=== PATIENT | female | born 1945 | race Caucasian/White ===

== ENCOUNTER 2022-08-22 10:20 | Outpatient (REF) | payer MEDICARE, SELFPAY ==
[2022-08-22 11:23] LABS: MANUAL DIFF FLAG NO
[2022-08-22 11:36] LABS: Basophils Absolute Auto 0.1 X10*3/uL (0.0-0.2); Basophils Percent Auto 1.1 % (0-2); Eosinophils Absolute Auto 0.1 X10*3/uL (0.0-0.4); Eosinophils Percent Auto 1.5 % (0-4); Hematocrit 34.7 % (37.0-47.0); Hemoglobin 10.6 g/dl (12.0-16.0); Imm Gran Abs Auto 0.02 X10*3/uL (0.00-0.03); Imm Gran Pct Auto 0.3 % (0.0-0.4); Lymphocytes Percent Auto 14.9 % (20-40); Mean Corpuscular HGB Conc 30.5 g/dl (31.0-35.0); Mean Corpuscular Hemoglobin 24.9 pg (27.0-33.0); Mean Corpuscular Volume 81.5 fL (80.0-98.0); Mean Platelet Volume 11.7 fL (9.4-12.3); Monocytes Absolute Auto 0.5 X10*3/uL (0.1-1.2); Neutrophils Absolute Auto 4.8 x10*3/uL (2.0-8.3); Neutrophils Percent Auto 74.2 % (45-73); Platelet Count 230 X10*3/uL (160-400); Red Blood Count 4.26 X10*6/uL (4.20-5.50); Red Cell Distribution Width 16.7 % (11.0-16.0); White Blood Count 6.5 X10*3/uL (4.8-10.8)
[2022-08-22 12:25] LABS: Alanine Aminotransferase 16 U/L (0-31); Albumin Level 3.8 g/dL (3.5-5.0); Alkaline Phosphatase 90 U/L (39-117); Anion Gap 12 (12-20); Aspartate Amino Transferase 18 U/L (5-31); Bilirubin Total 0.9 mg/dL (0.0-1.0); Blood Urea Nitrogen 24 mg/dL (9-16); Calcium 9.5 mg/dL (8.4-10.2); Carbon Dioxide 27 mmol/L (22-29); Chloride 107 mmol/L (96-108); Cholesterol 188 mg/dL; Estimated Glomerular Filt Rate 50; Glucose Fasting 110 mg/dL (60-99); HDL Cholesterol 58 mg/dL; LDL Cholesterol Calculated 116 mg/dl; Potassium 4.1 mmol/L (3.3-5.1); Sodium 142 mmol/L (135-145); Total Protein 6.4 g/dL (6.5-8.0); Triglycerides 71 mg/dL
[2022-08-22 12:42] LABS: TSH reflex Free T4 1.82 uIU/mL (0.32-4.0)
[2022-08-22 13:56] LABS: Appearance Urine Cloudy; Color Urine Yellow; Glucose Urine UA Negative (Negative); Leukocyte Esterase Urine Negative (Negative); Nitrite Urine Negative (Negative); PH 5.5 (5.0-9.0); Urine Blood Negative (Negative); Urine Ketones Negative (Negative); Urine Protein Negative (Neg-Trace)
== END 2022-08-22 10:21 | disposition home or self-care (01) ==
LOC: HO.HMGCLDS 10:20
PROVIDERS: PCP Nurse Practitioner Family; Visit Provider Nurse Practitioner Family
DX: I10 Essential (primary) hypertension (principal); M85.80 Other specified disorders of bone density and structure, unspecified site
CPT/HCPCS: 36415; 80053; 80061; 81003; 82306; 84443; 85025

== ENCOUNTER 2022-09-22 12:25 | Emergency (ER) | payer MEDICARE, SELFPAY ==
--- NOTE | ~2022-09-22 | XR_ITS ---
EXAMINATION: XR KNEE, LEFT CLINICAL INFORMATION: Injury, pain. COMPARISON: None available. TECHNIQUE: Two views of the left knee. FINDINGS: Status post total knee arthroplasty. Usual position and alignment of the arthroplasty components. No acute fracture is identified. No dislocation. Small chronic appearing calcification superior to the patella bilaterally. There is anterior soft tissue swelling overlying the patellar tendon. There is anterior soft tissue swelling otherwise more proximally as well. Small joint fluid. XR/XR knee LT 2V IMPRESSION: No radiographic evidence of acute fracture or dislocation. Anterior soft tissue swelling overlying the patellar tendon. This of uncertain etiology. Underlying tendon tear cannot be excluded by x-ray. Clinically correlate.
--- NOTE | ~2022-09-22 | CT_ITS ---
EXAMINATION: CT HEAD WITHOUT CONTRAST CLINICAL INFORMATION: Head injury COMPARISON: None available. TECHNIQUE: Contiguous axial imaging was performed from the skull base to vertex without intravenous administration of contrast. This CT examination was performed using dose optimization techniques as appropriate, variously including the following: *Automated exposure control *Adjustment of mA and/or kV according to patient size (this includes techniques or standardized protocols for targeted exams where dose is matched to indication/reason for exam; i.e. extremities or head) *Use of iterative reconstruction technique DLP: 669.3 mGy-cm FINDINGS: There is soft tissue scalp swelling in the right paramedial frontal and just above the orbits. No evidence for acute hemorrhage. The cisterns are unremarkable. Atrophy is noted. 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 There are hypodense changes of periventricular white matter likely related to chronic small vessel ischemic disease. A left frontal paramedian extra-axial mass is observed, partially calcific at 1.8 cm. This is suggestive of a meningioma and MRI would be recommended. The mastoids are well aerated. Skull base unremarkable. No calvarial disruption. CT/CT head/brain wo IV con IMPRESSION: No evidence for acute hemorrhage. Scalp swelling just above the right orbit. Atrophy with change of chronic small vessel ischemic disease. 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 Findings suggestive of a 1.8 cm meningioma in left frontal paramedian location. MRI recommended.
--- NOTE | ~2022-09-22 | CT_ITS ---
EXAMINATION: CT CERVICAL SPINE WITHOUT CONTRAST CLINICAL INFORMATION: Pain, injury after falling COMPARISON: None available. TECHNIQUE: Axial sections performed and bone and soft tissue windows without IV contrast enhancement. Sagittal and coronal reconstructions performed. This CT examination was performed using dose optimization techniques as appropriate, variously including the following: *Automated exposure control *Adjustment of mA and/or kV according to patient size (this includes techniques or standardized protocols for targeted exams where dose is matched to indication/reason for exam; i.e. extremities or head) *Use of iterative reconstruction technique DLP: 619.7 mGy-cm FINDINGS: The odontoid and the condyles are unremarkable. C1 and C2 arches are intact. The pedicles and laminar structures appear to be intact. No spinous process disruption. There is multilevel facet arthrosis. Spondylosis and degenerative disc space narrowing observed, most pronounced C5-C7 and also at the upper thoracic level. Facet and uncinate hypertrophy are seen at multiple levels with variable foraminal encroachments. Slight anterolisthesis noted C4-C5. Epiglottis and vocal cords are unremarkable. CT/CT cervical spine wo IV con IMPRESSION: 1. No evidence for bony fracture. 2. Multilevel degenerative changes.
--- NOTE | 2022-09-22 12:26 | ED.GENADULT ---
HPI - General Adult General Chief complaint: Fall Stated complaint: FALL W/L KNEE LAC PER EMS Time Seen by Provider: 09/22/22 12:25 Source: patient, family (patient's and daughter) and EMS Mode of arrival: EMS Limitations: no limitations History of Present Illness HPI narrative: Patient is a 77 year old assigned female at with a history of asthma, HTN, and bilateral knee replacements presenting to the emergency department today with left knee pain and forehead pain after a fall. Patient states that she was walking in a restaurant when she caught a table and fell, hitting her forehead and her left knee. Patient denies any loss of consciousness from the incident. Patient denies any anti-coagulation use. Patient denies any dizziness, lightheadedness, abdominal pain, nausea, vomiting, fever, chills, blurry vision, double vision, loss of vision, chest pain, difficulty breathing, shortness of breath, back pain, night sweats, pain with urination, increased urinary frequency, increased urinary urgency, blood in her urine or stool, syncope or a near syncopal episode, bowel incontinence, bladder incontinence, bowel retention, bladder retention, or any other complaints at this time. Onset (ago): minute(s) Location: face, left and lower extremity Radiation: non-radiation Pain Consistency: constant Relieving factors: none Exacerbating factors: none Associated symptoms: denies other symptoms Treatments prior to arrival: none Related Data Home Medications Medication Instructions Recorded Confirmed clotrimazole-betamethasone 1 1 appl topical BID 08/20/22 09/17/22 %-0.05 % lotion fexofenadine 180 mg tablet 180 mg PO DAILY 08/20/22 09/17/22 (Lea Allergy) Previous Rx's Medication Instructions Recorded albuterol sulfate 90 mcg/actuation 2 puff inhalation Q6H PRN 08/20/22 aerosol inhaler bronchospasm #8.5 grams fluticasone 250 mcg-salmeterol 50 1 ea inhalation BID #60 ea 08/20/22 mcg/dose blistr powdr for inhalation (Wixela Inhub) lisinopril 2.5 mg tablet 2.5 mg PO DAILY 30 days #30 tabs 08/20/22 albuterol sulfate 2.5 mg/3 mL 2.5 mg (3 mL) inhalation Q6H #75 mL 09/17/22 (0.083 %) solution for nebulization hydrocortisone 2.5 % topical 1 appl topical BID #20 grams 09/17/22 ointment prednisone 20 mg tablet 60 mg PO DAILY 3 days #9 tabs 09/19/22 amoxicillin 875 mg-potassium 1 tab PO BID 14 days #28 tabs 09/22/22 clavulanate 125 mg tablet Allergies Allergy/AdvReac Type Severity Reaction Status Date / Time No Known Allergies Allergy Verified 09/17/22 15:12 Review of Systems Constitutional: Constitutional: Reports no additional constitutional complaints, Denies chills, Denies fever(s) and Denies night sweats Eyes: Eyes: Reports no additional eye complaints, Denies blurry vision, Denies change in vision, Denies diplopia, Denies eye discharge, Denies loss of vision and Denies eye pain ENT: Denies dizziness Comments: forehead laceration Cardiovascular: Cardiovascular: Reports no additional cardiovascular complaints, Denies chest pain, Denies lightheadedness, Denies Loss of Consciousness and Denies dyspnea Respiratory: Respiratory: Reports no additional respiratory complaints and Denies dyspnea Gastrointestinal: Gastrointestinal: Reports no additional gastrointestinal complaints, Denies abdominal pain, Denies melena, Denies hematochezia, Denies change in bowel habits and Denies change in stool character Genitourinary: Genitourinary: Denies hematuria, Denies urinary frequency, Denies dysuria, Denies urinary incontinence, Denies urinary hesitancy and Denies urinary urgency Musculoskeletal: Musculoskeletal: Reports no additional musculoskeletal complaints, Denies numbness and Denies tingling Comments: left knee laceration / pain Neurologic: Denies dizziness, Denies loss of vision, Denies numbness and Denies tingling Psychiatric: Psychiatric: Reports no additional psychiatric complaints Endocrine: Endocrine: Reports no additional endocrine complaints Hematologic/Lymphatic: Hematologic/Lymphatic: Reports no additional hematologic/lymphatic complaints Allergic/Immunologic: Allergic/Immunologic: Reports no additional allergic/immunologic complaints PMFSH Past Medical History Attestation statement: The following information was validated with the patient. Source: old records reviewed and nursing notes reviewed Medical History Anemia Anxiety Asthma Basal cell carcinoma DVT (deep venous thrombosis) HTN (hypertension) Idiopathic peripheral neuropathy Osteoarthritis Osteopenia Osteoporosis Surgical History Knee joint replacement status Social History Social History Housing: Apartment Patient Tobacco Use Status: Never used Tobacco e-Cigarette/Vaping Use: Never Used Second Hand Smoke Exposure: No Current occupational status: retired Cognitive needs: No Hearing needs: No Vision needs: No Physical Exam ED Vital Signs: Vital Signs - 24 hr 09/22/22 12:57 Temperature 98.7 F Pulse Rate 78 Respiratory Rate 20 Blood Pressure 154/72 H Pulse Oximetry 97 Oxygen Delivery Method Room Air BMI result Body Mass Index 41.2 Const General: cooperative, no acute distress, alert and awake Nutritional Appearance: well nourished Orientation/consciousness: patient oriented x3 Limitations: no limitations [facility] Head images: 1. 3cm laceration to the forehead, no active bleeding Ears: hearing grossly normal bilaterally and external ears normal General nose exam: Normal external nose present, no nasal discharge noted and no epistaxis Face and sinus: Yes normal facial exam, No abrasion and No laceration Mouth: Normal oral and palatal mucosa present, no drooling and no muffled voice Eyes General: appearance normal, both eyes and all related structures Periorbital: periorbital findings normal Eyelids: Yes eyelids normal Conjunctivae: conjunctivae normal Pupils: Equal, round and reactive pupils present EOM: EOMs intact bilaterally Neck Neck: Yes normal visual inspection, Yes full ROM and Yes no lymphadenopathy Chest Chest palpation & inspection: normal inspection of the chest Resp Effort & Inspection: normal respiratory effort and able to speak in complete sentences GI Inspection: Yes normal to inspection Neuro General: patient oriented x3 and moves all extremities Cranial nerves: Yes Equal, round and reactive pupils present Cognition (Neuro): normal cognition Motor exam (neuro): 5/5 motor strength present throughout Sensory Exam: Normal double simultaneous stimulation for sensation Coordination: [id number] test normal Extrem Other: General: Yes full ROM, Yes capillary refill normal and Yes normal gait Psych Appearance: grossly normal Mental Status: mental status grossly normal Affect: normal affect Attitude: cooperative Thought process: Normal thought process present Thought content: Normal thought content present Insight: Good insight present (Psych) Medications Administered Discontinued Medications Generic Name Dose Route Start Last Admin Trade Name Freq PRN Reason Stop Dose Admin Diphtheria/Tetanus/Acell Pertussis 0.5 ml 09/22/22 12:56 09/22/22 14:32 Diphth,Pertus(Acell),Tet Adult 0.5 Ml Syringe IM 09/22/22 12:57 0.5 ml .ONCE ONE Administration Piperacillin Sod/Tazobactam 50 mls @ 100 mls/hr 09/22/22 13:39 09/22/22 14:08 Sod 3.375 gm/ Sodium Chloride IV 09/22/22 14:08 Infused ONCE ONE Infusion Lidocaine HCl 20 ml 09/22/22 13:21 09/22/22 14:32 Lidocaine Hcl 1 % Mpf 5 Ml Vial SUBCUT 09/22/22 13:22 20 ml ONCE ONE Administration Procedures Procedure Narrative Procedure Narrative: Laceration Laceration 1: Side (If applicable): left Size (cm): 13 Description: linear Local Anesthetic: lidocaine 1% Amount of anesthesia used (mL): 20 Pre-repair: wound explored, irrigated extensively, deep structures intact and extensive debridement Skin layer closed with: nylon Size (cm): 4-0 Number of sutures: 19 Technique: simple, interrupted Laceration 2: Site: face Size (cm): 5 Description: linear Depth: simple, single layer Local Anesthetic: lidocaine 1% Amount of anesthesia used (mL): 10 Pre-repair: wound explored, irrigated extensively and deep structures intact Skin layer closed with: other (prolene) Size (cm): 6-0 Number of sutures: 9 Technique: simple, interrupted Medical Decision Making Medical Decision Making MDM Narrative: Patient is a 77 year old assigned female at with a history of asthma, HTN, and bilateral knee pain presenting to the emergency department today with a forhead and left knee laceration after a fall. Patient's physical exam was as noted in the physical exam portion of this chart. Patient's blood work was unremarkable. Patient's left knee x-ray showed no acute process. Patient's c-spine CT showed no acute process. Patient's head CT showed an incidental meningioma but was otherwise unremarkable. I consulted with the orthopedic team who came and examined the left knee injury. They recommended the hematoma be expressed from the wound, excessively washed out, and brought back together with sutures, given PO antibiotics, and f/u in their office outpatient. I repaired the patient's forehead and left knee laceration, without incident, per procedure notes. Please see procedure narrative for results of the left knee repair. Patient's left knee wound was wrapped with non-adherent dressings and an magda wrap with mild compression to keep from a hematoma reforming. Patient was given a dose of IV zosyn while in the department. I explained my physical exam findings as well as all test results to the patient, the patient's , and the patient's daughter. I answered all questions asked by the patient, the patient's , and the patient's daughter. Patient was able to ambulate while in the department without incident. I stressed the importance of the patient taking her medication as prescribed. I stressed the importance of the patient following up with her primary care provider and an orthopedic provider. I stressed the importance of the patient returning to the emergency department immediately if her symptoms were to worsen or if she were to develop any dizziness, shortness of breath, difficulty breathing, chest pain, blurry vision, loss of vision, nausea, vomiting, abdominal pain, fever, chills, back pain, or any other complaints. Patient, the patient's daughter, and the patient's verbalized agreement and understanding with this treatment plan and discharge. Differential Diagnosis Differential Diagnoses: The differential diagnosis associated with the presentation includes Knee injury Knee laceration Head injury Face laceration Fall Meningioma Admission/Observation Consideration of admission/observation: Escalation of care including admission/observation considered Patient would have been admitted to the hospital had her work up had any findings where hospital admission was appropriate and her clinical presentation warranted hospital admission. Consult Healthcare Provider Management of the patient was discussed with: Fleet Service Clerk (spoke with orthopedics as noted in the MDM portion of this chart.) Lab Data [facility] Lab Attestation statement: I reviewed the patient's lab results. My interpretation of these studies and their corresponding values is that they are grossly normal including the patient's hemoglobin of 9.2 as the patient is chronically anemic. 09/22/22 12:54 09/22/22 12:54 Labs: Lab Results 09/22/22 09/22/22 09/22/22 Range/Units 12:54 12:54 12:54 WBC 4.4 L (4.8-10.8) X10*3/uL RBC 3.65 L (4.20-5.50) X10*6/uL Hgb 9.2 L (12.0-16.0) g/dl Hct 29.5 L (37.0-47.0) % MCV 80.8 (80.0-98.0) fL MCH 25.2 L (27.0-33.0) pg MCHC 31.2 (31.0-35.0) g/dl RDW 16.9 H (11.0-16.0) % Plt Count 217 (160-400) X10*3/uL MPV 10.8 (9.4-12.3) fL Immature Gran % (Auto) 0.2 (0.0-0.4) % Neut % (Auto) 86.9 H (45-73) % Lymph % (Auto) 10.6 L (20-40) % [place] % (Auto) 1.8 L (2-11) % Eos % (Auto) 0.0 (0-4) % Baso % (Auto) 0.5 (0-2) % Lymph # (Auto) 0.5 L (1.2-4.9) X10*3/uL [place] # (Auto) 0.1 (0.1-1.2) X10*3/uL Eos # (Auto) 0.0 (0.0-0.4) X10*3/uL Baso # (Auto) 0.0 (0.0-0.2) X10*3/uL Abs Immat Gran (auto) 0.01 (0.00-0.03) X10*3/uL Absolute Neuts (auto) 3.8 (2.0-8.3) x10*3/uL Absolute Nucleated RBC 0.000 (0.0-0.012) X10*3/uL Nucleated RBC % (auto) 0.0 (0.0-0.2) /100WBC PT 10.9 (10.0-13.1) SEC INR 1.0 (0.9-1.1) APTT 20.4 L (26.0-36.4) SEC Sodium 140 (135-145) mmol/L Potassium 4.4 (3.3-5.1) mmol/L Chloride 111 H (96-108) mmol/L Carbon Dioxide 23 (22-29) mmol/L Anion Gap 10 L (12-20) BUN 31 H (9-16) mg/dL Creatinine 1.07 (0.5-1.4) mg/dL Estim Creat Clear Calc TNP Estimated GFR 50 Random Glucose 179 H (60-115) mg/dL Calcium 9.3 (8.4-10.2) mg/dL Total Bilirubin 0.6 (0.0-1.0) mg/dL AST 17 (5-31) U/L ALT 16 (0-31) U/L Alkaline Phosphatase 62 (39-117) U/L Total Protein 5.5 L (6.5-8.0) g/dL Albumin 3.3 L (3.5-5.0) g/dL Blood Type Antibody Screen 09/22/22 Range/Units 12:54 WBC (4.8-10.8) X10*3/uL RBC (4.20-5.50) X10*6/uL Hgb (12.0-16.0) g/dl Hct (37.0-47.0) % MCV (80.0-98.0) fL MCH (27.0-33.0) pg MCHC (31.0-35.0) g/dl RDW (11.0-16.0) % Plt Count (160-400) X10*3/uL MPV (9.4-12.3) fL Immature Gran % (Auto) (0.0-0.4) % Neut % (Auto) (45-73) % Lymph % (Auto) (20-40) % [place] % (Auto) (2-11) % Eos % (Auto) (0-4) % Baso % (Auto) (0-2) % Lymph # (Auto) (1.2-4.9) X10*3/uL [place] # (Auto) (0.1-1.2) X10*3/uL Eos # (Auto) (0.0-0.4) X10*3/uL Baso # (Auto) (0.0-0.2) X10*3/uL Abs Immat Gran (auto) (0.00-0.03) X10*3/uL Absolute Neuts (auto) (2.0-8.3) x10*3/uL Absolute Nucleated RBC (0.0-0.012) X10*3/uL Nucleated RBC % (auto) (0.0-0.2) /100WBC PT (10.0-13.1) SEC INR (0.9-1.1) APTT (26.0-36.4) SEC Sodium (135-145) mmol/L Potassium (3.3-5.1) mmol/L Chloride (96-108) mmol/L Carbon Dioxide (22-29) mmol/L Anion Gap (12-20) BUN (9-16) mg/dL Creatinine (0.5-1.4) mg/dL Estim Creat Clear Calc Estimated GFR Random Glucose (60-115) mg/dL Calcium (8.4-10.2) mg/dL Total Bilirubin (0.0-1.0) mg/dL AST (5-31) U/L ALT (0-31) U/L Alkaline Phosphatase (39-117) U/L Total Protein (6.5-8.0) g/dL Albumin (3.5-5.0) g/dL Blood Type A Positive Antibody Screen NEGATIVE Independent Interpretation I performed an independent interpretation of an: Plain X-Ray and CT Scan Interpretation: My interpretation is in agreement with the radiologist's impression of these imaging studies. EXAMINATION: CT HEAD WITHOUT CONTRAST CLINICAL INFORMATION: Head injury? COMPARISON: None available. TECHNIQUE: Contiguous axial imaging was performed from the skull base to vertex without intravenous administration of contrast. This CT examination was performed using dose optimization techniques as appropriate, variously including the following: *Automated exposure control *Adjustment of mA and/or kV according to patient size (this includes techniques or standardized protocols for targeted exams where dose is matched to indication/reason for exam; i.e. extremities or head) *Use of iterative reconstruction technique DLP: 669.3 mGy-cm FINDINGS: There is soft tissue scalp swelling in the right paramedial frontal and just above the orbits. No evidence for acute hemorrhage. The cisterns are unremarkable. Atrophy is noted. 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 There are hypodense changes of periventricular white matter likely related to chronic small vessel ischemic disease. A left frontal paramedian extra-axial mass is observed, partially calcific at 1.8 cm. This is suggestive of a meningioma and MRI would be recommended. The mastoids are well aerated. Skull base unremarkable. No calvarial disruption. ? CT/CT head/brain wo IV con IMPRESSION: No evidence for acute hemorrhage. Scalp swelling just above the right orbit. ? Atrophy with change of chronic small vessel ischemic disease. ? 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 ? Findings suggestive of a 1.8 cm meningioma in left frontal paramedian location. MRI recommended. Dictated By: Laurent Taylor Signed By: Electronically signed by Laurent Taylor 09/22/22 1456 EXAMINATION: CT CERVICAL SPINE WITHOUT CONTRAST CLINICAL INFORMATION: Pain, injury after falling? COMPARISON: None available. TECHNIQUE: Axial sections performed and bone and soft tissue windows without IV contrast enhancement. Sagittal and coronal reconstructions performed.? This CT examination was performed using dose optimization techniques as appropriate, variously including the following: *Automated exposure control *Adjustment of mA and/or kV according to patient size (this includes techniques or standardized protocols for targeted exams where dose is matched to indication/reason for exam; i.e. extremities or head) *Use of iterative reconstruction technique DLP: 619.7 mGy-cm FINDINGS: The odontoid and the condyles are unremarkable. C1 and C2 arches are intact. The pedicles and laminar structures appear to be intact. No spinous process disruption. There is multilevel facet arthrosis. Spondylosis and degenerative disc space narrowing observed, most pronounced C5-C7 and also at the upper thoracic level. Facet and uncinate hypertrophy are seen at multiple levels with variable foraminal encroachments. Slight anterolisthesis noted C4-C5. Epiglottis and vocal cords are unremarkable. CT/CT cervical spine wo IV con IMPRESSION: 1.? No evidence for bony fracture. 2.? Multilevel degenerative changes. Dictated By: Laurent Taylor Signed By: Electronically signed by Laurent?Brandon 09/22/22 1503 EXAMINATION: XR KNEE, LEFT CLINICAL INFORMATION: Injury, pain. COMPARISON: None available.? TECHNIQUE: Two views of the left knee. FINDINGS: Status post total knee arthroplasty. Usual position and alignment of the arthroplasty components. No acute fracture is identified. No dislocation. Small chronic appearing calcification superior to the patella bilaterally. There is anterior soft tissue swelling overlying the patellar tendon. There is anterior soft tissue swelling otherwise more proximally as well. Small joint fluid. XR/XR knee LT 2V IMPRESSION: No radiographic evidence of acute fracture or dislocation. Anterior soft tissue swelling overlying the patellar tendon. This of uncertain etiology. Underlying tendon tear cannot be excluded by x-ray. Clinically correlate. Dictated By: Steven Richardson MD Signed By: Electronically signed by Steven Richardson MD 09/22/22 6486 Radiology Impression Discussion of test interpretation with radiology: I have reviewed the radiologist's reading. Independent Historian Clinical information obtained from an independent historian. History obtained from or confirmed by: Spouse (patient's provided additional history and confirmed the history provided by the patient.), EMS (EMS provided additional history and confirmed the history provided by the patient.) and Other (patient's daughter provided additional history and confirmed the history provided by the patient.) Chronic Conditions Patient?s care impacted by: Hypertension and Other (asthma, anemia) Critical Care Time Critical Care Time Critical Care Time: Yes Total Critical Care Time: 90 Attestation: I spent 90 minutes of Critical Care Time with this patient. This does not include time spent on separately reported billable procedures. Discharge Plan Discharge Clinical Impression: Fall, Knee laceration, Laceration of forehead, Meningioma Patient Disposition: Home, Self-Care Instructions: Care For Your Stitches (DC), Laceration (DC), Fall Prevention for Older Adults (ED), Meningioma (ED) Additional Instructions: Follow up with your primary care provider, an orthopedic provider, and have your primary care provider refer you to a neurosurgeon to discuss the incidental finding of a meningioma. Perform daily wound checks and dressing changes. Do NOT soak the affected area. Discuss with the orthopedic provider about removing the sutures of the knee. Have your forehead sutures removed in 7-10 days. Take your antibiotics as prescribed. Return to the emergency department immediately if your symptoms worsen or if you develop any dizziness, shortness of breath, difficulty breathing, chest pain, blurry vision, loss of vision, nausea, vomiting, abdominal pain, fever, chills, back pain, or any other complaints. Prescriptions: New amoxicillin-pot clavulanate 875-125 mg tablet 1 tab PO BID 14 Days Qty: 28 0RF No Action prednisone 20 mg tablet 60 mg PO DAILY 3 Days Qty: 9 0RF fexofenadine [Lea Allergy] 180 mg tablet 180 mg PO DAILY clotrimazole-betamethasone 1-0.05 % lotion 1 appl topical BID lisinopril 2.5 mg tablet 2.5 mg PO DAILY 30 Days Qty: 30 2RF fluticasone propion-salmeterol [Wixela Inhub] 250-50 mcg/dose blister with device 1 ea inhalation BID Qty: 60 2RF albuterol sulfate 90 mcg/actuation HFA aerosol inhaler 2 puff inhalation Q6H PRN (Reason: bronchospasm) Qty: 8.5 2RF albuterol sulfate 2.5 mg /3 mL (0.083 %) solution for nebulization 2.5 mg inhalation Q6H Qty: 75 0RF hydrocortisone 2.5 % ointment 1 appl topical BID Qty: 20 0RF Referrals: [facility] [place] [facility] Surgeons [Provider Group] (Call to establish and follow up with an orthopedic provider. ) Juanito Riley, [employer] [Primary Care Provider] - Interventions: ED Discharge Assessment Last Done: 09/22/22 16:35 Discharge Date/Time: 09/22/22 16:42 Print Language: Mauritian
[2022-09-22 12:57] VITALS: BP 154/72; PULSE 78; RESP 20; TEMP 37.1; O2SAT 97; BMI 41.2
[2022-09-22 12:58] LABS: MANUAL DIFF FLAG NO
[2022-09-22 13:01] LABS: Basophils Percent Auto 0.5 % (0-2); Hematocrit 29.5 % (37.0-47.0); Hemoglobin 9.2 g/dl (12.0-16.0); Imm Gran Abs Auto 0.01 X10*3/uL (0.00-0.03); Imm Gran Pct Auto 0.2 % (0.0-0.4); Lymphocytes Absolute Auto 0.5 X10*3/uL (1.2-4.9); Lymphocytes Percent Auto 10.6 % (20-40); Mean Corpuscular HGB Conc 31.2 g/dl (31.0-35.0); Mean Corpuscular Hemoglobin 25.2 pg (27.0-33.0); Mean Corpuscular Volume 80.8 fL (80.0-98.0); Mean Platelet Volume 10.8 fL (9.4-12.3); Monocytes Absolute Auto 0.1 X10*3/uL (0.1-1.2); Monocytes Percent Auto 1.8 % (2-11); Neutrophils Absolute Auto 3.8 x10*3/uL (2.0-8.3); Neutrophils Percent Auto 86.9 % (45-73); Platelet Count 217 X10*3/uL (160-400); Red Blood Count 3.65 X10*6/uL (4.20-5.50); Red Cell Distribution Width 16.9 % (11.0-16.0); White Blood Count 4.4 X10*3/uL (4.8-10.8)
[2022-09-22 13:18] LABS: Alanine Aminotransferase 16 U/L (0-31); Albumin Level 3.3 g/dL (3.5-5.0); Alkaline Phosphatase 62 U/L (39-117); Anion Gap 10 (12-20); Aspartate Amino Transferase 17 U/L (5-31); Bilirubin Total 0.6 mg/dL (0.0-1.0); Blood Urea Nitrogen 31 mg/dL (9-16); Calcium 9.3 mg/dL (8.4-10.2); Carbon Dioxide 23 mmol/L (22-29); Chloride 111 mmol/L (96-108); Estimated Glomerular Filt Rate 50; Glucose Random 179 mg/dL (60-115); Potassium 4.4 mmol/L (3.3-5.1); Sodium 140 mmol/L (135-145); Total Protein 5.5 g/dL (6.5-8.0)
[2022-09-22 13:19] LABS: Prothrombin Time 10.9 SEC (10.0-13.1)
[2022-09-22 13:22] VITALS: BP 176/74; PULSE 140; O2SAT 100
--- NOTE | 2022-09-22 13:22 | PC.NURSE ---
pt seen by MD Arriola at bedside, this nurse observed MD Arriola express several sizeable blood clots from laceration site, this nurse placed 20G IV in right AC- labs obtained, -pending results- pt in CT at this time
[2022-09-22 13:24] LABS: Partial Thromboplastin Time 20.4 SEC (26.0-36.4)
[2022-09-22] MEDS: Piperacillin Sodium/Tazobactam 3.375 GM in 0.9 % Sodium Chloride 50 ML IV (13:49)
--- NOTE | 2022-09-22 14:08 | PC.NURSE ---
pt left leg wrapped with xtra large ADB pad folled by fluff, followed by magda wrap for pressure to control bleeding. pt assisted with bedpan, pt bed linens changed. pt completed 3.375mg iv zosyn- pending imaging results- call within reach.
[2022-09-22] MEDS: Lidocaine HCl 1 % MPF 5 ML VIAL 20 ML SUBCUT (14:32)
[2022-09-22] MEDS: Diphth,Pertus(ACell),Tet Adult 0.5 ML SYRINGE IM (14:32)
== END 2022-09-22 16:42 | disposition home or self-care (01) ==
PROVIDERS: Physician Assistant Medical; Emergency Provider Emergency Medicine; PCP Nurse Practitioner Family
DX: S81.012A Laceration without foreign body, left knee, initial encounter (principal); S01.81XA Laceration without foreign body of other part of head, initial encounter; W22.03XA Walked into furniture, initial encounter; D32.9 Benign neoplasm of meninges, unspecified; I10 Essential (primary) hypertension; M25.562 Pain in left knee; D64.9 Anemia, unspecified; M81.0 Age-related osteoporosis without current pathological fracture; Z86.718 Personal history of other venous thrombosis and embolism; Y93.89 Activity, other specified; Y92.511 Restaurant or cafe as the place of occurrence of the external cause; Y99.9 Unspecified external cause status; Z79.899 Other long term (current) drug therapy
CPT/HCPCS: 12005; 12014; 36415; 70450; 72125; 73560; 80053; 85025; 85610; 85730; 86850; 86900; 86901; 90471; 90715; 96365; 99283; 99284; J2543

== ENCOUNTER 2022-09-22 17:56 | Emergency (ER) | payer MEDICARE, SELFPAY ==
--- NOTE | 2022-09-22 | ECG_ITS ---
Test Reason : dizziness Blood Pressure : / mmHG Vent. Rate : 077 BPM Atrial Rate : 077 BPM P-R Int : 174 ms QRS Dur : 066 ms QT Int : 394 ms P-R-T Axes : 044 010 043 degrees QTc Int : 445 ms Normal sinus rhythm Possible Left atrial enlargement Cannot rule out Anterior infarct , age undetermined Abnormal ECG No previous ECGs available Referred By: Dmitry Braga Electronically Signed By:Iggy High
[2022-09-22 18:04] VITALS: BP 110/68; PULSE 78; O2SAT 98
[2022-09-22 18:11] VITALS: BP 132/58; PULSE 77; RESP 18; TEMP 37.1; O2SAT 96; BMI 43.2
--- NOTE | 2022-09-22 18:46 | ED.GENADULT ---
HPI - General Adult General Chief complaint: Dizziness Stated complaint: Fall Time Seen by Provider: 09/22/22 18:08 Source: patient Mode of arrival: ambulatory Limitations: no limitations History of Present Illness HPI narrative: 77-year-old female presents after an accidental fall. Patient was here earlier today after falling at a restaurant. She did hit her head. She suffered a laceration to her forehead. Imaging study was negative for acute intracranial bleeding. Laceration was repaired. Additionally, patient suffered a large laceration to the left knee. That was repaired using sutures. Unfortunately, when patient went home, she felt generally weak, collapsed and landed onto her left knee. She did follow slightly backwards and with low mechanism of injury, did hit her head. She never lost consciousness. She denies headache or neck pain. She was placed in a cervical collar upon arrival. She denies any radiculopathy. Her pain is certainly well controlled at this point. She reports having not eaten all day long and having lost a lot of blood. Patient does have a history of anemia. She is not on any blood thinning medications. She denies any palpitations, shortness breath, lightheadedness. Related Data Home Medications Medication Instructions Recorded Confirmed clotrimazole-betamethasone 1 1 appl topical BID 08/20/22 09/17/22 %-0.05 % lotion fexofenadine 180 mg tablet 180 mg PO DAILY 08/20/22 09/17/22 (Lea Allergy) Previous Rx's Medication Instructions Recorded albuterol sulfate 90 mcg/actuation 2 puff inhalation Q6H PRN 08/20/22 aerosol inhaler bronchospasm #8.5 grams fluticasone 250 mcg-salmeterol 50 1 ea inhalation BID #60 ea 08/20/22 mcg/dose blistr powdr for inhalation (Wixela Inhub) lisinopril 2.5 mg tablet 2.5 mg PO DAILY 30 days #30 tabs 08/20/22 albuterol sulfate 2.5 mg/3 mL 2.5 mg (3 mL) inhalation Q6H #75 mL 09/17/22 (0.083 %) solution for nebulization hydrocortisone 2.5 % topical 1 appl topical BID #20 grams 09/17/22 ointment prednisone 20 mg tablet 60 mg PO DAILY 3 days #9 tabs 09/19/22 amoxicillin 875 mg-potassium 1 tab PO BID 14 days #28 tabs 09/22/22 clavulanate 125 mg tablet Allergies Allergy/AdvReac Type Severity Reaction Status Date / Time No Known Allergies Allergy Verified 09/17/22 15:12 Review of Systems Review of Systems: CONSTITUTIONAL: Denies weight loss, fever and chills. HEENT: Denies changes in vision and hearing. RESPIRATORY: Denies SOB and cough. CV: Denies palpitations no CP. GI: Denies abdominal pain, nausea, vomiting and diarrhea. : Denies dysuria and urinary frequency. MSK: Denies myalgia and joint pain. SKIN: Denies rash and pruritus. NEUROLOGICAL: Denies headache and syncope. PSYCHIATRIC: Denies recent changes in mood. Denies anxiety and depression. All other ROS are negative unless in HPI PMFSH Past Medical History Medical History Anemia Anxiety Asthma Basal cell carcinoma DVT (deep venous thrombosis) HTN (hypertension) Idiopathic peripheral neuropathy Osteoarthritis Osteopenia Osteoporosis Surgical History Knee joint replacement status Social History Social History Housing: Apartment Patient Tobacco Use Status: Never used Tobacco Smoked in Last 30 Days: No e-Cigarette/Vaping Use: Never Used Second Hand Smoke Exposure: No Use of substances other than those prescribed or required for medical reasons: No Advance Directives: No Advance Directives Information Provided: No Current occupational status: retired Cognitive needs: No Hearing needs: No Vision needs: No Physical Exam ED Vital Signs: Vital Signs - 24 hr 09/22/22 18:11 09/22/22 19:07 09/22/22 19:51 Temperature 98.8 F 97.8 F Pulse Rate 77 57 63 Respiratory Rate 18 20 16 Blood Pressure 132/58 L 112/52 L 120/98 H Pulse Oximetry 96 96 97 Oxygen Delivery Method Room Air Room Air Room Air BMI result Body Mass Index 43.2 Course Course Course Narrative: 77-year-old female presents for the 2nd time less than 24 hours after an accidental fall and generalized weakness. My examination revealed a slightly day he has left wound on the knee. There is no indication to repair it at this time. Will place Steri-Strips across the wound in order to provide for increased stability. This is the day he since is quite superficial and I do not believe would benefit from additional suturing patient did report hitting her head, I doubt intracranial bleeding given the nature and low mechanism of the injury. Will observe while in the emergency department and image if need be. Finally, patient reports generalized weakness. I will ambulate the patient. Will feed the patient. We will assess whether Reevaluation(s) Reevaluation #1: Patient's laboratory analysis came back. She does have a slight drop in her hemoglobin. She can be discharged however. I recommended repeat blood testing by the end of the week and at the latest early next week. Patient is able to ambulate with a walker. However, she does have some gait instability and she felt twice a day. I believe transport via ambulance is the most appropriate mechanism to provide for safety. Family agrees with this. Time: 20:50 Medications Administered Discontinued Medications Generic Name Dose Route Start Last Admin Trade Name Freq PRN Reason Stop Dose Admin Acetaminophen 975 mg 09/22/22 18:44 09/22/22 19:29 Acetaminophen 325 Mg Tablet PO 09/22/22 18:45 975 mg ONCE ONE Administration Medical Decision Making Medical Decision Making MDM Narrative: 77-year-old female with history of anemia, hypertension, meningioma which was newly diagnosed presents after an accidental fall. At she was here earlier today, had a CT scan of the head showing no intracranial bleeding. She had imaging studies finding additional no injuries. She a large wound to the left knee which was repaired has slight dehiscence after the fall which she fell onto her left knee. She did report mild head injury prior to arrival. There is no loss of consciousness. There was no prodrome. She reports just generalized weakness. At this point, the differential diagnosis includes defer deconditioning, anemia, accidental fall, near syncope, cardiac dysrhythmia will get an EKG to evaluate for cardiac dysrhythmia. There is no indication for emergent imaging of the head at this time based on the mechanism injury and lack of symptoms. She is not on any blood thinning medications eat either. Will check a CBC to see if there is any progressive anemia that could be contributing to her symptoms specially since she reports a significant amount of blood loss. Additionally, we will rotate the patient to make sure she has gait stability. She may need to ambulate with a walker. She is agreeable to this. Differential Diagnosis Differential Diagnoses: The differential diagnosis associated with the presentation includes (See above) Admission/Observation Consideration of admission/observation: Escalation of care including admission/observation considered (If patient has too much difficulty ambulating and has significant gait instability, would consider hospitalization.) Lab Data MDM Lab Attestation statement: I reviewed the patient's lab results. 09/22/22 19:49 Labs: Lab Results 09/22/22 Range/Units 19:49 WBC 9.0 (4.8-10.8) X10*3/uL RBC 3.48 L (4.20-5.50) X10*6/uL Hgb 8.8 L (12.0-16.0) g/dl Hct 28.3 L (37.0-47.0) % MCV 81.3 (80.0-98.0) fL MCH 25.3 L (27.0-33.0) pg MCHC 31.1 (31.0-35.0) g/dl RDW 17.1 H (11.0-16.0) % Plt Count 240 (160-400) X10*3/uL MPV 10.9 (9.4-12.3) fL Immature Gran % (Auto) 0.6 H (0.0-0.4) % Neut % (Auto) 80.6 H (45-73) % Lymph % (Auto) 11.2 L (20-40) % [place] % (Auto) 7.4 (2-11) % Eos % (Auto) 0.0 (0-4) % Baso % (Auto) 0.2 (0-2) % Lymph # (Auto) 1.0 L (1.2-4.9) X10*3/uL [place] # (Auto) 0.7 (0.1-1.2) X10*3/uL Eos # (Auto) 0.0 (0.0-0.4) X10*3/uL Baso # (Auto) 0.0 (0.0-0.2) X10*3/uL Abs Immat Gran (auto) 0.05 H (0.00-0.03) X10*3/uL Absolute Neuts (auto) 7.3 (2.0-8.3) x10*3/uL Absolute Nucleated RBC 0.000 (0.0-0.012) X10*3/uL Nucleated RBC % (auto) 0.0 (0.0-0.2) /100WBC Independent Interpretation I performed an independent interpretation of an: EKG (Normal sinus rhythm heart rate 77, no acute ST elevations depressions, normal intervals) Radiology Impression Discussion of test interpretation with radiology: I have reviewed the radiologist's reading. Radiologist Impression: CT/CT head/brain wo IV con IMPRESSION: No evidence for acute hemorrhage. Scalp swelling just above the right orbit. ? Atrophy with change of chronic small vessel ischemic disease. ? 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 ? Findings suggestive of a 1.8 cm meningioma in left frontal paramedian location. MRI recommended. Dictated By: Laurent Taylor Signed By: <Electronically signed by Laurent? Brandon in OV> 09/22/22 1456 Prescription Management I considered prescription management with: Pain Medication Chronic Conditions Patient?s care impacted by: Other (Anemia) Discharge Plan Discharge Clinical Impression: Accidental fall, Dehiscence of wound, Anemia, Falls frequently, Unstable gait Patient Disposition: Home, Self-Care Instructions: Laceration (ED), Fall Prevention (ED), Steristrips (ED) Additional Instructions: Your hemoglobin level dropped slightly from your earlier 1 today. It does not warrant hospitalization at this point but I do recommend rechecking by the end of the week and at the latest early next week. Please speak with her primary care provider regarding an outpatient blood count test. Prescriptions: No Action prednisone 20 mg tablet 60 mg PO DAILY 3 Days Qty: 9 0RF amoxicillin-pot clavulanate 875-125 mg tablet 1 tab PO BID 14 Days Qty: 28 0RF fexofenadine [Lea Allergy] 180 mg tablet 180 mg PO DAILY clotrimazole-betamethasone 1-0.05 % lotion 1 appl topical BID lisinopril 2.5 mg tablet 2.5 mg PO DAILY 30 Days Qty: 30 2RF fluticasone propion-salmeterol [Wixela Inhub] 250-50 mcg/dose blister with device 1 ea inhalation BID Qty: 60 2RF albuterol sulfate 90 mcg/actuation HFA aerosol inhaler 2 puff inhalation Q6H PRN (Reason: bronchospasm) Qty: 8.5 2RF albuterol sulfate 2.5 mg /3 mL (0.083 %) solution for nebulization 2.5 mg inhalation Q6H Qty: 75 0RF hydrocortisone 2.5 % ointment 1 appl topical BID Qty: 20 0RF Referrals: Juanito Riley, DIRECTOR OF HEMOPHILIA-BC [Primary Care Provider] - 2 days
--- NOTE | 2022-09-22 19:00 | PC.NURSE ---
pt ambulated to the bathroom with a walker pt ambulated really well, but the left leg lac started to bleed on the way to the bathroom pt sat on the bathroom voided then noticed the blood and panic, reported to feel dizzy/hot and not feeling well from the sight of the blood, pt have a small bowel movement at this time. pt was assisted on the stretcher and aware
[2022-09-22 19:07] VITALS: BP 112/52; PULSE 57; RESP 20; O2SAT 96
[2022-09-22] MEDS: Acetaminophen 325 MG TABLET 975 MG PO (19:29)
[2022-09-22 19:51] VITALS: BP 120/98; PULSE 63; RESP 16; TEMP 36.6; O2SAT 97
--- NOTE | 2022-09-22 19:52 | MHC.EDTECH ---
THIS PCT ASSUMED CARE OF PT AT 1900 ,VITALS SIGN TAKEN ,REPEATED CBC DRAWN AND SENT TO LAB ,PT HAD A TURKEY SANDWICH AND SOME WATER FOR SNACK .
[2022-09-22 19:53] LABS: MANUAL DIFF FLAG NO
[2022-09-22 20:04] LABS: Basophils Percent Auto 0.2 % (0-2); Hematocrit 28.3 % (37.0-47.0); Hemoglobin 8.8 g/dl (12.0-16.0); Imm Gran Abs Auto 0.05 X10*3/uL (0.00-0.03); Imm Gran Pct Auto 0.6 % (0.0-0.4); Lymphocytes Percent Auto 11.2 % (20-40); Mean Corpuscular HGB Conc 31.1 g/dl (31.0-35.0); Mean Corpuscular Hemoglobin 25.3 pg (27.0-33.0); Mean Corpuscular Volume 81.3 fL (80.0-98.0); Mean Platelet Volume 10.9 fL (9.4-12.3); Monocytes Absolute Auto 0.7 X10*3/uL (0.1-1.2); Monocytes Percent Auto 7.4 % (2-11); Neutrophils Absolute Auto 7.3 x10*3/uL (2.0-8.3); Neutrophils Percent Auto 80.6 % (45-73); Platelet Count 240 X10*3/uL (160-400); Red Blood Count 3.48 X10*6/uL (4.20-5.50); Red Cell Distribution Width 17.1 % (11.0-16.0)
== END 2022-09-22 21:33 | disposition home or self-care (01) ==
PROVIDERS: Emergency Provider Emergency Medicine; PCP Nurse Practitioner Family
DX: T81.33XA Disruption of traumatic injury wound repair, initial encounter (principal); D64.9 Anemia, unspecified; R29.6 Repeated falls; R26.81 Unsteadiness on feet; I10 Essential (primary) hypertension; D32.9 Benign neoplasm of meninges, unspecified; Z86.718 Personal history of other venous thrombosis and embolism
CPT/HCPCS: 36415; 85025; 93005; 99283; 99284; 99285

== ENCOUNTER → 2022-10-02 10:25 | Outpatient (BNVA) | payer MEDICARE, SELFPAY | PROVIDERS: PCP Nurse Practitioner Family; Visit Provider Orthopaedic Surgery | DX: S81.012A Laceration without foreign body, left knee, initial encounter (principal); Z48.02 Encounter for removal of sutures; S01.81XD Laceration without foreign body of other part of head, subsequent encounter | CPT/HCPCS: 99202 ==

== ENCOUNTER 2022-10-06 14:15 | Outpatient (AMB) | payer MEDICARE, SELFPAY ==
[2022-10-06 14:18] VITALS: BMI 43.1
--- NOTE | 2022-10-06 14:18 | MHC.OFFVIS ---
Intake Vital Signs 10/06/22 14:18 Height 5 ft 1 in Weight 228 lb BMI 43.1 Intake Visit Reasons: OV - LT Knee laceration, DOI 09/22/22 Intake Note: Padma is a 77 year old female who presents today for a evaluation for her left knee laceration, DOI 09/22/22. Patient reports when she was at a restaurant she fell hitting her left knee and her head. Pain is on the lateral aspect of the knee and notices a lot of swelling. Allergies No Known Allergies Allergy (Verified 10/06/22 14:22) HPI OV - LT Knee laceration, DOI 09/22/22 HPI Details 77-year-old female who presents in the office today for a follow up on her left knee laceration, which occurred on 09/22/2022 status post a fall. She was seen in the ED where sutures to her left knee and forehead were applied. She reported a second fall that occurred the same day after she returned home from the ED at this time steri-stripes were applied. The patient reports pain on the lateral aspect of the left knee with a lot of edema. [facility] Medical History Anemia Anxiety Asthma Basal cell carcinoma DVT (deep venous thrombosis) HTN (hypertension) Idiopathic peripheral neuropathy Osteoarthritis Osteopenia Osteoporosis Surgical History Knee joint replacement status Social History Housing: Apartment Patient Tobacco Use Status: Never used Tobacco e-Cigarette/Vaping Use: Never Used Second Hand Smoke Exposure: No Current occupational status: retired Cognitive needs: No Hearing needs: No Vision needs: No Review of Systems Const All systems reviewed & are unremarkable except as noted in HPI and below Physical Exam Vital Signs: BMI result Body Mass Index 43.1 Const General: cooperative and no acute distress Orientation/consciousness: patient oriented x3 Resp Effort & Inspection: normal respiratory effort and able to speak in complete sentences Cardio Rate: regular rate Peripheral pulses: Peripheral pulses 2+ throughout GI Palpation (GI): Soft to palpation Skin Lesions: no lesions Rashes: no rashes Neuro General: patient oriented x3 Extrem Other: Left knee: laceration site is clean, dry, and intact. Remaining sutures are intact. Able to flex and extend. No signs of infection. NVI. Psych Mental Status: mental status grossly normal Assessment & Plan Assessment & Plan (1) Laceration of left knee: Code(s): S81.012A - Laceration without foreign body, left knee, initial encounter (2) Laceration of forehead: Code(s): S01.81XA - Laceration without foreign body of other part of head, initial encounter Plan Ms. Durant is a 77-year-old female who presents in the office today for a follow up on her left knee laceration, which occurred on 09/22/2022 status post a fall. She was seen in the ED where sutures to her left knee and forehead were applied. She reported a second fall that occurred the same day after she returned home from the ED at this time steri-stripes were applied. The patient reports pain on the lateral aspect of the left knee with a lot of edema. We removed the reminder of the sutures and steri-stripes were applied. Proximal laceration site has an area of skin tear, it was dressed with xeroform and non-stick dressing. Paperwork was signed for a temporary handicap parking pass. Follow up will be in 1 week for a wound check, or sooner if needed. Patient Instructions: Scribed for Rachel Hunt PA-C by Lianna Puri medical records auditor, on 10/06/2022 at 2:17 pm, EST. Your attestation Coding Level of Care Code Est Pt Level 3 (72927) Diagnoses Laceration of left knee S81.012A Laceration of forehead S01.81XA
== END 2022-10-06 15:09 | disposition home or self-care (01) ==
PROVIDERS: PCP Nurse Practitioner Family; Visit Provider Physician Assistant
DX: S81.012D Laceration without foreign body, left knee, subsequent encounter (principal); S01.81XD Laceration without foreign body of other part of head, subsequent encounter; Z48.02 Encounter for removal of sutures
CPT/HCPCS: 15853; 99213

== ENCOUNTER → 2022-10-06 14:15 | Outpatient (BNVA) | payer MEDICARE, SELFPAY | PROVIDERS: PCP Nurse Practitioner Family; Visit Provider Physician Assistant | DX: S81.012D Laceration without foreign body, left knee, subsequent encounter (principal); S01.81XD Laceration without foreign body of other part of head, subsequent encounter | CPT/HCPCS: 99212 ==

== ENCOUNTER 2022-10-13 11:37 | Outpatient (AMB) | payer MEDICARE, SELFPAY ==
--- NOTE | 2022-10-13 12:20 | A.OFFVIS_ITS ---
Intake Intake Visit Reasons: OV- LT Knee laceration, DOI 09/22/22 Wound check Intake Note: Padma is a 77 year old female who presnets today as a new patient for a wound check of the left knee. On 09/22/22 she fell and sustained a laceration to the left knee. She presents today for a wound check. Patient is taking abx but reports that is has given her yeast infection and would like medication for this, i did advise her that she may have to contact her pcp for this. Allergies No Known Allergies Allergy (Verified 10/06/22 14:22) HPI OV- LT Knee laceration, DOI 09/22/22 Wound check HPI Details 77-year-old female who presents in the office today for a wound check and a follow up on her left knee laceration, which occurred on 09/22/2022 status post a fall. The patient confirms taking her antibiotics as prescribed. However, she does state they have given her a yeast infection and would like to have this treated. [facility] Medical History Anemia Anxiety Asthma Basal cell carcinoma DVT (deep venous thrombosis) HTN (hypertension) Idiopathic peripheral neuropathy Osteoarthritis Osteopenia Osteoporosis Surgical History Knee joint replacement status Social History Housing: Apartment Patient Tobacco Use Status: Never used Tobacco e-Cigarette/Vaping Use: Never Used Second Hand Smoke Exposure: No Current occupational status: retired Cognitive needs: No Hearing needs: No Vision needs: No Review of Systems Const All systems reviewed & are unremarkable except as noted in HPI and below Physical Exam Const General: cooperative and no acute distress Orientation/consciousness: patient oriented x3 Resp Effort & Inspection: normal respiratory effort and able to speak in complete sentences Cardio Peripheral pulses: Peripheral pulses 2+ throughout Neuro Other: Left knee: Laceration is healing well. There are no open areas. She does have some granulation tissue along the inferior aspect of the laceration. I slightly debrided with the curette until the tissue was bleeding. She has full ROM wit hout pain. Calf supple, nontender. NVI. General: patient oriented x3 Extrem Other: Left knee: Laceration is healing well. There are no open areas. She does have some granulation tissue along the inferior aspect of the laceration. I slightly debrided with the curette until the tissue was bleeding. She has full ROM without pain. Calf supple, nontender. NVI. Psych Mental Status: mental status grossly normal Assessment & Plan Assessment & Plan (1) Laceration of left knee: Code(s): S81.012A - Laceration without foreign body, left knee, initial encounter (2) Laceration of forehead: Code(s): S01.81XA - Laceration without foreign body of other part of head, initial encounter Plan I did show her and her family how to perform wet to dry dressing to most inferior aspect of the laceration. This is a very superficial area and I would like her to do this for twice a day for a couple of days. I would like her to return on Thursday before the weekend for another wound check, sooner if needed. I did send her a new prescription of Bactrim to the pharmacy and she should be taking this until her laceration is fully healed since she had bilateral knee replacement. Medications: New sulfamethoxazole-trimethoprim 800-160 mg (Bactrim DS) 1 tab PO BID 10 days 20 tabs 0RF suture abscess Patient Instructions: Scribed for Rachel Hunt PA-C by Lianna Puri hospital medical assistant, on 10/13/2022 at 11:54 am, EST. Scribed for Aram Robles PA-C, by Cheko Vaguhn hospital medical assistant, on 10/13/2022 at 12:30 PM EST. I, Aram Robles PA-C, have personally reviewed and agree with the information entered by the scribe. Coding Level of Care Code Est Pt Level 3 (29855) Diagnoses Laceration of left knee S81.012A Laceration of forehead S01.81XA
== END 2022-10-13 12:52 | disposition home or self-care (01) ==
PROVIDERS: PCP Nurse Practitioner Family; Visit Provider Physician Assistant
DX: S81.012A Laceration without foreign body, left knee, initial encounter (principal); S01.81XA Laceration without foreign body of other part of head, initial encounter
CPT/HCPCS: 99213

== ENCOUNTER → 2022-10-13 11:37 | Outpatient (BNVA) | payer MEDICARE, SELFPAY | PROVIDERS: PCP Nurse Practitioner Family; Visit Provider Physician Assistant | DX: S81.012A Laceration without foreign body, left knee, initial encounter (principal); S01.81XA Laceration without foreign body of other part of head, initial encounter | CPT/HCPCS: 99212 ==

== ENCOUNTER 2022-10-13 13:17 | Outpatient (REF) | payer MEDICARE, SELFPAY ==
[2022-10-13 16:29] LABS: Hemoglobin 7.8 g/dl (12.0-16.0); Imm Gran Abs Auto 0.02 X10*3/uL (0.00-0.03); Mean Corpuscular Hemoglobin 23.7 pg (27.0-33.0); Red Blood Count 3.29 X10*6/uL (4.20-5.50); SCAN SMEAR FLAG 1
[2022-10-13 16:31] LABS: Basophils Percent Auto 0.7 % (0-2); Eosinophils Absolute Auto 0.2 X10*3/uL (0.0-0.4); Eosinophils Percent Auto 3.5 % (0-4); Hematocrit 26.7 % (37.0-47.0); Imm Gran Pct Auto 0.4 % (0.0-0.4); Immature Retic Fraction 18.2 % (3.0-15.9); Lymphocytes Percent Auto 18.1 % (20-40); MANUAL DIFF FLAG SCAN; Mean Corpuscular HGB Conc 29.2 g/dl (31.0-35.0); Mean Corpuscular Volume 81.2 fL (80.0-98.0); Mean Platelet Volume 10.8 fL (9.4-12.3); Monocytes Absolute Auto 0.6 X10*3/uL (0.1-1.2); Monocytes Percent Auto 10.9 % (2-11); Neutrophils Absolute Auto 3.8 x10*3/uL (2.0-8.3); Neutrophils Percent Auto 66.4 % (45-73); Platelet Count 293 X10*3/uL (160-400); Red Cell Distribution Width 16.7 % (11.0-16.0); Retic HGB Equivalent 22.6 pg (30.0-35.0); Reticulocyte Percent 2.6 % (0.5-1.8); Reticulocytes Absolute 0.087 X10*6/uL (0.026-0.095); White Blood Count 5.7 X10*3/uL (4.8-10.8)
[2022-10-13 16:43] LABS: Iron 29 mcg/dL (30-160); Percent Iron Saturation 8 % (15-50); Total Iron Binding Capacity 375 mcg/dL (228-428); Unsaturated Iron Binding 346 ug/dL
[2022-10-13 16:57] LABS: Ferritin 51 ng/mL (10-250)
[2022-10-13 17:15] LABS: Folate 13.2 ng/mL (> or = 4.0); Vitamin B12 594 pg/mL (200-900)
[2022-10-13 17:39] LABS: SLIDE REVIEW VERIFIED
[2022-10-14 07:47] LABS: FIT1 NEGATIVE (NEGATIVE)
[2022-10-14 07:48] LABS: FIT Int Ctl YES; FIT2 NEGATIVE (NEGATIVE)
[2022-10-15 13:33] LABS: Hematocrit 25.4 % (35.0-45.0); MCV 79.4 fL (80.0-100.0); RDW 15.4 % (11.0-15.0)
== END 2022-10-13 13:18 | disposition home or self-care (01) ==
LOC: HO.HMGCLDS 13:17
PROVIDERS: PCP Nurse Practitioner Family; Visit Provider Nurse Practitioner Family
DX: S81.012A Laceration without foreign body, left knee, initial encounter (principal); S01.81XA Laceration without foreign body of other part of head, initial encounter; D64.9 Anemia, unspecified
CPT/HCPCS: 36415; 82274; 82607; 82728; 82746; 83020; 83540; 85014; 85018; 85025; 85041; 85045

== ENCOUNTER 2022-10-14 14:29 | Emergency (ER) | payer MEDICARE, SELFPAY ==
--- NOTE | ~2022-10-14 | US_ITS ---
EXAMINATION: US VENOUS ULTRASOUND WITH DOPPLER LOWER EXTREMITY, LEFT CLINICAL INFORMATION: Edema. COMPARISON: None available. TECHNIQUE: Ultrasound of the deep veins is performed from the hip to the calf with compression sonography and color and pulse Doppler assessment. Spectral analysis with color-flow imaging is performed. FINDINGS: The visualized left common femoral vein, superficial femoral vein, profunda femoral vein, popliteal vein, and the trifurcation region shows no evidence of deep venous thrombosis. The visualized segments of the posterior tibialis veins are patent. The peroneal veins were not visualized. There is no significant popliteal fossa cyst. If the patient's symptoms persist, followup ultrasound in 5 days 7 days might be of value to exclude proximal propagation from a non-visualized calf vein. US/US venous duplex LE IMPRESSION: No DVT demonstrated in the left lower extremity with the caveat of nonvisualization of the peroneal veins.
--- NOTE | 2022-10-14 14:31 | ED_ITS ---
HPI - General Adult General Chief complaint: Recheck/Abnormal Lab/Rx Stated complaint: blood work rechecked Time Seen by Provider: 10/14/22 18:50 Source: patient and family Mode of arrival: ambulatory History of Present Illness HPI narrative: This is a 77-year-old female arrives at the request of her primary care provider based on lab work that demonstrated persistent microcytic anemia but he was on aware of patient's fall on 09/22 with significant bleeding at that time. Patient denies any headache, dizziness, shortness of breath, palpitations. She denies any bleeding from the rectum. Related Data Home Medications Medication Instructions Recorded Confirmed clotrimazole-betamethasone 1 1 appl topical BID 08/20/22 09/17/22 %-0.05 % lotion fexofenadine 180 mg tablet 180 mg PO DAILY 08/20/22 09/17/22 (Lea Allergy) Previous Rx's Medication Instructions Recorded albuterol sulfate 90 mcg/actuation 2 puff inhalation Q6H PRN 08/20/22 aerosol inhaler bronchospasm #8.5 grams fluticasone 250 mcg-salmeterol 50 1 ea inhalation BID #60 ea 08/20/22 mcg/dose blistr powdr for inhalation (Wixela Inhub) lisinopril 2.5 mg tablet 2.5 mg PO DAILY 30 days #30 tabs 08/20/22 albuterol sulfate 2.5 mg/3 mL 2.5 mg (3 mL) inhalation Q6H #75 mL 09/17/22 (0.083 %) solution for nebulization hydrocortisone 2.5 % topical 1 appl topical BID #20 grams 09/17/22 ointment amoxicillin 875 mg-potassium 1 tab PO BID 14 days #28 tabs 09/22/22 clavulanate 125 mg tablet sulfamethoxazole 800 1 tab PO BID suture abscess 10 10/13/22 mg-trimethoprim 160 mg tablet days #20 tabs (Bactrim DS) Allergies Allergy/AdvReac Type Severity Reaction Status Date / Time No Known Allergies Allergy Verified 10/06/22 14:22 Review of Systems 2 Review of Systems: Pertinent positives and negatives as stated in HPI [facility] Past Medical History Source: nursing notes reviewed Medical History Anemia Anxiety Asthma Basal cell carcinoma DVT (deep venous thrombosis) HTN (hypertension) Idiopathic peripheral neuropathy Osteoarthritis Osteopenia Osteoporosis Surgical History Knee joint replacement status Social History Social History Housing: Apartment Alcohol intake: never Patient Tobacco Use Status: Never used Tobacco Smoked in Last 30 Days: No e-Cigarette/Vaping Use: Never Used Second Hand Smoke Exposure: No Use of substances other than those prescribed or required for medical reasons: No Advance Directives: No Advance Directives Information Provided: No Current occupational status: retired Cognitive needs: No Hearing needs: No Vision needs: No Physical Exam ED Vital Signs: Vital Signs - 24 hr 10/14/22 14:32 10/14/22 20:16 10/14/22 21:58 Temperature 98 F 99.2 F Pulse Rate 100 142 H 91 Respiratory Rate 16 20 22 H Blood Pressure 149/96 H 155/80 H 163/79 H Pulse Oximetry 97 100 Oxygen Delivery Method Room Air Room Air BMI result Body Mass Index 37.9 VITAL SIGNS: Reviewed. GENERAL: Well developed, well nourished, in no acute distress. HEAD: Normocephalic/atraumatic, well-healed laceration to forehead from 09/22 EYES: PERRLA, EOMI EARS: Ext canals without abnormality NOSE: Nares patent bilateral OROPHARYNX: no oral lesions noted, posterior pharynx clear NECK: Supple, no adenopathy LUNGS: Normal breath sounds. No adventitious sounds or accessory muscle use. CARDIOVASCULAR: Regular rate and rhythm without noted murmurs ABDOMEN: Soft, non-tender, non-distended with bowel sounds. MUSCULOSKELETAL: No tenderness, deformities, or effusions noted on gross ins pection. EXTREMITIES: No cyanosis, clubbing or edema. SKIN: Inspection of the skin reveals no rashes NEUROLOGIC: Alert and oriented x 4. Strength and sensation to light touch were grossly intact x 4. Course Course Course Narrative: This is a rapid medical exam. Deferred additional HPI, ROS, PE to primary providder. 77yo female with with history of asthma, htn here with complaints of abnormal labs. Had hgb drawn outpatient and it was 7.8. Has been downtrending from july. Patient denies AC therapy or ASA use. She has no complaints, no reports of bleeding. Did have fall in august with significant knee laceration requiring repair. Patient feels it is healing well-visualized in triage. Will repeat labs, order occult stool. VSS Medical Decision Making Medical Decision Making [facility] Narrative: 77-year-old female who is here in the emergency room at the request of her primary care provider. Have reviewed all of the laboratory workup that the primary care provider performed which demonstrates an approximate 1 g drop in her hemoglobin from her prior visit on 09/22 but this is not entirely on for seen as the 8.8 was likely an acute time capture patient is otherwise asymptomatic, she is not tachycardic nor is she tachypneic nor is she hypotensive. Patient reports that she is feeling well and denies any rectal bleeding. Platelet counts are stable, chemistry indices are grossly within normal limits without evidence to suggest electrolyte derangements or ELIO, I did review iron studies which is consistent with iron deficiency anemia and is likely a factor in her persistent anemia. I also reviewed the stool studies that were performed on 10/13 which are negative for presence of blood. I discussed extensively at the bedside with the patient and her daughter that given the fact the patient does not have a history of CAD that I feel given the fact that she is asymptomatic that a conservative approach can be pursued with a referral to Hematology and Oncology for possible iron infusion in in the meantime initiating oral iron supplementation. Both the patient and the daughter are in agreement and patient is otherwise discharged home in stable condition. 2018: Patient was going to be discharged when she was found to be tachycardic to over 140, will proceed with EKG and at this time I think that patient would benefit from receiving 1 unit of blood and will order type and screen/1 unit RBC and re-evaluate afterwards. 2200: Venous duplex negative for DVT, patient to receive 1 unit RBCs and will repeat H/H after completion of the transfusion. Prior to administration patient will receive 40 mg of Lasix as patient is at risk of fluid overload. Signed out to Dr Mariee Admission/Observation Consideration of admission/observation: Escalation of care including admission/observation considered If DVT was identified patient would of been admitted. Lab Data [facility] Lab Attestation statement: I reviewed the patient's lab results. Please see the discussion above 10/14/22 15:49 10/14/22 15:49 Labs: Lab Results 10/14/22 10/14/22 10/14/22 Range/Units 15:49 15:49 15:49 WBC 4.9 (4.8-10.8) X10*3/uL RBC 3.13 L (4.20-5.50) X10*6/uL Hgb 7.6 L (12.0-16.0) g/dl Hct 25.6 L (37.0-47.0) % MCV 81.8 (80.0-98.0) fL MCH 24.3 L (27.0-33.0) pg MCHC 29.7 L (31.0-35.0) g/dl RDW 16.9 H (11.0-16.0) % Plt Count 297 (160-400) X10*3/uL MPV 10.3 (9.4-12.3) fL Immature Gran % (Auto) 0.2 (0.0-0.4) % Neut % (Auto) 77.0 H (45-73) % Lymph % (Auto) 9.5 L (20-40) % [place] % (Auto) 9.5 (2-11) % Eos % (Auto) 3.0 (0-4) % Baso % (Auto) 0.8 (0-2) % Lymph # (Auto) 0.5 L (1.2-4.9) X10*3/uL [place] # (Auto) 0.5 (0.1-1.2) X10*3/uL Eos # (Auto) 0.2 (0.0-0.4) X10*3/uL Baso # (Auto) 0.0 (0.0-0.2) X10*3/uL Abs Immat Gran (auto) 0.01 (0.00-0.03) X10*3/uL Absolute Neuts (auto) 3.8 (2.0-8.3) x10*3/uL Absolute Nucleated RBC 0.000 (0.0-0.012) X10*3/uL Nucleated RBC % (auto) 0.0 (0.0-0.2) /100WBC PT 12.3 (10.0-13.1) SEC INR 1.1 (0.9-1.1) Sodium 141 (135-145) mmol/L Potassium 4.3 (3.3-5.1) mmol/L Chloride 109 H (96-108) mmol/L Carbon Dioxide 23 (22-29) mmol/L Anion Gap 13 (12-20) BUN 23 H (9-16) mg/dL Creatinine 1.31 (0.5-1.4) mg/dL Estim Creat Clear Calc 37.7 Estimated GFR 39 Random Glucose 94 (60-115) mg/dL Calcium 9.3 (8.4-10.2) mg/dL Total Bilirubin 0.5 (0.0-1.0) mg/dL Direct Bilirubin 0.2 (0.0-0.5) mg/dL AST 16 (5-31) U/L ALT 11 (0-31) U/L Alkaline Phosphatase 75 (39-117) U/L Total Protein 6.3 L (6.5-8.0) g/dL Albumin 3.6 (3.5-5.0) g/dL Blood Type Antibody Screen Crossmatch 10/14/22 Range/Units 20:35 WBC (4.8-10.8) X10*3/uL RBC (4.20-5.50) X10*6/uL Hgb (12.0-16.0) g/dl Hct (37.0-47.0) % MCV (80.0-98.0) fL MCH (27.0-33.0) pg MCHC (31.0-35.0) g/dl RDW (11.0-16.0) % Plt Count (160-400) X10*3/uL MPV (9.4-12.3) fL Immature Gran % (Auto) (0.0-0.4) % Neut % (Auto) (45-73) % Lymph % (Auto) (20-40) % [place] % (Auto) (2-11) % Eos % (Auto) (0-4) % Baso % (Auto) (0-2) % Lymph # (Auto) (1.2-4.9) X10*3/uL [place] # (Auto) (0.1-1.2) X10*3/uL Eos # (Auto) (0.0-0.4) X10*3/uL Baso # (Auto) (0.0-0.2) X10*3/uL Abs Immat Gran (auto) (0.00-0.03) X10*3/uL Absolute Neuts (auto) (2.0-8.3) x10*3/uL Absolute Nucleated RBC (0.0-0.012) X10*3/uL Nucleated RBC % (auto) (0.0-0.2) /100WBC PT (10.0-13.1) SEC INR (0.9-1.1) Sodium (135-145) mmol/L Potassium (3.3-5.1) mmol/L Chloride (96-108) mmol/L Carbon Dioxide (22-29) mmol/L Anion Gap (12-20) BUN (9-16) mg/dL Creatinine (0.5-1.4) mg/dL Estim Creat Clear Calc Estimated GFR Random Glucose (60-115) mg/dL Calcium (8.4-10.2) mg/dL Total Bilirubin (0.0-1.0) mg/dL Direct Bilirubin (0.0-0.5) mg/dL AST (5-31) U/L ALT (0-31) U/L Alkaline Phosphatase (39-117) U/L Total Protein (6.5-8.0) g/dL Albumin (3.5-5.0) g/dL Blood Type A Positive Antibody Screen NEGATIVE Crossmatch See Detail Independent Interpretation I performed an independent interpretation of an: EKG Interpretation: Sinus tachycardia, HR-140, no STEMI, TN/QRS/QTC is within normal limits. Critical Care Time Critical Care Time Critical Care Time: Yes Total Critical Care Time: 30 Attestation: I personally attest to this time spent taking care of the patient. Discharge Plan Discharge Clinical Impression: Iron deficiency anemia Patient Disposition: Home, Self-Care Instructions: Iron Rich Diet (ED), Iron Deficiency Anemia (ED) Additional Instructions: 1. Resume all home medications as prescribed. 2. Please follow-up with the referral to Hematology, it is located low in you should call the office. 3. Also recommend follow-up with your primary care provider. Do not hesitate to return to the emergency room for any worsening of symptoms. Prescriptions: No Action amoxicillin-pot clavulanate 875-125 mg tablet 1 tab PO BID 14 Days Qty: 28 0RF fexofenadine [Lea Allergy] 180 mg tablet 180 mg PO DAILY clotrimazole-betamethasone 1-0.05 % lotion 1 appl topical BID lisinopril 2.5 mg tablet 2.5 mg PO DAILY 30 Days Qty: 30 2RF fluticasone propion-salmeterol [Wixela Inhub] 250-50 mcg/dose blister with device 1 ea inhalation BID Qty: 60 2RF albuterol sulfate 90 mcg/actuation HFA aerosol inhaler 2 puff inhalation Q6H PRN (Reason: bronchospasm) Qty: 8.5 2RF albuterol sulfate 2.5 mg /3 mL (0.083 %) solution for nebulization 2.5 mg inhalation Q6H Qty: 75 0RF hydrocortisone 2.5 % ointment 1 appl topical BID Qty: 20 0RF sulfamethoxazole-trimethoprim [Bactrim DS] 800-160 mg tablet 1 tab PO BID 10 Days Qty: 20 0RF Referrals: Saundra East MD [Physician] - (Pt would benefit from iron infusion) Juanito Riley, [facility]ER-BC [Primary Care Provider] -
[2022-10-14 14:32] VITALS: BP 149/96; PULSE 100; RESP 16; TEMP 36.6; O2SAT 97; BMI 37.9
[2022-10-14 15:55] LABS: MANUAL DIFF FLAG NO
[2022-10-14 15:57] LABS: Basophils Percent Auto 0.8 % (0-2); Eosinophils Absolute Auto 0.2 X10*3/uL (0.0-0.4); Hematocrit 25.6 % (37.0-47.0); Hemoglobin 7.6 g/dl (12.0-16.0); Imm Gran Abs Auto 0.01 X10*3/uL (0.00-0.03); Imm Gran Pct Auto 0.2 % (0.0-0.4); Lymphocytes Absolute Auto 0.5 X10*3/uL (1.2-4.9); Lymphocytes Percent Auto 9.5 % (20-40); Mean Corpuscular HGB Conc 29.7 g/dl (31.0-35.0); Mean Corpuscular Hemoglobin 24.3 pg (27.0-33.0); Mean Corpuscular Volume 81.8 fL (80.0-98.0); Mean Platelet Volume 10.3 fL (9.4-12.3); Monocytes Absolute Auto 0.5 X10*3/uL (0.1-1.2); Monocytes Percent Auto 9.5 % (2-11); Neutrophils Absolute Auto 3.8 x10*3/uL (2.0-8.3); Platelet Count 297 X10*3/uL (160-400); Red Blood Count 3.13 X10*6/uL (4.20-5.50); Red Cell Distribution Width 16.9 % (11.0-16.0); White Blood Count 4.9 X10*3/uL (4.8-10.8)
[2022-10-14 16:05] LABS: INTERNATIONAL NORM RATIO 1.1 (0.9-1.1); Prothrombin Time 12.3 SEC (10.0-13.1)
[2022-10-14 16:18] LABS: Alanine Aminotransferase 11 U/L (0-31); Albumin Level 3.6 g/dL (3.5-5.0); Alkaline Phosphatase 75 U/L (39-117); Anion Gap 13 (12-20); Aspartate Amino Transferase 16 U/L (5-31); Bilirubin Direct 0.2 mg/dL (0.0-0.5); Bilirubin Total 0.5 mg/dL (0.0-1.0); Blood Urea Nitrogen 23 mg/dL (9-16); Calcium 9.3 mg/dL (8.4-10.2); Carbon Dioxide 23 mmol/L (22-29); Chloride 109 mmol/L (96-108); Creatinine Clr Calc Pharmacy 37.7; Estimated Glomerular Filt Rate 39; Glucose Random 94 mg/dL (60-115); Potassium 4.3 mmol/L (3.3-5.1); Sodium 141 mmol/L (135-145); Total Protein 6.3 g/dL (6.5-8.0)
[2022-10-14 20:16] VITALS: BP 155/80; PULSE 142; RESP 20; O2SAT 100
--- NOTE | 2022-10-14 20:16 | PC.NURSE ---
Assumed caer of pt. On initial exam, pt asymptomatic, despite abnormal labs,m plan to DC patient. However ,on planned discharge, pt HR in 140-150. MD aware, plan for EKG, type and screen and administration of 1 unit RBC.
--- NOTE | 2022-10-14 20:18 | ECG_ITS ---
Test Reason : TACHYCARDIA Blood Pressure : / mmHG Vent. Rate : 140 BPM Atrial Rate : 140 BPM P-R Int : 132 ms QRS Dur : 068 ms QT Int : 288 ms P-R-T Axes : -25 003 040 degrees QTc Int : 439 ms Sinus tachycardia Minimal voltage criteria for LVH, may be normal variant ( R in aVL ) Anterolateral infarct (cited on or before 22-SEP-2022) Abnormal ECG When compared with ECG of 22-SEP-2022 18:13, Vent. rate has increased BY 63 BPM Referred By: Maria Teresa Monte Electronically Signed By:Iggy High
[2022-10-14 21:58] VITALS: BP 163/79; PULSE 91; RESP 22; TEMP 37.3
--- NOTE | 2022-10-14 22:02 | PC.NURSE ---
for initial start of RBC, there was confusio elisabet to method of adnministration given TACO risk and start of administration by IV pump. per Blood Ban farrah Young Sup, no IV to be used at this time, RBC started < 30 min after receipt, per blood Bank and ok to administer.
--- NOTE | 2022-10-14 22:13 | PC.NURSE ---
RBC started with no complications.
[2022-10-14 22:14] VITALS: PULSE 90
--- NOTE | 2022-10-14 22:14 | PC.NURSE ---
pt HR normalized prior to RBC administration, provider made aware.
[2022-10-14 22:17] VITALS: BP 169/92; PULSE 98; RESP 2; TEMP 37.2
[2022-10-15 00:17] VITALS: BP 149/126; PULSE 98; RESP 27; TEMP 36.7; O2SAT 99
[2022-10-15 00:39] VITALS: BP 151/75; PULSE 91; RESP 18; TEMP 37.3
[2022-10-15] MEDS: Furosemide 40 MG/4 ML VIAL IVPUSH (00:45)
[2022-10-15 00:55] VITALS: BP 151/75; PULSE 91; RESP 18; TEMP 37.3
[2022-10-15 01:25] LABS: Hematocrit 30.6 % (37.0-47.0); Hemoglobin 9.2 g/dl (12.0-16.0)
[2022-10-15 03:19] VITALS: BP 141/82; PULSE 89; RESP 16; TEMP 36.6; O2SAT 96
== END 2022-10-15 03:55 | disposition home or self-care (01) ==
PROVIDERS: Nurse Practitioner Family; Student in an Organized Health Care Education/Training Program; Emergency Provider Emergency Medicine; PCP Nurse Practitioner Family
DX: D50.9 Iron deficiency anemia, unspecified (principal); R60.0 Localized edema; R79.89 Other specified abnormal findings of blood chemistry; R00.0 Tachycardia, unspecified; Z79.899 Other long term (current) drug therapy
CPT/HCPCS: 36415; 36430; 80048; 80076; 85014; 85018; 85025; 85610; 86850; 86900; 86901; 86923; 93005; 93971; 96374; 99285; J1940; P9016

== ENCOUNTER → 2022-10-14 20:18 | Outpatient (BNV) | payer MEDICARE, SELFPAY | PROVIDERS: Emergency Provider Emergency Medicine; PCP Nurse Practitioner Family; Visit Provider Internal Medicine Cardiovascular Disease | DX: R00.0 Tachycardia, unspecified (principal); R94.31 Abnormal electrocardiogram [ECG] [EKG] | CPT/HCPCS: 93010 ==

== ENCOUNTER → 2022-10-17 12:42 | Outpatient (BNVA) | payer MEDICARE, SELFPAY | PROVIDERS: PCP Nurse Practitioner Family; Visit Provider Physician Assistant ==

== ENCOUNTER 2022-10-20 13:40 | Outpatient (AMB) | payer MEDICARE, SELFPAY ==
--- NOTE | 2022-10-20 13:52 | MHC.OFFVIS ---
Intake Intake Visit Reasons: OV-LT Knee laceration, DOI 09/22/22 Intake Note: Padma is a 77 year old female who presents today with her and daughter for a wound check of the left knee from DOI 09/22/22.?Patient reports she is doing well, she has no concerns today. Allergies No Known Allergies Allergy (Verified 10/20/22 13:56) HPI OV-LT Knee laceration, DOI 09/22/22 HPI Details 77-year-old female who returns to the office today with her and daughter for a follow-up wound check of left knee laceration, 09/22/22. She states she is doing well overall and has no concerns today. [facility] Medical History Anemia Anxiety Asthma Basal cell carcinoma DVT (deep venous thrombosis) HTN (hypertension) Idiopathic peripheral neuropathy Osteoarthritis Osteopenia Osteoporosis Surgical History Knee joint replacement status Social History Housing: Apartment Alcohol intake: never Patient Tobacco Use Status: Never used Tobacco e-Cigarette/Vaping Use: Never Used Second Hand Smoke Exposure: No Current occupational status: retired Cognitive needs: No Hearing needs: No Vision needs: No Review of Systems Const All systems reviewed & are unremarkable except as noted in HPI and below Physical Exam Const General: cooperative and no acute distress Orientation/consciousness: patient oriented x3 Resp Effort & Inspection: normal respiratory effort and able to speak in complete sentences Cardio Peripheral pulses: Peripheral pulses 2+ throughout Neuro General: patient oriented x3 Extrem Other: Left knee: Laceration is healing well. There are no open areas. NO drainage She has full ROM without pain. Calf supple, nontender. NVI. Psych Mental Status: mental status grossly normal Assessment & Plan Assessment & Plan (1) Laceration of left knee: Code(s): S81.012A - Laceration without foreign body, left knee, initial encounter (2) Laceration of forehead: Code(s): S01.81XA - Laceration without foreign body of other part of head, initial encounter Plan I placed a band aid over the abrasion and applied an magda wrap just to prevent rubbing of the skin. I would like to see her back in 1 week for a wound check, sooner if needed. Patient Instructions: Scribed for Aram Robles PA-C, by [facility] Vaughn medical center manager, on 10/20/2022 at 2:15 PM SALAZAR. Travon, Aram Robles PA-C, have personally reviewed and agree with the information entered by the scribe. Coding Level of Care Code Est Pt Level 3 (50901) Diagnoses Laceration of left knee S81.012A Laceration of forehead S01.81XA
== END 2022-10-20 14:17 | disposition home or self-care (01) ==
PROVIDERS: PCP Nurse Practitioner Family; Visit Provider Physician Assistant
DX: S81.012A Laceration without foreign body, left knee, initial encounter (principal); S01.81XA Laceration without foreign body of other part of head, initial encounter
CPT/HCPCS: 99213

== ENCOUNTER → 2022-10-20 13:40 | Outpatient (BNVA) | payer MEDICARE, SELFPAY | PROVIDERS: PCP Nurse Practitioner Family; Visit Provider Physician Assistant | DX: S81.012D Laceration without foreign body, left knee, subsequent encounter (principal) | CPT/HCPCS: 99212 ==

== ENCOUNTER 2022-10-27 13:42 | Outpatient (AMB) | payer MEDICARE, SELFPAY ==
[2022-10-27 13:54] VITALS: BP 156/98; PULSE 129; O2SAT 100; BMI 42.6
--- NOTE | 2022-10-27 13:54 | MHC.PC.OV ---
Vital Signs 10/27/22 13:54 Height 5 ft Weight 218 lb 4 oz BMI 42.6 BP 156/98 H Blood Pressure Location Lt brachial Position Sitting Pulse 129 H Pulse Source Pulse Oximeter Pulse Oximetry (%) 100 Oxygen Delivery Method Room Air Intake Visit Reasons: Repeat ER visits Allergies No Known Allergies Allergy (Verified 10/27/22 17:40) Medication List - Last Reconciled 10/27/22 by BRENNA BarkleyP- albuterol sulfate 90 mcg/actuation 2 puffs inhalation Q6H PRN albuterol sulfate 2.5 mg (3 mL) inhalation Q6H ferrous sulfate (Feosol) 325 mg PO DAILY fexofenadine (Lea Allergy) 180 mg PO DAILY fluticasone propion-salmeterol 250-50 mcg/dose (Wixela Inhub) 1 ea inhalation BID hydrocortisone 2.5% 1 appl topical BID lisinopril 2.5 mg PO DAILY Tobacco use date assessed: 10/27/22 Fall risk assessment: 2 + Falls in past year Last assessed Fall Risk: 10/27/22 Dental Screening Dental Screen Date: 10/27/22 HPI Repeat ER visits HPI Details Pt was seen in the ER on 10/14 after labs showed persistent microcytic anemia with a drop in hemoglobin. Platelet count was stable, chemistry WNL. Iron studies showed iron deficiency anemia. Previous stool studies were negative. She was given 1 unit of RBCs with improvement in H&H. Pt was referred to hematology. Prior to d/c pt became tachycardic in the 140s. EKG showed sinus tach with a HR of 140, otherwise negative. She was given 40mg lasix. Venous duplex was negative for DVT. Pt had a previous fall on 09/22. 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 MRI recommended. Will order MRI. Will also repeat iron studies. Denies fever, chills, dizziness, and blood in stool. HTN: White Coat Syndrome, BPs from home 129/77, 129/78, 130/83, 129/79 PFSH Medical History Anemia Anxiety Asthma Basal cell carcinoma DVT (deep venous thrombosis) HTN (hypertension) Idiopathic peripheral neuropathy Osteoarthritis Osteopenia Osteoporosis Surgical History Knee joint replacement status Social History Housing: Apartment Alcohol intake: never Patient Tobacco Use Status: Never used Tobacco e-Cigarette/Vaping Use: Never Used Second Hand Smoke Exposure: No Current occupational status: retired Cognitive needs: No Hearing needs: No Vision needs: No Questionnaire Thrive Questionnaire Date Thrive assessed: 08/20/22 ALEISHA-7 AMB Questionnaire ALEISHA-7 Date ALEISHA - 7 assessed: 08/20/22 Source: Developed by Drs. Kannan Welsh, Akiko Sanchez, Sukumar Son and colleagues, with an educational mignon from [employer]. Review of Systems Const Reports as per HPI Physical exam (Primary Care) Vital Signs: Last Vital Signs Pulse 129 H 10/27/22 13:54 BP 156/98 H 10/27/22 13:54 Pulse Ox 100 10/27/22 13:54 Oxygen Delivery Method Room Air 10/27/22 13:54 BMI result Body Mass Index 42.6 Tobacco/Smoking Status: Tobacco use Status Tobacco use date assessed 10/27/22 10/27/22 14:03 Patient Tobacco Use Status Never used Tobacco 10/27/22 14:03 e-Cigarette/Vaping Use Never Used 10/27/22 14:03 Thrive Assessment: Date of Thrive Assessment Date Thrive assessed 08/20/22 10/27/22 14:03 Const General: cooperative Nutritional Appearance: obese morbidly obese Orientation/consciousness: patient oriented x3 Cardio Rate: tachycardic Rhythm: regular rhythm Heart sounds: S1 normal heart sound present and S2 normal heart sound present Skin Other: left knee with scabbed lesion, no signs of infection, forehead with healed laceration Neuro General: patient oriented x3 Psych Appearance: grossly normal Mental Status: mental status grossly normal Speech and movement: Normal speech and movement present Affect: normal affect Attitude: cooperative Thought process: Normal thought process present Thought content: Normal thought content present Insight: Good insight present (Psych) Judgement: Good judgement present (Psych) Assessment and Plan Assessment & Plan (1) Iron deficiency anemia: Code(s): D50.9 - Iron deficiency anemia, unspecified Plan: Labs ordered (2) Atypical meningioma of brain: Code(s): D42.0 - Neoplasm of uncertain behavior of cerebral meninges Plan: MRI ordered (3) HTN (hypertension): Code(s): I10 - Essential (primary) hypertension (4) 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 Scribed for POWER Rosenthal-HARMONY by Janet Gavin coroner/medical examiner, on 10/27/2022 at 14:20 EST. Orders: Orders Comprehensive Met. Panel Today D50.9 - Iron deficiency anemia, unspecified Ferritin Today D50.9 - Iron deficiency anemia, unspecified IRON PROFILE Today D50.9 - Iron deficiency anemia, unspecified Complete Blood Count Auto Diff Today D50.9 - Iron deficiency anemia, unspecified MR head/brain w con Today D42.0 - Neoplasm of uncertain behavior of cerebral meninges Medications: Refilled fluticasone propion-salmeterol 250-50 mcg/dose (Wixela Inhub) 1 ea inhalation BID 60 ea 2RF Coding Level of Care Code Est Pt Level 3 (65255) Diagnoses Iron deficiency anemia D50.9 Atypical meningioma of brain D42.0 HTN (hypertension) I10 White coat syndrome with diagnosis of hypertension I10
== END 2022-10-27 14:54 | disposition home or self-care (01) ==
PROVIDERS: PCP Nurse Practitioner Family; Visit Provider Nurse Practitioner Family
DX: D50.9 Iron deficiency anemia, unspecified (principal); D42.0 Neoplasm of uncertain behavior of cerebral meninges; I10 Essential (primary) hypertension
CPT/HCPCS: 99213

== ENCOUNTER → 2022-10-30 10:32 | Outpatient (BNV) | payer MEDICARE, SELFPAY | PROVIDERS: PCP Nurse Practitioner Family; Visit Provider Internal Medicine Medical Oncology | DX: D64.9 Anemia, unspecified (principal) | CPT/HCPCS: 99204; 99212; 99213 ==

== ENCOUNTER 2022-11-19 12:10 | Outpatient (AMB) | payer MEDICARE, SELFPAY ==
--- NOTE | 2022-11-19 12:31 | MHC.OFFWIV ---
Intake Vital Signs 11/19/22 12:32 Height 5 ft Weight 220 lb 8 oz BMI 43.1 BP 142/90 H Blood Pressure Location Rt brachial Position Sitting Pulse 150 H Pulse Source Pulse Oximeter Temp 97.3 F Temp Source Temporal Artery Scan Pulse Oximetry (%) 98 Oxygen Delivery Method Room Air Intake Visit Reasons: EP ?Asthma Intake Note: Pt is here c/o asthma flare ups. Pt states she has both inhalers and asthma machine at home but they are not helping her. Pt heart rate currently at 150 bpm. Patient Tobacco Use Status: Never used Tobacco Allergies No Known Allergies Allergy (Verified 11/19/22 12:51) Medication List - Last Reconciled 11/19/22 by Adria Venegas MD albuterol sulfate 2.5 mg (3 mL) inhalation Q6H albuterol sulfate 90 mcg/actuation 2 puffs inhalation Q6H PRN ferrous sulfate (Feosol) 325 mg PO DAILY fexofenadine (Lea Allergy) 180 mg PO DAILY fluticasone propion-salmeterol 250-50 mcg/dose (Wixela Inhub) 1 ea inhalation BID hydrocortisone 2.5% 1 appl topical BID lisinopril 2.5 mg PO DAILY Do you need a note to return to daycare/school/sports/work: No HPI EP ?Asthma HPI Details Patient presents for a sick visit. Reporting symptoms of sinus congestion, sore throat and difficulty swallowing. Low-grade fever. No family member is sick. No recent travel. Patient reports symptoms of malaise and fatigue. [facility] Medical History Anemia Anxiety Asthma Basal cell carcinoma DVT (deep venous thrombosis) HTN (hypertension) Idiopathic peripheral neuropathy Osteoarthritis Osteopenia Osteoporosis Surgical History (Reviewed 10/27/22 @ 17:42 by Juanito Riley [facility] Knee joint replacement status Social History (Updated 10/30/22 @ 10:40 by Andreina Seth) Housing: Apartment Alcohol intake: never Patient Tobacco Use Status: Never used Tobacco e-Cigarette/Vaping Use: Never Used Second Hand Smoke Exposure: No service: No Current occupational status: retired Cognitive needs: No Hearing needs: No Vision needs: No Physical Exam Vital Signs: Last Vital Signs Temp 97.3 F 11/19/22 12:32 Pulse 150 H 11/19/22 12:32 BP 142/90 H 11/19/22 12:32 Pulse Ox 98 11/19/22 12:32 Oxygen Delivery Method Room Air 11/19/22 12:32 BMI result Body Mass Index 43.1 Const General: cooperative and healthy appearing Nutritional Appearance: well nourished Orientation/consciousness: patient oriented x3 Limitations: no limitations HEENT Head: Yes normal to inspection Eyes General: appearance normal, both eyes and all related structures Neck Neck: Yes normal visual inspection Chest Chest palpation & inspection: normal palpation of entire chest wall Resp Effort & Inspection: normal respiratory effort Neuro General: patient oriented x3 Assessment & Plan Assessment & Plan (1) Upper respiratory tract infection: Code(s): J06.9 - Acute upper respiratory infection, unspecified Plan: Antibiotics ordered. Increase fluid intake. Tylenol for aches and pains. If symptoms worsen, follow-up here for a recheck. Coding Level of Care Code Est Pt Level 3 (47001) Diagnoses Upper respiratory tract infection J06.9
[2022-11-19 12:32] VITALS: BP 142/90; PULSE 150; TEMP 36.3; O2SAT 98; BMI 43.1
== END 2022-11-19 13:13 | disposition home or self-care (01) ==
LOC: HO.HMGWI 12:10
PROVIDERS: PCP Nurse Practitioner Family
DX: J06.9 Acute upper respiratory infection, unspecified (principal)
CPT/HCPCS: 99213

== ENCOUNTER 2022-11-26 08:58 | Inpatient (IN) | payer MEDICARE, SELFPAY ==
[2022-11-26] VITALS (12 sets, daily range): BP systolic 139–191; BP diastolic 76–109; PULSE 81–156; RESP 18–21; TEMP 36–36.9; O2SAT 94–100; BMI 43.9; BMI 42.2; BMI 42.8
--- NOTE | ~2022-11-26 | US_ITS ---
EXAMINATION: US VENOUS ULTRASOUND WITH DOPPLER LOWER EXTREMITY, LEFT CLINICAL INFORMATION: Left lower extremity swelling COMPARISON: 10/14/2022 TECHNIQUE: Ultrasound of the deep veins is performed from the hip to the calf with compression sonography and color and pulse Doppler assessment. Spectral analysis with color-flow imaging is performed. FINDINGS: There is normal venous compression and respiratory variation and augmented flow. The visualized common femoral vein, superficial femoral vein, profunda femoral vein, popliteal vein, and the trifurcation region shows no evidence of deep venous thrombosis. The peroneal vein is not visualized. There is no significant popliteal fossa cyst. US/US venous duplex LE LT IMPRESSION: No DVT demonstrated in the left lower extremity. Peroneal vein not visualized.
--- NOTE | ~2022-11-26 | CT_ITS ---
EXAMINATION: CT ANGIOGRAM OF THE CHEST WITH AND WITHOUT CONTRAST (CT PULMONARY ANGIOGRAM FOR PE) CLINICAL INFORMATION: Reason for Exam d dimer 780, SOB COMPARISON: None available. TECHNIQUE: Prior to contrast administration, noncontrast localization images were obtained. Subsequently, multidetector volumetric imaging was performed from the thoracic inlet to below the diaphragms following the administration of 65 mL Omnipaque 350 intravenous contrast. No contrast reaction reported Sagittal, coronal, and MIP oblique sagittal reformatted images were obtained on the CT workstation, uploaded to PACS, and reviewed. This CT examination was performed using dose optimization techniques as appropriate, variously including the following: *Automated exposure control *Adjustment of mA and/or kV according to patient size (this includes techniques or standardized protocols for targeted exams where dose is matched to indication/reason for exam; i.e. extremities or head) *Use of iterative reconstruction technique Total exam dose-length product 373 mGy-cm FINDINGS: QUALITY OF STUDY/CONTRAST BOLUS: Satisfactory. PULMONARY ARTERIES: Filling defect within right lower lobe pulmonary artery consistent with thrombus. This may be causing occlusion 2 segments There is no evidence of bowing of the septum. There is no reflux of contrast into the liver. The thoracic inlet is felt to be within normal limits. The axillary regions are unremarkable. Partially visualized upper abdominal structures show gallstones in the gallbladder. Centrally mild coronary calcifications. There is no bulky central adenopathy. Imaging the lung connors. Right lung; Trace right-sided effusion. No significant infiltrate. Left lung; Trace left-sided effusion versus pleural reaction. No significant infiltrate or effusion. Review of the bone windows does not demonstrate evidence for a bony lesion. Degenerative changes are noted. CT/CT angio chest PE protocol IMPRESSION: This exam is abnormal. Positive for PE the right lower lobe described. Other findings are as described above. Mild Pericardial thickening versus effusion may be present here VTE: positive This critical result was discussed with Dr. Villafuerte at 2:30 PM on 11/26/2022 and it was ascertained that the content and urgency of the report was understood at the time of direct communication.
--- NOTE | ~2022-11-26 | XR_ITS ---
EXAMINATION: XR CHEST CLINICAL INFORMATION: Shortness of breath. COMPARISON: None available. TECHNIQUE: Frontal view of the chest was obtained. FINDINGS: Increased pulmonary vascular markings are seen. There is mild blunting of the left costophrenic angle. The heart is mildly enlarged. The mediastinal structures are unremarkable. XR/XR chest 1V IMPRESSION: Mild CHF and small left pleural effusion.
--- NOTE | 2022-11-26 09:30 | ED.SOB ---
HPI - SOB/Dyspnea General Chief Complaint: Upper Respiratory Symptoms Stated Complaint: Difficulty Breathing Time Seen by Provider: 11/26/22 09:13 Source: patient Mode of arrival: ambulatory Limitations: no limitations History of Present Illness HPI Narrative: 69-year-old female with past medical history significant for hypertension, asthma, osteopenia, anemia , PE (20 years ago) presenting to the ED today with a complaint of shortness of breath x1 week. She states that she was seen at urgent care last week , diagnosed with URI, prescribed a Z-Krystian without relief of symptoms. Has tried albuterol and nebulizer at home with minimal relief. She reports chronic lower extremity swelling, no pain or redness. Ambulating independently. Denies fever, chills, chest pain, ENGLISH, cough, lower extremity pain. Reports distance history of DVT >20 yrs ago in [place] following surgery, not currently on anticoagulation. no recent travel or surgeries. Related Data Home Medications Medication Instructions Recorded Confirmed fexofenadine 180 mg tablet 180 mg PO DAILY 08/20/22 10/30/22 (Lea Allergy) ferrous sulfate 325 mg (65 mg 325 mg PO DAILY 10/27/22 10/30/22 iron) tablet (Feosol) Previous Rx's Medication Instructions Recorded hydrocortisone 2.5 % topical 1 appl topical BID #20 grams 09/17/22 ointment lisinopril 2.5 mg tablet 2.5 mg PO DAILY #90 tabs 10/15/22 albuterol sulfate 2.5 mg/3 mL 2.5 mg (3 mL) inhalation Q6H #75 mL 10/16/22 (0.083 %) solution for nebulization fluticasone 250 mcg-salmeterol 50 1 ea inhalation BID #60 ea 10/27/22 mcg/dose blistr powdr for inhalation (Wixela Inhub) albuterol sulfate 90 mcg/actuation 2 puff inhalation Q6H PRN 10/30/22 aerosol inhaler bronchospasm #8.5 grams azithromycin 250 mg tablet See Rx Instructions PO .COMPLEX #6 11/19/22 tabs prednisone 10 mg tablet 10 mg PO DAILY #28 tabs 11/19/22 Allergies Allergy/AdvReac Type Severity Reaction Status Date / Time No Known Allergies Allergy Verified 11/26/22 09:00 Review of Systems Review of Systems: Constitutional : No Weight loss, No Fever, No Chills, No Fatigue, No Malaise ENT/Mouth : No sore throat, No Rhinorrhea Eyes: No Eye Pain, No Swelling, No Redness Cardiovascular : No Chest Pain, + SOB, No Dyspnea on Exertion, No Orthopnea, + Edema, No Palpitations Respiratory : No Cough, No Sputum, No Wheezing Gastrointestinal : No Nausea, No Vomiting, No Diarrhea, No Constipation, No abdominal Pain, No Hematochezia, No Melena Genitourinary : No Dysuria, No Urinary Frequency, No Hematuria, Musculoskeletal : No joint pain, No Myalgias, No Joint Swelling Skin : No Skin Lesions, No rash Neuro : No Weakness, No Numbness, No Dizziness, No Headache All other systems reviewed and are negative Yes all other systems are reviewed and are negative [facility] Past Medical History Attestation statement: The following information was validated with the patient. Source: old records reviewed and nursing notes reviewed Medical History Anemia Anxiety Asthma Basal cell carcinoma DVT (deep venous thrombosis) HTN (hypertension) Idiopathic peripheral neuropathy Osteoarthritis Osteopenia Osteoporosis Surgical History Knee joint replacement status Social History Social History Housing: Apartment Alcohol intake: never Patient Tobacco Use Status: Never used Tobacco e-Cigarette/Vaping Use: Never Used Second Hand Smoke Exposure: No Advance Directives: No Advance Directives Information Provided: Yes service: No Current occupational status: retired Cognitive needs: No Hearing needs: No Vision needs: No Physical Exam Vital Signs: Vital Signs: Last Vital Signs Temp 97.9 F 11/26/22 14:35 Pulse 86 11/26/22 14:35 Resp 20 11/26/22 14:35 BP 159/80 H 11/26/22 14:35 Pulse Ox 95 11/26/22 14:35 O2 Del Method Room Air 11/26/22 14:35 BMI result Body Mass Index 43.9 Appearance: Alert.? Oriented X3.? No acute distress.? Head: Normocephalic, atraumatic, no step-offs or deformities Eyes: Pupils equal, round and reactive to light.? ENT: Pharynx normal.? Neck: Normal inspection.? Neck supple.? No JVD. CVS: Normal heart rate and rhythm.? Pulses normal.? Respiratory: No respiratory distress. Crackles to bilateral lung bases. Abdomen: Soft and nontender.? Skin: Skin warm and dry.? Normal skin color.? Normal skin turgor.? Extremities: No lower extremity edema.? No calf ttp. 5/5 strength to bilateral upper and lower extremities. Negative Homans sign bilaterally. +2 pitting edema extending from knee to foot on bilateral lower extremities, L>R. DP and PT pulses intact bilaterally. Back: No midline tenderness, no C-spine tenderness, full range of motion Neuro: Oriented X 3.? No motor deficit.? No sensory deficit. CN 2-12 intact Course Reevaluation(s) Reevaluation #1: Patient initially with a heart rate of 88 bpm > no concern for PE at that time. Patient now tachycardic to 100 bpm > D-dimer ordered Chest x-ray showing mild CHF and small left pleural effusion. Time: 10:05 Reevaluation #2: D-dimer of 780 > CTA ordered. Venous duplex of left lower extremity pending. CBC without leukocytosis. BNP 739. Troponin pending. > 40 Lasix IV ordered. Chemistry without any acute electrolyte abnormalities requiring intervention. UA without infection. Time: 10:51 Reevaluation #3: Troponin 26.8. repeat in 2 hours. Time: 11:45 Additional Reevaluation(s): US venous duplex LE LT IMPRESSION: No DVT demonstrated in the left lower extremity. Peroneal vein not visualized. 1337 Repeat troponin of 25.8 > unlikely ACS 1446 CTA showing a positive PE in right lower lobe, I did discuss these findings with patient, will start her on heparin standard dose for PE, patient's heart rates have been fluctuating while in the department anywhere between 94-160, worse with movement. No contraindications to blood thinners at this time. No history of hypocoagulable disorders, recent trauma, bleeding at this time. Plan is for hospital admission Medications Administered Discontinued Medications Generic Name Dose Route Start Last Admin Trade Name Freq PRN Reason Stop Dose Admin Albuterol Sulfate 5 mg 11/26/22 09:43 11/26/22 10:02 Albuterol Sulfate 2.5 Mg/0.5 Ml Vial.Neb INHALE 11/26/22 09:44 5 mg ONCE ONE Administration Furosemide 40 mg 11/26/22 10:58 11/26/22 11:58 Furosemide 40 Mg/4 Ml Vial IVPUSH 11/26/22 10:59 40 mg ONCE ONE Administration Protocol Iohexol 100 ml 11/26/22 12:54 11/26/22 12:54 Iohexol 350 Mg/Ml 100 Ml Infus..Btl IV 11/26/22 12:55 65 ml ONCE ONE Administration Medical Decision Making Medical Decision Making [facility] Narrative: 0949 77-year-old female presenting with shortness of breath x 1 week Physical exam unremarkable. Crackles to bilateral lung bases. 2+ pitting edema from knee to ankle on bilateral lower extremities, L>R. Concern for congestive heart failure, pneumonia, PE/DVT, asthma exacerbation, pleural effusion. Lower concern for ACS, arrhythmia, trauma/injury, compartment syndrome, arterial occlusion, threat to limb. Plan- labs, imaging,ekg Differential Diagnosis Differential Diagnoses: The differential diagnosis associated with the presentation includes Concern for congestive heart failure, pneumonia, PE/DVT, asthma exacerbation, pleural effusion. Lower concern for ACS, arrhythmia, trauma/injury, compartment syndrome, arterial occlusion, threat to limb. Admission/Observation Consideration of admission/observation: Escalation of care including admission/observation considered Lab Data [facility] Lab Attestation statement: I reviewed the patient's lab results. See course. 11/26/22 10:23 11/26/22 10:23 Labs: Lab Results 11/26/22 11/26/22 11/26/22 Range/Units 10:23 10:23 10:23 WBC 8.7 (4.8-10.8) X10*3/uL RBC 4.61 (4.20-5.50) X10*6/uL Hgb 12.6 D (12.0-16.0) g/dl Hct 39.6 (37.0-47.0) % MCV 85.9 (80.0-98.0) fL MCH 27.3 (27.0-33.0) pg MCHC 31.8 (31.0-35.0) g/dl RDW 21.1 H (11.0-16.0) % Plt Count 208 (160-400) X10*3/uL MPV 10.7 (9.4-12.3) fL Immature Gran % (Auto) 0.5 H (0.0-0.4) % Neut % (Auto) 86.9 H (45-73) % Lymph % (Auto) 9.7 L (20-40) % Harlan % (Auto) 2.5 (2-11) % Eos % (Auto) 0.1 (0-4) % Baso % (Auto) 0.3 (0-2) % Lymph # (Auto) 0.9 L (1.2-4.9) X10*3/uL Harlan # (Auto) 0.2 (0.1-1.2) X10*3/uL Eos # (Auto) 0.0 (0.0-0.4) X10*3/uL Baso # (Auto) 0.0 (0.0-0.2) X10*3/uL Abs Immat Gran (auto) 0.04 H (0.00-0.03) X10*3/uL Absolute Neuts (auto) 7.6 (2.0-8.3) x10*3/uL Absolute Nucleated RBC 0.000 (0.0-0.012) X10*3/uL Nucleated RBC % (auto) 0.0 (0.0-0.2) /100WBC D-Dimer High Sensitivty NG/ML Sodium 139 (135-145) mmol/L Potassium 4.2 (3.3-5.1) mmol/L Chloride 104 (96-108) mmol/L Carbon Dioxide 26 (22-29) mmol/L Anion Gap 13 (12-20) BUN 23 H (9-16) mg/dL Creatinine 1.15 (0.5-1.4) mg/dL Estim Creat Clear Calc 43.3 Estimated GFR 46 Random Glucose 160 H (60-115) mg/dL Calcium 9.3 (8.4-10.2) mg/dL Magnesium 2.3 (1.6-2.6) mg/dL Total Bilirubin 0.8 (0.0-1.0) mg/dL AST 31 (5-31) U/L ALT 65 H (0-31) U/L Alkaline Phosphatase 71 (39-117) U/L Troponin I High Sens 26.8 H (<3.5-17.0) ng/L B-Natriuretic Peptide (<100) pg/mL Total Protein 6.4 L (6.5-8.0) g/dL Albumin 3.7 (3.5-5.0) g/dL Urine Color Urine Appearance Urine pH (5.0-9.0) Ur Specific [place] (1.005-1.025) Urine Protein (Neg-Trace) mg/dL Urine Glucose (UA) (Negative) mg/dL Urine Ketones (Negative) mg/dL Urine Blood (Negative) Urine Nitrite (Negative) Ur Leukocyte Esterase (Negative) 11/26/22 11/26/22 11/26/22 Range/Units 10:23 10:23 10:37 WBC (4.8-10.8) X10*3/uL RBC (4.20-5.50) X10*6/uL Hgb (12.0-16.0) g/dl Hct (37.0-47.0) % MCV (80.0-98.0) fL MCH (27.0-33.0) pg MCHC (31.0-35.0) g/dl RDW (11.0-16.0) % Plt Count (160-400) X10*3/uL MPV (9.4-12.3) fL Immature Gran % (Auto) (0.0-0.4) % Neut % (Auto) (45-73) % Lymph % (Auto) (20-40) % Harlan % (Auto) (2-11) % Eos % (Auto) (0-4) % Baso % (Auto) (0-2) % Lymph # (Auto) (1.2-4.9) X10*3/uL Harlan # (Auto) (0.1-1.2) X10*3/uL Eos # (Auto) (0.0-0.4) X10*3/uL Baso # (Auto) (0.0-0.2) X10*3/uL Abs Immat Gran (auto) (0.00-0.03) X10*3/uL Absolute Neuts (auto) (2.0-8.3) x10*3/uL Absolute Nucleated RBC (0.0-0.012) X10*3/uL Nucleated RBC % (auto) (0.0-0.2) /100WBC D-Dimer High Sensitivty 780 NG/ML Sodium (135-145) mmol/L Potassium (3.3-5.1) mmol/L Chloride (96-108) mmol/L Carbon Dioxide (22-29) mmol/L Anion Gap (12-20) BUN (9-16) mg/dL Creatinine (0.5-1.4) mg/dL Estim Creat Clear Calc Estimated GFR Random Glucose (60-115) mg/dL Calcium (8.4-10.2) mg/dL Magnesium (1.6-2.6) mg/dL Total Bilirubin (0.0-1.0) mg/dL AST (5-31) U/L ALT (0-31) U/L Alkaline Phosphatase (39-117) U/L Troponin I High Sens (<3.5-17.0) ng/L B-Natriuretic Peptide 739 H (<100) pg/mL Total Protein (6.5-8.0) g/dL Albumin (3.5-5.0) g/dL Urine Color Yellow Urine Appearance Clear Urine pH 6.0 (5.0-9.0) Ur Specific [place] 1.010 (1.005-1.025) Urine Protein Negative (Neg-Trace) mg/dL Urine Glucose (UA) Negative (Negative) mg/dL Urine Ketones Negative (Negative) mg/dL Urine Blood Negative (Negative) Urine Nitrite Negative (Negative) Ur Leukocyte Esterase Negative (Negative) 11/26/22 Range/Units 13:04 WBC (4.8-10.8) X10*3/uL RBC (4.20-5.50) X10*6/uL Hgb (12.0-16.0) g/dl Hct (37.0-47.0) % MCV (80.0-98.0) fL MCH (27.0-33.0) pg MCHC (31.0-35.0) g/dl RDW (11.0-16.0) % Plt Count (160-400) X10*3/uL MPV (9.4-12.3) fL Immature Gran % (Auto) (0.0-0.4) % Neut % (Auto) (45-73) % Lymph % (Auto) (20-40) % Harlan % (Auto) (2-11) % Eos % (Auto) (0-4) % Baso % (Auto) (0-2) % Lymph # (Auto) (1.2-4.9) X10*3/uL Harlan # (Auto) (0.1-1.2) X10*3/uL Eos # (Auto) (0.0-0.4) X10*3/uL Baso # (Auto) (0.0-0.2) X10*3/uL Abs Immat Gran (auto) (0.00-0.03) X10*3/uL Absolute Neuts (auto) (2.0-8.3) x10*3/uL Absolute Nucleated RBC (0.0-0.012) X10*3/uL Nucleated RBC % (auto) (0.0-0.2) /100WBC D-Dimer High Sensitivty NG/ML Sodium (135-145) mmol/L Potassium (3.3-5.1) mmol/L Chloride (96-108) mmol/L Carbon Dioxide (22-29) mmol/L Anion Gap (12-20) BUN (9-16) mg/dL Creatinine (0.5-1.4) mg/dL Estim Creat Clear Calc Estimated GFR Random Glucose (60-115) mg/dL Calcium (8.4-10.2) mg/dL Magnesium (1.6-2.6) mg/dL Total Bilirubin (0.0-1.0) mg/dL AST (5-31) U/L ALT (0-31) U/L Alkaline Phosphatase (39-117) U/L Troponin I High Sens 25.8 H (<3.5-17.0) ng/L B-Natriuretic Peptide (<100) pg/mL Total Protein (6.5-8.0) g/dL Albumin (3.5-5.0) g/dL Urine Color Urine Appearance Urine pH (5.0-9.0) Ur Specific [place] (1.005-1.025) Urine Protein (Neg-Trace) mg/dL Urine Glucose (UA) (Negative) mg/dL Urine Ketones (Negative) mg/dL Urine Blood (Negative) Urine Nitrite (Negative) Ur Leukocyte Esterase (Negative) Independent Interpretation I performed an independent interpretation of an: EKG ( EKG with normal sinus rhythm at a rate of 91 BPM, QT of 364, MN 86, no ischemic changes), Plain X-Ray, Ultrasound and CT Scan (RLL PE ) Interpretation: CXR with small left pleural effusion Venous doppler of LLE without obvious clot. Radiology Impression Discussion of test interpretation with radiology: I have reviewed the radiologist's reading. Radiologist Impression: XR chest 1V IMPRESSION: Mild CHF and small left pleural effusion. US venous duplex LE LT IMPRESSION: No DVT demonstrated in the left lower extremity. Peroneal vein not visualized. CT angio chest PE protocol IMPRESSION: This exam is abnormal. Positive for PE the right lower lobe described. ? Other findings are as described above. ? Mild Pericardial thickening versus effusion may be present here ? VTE: positive ? This critical result was discussed with Dr. Villafuerte at 2:30 PM on 11/26/2022 and it was ascertained that the content and urgency of the report was understood at the time of direct communication. Independent Historian Clinical information obtained from an independent historian. History obtained from or confirmed by: Other (Daughter) External Record Review External record reviewed: Inpatient record Chronic Conditions Patient?s care impacted by: Hypertension and Other (VTE) Core Measures AMI core measures followed: Yes Measure exclusions: not indicated Critical Care Time Critical Care Time Critical Care Time: Yes Total Critical Care Time: 45 Attestation: Will rule out traumatic injuries of head, neck. Unlikely traumatic injuries of chest, abdomen or pelvis. Will rule out electrolyte abnormalities, UTI, dysrhythmia. Discharge Plan Discharge Clinical Impression: Acute pulmonary embolism, Tachycardia, Pleural effusion, CHF (congestive heart failure) Patient Disposition: Admitted As Inpatient Prescriptions: No Action lisinopril 2.5 mg tablet 2.5 mg PO DAILY Qty: 90 1RF albuterol sulfate 2.5 mg /3 mL (0.083 %) solution for nebulization 2.5 mg inhalation Q6H Qty: 75 0RF albuterol sulfate 90 mcg/actuation HFA aerosol inhaler 2 puff inhalation Q6H PRN (Reason: bronchospasm) Qty: 8.5 2RF fexofenadine [Lea Allergy] 180 mg tablet 180 mg PO DAILY hydrocortisone 2.5 % ointment 1 appl topical BID Qty: 20 0RF ferrous sulfate [Feosol] 325 mg (65 mg iron) tablet 325 mg PO DAILY fluticasone propion-salmeterol [Wixela Inhub] 250-50 mcg/dose blister with device 1 ea inhalation BID Qty: 60 2RF prednisone 10 mg tablet 10 mg PO DAILY Qty: 28 0RF Rx Instructions: 6 pills by mouth day 1, 6 pills by mouth day 2, 5 pills by mouth day 3, 4 pills by mouth day 4, 3 pills by mouth day 5, 2 pills by mouth day 6, 1 pill by mouth day 7 and 1 pill by mouth day 8. azithromycin 250 mg tablet See Rx Instructions PO .COMPLEX Qty: 6 0RF Rx Instructions: take 500 mg today (day 1), then 250 mg for 4 days (days 2-5) PO
--- NOTE | 2022-11-26 09:34 | ECG_ITS ---
Test Reason : SOB Blood Pressure : / mmHG Vent. Rate : 091 BPM Atrial Rate : 091 BPM P-R Int : 156 ms QRS Dur : 072 ms QT Int : 364 ms P-R-T Axes : 037 015 054 degrees QTc Int : 447 ms Sinus rhythm with Premature supraventricular complexes Possible Left atrial enlargement Borderline ECG When compared with ECG of 14-OCT-2022 20:19, Premature supraventricular complexes are now Present Vent. rate has decreased BY 49 BPM Referred By: Sebastian Deshpande Electronically Signed By:JENNIFER RAMAN
[2022-11-26] MEDS: Albuterol Sulfate 2.5 MG/0.5 ML VIAL.NEB 5 MG INHALE (10:02)
[2022-11-26 10:29] LABS: MANUAL DIFF FLAG NO
[2022-11-26 10:31] LABS: Basophils Percent Auto 0.3 % (0-2); Eosinophils Percent Auto 0.1 % (0-4); Hematocrit 39.6 % (37.0-47.0); Hemoglobin 12.6 g/dl (12.0-16.0); Imm Gran Abs Auto 0.04 X10*3/uL (0.00-0.03); Imm Gran Pct Auto 0.5 % (0.0-0.4); Lymphocytes Absolute Auto 0.9 X10*3/uL (1.2-4.9); Lymphocytes Percent Auto 9.7 % (20-40); Mean Corpuscular HGB Conc 31.8 g/dl (31.0-35.0); Mean Corpuscular Hemoglobin 27.3 pg (27.0-33.0); Mean Corpuscular Volume 85.9 fL (80.0-98.0); Mean Platelet Volume 10.7 fL (9.4-12.3); Monocytes Absolute Auto 0.2 X10*3/uL (0.1-1.2); Monocytes Percent Auto 2.5 % (2-11); Neutrophils Absolute Auto 7.6 x10*3/uL (2.0-8.3); Neutrophils Percent Auto 86.9 % (45-73); Platelet Count 208 X10*3/uL (160-400); Red Blood Count 4.61 X10*6/uL (4.20-5.50); Red Cell Distribution Width 21.1 % (11.0-16.0); White Blood Count 8.7 X10*3/uL (4.8-10.8)
[2022-11-26 10:39] LABS: D Dimer High Sensitivity 780 NG/ML
[2022-11-26 10:44] LABS: Appearance Urine Clear; Color Urine Yellow; Glucose Urine UA Negative (Negative); Leukocyte Esterase Urine Negative (Negative); Nitrite Urine Negative (Negative); Urine Blood Negative (Negative); Urine Ketones Negative (Negative); Urine Protein Negative (Neg-Trace)
[2022-11-26 10:45] LABS: Alanine Aminotransferase 65 U/L (0-31); Albumin Level 3.7 g/dL (3.5-5.0); Alkaline Phosphatase 71 U/L (39-117); Anion Gap 13 (12-20); Aspartate Amino Transferase 31 U/L (5-31); Bilirubin Total 0.8 mg/dL (0.0-1.0); Blood Urea Nitrogen 23 mg/dL (9-16); Calcium 9.3 mg/dL (8.4-10.2); Carbon Dioxide 26 mmol/L (22-29); Chloride 104 mmol/L (96-108); Creatinine Clr Calc Pharmacy 43.3; Estimated Glomerular Filt Rate 46; Glucose Random 160 mg/dL (60-115); Magnesium 2.3 mg/dL (1.6-2.6); Potassium 4.2 mmol/L (3.3-5.1); Sodium 139 mmol/L (135-145); Total Protein 6.4 g/dL (6.5-8.0)
[2022-11-26 10:51] LABS: B Type Natriuretic Peptide 739 pg/mL (<100)
[2022-11-26 10:52] LABS: Troponin-I High Sensitivity 26.8 ng/L (<3.5-17.0)
--- NOTE | 2022-11-26 11:24 | ECG_ITS ---
Test Reason : Elevated BP Blood Pressure : / mmHG Vent. Rate : 156 BPM Atrial Rate : 156 BPM P-R Int : 126 ms QRS Dur : 070 ms QT Int : 244 ms P-R-T Axes : 000 010 067 degrees QTc Int : 393 ms Sinus tachycardia Otherwise normal ECG When compared with ECG of 26-NOV-2022 09:55, Premature supraventricular complexes are no longer Present Vent. rate has increased BY 65 BPM Referred By: Sebastian Deshpande Electronically Signed By:JENNIFER RAMAN
[2022-11-26] MEDS: Furosemide 40 MG/4 ML VIAL IVPUSH (11:58)
--- NOTE | 2022-11-26 12:10 | PC.NURSE ---
rn attempting to place iv for CT as need 20g and have 22g.
--- NOTE | 2022-11-26 12:12 | PC.NURSE ---
delfino doran notified pt hr 150-160s. pt no other sx other than baseline SOB since arrival. no cp. resting in bed. family at bedside/pt state has had similar episodes in past w/similar sx
--- NOTE | 2022-11-26 12:25 | PC.NURSE ---
pt to ct scan then xray.
[2022-11-26] MEDS: iohexoL 350 MG/ML 100 ML INFUS..BTL IV (12:54)
--- NOTE | 2022-11-26 12:57 | PC.NURSE ---
Addendum entered by Abril Munoz 11/26/22 12:57: prior note was from 12:20 and entered at 12:57. Original Note: rn unable to get 20g iv. another rn kory placed 20g. pt ready for ct- provider and ct notified,.
--- NOTE | 2022-11-26 12:58 | PC.NURSE ---
pt back from radiology- tech drawing troponin at this time
[2022-11-26 13:33] LABS: Troponin-I High Sensitivity 25.8 ng/L (<3.5-17.0)
--- NOTE | 2022-11-26 15:19 | PHA.MEDREC ---
Pharmacy Consult ? Medication Reconciliation Pharmacy has completed the medication reconciliation. Patient and family confirmed medications. Reports she has 3 tablet of prednisone left. Anna Foster, FamD
[2022-11-26 15:21] LABS: Hematocrit 41.7 % (37.0-47.0); Hemoglobin 13.1 g/dl (12.0-16.0); Mean Corpuscular HGB Conc 31.4 g/dl (31.0-35.0); Mean Corpuscular Hemoglobin 26.8 pg (27.0-33.0); Mean Corpuscular Volume 85.5 fL (80.0-98.0); Mean Platelet Volume 10.1 fL (9.4-12.3); Platelet Count 238 X10*3/uL (160-400); Red Blood Count 4.88 X10*6/uL (4.20-5.50); Red Cell Distribution Width 21.2 % (11.0-16.0); White Blood Count 7.5 X10*3/uL (4.8-10.8)
--- NOTE | 2022-11-26 15:25 | P.HPHOSP_ITS ---
History of Present Illness Date of Service: 11/26/22 Attending physician on admission: Gary Hernandez Chief Complaint: valle, chest pressure 77-year-old female with history of hypertension, moderate persistent asthma, osteopenia, iron deficiency anemia, recently diagnosed atypical meningioma, history of provoked left lower extremity DVT 20 years ago following knee replacement surgery presented to the ED earlier this morning for evaluation of dyspnea on exertion and mild chest pressure. She reports she has been experiencing shortness of breath for over 1 week and thought this was related to her asthma. She was getting limited relief from her albuterol inhalers who presented to an urgent care and was prescribed Z-Krystian and prednisone taper which she has completed with minimal relief. She denies any fevers, chills, sore throat, abdominal pain, nausea, vomiting, diarrhea, orthopnea, PND, shortness of breath at rest, lightheadedness, palpitations. In the ED, patient has been intermittently tachycardic with heart rate 86-156, mild tachypnea to 21, and hypertensive to 159/80 on admission. There is no hypoxia and she is afebrile. There is no leukocytosis. Renal function baseline , electrolyte levels normal. Initial troponin 26.8, repeat 25.8. BNP 739. D- dimer 780. Venous duplex negative for any DVT. However CTA chest was ordered and was positive for segmental PE in the right lower lobe with mild pericardial thickening versus effusion of the left lung and trace right-sided effusion. She has no known history of CHF. No known history of malignancy. Denies any extensive travel recently. No family history of blood clots. Patient is morbidly obese with BMI greater than 42 and lives a relatively sedentary lifestyle. In the ED, given albuterol updraft, 40 mg IV furosemide, and initiated on heparin per protocol. Review of Systems Review of Systems: General: No fevers, malaise, unintentional weight loss HEENT: No blurred vision, diplopia. No sore throat, nasal congestion, rhinorrhea, sinus pain, ear pain Cardiovascular: +chest pressure. No palpitations, or leg edema Respiratory: +valle. No shortness of breath at rest, orthopnea, PND, wheezing, cough GI: No abdominal pain, nausea, vomiting, diarrhea, constipation, melena, hematochezia : No dysuria, hematuria, increased urinary frequency, decreased urinary output MSK: No myalgia, back pain Neuro: No headaches, weakness, paresthesias Skin: No rashes or lesions [facility] Medical History (Updated 11/27/22 @ 08:57 by Saundra East MD) Anemia Anxiety Asthma Atypical meningioma of brain Basal cell carcinoma DVT (deep venous thrombosis) HTN (hypertension) Idiopathic peripheral neuropathy Osteoarthritis Osteopenia Osteoporosis Surgical History Knee joint replacement status Social History Household Members: Spouse Housing: Apartment Alcohol intake: never Patient Tobacco Use Status: Never used Tobacco e-Cigarette/Vaping Use: Never Used Second Hand Smoke Exposure: No Use of substances other than those prescribed or required for medical reasons: No Currently Displaying Signs/Symptoms of Drug Intoxication Withdrawal: No Have you been hit, kicked, punched, or otherwise hurt by someone within the past year? If so, by whom?: No Do you feel safe in your current relationship?: Yes Is there a partner from a previous relationship who is making you feel unsafe now?: No Are you made to feel afraid or neglected: No Muslim Healthcare Practices: [employer] Advance Directives: No Advance Directives Information Provided: Yes Do you have thoughts of harming others: None Do you have a plan to hurt others: No Plan Recently lost weight without trying: No How much weight loss: Not applicable Eating poorly because of decreased appetite: No Nutrition screen score: 0 Nutrition Risks: No Nutritional Risk Patient : No : No Poor oral hygiene: No service: No Current occupational status: retired Cognitive needs: No Hearing needs: No Vision needs: No Meds Allergies Allergy/AdvReac Type Severity Reaction Status Date / Time No Known Allergies Allergy Verified 11/26/22 09:00 Active Medications: Current Medications Acetaminophen (Acetaminophen 325 Mg Tablet) 650 mg PO Q6H PRN PRN Reason: Pain, Mild (Pain Scale 1-3) Docusate Sodium (Docusate Sodium 100 Mg Capsule) 100 mg PO DAILY PRN PRN Reason: Constipation Heparin Sodium (Porcine) (Heparin Sodium,Porcine 5,000 Unit/Ml Vial) 3,900 unit 40 unit/kg (3900 unit) IVPUSH PROTOCOL BOLUS PRN; Protocol PRN Reason: 40 unit/kg - Heparin Protocol Heparin Sodium (Porcine) (Heparin Sodium,Porcine 5,000 Unit/Ml Vial) 7,800 unit 80 unit/kg (7800 unit) IVPUSH PROTOCOL BOLUS PRN; Protocol PRN Reason: 80 unit/kg - Heparin Protocol Heparin Sodium/Sodium Chloride (Heparin Sodium,Porcine/1/2ns) 25,000 unit in 250 mls @ 0 mls/hr IVCONT .Q0M SAYRA; Protocol Ondansetron HCl (Ondansetron Hcl 4 Mg/2 Ml Vial) 4 mg IVPUSH Q8H PRN PRN Reason: Nausea and Vomiting Sodium Chloride (0.9 % Sodium Chloride Flush 3 Ml Syringe) 3 ml IVFLUSH QSHIFT COUNT INCLUDES THE [facility] Home Medications Medication Instructions Recorded Confirmed Last Taken Type ferrous sulfate 325 mg (65 mg 325 mg PO DAILY 10/27/22 11/26/22 Unknown History iron) tablet (Feosol) albuterol sulfate 2.5 mg/3 mL 2.5 mg inhalation Q6H PRN 11/26/22 11/26/22 Unknown History (0.083 %) solution for nebulization Shortness Of Breath prednisone 10 mg tablet See Taper PO DAILY 11/26/22 11/26/22 Unknown History Physical Exam Vital Signs and Narrative: Vital Signs: Last Vital Signs Temp 97.9 F 11/26/22 14:35 Pulse 86 11/26/22 14:35 Resp 20 11/26/22 14:35 BP 159/80 H 11/26/22 14:35 Pulse Ox 95 11/26/22 14:35 O2 Del Method Room Air 11/26/22 14:35 BMI result Body Mass Index 42.2 Constitutional - Awake and Alert, No apparent distress Eyes - PERRLA, EOMI Cardiovascular - S1S2, RRR, No edema Respiratory - Normal lung expansion, Normal respiratory effort, No respiratory distress, CTA bilaterally, no orthopnea Gastrointestinal - NT / ND; +BS; No rebound or guarding Extremities - no calf tenderness bilaterally, no swelling Skin - Warm/Dry Neurological - Alert & oriented x3 Psychological - Appropriate affect Results Labs 11/26/22 15:14 11/26/22 10:23 Labs: Laboratory Results - last 24 hr 11/26/22 11/26/22 11/26/22 10:23 10:23 10:23 MCV 85.9 MCH 27.3 MCHC 31.8 RDW 21.1 H Plt Count 208 MPV 10.7 Immature Gran % (Auto) 0.5 H Neut % (Auto) 86.9 H Lymph % (Auto) 9.7 L Ransom % (Auto) 2.5 Eos % (Auto) 0.1 Baso % (Auto) 0.3 Lymph # (Auto) 0.9 L Ransom # (Auto) 0.2 Eos # (Auto) 0.0 Baso # (Auto) 0.0 Abs Immat Gran (auto) 0.04 H Absolute Neuts (auto) 7.6 Absolute Nucleated RBC 0.000 Nucleated RBC % (auto) 0.0 D-Dimer High Sensitivty Anion Gap 13 Estim Creat Clear Calc 43.3 Estimated GFR 46 Random Glucose 160 H Calcium 9.3 Magnesium 2.3 Total Bilirubin 0.8 AST 31 ALT 65 H Alkaline Phosphatase 71 B-Natriuretic Peptide 739 H Total Protein 6.4 L Albumin 3.7 Urine Color Urine Appearance Urine pH Ur Specific Hazen Urine Protein Urine Glucose (UA) Urine Ketones Urine Blood Urine Nitrite Ur Leukocyte Esterase 11/26/22 11/26/22 11/26/22 10:23 10:37 15:14 MCV 85.5 MCH 26.8 L MCHC 31.4 RDW 21.2 H Plt Count 238 MPV 10.1 Immature Gran % (Auto) Neut % (Auto) Lymph % (Auto) Ransom % (Auto) Eos % (Auto) Baso % (Auto) Lymph # (Auto) Ransom # (Auto) Eos # (Auto) Baso # (Auto) Abs Immat Gran (auto) Absolute Neuts (auto) Absolute Nucleated RBC 0.000 Nucleated RBC % (auto) 0.0 D-Dimer High Sensitivty 780 Anion Gap Estim Creat Clear Calc Estimated GFR Random Glucose Calcium Magnesium Total Bilirubin AST ALT Alkaline Phosphatase B-Natriuretic Peptide Total Protein Albumin Urine Color Yellow Urine Appearance Clear Urine pH 6.0 Ur Specific Hazen 1.010 Urine Protein Negative Urine Glucose (UA) Negative Urine Ketones Negative Urine Blood Negative Urine Nitrite Negative Ur Leukocyte Esterase Negative Imaging Radiologist's Impressions: Impressions Chest X-Ray 11/26/22 09:45 IMPRESSION: Mild CHF and small left pleural effusion. Venous Duplex 11/26/22 11:03 IMPRESSION: No DVT demonstrated in the left lower extremity. Peroneal vein not visualized. Chest CTA 11/26/22 13:00 IMPRESSION: This exam is abnormal. Positive for PE the right lower lobe described. Other findings are as described above. Mild Pericardial thickening versus effusion may be present here VTE: positive This critical result was discussed with Dr. Villafuerte at 2:30 PM on 11/26/2022 and it was ascertained that the content and urgency of the report was understood at the time of direct communication. Assessment and Plan (1) Acute pulmonary embolism: Status: Acute (2) Elevated brain natriuretic peptide (BNP) level: Status: Acute (3) Elevated troponin: Status: Acute Plan 77-year-old female with history of hypertension, moderate persistent asthma, osteopenia, iron deficiency anemia, recently diagnosed atypical meningioma, history of provoked left lower extremity DVT 20 years ago following knee replacement surgery admitted for RLL segmental pulmonary embolism and suspicion for congestive heart failure. #Acute RLL segmental PE -D-dimer 780. Chest CTA showed right lower lobe segmental pulmonary embolism. No right heart strain -hemodynamically stable, heart rate varying 86-150, no hypoxia -IV heparin per protocol initiated by ED -hematology consult -monitor on telemetry -follow CBC, coags # elevated BNP -BNP 739. Chest CTA also shows possible trace pleural effusions. There is no orthopnea, edema, or PND the patient does experience dyspnea on exertion -BMP possibly elevated due to pulmonary embolism -given 40 mg IV Lasix in the ED. Hold on further IV diuresis -check echocardiogram # elevated troponins -initial trope 26.8, repeat 25.8. EKG shows sinus tachycardia, rate 156, no ST/T-wave abnormalities. -likely demand secondary to PE -echo ordered as above # hypertension -continue lisinopril # chronic iron deficiency anemia -continue ferrous sulfate -H/H normal # moderate persistent asthma -no acute exacerbation -continue maintenance inhalers, albuterol p.r.n. # meningioma -most likely benign in etiology. Follow-up outpatient with PCP for MRI for further characterization DVT prophylaxis-on heparin per protocol Full code Patient requires inpatient stay at least 2 midnights for management of acute segmental PE on IV heparin per protocol as well as possible new onset CHF requiring additional workup and close monitoring Time Spent With Patient Time: Total time managing care of this patient today ____ minutes. Quality Stroke Does the patient have a stroke diagnosis?: No VTE Prior VTE?: Yes VTE Risk Level:: Medical - moderate - high VTE Device Contraindication: Treatment Not Indicated VTE Drug Contraindication: N/A - Med Ordered
[2022-11-26 15:33] LABS: INTERNATIONAL NORM RATIO 0.9 (0.9-1.1); Prothrombin Time 11.4 SEC (11.1-13.3)
[2022-11-26 16:00] LABS: PTT Heparin Drip 23.1 SEC (53-77.9)
[2022-11-26] MEDS: Heparin Sodium,Porcine 5,000 UNIT/ML VIAL 7800 UNIT IVPUSH (16:24)
[2022-11-26] MEDS: Heparin Sodium,Porcine/1/2NS 25,000 UNIT/250 ML IV.SOLN 13.73 UNIT IVCONT (16:34)
--- NOTE | 2022-11-26 16:45 | PC.NURSE ---
calling transport for pt to go up - report finished [id number]
[2022-11-26] MEDS: 0.9 % Sodium Chloride Flush 3 ML SYRINGE IVFLUSH (17:26)
[2022-11-26 23:04] LABS: PTT Heparin Drip > 200.0 SEC (53-77.9)
[2022-11-27] VITALS (7 sets, daily range): BP systolic 137–144; BP diastolic 72–95; PULSE 77–150; RESP 18–20; TEMP 36.1–37; O2SAT 93–97
[2022-11-27 00:29] LABS: PTT Heparin Drip 101.4 SEC (53-77.9)
[2022-11-27] MEDS: Albuterol Sulfate (0.083%) 2.5 MG/3 ML VIAL.NEB INHALE (03:58)
--- NOTE | 2022-11-27 07:00 | CA_ITS ---
Transthoracic Echocardiogram Patient (Last, First, Middle): Padma Durant S Gender: Female Date of : 1945 Age: 77 Procedure Date: 11/27/2022 Procedure Type: Transthoracic Echocardiogram Location: [facility] [place] Height: 152.4 cm Weight: 98.88 kg BSA: 1.94 m2 Heart Rate: bpm BP: 143 / 72 mmHg Algorithm Design Engineer: SB Referring MD: [place] BRIZUELA Symptoms: ?CHF Study Quality: Adequate Conclusions: - Mildly increased left ventricular cavity size. There is mildly increased left ventricular wall thickness. The left ventricular systolic function is mildly decreased. The visually estimated ejection fraction is between 40-45%. - Normal right ventricular cavity size. There is normal right ventricular systolic function. - There is mild mitral valve regurgitation. - There is severe mitral annular calcification. - The patient developed a narrow complex tachycardia at the end of the study, likely SVT. Findings Left Ventricle Mildly increased left ventricular cavity size. There is mildly increased left ventricular wall thickness. The left ventricular systolic function is mildly decreased. The visually estimated ejection fraction is between 40 45%. There is mild global hypokinesis. Diastolic function is indeterminate on the basis of available data. Right Ventricle Normal right ventricular cavity size. There is normal right ventricular systolic function. Atria The left atrium is severely dilated. Aortic Valve There is a normal trileaflet aortic valve. There is no aortic valve stenosis. There is mild aortic valve regurgitation. Mitral Valve There is severe mitral annular calcification. There is mild mitral valve regurgitation. MG across mitral valve 9 mm Hg at HR 86 beats/min. Pulmonic Valve Normal pulmonic valve structure and function. There is no pulmonic valve regurgitation. Tricuspid Valve Normal tricuspid valve structure. The right ventricular systolic pressure is 39 mmHg. Normal right atrial pressure. Mild pulmonary hypertension is present. Great Vessels There is mild dilatation of the ascending aorta measuring 3.80 cm. The visualized portions of the pulmonary artery and branches are normal. Venous The inferior vena cava is normal in size and collapses greater than 50% with inspiration. Pericardium/Pleural There is a small pericardial effusion. There are no definitive echocardiographic findings of tamponade physiology. Prior Study Comparison No prior study available for comparison. Measurements 2D Linear Measurements RVIDd: 3.85 IVSd: 0.90 0.6-0.9/0.6-1.0 cm LVIDd: 5.16 3.9-5.3/4.2-5.9 cm LVIDs: 4.22 2.0-3.6 cm LVPWd: 1.30 0.7-1.1 cm LA Diam: 4.40 2.7-3.8/3.0-4.0 cm LVOT Diam: 2.10 3.0+(-)1.3 cm RA Area,d: 13.20 8.3-19.5 cm2 2D Volumes LV ESV: 133.00 19-49/22-58 ml 2D Systolic Function EF Teich: 37.00 >55% EF BiP: 40.00 >55% Mitral Valve MV VTI: 0.41 MV Pk Glenn: 1.94 MV Mn Glenn: 1.32 MV Pk Grad: 15.00 MV Mn Grad: 8.00 MV Pk E: 1.64 MV PK A: 1.52 MV Decel Time: 206.00 E/A: 1.10 E'Lateral: 4.57 E'Medial: 4.79 E/E' Med: 35.90 E/E' Lat: 34.20 PHT: 60.00 MVA PHT: 3.67 MVA Continuity: 2.22 Aortic Valve AoV Pk Glenn: 1.76 AoV Mn Glenn: 1.22 AoV VTI: 0.31 AoV Pk Grad: 12.00 Aov Mn Grad: 7.00 DREW Cont.VTI: 2.91 PHT: 314.00 AI Pk Glenn: 3.78 AI [place]: 353.00 LVOT LVOT Pk Glenn: 1.31 LVOT Mn Glenn: 0.93 LVOT VTI: 0.26 LVOT Pk Grad: 7.00 LVOT Mn Grad: 4.00 LVOT Diam: 2.10 Diastolic Function MV Pk E: 1.64 MV Pk A: 1.52 E/A: 1.10 E'Medial: 4.79 E/E' Med: 35.90 E' Laterial: 4.57 E/E' Lat: 34.20 Right Ventricle TAPSE (mm): 22.40 TVS' Glenn: 18.10 Tricuspid Valve TR Pk Glenn: 2.98 TR Pk Grad: 36.00 RA Press: 3.00 RVSP: 39.00 Great Vessels Aorta Sinus of Valsalva: 3.20 2.0-3.5 cm Ao Asc: 3.80 2.1-3.4 cm Pulmonary Valve PV Pk Glenn: 0.98 Peak PV Grad: 4.00 Updated in Other Vendor System with Status of Final Iggy High MD electronically signed on 11/27/2022 3:47:13 PM with status of Final
[2022-11-27] MEDS: Fluticasone/Vilanterol 100/25 BLST.W.DEV 1 PUFF INHALE (07:44)
[2022-11-27] MEDS: 0.9 % Sodium Chloride Flush 3 ML SYRINGE IVFLUSH ×3 (07:46→20:10)
[2022-11-27] MEDS: Ferrous Sulfate 324 MG TABLET.DR PO (07:46)
[2022-11-27] MEDS: lisinopriL 2.5 MG TABLET PO (07:47)
--- NOTE | 2022-11-27 08:15 | MHC.CM.PN ---
CM met with Patient at bedside and addressed IMM with her, providing Patient with the original and placing a copy on the chart. Patient lives in an apartment with her /HCP and she required no services nor DME [employer]. Home/self care is the goal and CM has initiated and will follow for dc planning. PCP is Dr. Juanito Riley.
[2022-11-27 08:52] LABS: MANUAL DIFF FLAG NO
--- NOTE | 2022-11-27 08:57 | PM.HEMONCCN ---
Subjective - Subjective Chief complaint: Shortness of breath Patient: new to practice Consult date: 11/27/22 Requesting Physician: Maine Avery NP Primary Care Provider: IDALMIS Levy HPI - Consult Narrative Reason for consult: Pulmonary embolism Narrative: Padma Durant is a 77 year old woman who is now admitted for pulmonary embolism. She presented with 1 week symptoms shortness of breath which she attributed to her asthma. She was seen in urgent care and started on Zithromax and prednisone which she completed with minimal relief. No history of fever, chills, nausea abdominal pain or chest pain. She has a history of left lower extremity DVT 20 years ago following right knee replacement surgery. She was on warfarin for 6 months at that time. Patient states that in August she had a bad fall, she presented to the emergency department in she received multiple stitches over her left knee as well as her forehead. She has not had any recent surgery. She is up-to-date with mammogram but has never had a colonoscopy. She denies any change in bowel habits. No loss of appetite or unexplained weight loss. Evaluation in the ED revealed elevated D-dimer. Lower extremity Doppler was negative for DVT but CT angiogram revealed segmental pulmonary embolism in the right lower lobe with mild pericardial thickening versus effusion of the left lung and trace right-sided effusion. She has been started on heparin, she is feeling better and wants to go home. There is no family history of thromboembolism and she is not a smoker. Review of Systems - Constitutional Reports as per HPI, Denies fatigue, Denies lack of energy, Denies malaise, Denies weakness, Denies weight loss - Cardiovascular Reports no additional cardiovascular complaints - Respiratory Reports no additional respiratory complaints [facility] Medical History: Medical History (Last Reviewed 11/26/22 @ 17:23 by Maile Cantu RN) Anemia Anxiety Asthma Atypical meningioma of brain Basal cell carcinoma DVT (deep venous thrombosis) HTN (hypertension) Idiopathic peripheral neuropathy Osteoarthritis Osteopenia Osteoporosis Surgical History: Surgical History (Last Reviewed 11/26/22 @ 17:23 by Maile Cantu RN) Knee joint replacement status Social History: Social History (Last Reviewed 11/26/22 @ 15:33 by GELACIO Schaeffer) Living Situation History: Household Members: Spouse Housing: Apartment Alcohol History Details: 1. How often do you have a drink containing alcohol?: a. Never AUDIT-C Alcohol total score: 0 Currently Displaying Signs/Symptoms of Alcohol Withdrawal: No Tobacco History: Patient Tobacco Use Status: Never used Tobacco e-Cigarette/Vaping Use: Never Used Second Hand Smoke Exposure: No Substance Use History: Use of substances other than those prescribed or required for medical reasons: No Currently Displaying Signs/Symptoms of Drug Intoxication Withdrawal: No Domestic Abuse History: Have you been hit, kicked, punched, or otherwise hurt by someone within the past year? If so, by whom?: No Do you feel safe in your current relationship?: Yes Is there a partner from a previous relationship who is making you feel unsafe now?: No Are you made to feel afraid or neglected: No Healthcare Practices: Episcopal Healthcare Practices: Jewish Advance Directives: Advance Directives: No Advance Directives Information Provided: Yes Homicidal Assessment: Do you have thoughts of harming others: None Do you have a plan to hurt others: No Plan Nutrition Assessment: Recently lost weight without trying: No How much weight loss: Not applicable Eating poorly because of decreased appetite: No Nutrition screen score: 0 Nutrition Risks: No Nutritional Risk Patient : No : No Poor oral hygiene: No Occupation Assessmet: service: No Current occupational status: retired Home Medications and Allergies Current Medications: Current Medications Acetaminophen (Acetaminophen 325 Mg Tablet) 650 mg PO Q6H PRN PRN Reason: Pain, Mild (Pain Scale 1-3) Albuterol Sulfate (Albuterol Sulfate (0.083%) 2.5 Mg/3 Ml Vial.Neb) 2.5 mg INHALE Q6H PRN PRN Reason: Shortness Of Breath Last Admin: 11/27/22 03:58 Dose: 2.5 mg Albuterol Sulfate (Albuterol Sulfate 90 Mcg 8 Gm Inhaler) 2 puff INHALE Q6H PRN PRN Reason: bronchospasm Docusate Sodium (Docusate Sodium 100 Mg Capsule) 100 mg PO DAILY PRN PRN Reason: Constipation Ferrous Sulfate (Ferrous Sulfate 324 Mg Tablet.Dr) 324 mg PO DAILY [facility] Last Admin: 11/27/22 07:46 Dose: 324 mg Fluticasone/Vilanterol (Fluticasone/Vilanterol 100/25 Blst.W.Dev) 1 puff INHALE RDAILY [facility] Last Admin: 11/27/22 07:44 Dose: 1 puff Heparin Sodium (Porcine) (Heparin Sodium,Porcine 5,000 Unit/Ml Vial) 3,900 unit 40 unit/kg (3900 unit) IVPUSH PROTOCOL BOLUS PRN; Protocol PRN Reason: 40 unit/kg - Heparin Protocol Heparin Sodium (Porcine) (Heparin Sodium,Porcine 5,000 Unit/Ml Vial) 7,800 unit 80 unit/kg (7800 unit) IVPUSH PROTOCOL BOLUS PRN; Protocol PRN Reason: 80 unit/kg - Heparin Protocol Heparin Sodium/Sodium Chloride (Heparin Sodium,Porcine/1/2ns) 25,000 unit in 250 mls @ 0 mls/hr IVCONT .Q0M SAYRA; Protocol Last Titration: 11/27/22 02:16 Dose: 10 units/kg/hr, 9.81 mls/hr Lisinopril (Lisinopril 2.5 Mg Tablet) 2.5 mg PO DAILY [facility]; Protocol Last Admin: 11/27/22 07:47 Dose: 2.5 mg Ondansetron HCl (Ondansetron Hcl 4 Mg/2 Ml Vial) 4 mg IVPUSH Q8H PRN PRN Reason: Nausea and Vomiting Sodium Chloride (0.9 % Sodium Chloride Flush 3 Ml Syringe) 3 ml IVFLUSH QSHIFT [facility] Last Admin: 11/27/22 07:46 Dose: 3 ml Home Medications Medication Instructions Recorded Confirmed Type ferrous sulfate 325 mg (65 mg 325 mg PO DAILY 10/27/22 11/26/22 History iron) tablet (Feosol) albuterol sulfate 2.5 mg/3 mL 2.5 mg inhalation Q6H PRN 11/26/22 11/26/22 History (0.083 %) solution for nebulization Shortness Of Breath prednisone 10 mg tablet See Taper PO DAILY 11/26/22 11/26/22 History Allergies Allergy/AdvReac Type Severity Reaction Status Date / Time No Known Allergies Allergy Verified 11/26/22 09:00 Physical Exam Vital signs: Vital Signs Temp 97.8 F 11/27/22 07:32 Pulse 82 11/27/22 07:48 Resp 18 11/27/22 07:48 BP 143/72 H 11/27/22 07:32 Pulse Ox 94 11/27/22 07:32 O2 Del Method Room Air 11/27/22 07:32 Intake & Output 11/26/22 11/27/22 11/27/22 18:59 06:59 18:59 Intake Total 931.305 / 931.305 Balance 931.305 / 931.305 Intake: Intake, Oral Amount 840 / 840 Intake, IV Amount 91.305 / 91.305 Heparin Sodium,Porcine/1/2NS 25 91.305 / 91.305 ,000 unit In 250 ml @ Per Protocol IVCONT .Q0M [facility] Rx#: [id number] Other: Meal Refused No NPO No Dinner % Eaten 100% Evening Snack % Eaten 100 Number of Unmeasured Voids 4 Urine Bathroom Last Bowel Movement 11/26/22 11/26/22 11/26/22 Weight 99.3 kg Weight in Grams 09650 Weight 99.3 kg - Constitutional Present: no acute distress, obese - Routine HEENT Exam Head: Present: normal inspection Eye: Present: EOMI - Routine Neck Exam Present: supple. Absent: lymphadenopathy, thyromegaly - Routine Respiratory Exam Present: CTAB. Absent: accessory muscle use - Routine Cardiovascular Exam Cardiovascular: Present: S1, S2 - Routine Abdominal Exam Present: soft - Routine Extremities Exam Present: pedal edema. Absent: calf tenderness - Routine Skin Exam Present: intact - Routine Neurological Exam Present: alert, oriented X3 Hem/Onc Consult Result - Labs CBC & Chem 7: 11/27/22 08:36 11/27/22 08:36 Labs: Short CBC 11/26/22 11/26/22 Range/Units 10:23 15:14 WBC 8.7 7.5 (4.8-10.8) X10*3/uL Hgb 12.6 D 13.1 (12.0-16.0) g/dl Hct 39.6 41.7 (37.0-47.0) % Plt Count 208 238 (160-400) X10*3/uL BMP 11/26/22 10:23 Sodium 139 Potassium 4.2 Chloride 104 Carbon Dioxide 26 BUN 23 H Creatinine 1.15 Calcium 9.3 Liver Function 11/26/22 Range/Units 10:23 Total Bilirubin 0.8 (0.0-1.0) mg/dL AST 31 (5-31) U/L ALT 65 H (0-31) U/L Alkaline Phosphatase 71 (39-117) U/L Albumin 3.7 (3.5-5.0) g/dL Urine 11/26/22 Range/Units 10:37 Urine Color Yellow Urine Appearance Clear Urine pH 6.0 (5.0-9.0) Ur Specific [place] 1.010 (1.005-1.025) Urine Protein Negative (Neg-Trace) mg/dL Urine Glucose (UA) Negative (Negative) mg/dL Assessment and Plan Patient Active problem list reviewed?: Yes (1) Acute pulmonary embolism Status: Acute Assessment and plan: 1. This is a 77-year-old woman with right segmental pulmonary embolism that appear to have happened after recent traumatic injury of left lower extremity after a fall in August 2022. In September she presented to ED with significant swelling of the left lower extremity, DVT was not demonstrated but peroneal veins could not be visualized. She is hemodynamically stable and her O2 sats are good on room air. She has responded well to IV heparin. She also has a remote history of left lower extremity DVT more than 20 years ago after knee surgery. She was on warfarin for 6 months at that time. No personal history of smoking and no family history of thromboembolism. She does not have any symptoms suggestive of underlying malignancy. She is up-to-date with mammography, she has had Cologuard test, she was encouraged to go for screening colonoscopy as well. There is no role of thrombophilia testing. I have recommended 3-6 months of anticoagulation with Eliquis. I thank you for this referral. - Time Spent With Patient Time Spent with Patient (in minutes): 20
[2022-11-27 08:59] LABS: Basophils Absolute Auto 0.1 X10*3/uL (0.0-0.2); Eosinophils Absolute Auto 0.1 X10*3/uL (0.0-0.4); Eosinophils Percent Auto 1.2 % (0-4); Hematocrit 39.4 % (37.0-47.0); Hemoglobin 12.3 g/dl (12.0-16.0); Imm Gran Abs Auto 0.02 X10*3/uL (0.00-0.03); Imm Gran Pct Auto 0.3 % (0.0-0.4); Lymphocytes Percent Auto 29.2 % (20-40); Mean Corpuscular HGB Conc 31.2 g/dl (31.0-35.0); Mean Corpuscular Hemoglobin 27.2 pg (27.0-33.0); Mean Platelet Volume 10.6 fL (9.4-12.3); Monocytes Absolute Auto 0.7 X10*3/uL (0.1-1.2); Neutrophils Absolute Auto 3.9 x10*3/uL (2.0-8.3); Neutrophils Percent Auto 57.3 % (45-73); Platelet Count 204 X10*3/uL (160-400); Red Blood Count 4.53 X10*6/uL (4.20-5.50); Red Cell Distribution Width 21.2 % (11.0-16.0); White Blood Count 6.8 X10*3/uL (4.8-10.8)
[2022-11-27 09:09] LABS: Anion Gap 12 (12-20); Blood Urea Nitrogen 24 mg/dL (9-16); Calcium 9.5 mg/dL (8.4-10.2); Carbon Dioxide 30 mmol/L (22-29); Chloride 101 mmol/L (96-108); Creatinine Clr Calc Pharmacy 41.6; Estimated Glomerular Filt Rate 44; Glucose Random 160 mg/dL (60-115); Potassium 3.4 mmol/L (3.3-5.1); Sodium 140 mmol/L (135-145)
[2022-11-27 09:18] LABS: B Type Natriuretic Peptide 600 pg/mL (<100)
[2022-11-27] MEDS: Heparin Sodium,Porcine 5,000 UNIT/ML VIAL 3900 UNIT IVPUSH (09:33)
--- NOTE | 2022-11-27 11:29 | MHC.CM.PN ---
Patient has been medically cleared for dc to home today, self care.
--- NOTE | 2022-11-27 12:47 | HO.PM.IMPN ---
Subjective Subjective Date of Service: 11/27/22 Interval History: offers no acute complaints denies chest pain, no shortness of breath, no palpitations, denies lightheadedness, no dizziness, has been ambulating with no difficulty, left lower extremity swelling and pain has been improving since a fall in August 2022. no fevers, no chills, no nausea no vomiting no abdominal pain tolerating diet no diarrhea. Review of Systems all other system reviewed and negative Physical Exam Vital Signs: Vital Signs: Last Vital Signs Temp 98.6 F 11/27/22 11:37 Pulse 144 H 11/27/22 11:37 Resp 20 11/27/22 11:37 BP 143/95 H 11/27/22 11:37 Pulse Ox 94 11/27/22 11:37 O2 Del Method Room Air 11/27/22 11:37 BMI result Body Mass Index 42.8 Const: Other: General Awake alert x3,resting comfortably in no acute distress. Neck supple no JVD. CVS regular rate rhythm, tachy Respiratory lungs clear to auscultation, no respiratory distress, no wheeze, no rhonchi. Gastrointestinal abdomen soft, nontender, bowel sounds audible, no guarding , no rigidity. Extremities left leg mildly swollen, no pitting edema, old knee scar healing well Neuro nonfocal , moving all 4 extremity speech clear. Skin no rash neuro nonfocal Objective Data Active Medications Acetaminophen (Acetaminophen 325 Mg Tablet) 650 mg PO Q6H PRN PRN Reason: Pain, Mild (Pain Scale 1-3) Albuterol Sulfate (Albuterol Sulfate (0.083%) 2.5 Mg/3 Ml Vial.Chan) 2.5 mg INHALE Q6H PRN PRN Reason: Shortness Of Breath Last Admin: 11/27/22 03:58 Dose: 2.5 mg Documented By: LELIA Albuterol Sulfate (Albuterol Sulfate 90 Mcg 8 Gm Inhaler) 2 puff INHALE Q6H PRN PRN Reason: bronchospasm Apixaban (Apixaban 5 Mg Tablet) 10 mg PO BID [facility] Stop: 12/04/22 09:01 Docusate Sodium (Docusate Sodium 100 Mg Capsule) 100 mg PO DAILY PRN PRN Reason: Constipation Ferrous Sulfate (Ferrous Sulfate 324 Mg Tablet.) 324 mg PO DAILY [facility] Last Admin: 11/27/22 07:46 Dose: 324 mg Documented By: MARIA Fluticasone/Vilanterol (Fluticasone/Vilanterol 100/25 Blst.W.Dev) 1 puff INHALE RDAILY [facility] Last Admin: 11/27/22 07:44 Dose: 1 puff Documented By: YUSUF Lisinopril (Lisinopril 2.5 Mg Tablet) 2.5 mg PO DAILY [facility]; Protocol Last Admin: 11/27/22 07:47 Dose: 2.5 mg Documented By: MARIA Ondansetron HCl (Ondansetron Hcl 4 Mg/2 Ml Vial) 4 mg IVPUSH Q8H PRN PRN Reason: Nausea and Vomiting Sodium Chloride (0.9 % Sodium Chloride Flush 3 Ml Syringe) 3 ml IVFLUSH QSHIFT [facility] Last Admin: 11/27/22 07:46 Dose: 3 ml Documented By: MARIA Labs 11/27/22 08:36 11/27/22 08:36 Labs: Laboratory Results - last 24 hr 11/26/22 11/26/22 11/26/22 15:14 15:14 22:28 MCV 85.5 MCH 26.8 L MCHC 31.4 RDW 21.2 H Plt Count 238 MPV 10.1 Immature Gran % (Auto) Neut % (Auto) Lymph % (Auto) Barton % (Auto) Eos % (Auto) Baso % (Auto) Lymph # (Auto) Barton # (Auto) Eos # (Auto) Baso # (Auto) Abs Immat Gran (auto) Absolute Neuts (auto) Absolute Nucleated RBC 0.000 Nucleated RBC % (auto) 0.0 PT 11.4 INR 0.9 aPTT Heparin Protocol 23.1 L > 200.0 H* D Anion Gap Estim Creat Clear Calc Estimated GFR Random Glucose Calcium B-Natriuretic Peptide 11/27/22 11/27/22 11/27/22 00:16 01:24 08:36 MCV 87.0 MCH 27.2 MCHC 31.2 RDW 21.2 H Plt Count 204 MPV 10.6 Immature Gran % (Auto) 0.3 Neut % (Auto) 57.3 Lymph % (Auto) 29.2 Barton % (Auto) 11.0 Eos % (Auto) 1.2 Baso % (Auto) 1.0 Lymph # (Auto) 2.0 Barton # (Auto) 0.7 Eos # (Auto) 0.1 Baso # (Auto) 0.1 Abs Immat Gran (auto) 0.02 Absolute Neuts (auto) 3.9 Absolute Nucleated RBC 0.000 Nucleated RBC % (auto) 0.0 PT INR aPTT Heparin Protocol 101.4 H D 62.0 D Anion Gap Estim Creat Clear Calc Estimated GFR Random Glucose Calcium B-Natriuretic Peptide 11/27/22 11/27/22 11/27/22 08:36 08:36 08:36 MCV MCH MCHC RDW Plt Count MPV Immature Gran % (Auto) Neut % (Auto) Lymph % (Auto) Barton % (Auto) Eos % (Auto) Baso % (Auto) Lymph # (Auto) Barton # (Auto) Eos # (Auto) Baso # (Auto) Abs Immat Gran (auto) Absolute Neuts (auto) Absolute Nucleated RBC Nucleated RBC % (auto) PT 12.0 INR 1.0 aPTT Heparin Protocol 47.0 L D Anion Gap 12 Estim Creat Clear Calc 41.6 Estimated GFR 44 Random Glucose 160 H Calcium 9.5 B-Natriuretic Peptide 600 H Assessment and Plan (1) Elevated troponin: Status: Acute (2) Acute pulmonary embolism: Status: Acute Plan 77-year-old female with history of hypertension, moderate persistent asthma, osteopenia, iron deficiency anemia, recently diagnosed atypical meningioma, history of provoked left lower extremity DVT 20 years ago following knee replacement surgery admitted for RLL segmental pulmonary embolism and suspicion for congestive heart failure. #Acute RLL segmental PE asymptomatic no chest pain, no palpitations -D-dimer 780. Chest CTA showed right lower lobe segmental pulmonary embolism.? No right heart strain - seen by Dr. East she felt acute PE related to recent fall with left lower extremity trauma in August 2022, left lower extremity duplex study showed no DVT no evidence of malignancy, up to date with mammogram recommend outpatient colonoscopy will DC IV heparin and placed on Eliquis for 3-6 months as per Hematology recommendation #-Sinus tachycardia intermittent sinus tachycardia heart rate up to 140s, patient remains asymptomatic, likely due to PE no evidence of dehydration, no anemia, will check TSH and echocardiogram # elevated BNP 739 receive 1 dose of IV Lasix in ED, BNP drop down to 600 -Chest CTA shows possible trace pleural effusions, no evidence of acute CHF appears euvolemic, no orthopnea,no edema, or PND does have dyspnea on exertion -elevated BNP likely due to pulmonary embolism, follow echocardiogram hold further diuretics # elevated troponins -initial trope 26.8, repeat 25.8.? EKG shows sinus tachycardia, rate 156, no ST/T-wave abnormalities. -likely demand secondary to PE - follow echo report # hypertension - is stable blood pressure,continue lisinopril # chronic iron deficiency anemia -continue ferrous sulfate, normal H&H # moderate persistent asthma -no acute exacerbation -continue maintenance inhalers, albuterol p.r.n. # meningioma -most likely benign in etiology.? Follow-up outpatient with PCP for MRI for further characterization DVT prophylaxis- on Eliquis Full code Patient requires continued inpatient stay for right lower lobe PE with intermittent sinus tachycardia waiting for complete workup including echocardiogram. Time Spent With Patient Time: Total time managing care of this patient today ____ minutes. Quality Stroke Does the patient have a stroke diagnosis?: No VTE Prior VTE?: Yes VTE Risk Level:: Medical - moderate - high VTE Device Contraindication: Treatment Not Indicated VTE Drug Contraindication: N/A - Med Ordered
[2022-11-27 13:20] LABS: Thyroid Stimulating Hormone 2.49 uIU/mL (0.32-4.0)
[2022-11-27 16:57] LABS: PTT Heparin Drip 23.1 SEC (53-77.9)
[2022-11-27] MEDS: Apixaban 5 MG TABLET 10 MG PO (20:08)
[2022-11-27] MEDS: Melatonin 3 MG TABLET 6 MG PO (23:56)
[2022-11-28] VITALS: BP 171/82; PULSE 87; RESP 20; TEMP 35.9; O2SAT 95
[2022-11-28 04:00] VITALS: BP 142/84; PULSE 92; RESP 20; TEMP 36.9; O2SAT 92
[2022-11-28 07:25] VITALS: BP 167/82; PULSE 132; RESP 20; TEMP 36.1; O2SAT 95
[2022-11-28] MEDS: Fluticasone/Vilanterol 100/25 BLST.W.DEV 1 PUFF INHALE (07:36)
[2022-11-28 07:37] VITALS: PULSE 102; RESP 18; O2SAT 95
[2022-11-28] MEDS: Ferrous Sulfate 324 MG TABLET.DR PO (08:10)
[2022-11-28] MEDS: Acetaminophen 325 MG TABLET 650 MG PO (08:10)
[2022-11-28] MEDS: lisinopriL 2.5 MG TABLET PO (08:10)
[2022-11-28] MEDS: Apixaban 5 MG TABLET 10 MG PO (08:10)
[2022-11-28] MEDS: 0.9 % Sodium Chloride Flush 3 ML SYRINGE IVFLUSH (08:11)
--- NOTE | 2022-11-28 10:56 | P.DS_ITS ---
DS: Providers Provider Date of Service: 11/28/22 Date of admission: 11/26/22 15:19 Date of discharge: 11/28/22 Primary care physician: IDALMIS Levy Consults: 11/26/22 15:18 Consult to Hematology / Oncology Routine Consulting Provider: Saundra East Reason for consultation: RLL PE 11/27/22 17:56 Consult to Cardiology Routine Consulting Provider: [facility] [facility] Reason for consultation: global hypokinesia Has provider been notified: No DS: Diagnosis Discharge Diagnosis (1) Elevated troponin: Status: Acute (2) Acute pulmonary embolism: Status: Acute DS: Summary Hospital Course Hospital Course: 77-year-old female with history of hypertension, moderate persistent asthma, osteopenia, iron deficiency anemia, recently diagnosed atypical meningioma, history of provoked left lower extremity DVT 20 years ago following knee replacement surgery presented to the ED earlier this morning for evaluation of dyspnea on exertion and mild chest pressure.? She reports she has been experiencing shortness of breath for over 1 week and thought this was related to her asthma.? She was getting limited relief from her albuterol inhalers who presented to an urgent care and was prescribed Z-Krystian and prednisone taper which she has completed with minimal relief.? She denies any fevers, chills, sore throat, abdominal pain, nausea, vomiting, diarrhea, orthopnea, PND, shortness of breath at rest, lightheadedness, palpitations. ER course In the ED, patient has been intermittently tachycardic with heart rate 86-156, mild tachypnea to 21, and hypertensive to 159/80 on admission.? There is no hypoxia and she is afebrile.? There is no leukocytosis.? Renal function baseline, electrolyte levels normal.? Initial troponin 26.8, repeat 25.8.? BNP 739.? D-dimer 780.? Venous duplex negative for any DVT.? However CTA chest was ordered and was positive for segmental PE in the right lower lobe with mild pericardial thickening versus effusion of the left lung and trace right-sided effusion.? Admit with [facility] drip [facility] Admitted to telemetry where her monitor failed to demonstrate any acute dysrhythmias. 2D echo done 11/27/2022 failed to demonstrate any right heart strain and normal LVEF of 40 45%. Given initial dose of Eliquis 10 mg in hospital. Seen in consultation by Hematology who felt no further hypercoagulability workup was indicated. She will complete a loading dose of Eliquis 10 mg b.i.d. for 2 weeks and then continue on Eliquis 5 mg b.i.d.. She can follow-up with PCP and Hematology as indicated. She has complete a 6 month course of Eliquis and at that time PCP can determine plans going forward Time Spent with Patient Time attestation: Total time managing care of this patient today ____ minutes. Discharge coordination time: Greater than 30 minutes Quality: Safe Use of Opioids Does Pt have an Active Cancer Diagnosis on the Problem List?: No Quality: Stroke Does the patient have a stroke diagnosis?: No Physical Exam Vital Signs: Vital Signs: Last Vital Signs Temp 96.9 F 11/28/22 07:25 Pulse 102 H 11/28/22 07:37 Resp 18 11/28/22 07:37 BP 167/82 H 11/28/22 07:25 Pulse Ox 95 11/28/22 07:25 O2 Del Method Room Air 11/28/22 07:25 BMI result Body Mass Index 42.8 Const: Other: Awake alert oriented x3 no acute distress Resp: Other: Clear to auscultation bilaterally no rales rhonchi or wheezes Cardio: Other: No S4; positive S1-S2; no S3 murmurs rubs or gallops GI: Other: Soft nontender nondistended normoactive bowel sounds Extrem: Other: No edema bilaterally DS: Data Data Completed and Pending Labs on day of discharge: Laboratory Results - last 24 hr 11/27/22 11/27/22 08:36 15:43 aPTT Heparin Protocol 23.1 L D TSH 2.49 Discharge Plan Discharge Anticipated Discharge Date/Time: 11/27/22 11:18 Patient Disposition: Home, Self-Care Discharge Diagnosis: acute right lower lobe segmental PE Referrals: Juanito Riley, [employer] [Primary Care Provider] - 1 Week Discharge Medications: New Eliquis 5 mg Tablet 10 mg PO BID Qty: 90 0RF Rx Instructions: take Eliquis 10mg (2x 5 mg tablets) twice daily for 7 days then take Eliquis 5 mg 1 tablet twice daily. Continued lisinopril 2.5 mg tablet 2.5 mg PO DAILY Qty: 90 1RF albuterol sulfate 90 mcg/actuation HFA aerosol inhaler 2 puff inhalation Q6H PRN (Reason: bronchospasm) Qty: 8.5 2RF albuterol sulfate 2.5 mg /3 mL (0.083 %) solution for nebulization 2.5 mg inhalation Q6H PRN (Reason: Shortness Of Breath) ferrous sulfate [Feosol] 325 mg (65 mg iron) tablet 325 mg PO DAILY fluticasone propion-salmeterol [Wixela Inhub] 250-50 mcg/dose blister with device 1 ea inhalation BID Qty: 60 2RF Discontinued prednisone 10 mg tablet See Taper PO DAILY Taper: Prednisone 20 mg daily for 1 Day and 0 Hour 10 mg daily for 1 Day and 0 Hour Discharge Orders: Discharge Order (Routine); Ordered 11/27/22 Ordered By: Gary Hernandez Diet: Advance to usual diet Activity on Discharge: As tolerated Stand Alone Forms: Patient Portal Discharge page Care Plan Goals: take Eliquis 10 mg (2x5mg) twice daily for 1 week followed by Eliquis 5 mg 1 tablet twice daily Health Concerns: take all home medication as before Plan of Treatment: outpatient follow-up with primary care physician call for appointment outpatient follow-up with business performance specialist Dr. East call for appointment Assessment: as above
--- NOTE | 2022-11-28 11:29 | MHC.CM.PN ---
Pt is medically cleared for D/C home self-care. [employer] coupon given to pt. Pts daughter to transport her home.
[2022-11-28 11:41] VITALS: BP 141/80; PULSE 128; RESP 20; TEMP 36.6; O2SAT 96
--- NOTE | 2022-11-28 20:55 | P.CONCA_ITS ---
History of Present Illness History of Present Illness Date of Service: 11/28/22 Requesting physician: Olman Shane Chief complaint: RLL PE, ?CHF Narrative: 77 female who presented with dyspnea and has been diagnosed with PE. Echo has shown severe MAC with mitral valve gradient, small pericardial effusion and mildly reduced LVEF. She has been noted to have runs of SVT. She is asymptomatic. She is saying she is feeling better. [facility] Past Medical History Medical History (Updated 11/28/22 @ 21:00 by Iggy High MD) Anemia Anxiety Asthma Atypical meningioma of brain Basal cell carcinoma DVT (deep venous thrombosis) HTN (hypertension) Idiopathic peripheral neuropathy Osteoarthritis Osteopenia Osteoporosis Surgical History Surgical History Knee joint replacement status Social History Social History Household Members: Spouse Housing: Apartment Alcohol intake: never Patient Tobacco Use Status: Never used Tobacco e-Cigarette/Vaping Use: Never Used Second Hand Smoke Exposure: No service: No Current occupational status: retired Cognitive needs: No Hearing needs: No Vision needs: No Meds Allergies Allergy/AdvReac Type Severity Reaction Status Date / Time No Known Allergies Allergy Verified 11/26/22 09:00 Home Medications Medication Instructions Recorded Confirmed Last Taken Type ferrous sulfate 325 mg (65 mg 325 mg PO DAILY 10/27/22 11/26/22 Unknown History iron) tablet (Feosol) albuterol sulfate 2.5 mg/3 mL 2.5 mg inhalation Q6H PRN 11/26/22 11/26/22 Unknown History (0.083 %) solution for nebulization Shortness Of Breath Physical Exam Vital Signs: Vital Signs: Last Vital Signs Temp 97.9 F 11/28/22 11:41 Pulse 128 H 11/28/22 11:41 Resp 20 11/28/22 11:41 BP 141/80 H 11/28/22 11:41 Pulse Ox 96 11/28/22 11:41 O2 Del Method Room Air 11/28/22 11:41 BMI result Body Mass Index 42.8 GENERAL APPEARANCE: in no acute distress, pleasant. NECK: no carotid bruit, no significantjugular venous distention. SKIN: no suspicious lesions, warm and dry. HEART: no murmurs, regular rate and rhythm. LUNGS: clear to auscultation bilaterally. ABDOMEN: soft, nontender. EXTREMITIES: no edema. PERIPHERAL PULSES: equal. NEUROLOGIC: No gross deficits, AAO X 3 Objective Labs and Meds 11/27/22 08:36 11/27/22 08:36 Assessment and Plan (1) Tachycardia: Status: Acute (2) Cardiomyopathy: Status: Acute Plan 77 year old female with dyspnea due to PE. She has been feeling better. Echo has shown mild LV dysfunction, small pericardial effusion and severe MAC and mitral valve gradient. She has been getting runs of SVT. Rec adding beta steven. Will need further w/u for the cardiomyopathy as outpatient. Time Spent With Patient Time: Total time managing care of this patient today ____ minutes. Procedures Date of Service Date of Service: 11/28/22
== END 2022-11-28 15:00 | disposition home or self-care (01) | DRG 176 ==
LOC: HO.ED 14:51 → HO.EDOVER 15:29 → HO.IMC 15:47
PROVIDERS: Hospitalist; Physician Assistant; Student in an Organized Health Care Education/Training Program; Admitting Provider Physician Assistant; Emergency Provider Student in an Organized Health Care Education/Training Program; PCP Nurse Practitioner Family; Visit Provider Hospitalist
DX: I26.99 Other pulmonary embolism without acute cor pulmonale (principal); I47.1 Supraventricular tachycardia; I42.9 Cardiomyopathy, unspecified; I34.81 Nonrheumatic mitral (valve) annulus calcification; J45.40 Moderate persistent asthma, uncomplicated; D32.9 Benign neoplasm of meninges, unspecified; D50.9 Iron deficiency anemia, unspecified; I10 Essential (primary) hypertension; Z86.718 Personal history of other venous thrombosis and embolism; Z79.51 Long term (current) use of inhaled steroids; Z79.899 Other long term (current) drug therapy
CPT/HCPCS: 36415; 71045; 71275; 80048; 80053; 81003; 83735; 83880; 84443; 84484; 85025; 85027; 85379; 85610; 85730; 93005; 93306; 93971; 94640; 99285; J1643; J1940; Q9957; Q9967

== ENCOUNTER 2022-11-26 15:19 | Outpatient (BNV) | payer MEDICARE, SELFPAY | END 2022-11-27 07:00 | PROVIDERS: Admitting Provider Physician Assistant; Emergency Provider Student in an Organized Health Care Education/Training Program; PCP Nurse Practitioner Family; Visit Provider Internal Medicine Cardiovascular Disease | DX: I34.0 Nonrheumatic mitral (valve) insufficiency (principal); I34.81 Nonrheumatic mitral (valve) annulus calcification | CPT/HCPCS: 93306 ==

== ENCOUNTER → 2022-11-26 15:19 | Outpatient (BNV) | payer MEDICARE, SELFPAY | PROVIDERS: Admitting Provider Physician Assistant; Emergency Provider Student in an Organized Health Care Education/Training Program; PCP Nurse Practitioner Family; Visit Provider Physician Assistant | DX: I26.99 Other pulmonary embolism without acute cor pulmonale (principal); R77.8 Other specified abnormalities of plasma proteins | CPT/HCPCS: 99223; 99233; 99239 ==

== ENCOUNTER → 2022-11-26 15:19 | Outpatient (BNV) | payer MEDICARE, SELFPAY | PROVIDERS: Admitting Provider Physician Assistant; Emergency Provider Student in an Organized Health Care Education/Training Program; PCP Nurse Practitioner Family; Visit Provider Internal Medicine Cardiovascular Disease | DX: R00.0 Tachycardia, unspecified (principal); I42.9 Cardiomyopathy, unspecified | CPT/HCPCS: 99222 ==

== ENCOUNTER → 2022-11-26 15:19 | Outpatient (BNV) | payer MEDICARE, SELFPAY | PROVIDERS: Admitting Provider Physician Assistant; Emergency Provider Student in an Organized Health Care Education/Training Program; PCP Nurse Practitioner Family; Visit Provider Internal Medicine | DX: I26.99 Other pulmonary embolism without acute cor pulmonale (principal) | CPT/HCPCS: 99222 ==

== ENCOUNTER 2022-12-08 07:52 | Outpatient (AMB) | payer MEDICARE, SELFPAY ==
--- NOTE | 2022-12-08 07:57 | MHC.PC.OV ---
Vital Signs 12/08/22 07:58 Height 5 ft Weight 215 lb 6 oz BMI 42.1 BP 160/92 H Blood Pressure Location Lt brachial Position Sitting Pulse 122 H Pulse Source Pulse Oximeter Pulse Oximetry (%) 99 Oxygen Delivery Method Room Air Intake Visit Reasons: HDF ~ Post hospital discharge FU Allergies No Known Allergies Allergy (Verified 12/08/22 08:00) Medication List - Last Reconciled 12/08/22 by Juanito Riley, [employer]- albuterol sulfate 2.5 mg inhalation Q6H PRN albuterol sulfate 90 mcg/actuation 2 puffs inhalation Q6H PRN apixaban (Eliquis) 10 mg (2 x 5 mg) PO BID ferrous sulfate (Feosol) 325 mg PO DAILY fluticasone propion-salmeterol 250-50 mcg/dose (Wixela Inhub) 1 ea inhalation BID lisinopril 2.5 mg PO DAILY metoprolol succinate ER 25 mg PO DAILY Tobacco use date assessed: 12/08/22 Fall risk assessment: 1 Fall in past year Last assessed Fall Risk: 12/08/22 Dental Screening Dental Screen Date: 12/08/22 Did you have a dental visit in the last 12 months?: Yes Did you have a dental problem in the last 6 months where you did not have access to dental care?: No Was dental information given to patient?: Patient has dentist HPI HDF ~ Post hospital discharge FU HPI Details Pt was seen in the ER on 11/26 c/o shortness of breath. She was previously seen in the walk-in for this and was given a z-adan for URI. Chest xr showed mild CHF and small left pleural effusion. D-dimer was 780, BNP was 739, troponin was 26.8. She was given IV lasix. US of the LLE was negative for DVT. Repeat troponin was 25.8. CTA showed segmental PE in the right lower lobe with mild pericardial thickening versus effusion of the left lung and trace right-sided effusion. Pt was started on heparin. She was admitted to telemtry, monitor did not show any acute dysrhythmias. 2D echo on 11/27 did not demonstrate any heart strain, LVEF of 40-45%. Pt was given an initial dose of eliquis. She was seen by hematology who felt no further hypercoagulability workup was indicated at that time. Pt was d/c on a 6-month course of eliquis. Pt reports edema to her LLE. Will start low lasix to help with edema, BP, ? CHF. Pt also has ongoing tachycardia. Will order holter, run of SVT noted on recent echo. She also has a ox of cardiomyopathy, will refer to cardiology. Pt's blood pressure is elevated today, will have her monitor BP at home ( it's always high in the office ). Denies chest pain, shortness of breath, headache, dizziness, and blurred vision. encouraged to continue to push fluids and repeat lab work next week [facility] Medical History Atypical meningioma of brain Osteoporosis Osteoarthritis Osteopenia Asthma DVT (deep venous thrombosis) HTN (hypertension) Idiopathic peripheral neuropathy Anxiety Anemia Basal cell carcinoma Surgical History Knee joint replacement status Social History Household Members: Spouse Housing: Apartment Alcohol intake: never Patient Tobacco Use Status: Never used Tobacco e-Cigarette/Vaping Use: Never Used Second Hand Smoke Exposure: No service: No Current occupational status: retired Cognitive needs: No Hearing needs: No Vision needs: No Questionnaire Thrive Questionnaire Date Thrive assessed: 11/27/22 Currently or been in a relationship where the following occur: no concerns reported AUDIT C Alcohol Use Questionnaire (AUDIT-C) 1. How often do you have a drink containing alcohol?: Never 2. How many drinks containing alcohol do you have on a typical day when you are drinking?: 1 or 2 3. How often do you have six or more drinks on one occasion?: Never Total Score: 0 Score Reviewed/Action Taken: Yes ALEISHA-7 AMB Questionnaire ALEISHA-7 Date ALEISHA - 7 assessed: 08/20/22 Feeling nervous, anxious, or on edge: 0 = Not at all Not being able to stop or control worryin = Not at all Worrying too much about different things: 0 = Not at all Trouble relaxin = Not at all Being so restless that it is hard to sit still: 0 = Not at all Becoming easily annoyed or irritable: 0 = Not at all Feeling afraid as if something awful might happen: 0 = Not at all Total ALEISHA-7 score (0-4 normal; 5-9 mild; 10-14 moderate; 15-21 severe): 0 Source: Developed by Drs. Kannan Welsh, Akiko Sanchez, Sukumar Son and colleagues, with an educational mignon from [employer]. ALEISHA-7 Assessment Billing ALEISHA-7 Assessment Tool: ALEISHA-7 Assessment [address]35 Physical exam (Primary Care) Vital Signs: Last Vital Signs Pulse 122 H 12/08/22 07:58 BP 160/92 H 12/08/22 07:58 Pulse Ox 99 12/08/22 07:58 Oxygen Delivery Method Room Air 12/08/22 07:58 BMI result Body Mass Index 42.1 Tobacco/Smoking Status: Tobacco use Status Tobacco use date assessed 12/08/22 12/08/22 08:04 Patient Tobacco Use Status Never used Tobacco 12/08/22 08:04 e-Cigarette/Vaping Use Never Used 12/08/22 08:04 Thrive Assessment: Date of Thrive Assessment Date Thrive assessed 11/27/22 12/08/22 08:04 Currently or been in a relationship where the following occur: no concerns reported Const General: cooperative Nutritional Appearance: obese morbidly obese Orientation/consciousness: patient oriented x3 Resp Effort & Inspection: normal respiratory effort Auscultation: clear to auscultation bilaterally Cardio Rate: tachycardic Rhythm: regular rhythm Heart sounds: S1 normal heart sound present and S2 normal heart sound present Neuro General: patient oriented x3 Extrem Left lower extremity: edema Details: pitting and 1+ Psych Appearance: grossly normal Mental Status: mental status grossly normal Speech and movement: Normal speech and movement present Affect: normal affect Attitude: cooperative Thought process: Normal thought process present Thought content: Normal thought content present Insight: Good insight present (Psych) Judgement: Good judgement present (Psych) Assessment and Plan Assessment & Plan (1) Tachycardia: Code(s): R00.0 - Tachycardia, unspecified Plan: Holter ordered (2) Cardiomyopathy: Code(s): I42.9 - Cardiomyopathy, unspecified Plan: Referred to cardiology (3) Pleural effusion: Code(s): J90 - Pleural effusion, not elsewhere classified (4) HTN (hypertension): Code(s): I10 - Essential (primary) hypertension (5) White coat syndrome with diagnosis of hypertension: Code(s): I10 - Essential (primary) hypertension (6) Acute pulmonary embolism: Code(s): I26.99 - Other pulmonary embolism without acute cor pulmonale Plan The patient agreed to the use of a director medical writing for this encounter. Scribed for IDALMIS Rosenthal by Janet Gavin director medical writing, on 12/08/2022 at 08:15 EST. Orders: Orders ECG 3 day holter monitor Today R00.0 - Tachycardia, unspecified Referrals Cardiology Referral I42.9 - Cardiomyopathy, unspecified Medications: New furosemide 10 mg (1/2 x 20 mg) PO DAILY 15 tabs 1RF 30 days lorazepam 1 tab 45 minutes before procedure please 1 mg PO DAILY PRN 1 tab 0RF anxiety 1 day Coding Level of Care Code Est Pt Level 3 (09119) Diagnoses Tachycardia R00.0 Cardiomyopathy I42.9 Pleural effusion J90 HTN (hypertension) I10 White coat syndrome with diagnosis of hypertension I10 Acute pulmonary embolism I26.99 Additional Codes ALEISHA-7 Assessment Billing - ALEISHA-7 Assessment Tool: ALEISHA-7 Assessment 53035 ([id number])
[2022-12-08 07:58] VITALS: BP 160/92; PULSE 122; O2SAT 99; BMI 42.1
== END 2022-12-08 09:28 | disposition home or self-care (01) ==
PROVIDERS: PCP Nurse Practitioner Family; Visit Provider Nurse Practitioner Family
DX: R00.0 Tachycardia, unspecified (principal); I42.9 Cardiomyopathy, unspecified; I10 Essential (primary) hypertension; I26.99 Other pulmonary embolism without acute cor pulmonale; J90 Pleural effusion, not elsewhere classified
CPT/HCPCS: 99213

== ENCOUNTER 2022-12-11 10:50 | Outpatient (REF) | payer MEDICARE, SELFPAY ==
--- NOTE | ~2022-12-11 | MR_ITS ---
EXAMINATION: MR BRAIN WITHOUT AND WITH CONTRAST CLINICAL INFORMATION: Meningioma COMPARISON: CT head without contrast 09/22/2022 TECHNIQUE: Multiplanar multisequence MR imaging of the brain was obtained without and following the administration of 10 mL Gadavist intravenous contrast. FINDINGS: There is a partially calcified meningioma abutting the falx cerebri along the paramedian left anterior frontal convexity measuring 1.9 x 1.8 x 1.5 cm. No significant mass effect on or signal abnormality of the adjacent brain parenchyma. There is no acute infarct on diffusion-weighted imaging. There is no intracranial hemorrhage on iron-sensitive imaging. No extra-axial collection or mass effect/herniation. Scattered periventricular and deep white matter T2 FLAIR hyperintensities consistent with mild underlying microangiopathy. Small chronic right frontal lobe infarct. Bilateral thalamic lacunar infarcts No hydrocephalus. The ventricles are normal in morphology and size. No abnormal parenchymal enhancement. The major flow voids at the skull base are preserved. The midline structures are normal. The cerebellar tonsils are normally positioned. The craniocervical junction is normal. Marrow signal is within normal limits. The visualized soft tissues are without significant abnormality. No signal abnormality within the paranasal sinuses or within the mastoid air cells. MR/MR head/brain wo/w con IMPRESSION: 1. Left anterior frontal convexity meningioma measuring up to 1.9 cm. 2. Small chronic right frontal lobe and bilateral thalamic lacunar infarcts.
[2022-12-11] MEDS: gadobutroL 10 ML VIAL IVPUSH (12:12)
== END 2022-12-11 10:51 | disposition home or self-care (01) ==
LOC: HO.MRI 10:50
PROVIDERS: PCP Nurse Practitioner Family; Visit Provider Nurse Practitioner Family
DX: D42.0 Neoplasm of uncertain behavior of cerebral meninges (principal)
CPT/HCPCS: 70553; A9585

== ENCOUNTER 2022-12-19 12:59 | Outpatient (REF) | payer MEDICARE, SELFPAY ==
[2022-12-19 15:59] LABS: MANUAL DIFF FLAG NO
[2022-12-19 16:05] LABS: Basophils Absolute Auto 0.1 X10*3/uL (0.0-0.2); Basophils Percent Auto 1.3 % (0-2); Eosinophils Absolute Auto 0.1 X10*3/uL (0.0-0.4); Eosinophils Percent Auto 2.8 % (0-4); Hematocrit 41.3 % (37.0-47.0); Hemoglobin 13.1 g/dl (12.0-16.0); Lymphocytes Absolute Auto 1.2 X10*3/uL (1.2-4.9); Lymphocytes Percent Auto 25.9 % (20-40); Mean Corpuscular HGB Conc 31.7 g/dl (31.0-35.0); Mean Corpuscular Hemoglobin 28.1 pg (27.0-33.0); Mean Corpuscular Volume 88.4 fL (80.0-98.0); Mean Platelet Volume 10.7 fL (9.4-12.3); Monocytes Absolute Auto 0.5 X10*3/uL (0.1-1.2); Monocytes Percent Auto 10.5 % (2-11); Neutrophils Absolute Auto 2.8 x10*3/uL (2.0-8.3); Neutrophils Percent Auto 59.5 % (45-73); Platelet Count 224 X10*3/uL (160-400); Red Blood Count 4.67 X10*6/uL (4.20-5.50); Red Cell Distribution Width 18.2 % (11.0-16.0); White Blood Count 4.7 X10*3/uL (4.8-10.8)
[2022-12-19 16:29] LABS: Alanine Aminotransferase 12 U/L (0-31); Albumin Level 3.6 g/dL (3.5-5.0); Alkaline Phosphatase 68 U/L (39-117); Anion Gap 14 (12-20); Aspartate Amino Transferase 18 U/L (5-31); Bilirubin Total 0.5 mg/dL (0.0-1.0); Blood Urea Nitrogen 25 mg/dL (9-16); Calcium 9.6 mg/dL (8.4-10.2); Carbon Dioxide 25 mmol/L (22-29); Chloride 108 mmol/L (96-108); Estimated Glomerular Filt Rate 42; Glucose Random 116 mg/dL (60-115); Iron 79 mcg/dL (30-160); Percent Iron Saturation 28 % (15-50); Potassium 3.9 mmol/L (3.3-5.1); Sodium 143 mmol/L (135-145); Total Iron Binding Capacity 286 mcg/dL (228-428); Total Protein 6.3 g/dL (6.5-8.0); Unsaturated Iron Binding 207 ug/dL
[2022-12-19 16:47] LABS: Ferritin 86 ng/mL (10-250)
== END 2022-12-19 13:00 | disposition home or self-care (01) ==
LOC: HO.HMGCLDS 12:59
PROVIDERS: PCP Nurse Practitioner Family; Visit Provider Nurse Practitioner Family
DX: D50.9 Iron deficiency anemia, unspecified (principal)
CPT/HCPCS: 36415; 80053; 82728; 83540; 85025

== ENCOUNTER → 2022-12-22 12:36 | Outpatient (REF) | payer MEDICARE, SELFPAY ==
--- NOTE | 2022-12-22 12:39 | HM_ITS ---
Conclusion: 1. Patient was monitored for total period of 3 days 2. Baseline was normal sinus rhythm with average heart of 100 beats per minute 3. Frequent sinus tachycardia noted with 59% of time heart rate greater than 100 beats per minute 4. Occasional PACs noted with total burden of 1% 5. No significant pauses noted 6. Patient reported 1 event as upper chest tightness correlating with isolated PACs MTDD
== END ==
LOC: HO.CARD 12:36
PROVIDERS: PCP Nurse Practitioner Family; Visit Provider Nurse Practitioner Family
DX: R00.0 Tachycardia, unspecified (principal); I49.1 Atrial premature depolarization
CPT/HCPCS: 93242

== ENCOUNTER → 2022-12-22 12:39 | Outpatient (BNV) | payer MEDICARE, SELFPAY | PROVIDERS: PCP Nurse Practitioner Family; Visit Provider Internal Medicine Cardiovascular Disease | DX: R00.0 Tachycardia, unspecified (principal) | CPT/HCPCS: 93244 ==

== ENCOUNTER 2023-01-22 11:48 | Outpatient (REF) | payer MEDICARE, SELFPAY ==
--- NOTE | ~2023-01-22 | MM_ITS ---
EXAMINATION: MM SCREENING DIGITAL BREAST TOMOSYNTHESIS, BILATERAL CLINICAL INFORMATION: Screening. Asymptomatic. COMPARISON: Mammography: This study is compared with the only prior exam from 2021. TECHNIQUE: Digital breast tomosynthesis is performed in both the craniocaudal and mediolateral oblique views along with computer-aided detection (CAD). Synthesized 2D images are generated from the tomosynthesis. FINDINGS: The breasts are almost entirely fatty (ACR BI-RADS breast composition Category a). There are no significant masses, abnormal calcifications, or other abnormalities. MM/MM tomosynthesis screening BI IMPRESSION: No mammographic evidence of malignancy. ASSESSMENT: BI-RADS BI-RADS 1 - Negative RECOMMENDATION: Routine annual mammography screening. 1 year F/U This examination should not preclude the clinical evaluation of a suspicious palpable abnormality. This patient's information was entered into a reminder system with a target due date for their next mammogram.
--- NOTE | ~2023-01-22 | MM_ITS ---
EXAMINATION: BONE DENSITOMETRY CLINICAL INDICATION: Other specified disorders of bone density and structure, unspecified site. COMPARISON: This is the patient's baseline examination. TECHNIQUE: Using a [employer] DXA System (software version: 13.1) manufactured by [employer], dual-energy x-ray absorptiometry was performed of the lumbar spine and left hip. The images are of good technical quality. Summary results are attached. FINDINGS: LEFT FEMUR, NECK: BMD 0.695 g/cm2, Z-score -1.0, T-score -2.5, osteoporosis. LEFT FEMUR, TOTAL: BMD 0.803 g/cm2, Z-score -0.4, T-score -1.6, osteopenia. AP SPINE L1-L4: BMD 1.293 g/cm2, Z-score 1.8, T-score 0.9, normal. IDENTIFIED RISK FACTORS: Menopause. HISTORY OF FRACTURE: None listed. MEDICATIONS: None listed. MM/XR DEXA axial skeleton IMPRESSION: 1. DIAGNOSIS: Osteoporosis based on the lowest T-score value of -2.5 in the femoral neck applying World Health Organization criteria. 2. 10-YEAR FRACTURE RISK PREDICTION, FRAX: According to the guidelines, FRAX calculation should only be performed on patients in the osteopenia bone density category. Therefore, FRAX was not performed on this patient. 3. Treatment Recommendations: NOF guidelines recommend consideration for treatment in postmenopausal women and men age 50 and older presenting with the following: -A hip or vertebral (clinical or morphometric) fracture. -T-score less than or equal to -2.5 at the femoral neck or spine after appropriate evaluation to exclude secondary causes. -Low bone mass at the hip or spine and a 10-year fracture probability by FRAX of greater than or equal to 3% for hip fracture or greater than or equal to 20% for major osteoporotic fracture based on the [place] adapted WHO algorithm. 4. Other Recommendations: All treatment decisions require clinical judgment and consideration of individual patient factors, including patient preferences, comorbidities, previous drug use, risk factors not captured in the FRAX model (e.g. frailty, falls, vitamin D deficiency, increased bone turnover, interval significant decline in bone density) and possible under or overestimation of fracture risk by FRAX. Additional medical evaluation for secondary cause of low bone mineral density may be appropriate. FUTURE SCAN RECOMMENDATION: People with diagnosed cases of osteoporosis or at high risk for fracture should have regular bone mineral density tests. For patients eligible for Medicare, routine testing is allowed once every 2 years. The testing frequency can be increased to one year for patients who have rapidly progressing disease, those who are receiving or discontinuing medical therapy to restore bone mass, or have additional risk factors.
== END 2023-01-22 11:49 | disposition home or self-care (01) ==
LOC: HO.MAMMO 11:48
PROVIDERS: PCP Nurse Practitioner Family; Visit Provider Nurse Practitioner Family
DX: Z12.31 Encounter for screening mammogram for malignant neoplasm of breast (principal); Z13.820 Encounter for screening for osteoporosis; Z78.0 Asymptomatic menopausal state; M85.80 Other specified disorders of bone density and structure, unspecified site
CPT/HCPCS: 77063; 77067; 77080

== ENCOUNTER → 2023-01-22 13:00 | Outpatient (BNV) | payer MEDICARE, SELFPAY | PROVIDERS: PCP Nurse Practitioner Family; Visit Provider Radiology Diagnostic Radiology | DX: Z12.31 Encounter for screening mammogram for malignant neoplasm of breast (principal) | CPT/HCPCS: 77063; 77067 ==

== ENCOUNTER 2023-02-23 12:46 | Outpatient (AMB) | payer MEDICARE, SELFPAY ==
--- NOTE | 2023-02-23 12:57 | MHC.PC.OV ---
Vital Signs 02/23/23 13:00 Height 5 ft Weight 220 lb BMI 43.0 BP 130/90 H Blood Pressure Location Lt brachial Position Sitting Pulse 78 Pulse Source Pulse Oximeter Pulse Oximetry (%) 98 Oxygen Delivery Method Room Air Intake Visit Reasons: 6m HTN follow up Allergies No Known Allergies Allergy (Verified 02/23/23 14:27) Medication List - Last Reconciled 02/23/23 by WILMAN Barkley albuterol sulfate 2.5 mg inhalation Q6H PRN albuterol sulfate 90 mcg/actuation 2 puffs inhalation Q6H PRN apixaban (Eliquis) 5 mg PO BID 90 days ferrous sulfate (Feosol) 325 mg PO DAILY fluticasone propion-salmeterol 250-50 mcg/dose (Wixela Inhub) 1 ea inhalation BID furosemide 10 mg (1/2 x 20 mg) PO DAILY 30 days lisinopril 2.5 mg PO DAILY lorazepam 1 mg PO DAILY PRN 1 day metoprolol succinate ER 50 mg PO DAILY 90 days Tobacco use date assessed: 12/08/22 HPI 6m HTN follow up HPI Details HTN: Blood pressure is managed with lisinopril 2.5mg and metoprolol 50mg. Pt reports that her blood pressure is stable at home, in the 120s/70s-80s. Denies chest pain, shortness of breath, headache, dizziness, and blurred vision. [facility] Medical History Atypical meningioma of brain Osteoporosis Osteoarthritis Osteopenia Asthma DVT (deep venous thrombosis) HTN (hypertension) Idiopathic peripheral neuropathy Anxiety Anemia Basal cell carcinoma Surgical History Knee joint replacement status Household Members: Spouse Housing: Apartment Alcohol intake: never Patient Tobacco Use Status: Never used Tobacco e-Cigarette/Vaping Use: Never Used Second Hand Smoke Exposure: No service: No Current occupational status: retired Cognitive needs: No Hearing needs: No Vision needs: No Questionnaire Thrive Questionnaire Date Thrive assessed: 11/27/22 AUDIT C Alcohol Use Questionnaire (AUDIT-C) 1. How often do you have a drink containing alcohol?: Never 3. How often do you have six or more drinks on one occasion?: Never Total Score: 0 ALEISHA-7 AMB Questionnaire ALEISHA-7 Date ALEISHA - 7 assessed: 08/20/22 Feeling nervous, anxious, or on edge: 0 = Not at all Not being able to stop or control worryin = Not at all Worrying too much about different things: 0 = Not at all Trouble relaxin = Not at all Being so restless that it is hard to sit still: 0 = Not at all Becoming easily annoyed or irritable: 0 = Not at all Feeling afraid as if something awful might happen: 0 = Not at all Total ALEISHA-7 score (0-4 normal; 5-9 mild; 10-14 moderate; 15-21 severe): 0 Source: Developed by Drs. Kannan Welsh, Akiko Sanchez, Sukumar Son and colleagues, with an educational mignon from [employer]. Review of Systems Const Reports as per HPI Physical exam (Primary Care) Vital Signs: Last Vital Signs Pulse 78 02/23/23 13:00 BP 130/90 H 02/23/23 13:00 Pulse Ox 98 02/23/23 13:00 Oxygen Delivery Method Room Air 02/23/23 13:00 BMI result Body Mass Index 43.0 Tobacco/Smoking Status: Tobacco use Status Tobacco use date assessed 12/08/22 02/23/23 13:00 Patient Tobacco Use Status Never used Tobacco 02/23/23 13:00 e-Cigarette/Vaping Use Never Used 02/23/23 13:00 Thrive Assessment: Date of Thrive Assessment Date Thrive assessed 11/27/22 02/23/23 13:00 Const General: cooperative Nutritional Appearance: obese morbidly obese Orientation/consciousness: patient oriented x3 Resp Effort & Inspection: normal respiratory effort Auscultation: clear to auscultation bilaterally and diminished lung sounds Cardio Rate: regular rate Rhythm: regular rhythm Heart sounds: S1 normal heart sound present, S2 normal heart sound present and Murmur heart sound present systolic Neuro General: patient oriented x3 Extrem Right lower extremity: edema Details: 1+ Left lower extremity: edema Details: 1+ Psych Appearance: grossly normal Mental Status: mental status grossly normal Speech and movement: Normal speech and movement present Affect: normal affect Attitude: cooperative Thought process: Normal thought process present Thought content: Normal thought content present Insight: Good insight present (Psych) Judgement: Good judgement present (Psych) Assessment and Plan Assessment & Plan (1) HTN (hypertension): Code(s): I10 - Essential (primary) hypertension Plan: Continue to monitor BP at home Plan The patient agreed to the use of a medical insurance coder for this encounter. Scribed for WILMAN Rosenthal by Janet Gavin medical insurance coder, on 02/23/2023 at 13:10 EST. Medications: Refilled apixaban (Eliquis) 5 mg PO BID 90 days 180 tabs 1RF Coding Level of Care Code Est Pt Level 3 (28164) Diagnoses HTN (hypertension) I10
[2023-02-23 13:00] VITALS: BP 130/90; PULSE 78; O2SAT 98; BMI 43.0
== END 2023-02-23 15:16 | disposition home or self-care (01) ==
PROVIDERS: Visit Provider Nurse Practitioner Family
DX: I10 Essential (primary) hypertension (principal)
CPT/HCPCS: 99213

== ENCOUNTER 2023-03-09 08:23 | Outpatient (AMB) | payer MEDICARE, SELFPAY ==
--- NOTE | 2023-03-09 08:29 | MHC.OFFVIS ---
Intake Vital Signs 03/09/23 08:30 Height 5 ft Weight 218 lb 11.177 oz BMI 42.7 BP 140/82 H Blood Pressure Location Lt brachial Position Sitting Pulse 75 Pulse Source Pulse Oximeter Intake Visit Reasons: hospital follow up /Cardiomyopathy/[facility] Required: No Swim Instructor: Swim Instructor Present Accompanied by: Daughter Allergies No Known Allergies Allergy (Verified 03/09/23 08:33) Medication List - Last Reconciled 03/09/23 by Jennifer Linares NP-C albuterol sulfate 2.5 mg inhalation Q6H PRN albuterol sulfate 90 mcg/actuation 2 puffs inhalation Q6H PRN apixaban (Eliquis) 5 mg PO BID 90 days ferrous sulfate (Feosol) 325 mg PO DAILY fluticasone propion-salmeterol 250-50 mcg/dose (Wixela Inhub) 1 ea inhalation BID furosemide 10 mg (1/2 x 20 mg) PO DAILY 30 days lisinopril 2.5 mg PO DAILY metoprolol succinate ER 50 mg PO DAILY 90 days HPI hospital follow up /Cardiomyopathy/[place] HPI Details Padma is a 78-year-old female past medical history hypertension, morbid obesity, [place] [facility] shortness of breath and finding of acute pulmonary embolism, cardiomyopathy, mild Congestive heart failure. She was started on appropriate med management including Eliquis and Lasix. She did have episodes of SVT noted and was put on metoprolol for heart rate control. An outpatient Holter monitor showed average heart rate 100 and metoprolol dose was increased to 50 mg daily. She now presents for follow-up. Today she reports she has been feeling well since her hospital discharge. Her shortness of breath has fully resolved. She denies PND, orthopnea. She does have some mild edema in her left lower leg which has been chronic. No chest discomfort at rest or with activity. No heart palpitations, presyncope, syncope, falls. She describes herself as being active. No bleeding issues reported with Eliquis use. and daughter are present. [facility] Medical History Atypical meningioma of brain Osteoporosis Osteoarthritis Osteopenia Asthma DVT (deep venous thrombosis) HTN (hypertension) Idiopathic peripheral neuropathy Anxiety Anemia Basal cell carcinoma Surgical History Knee joint replacement status Social History Household Members: Spouse Housing: Apartment Alcohol intake: never Patient Tobacco Use Status: Never used Tobacco e-Cigarette/Vaping Use: Never Used Second Hand Smoke Exposure: No service: No Current occupational status: retired Cognitive needs: No Hearing needs: No Vision needs: No Review of Systems Const All systems reviewed & are unremarkable except as noted in HPI and below ENT Denies dizziness Card Denies chest pain, Denies chest pain at rest, Denies chest pain with activity, Denies rapid heart rate, Denies pedal edema, Denies edema, Denies leg edema, Denies lightheadedness, Denies palpitations, Denies dyspnea, Denies dyspnea on exertion and Denies orthopnea Resp Denies cough, Denies dyspnea and Denies dyspnea on exertion GI Denies hematochezia and Denies change in stool character Musc Details: right lower leg mild swelling Denies abnormal gait, Denies limited range of motion, Denies muscle cramps, Denies muscle weakness, Denies numbness, Denies radiating pain into limb, Denies stiffness and Denies tingling Neuro Denies abnormal gait, Denies dizziness, Denies numbness and Denies tingling Endo Denies palpitations Physical Exam Vital Signs: Last Vital Signs Pulse 75 03/09/23 08:30 BP 140/82 H 03/09/23 08:30 BMI result Body Mass Index 42.7 Const General: cooperative, healthy appearing, comfortable and no acute distress Orientation/consciousness: patient oriented x3 Neck Neck: Yes normal visual inspection Resp Effort & Inspection: normal respiratory effort Auscultation: clear to auscultation bilaterally, no rales, no rhonchi and no wheezes Cardio Jugular venous distension: no JVD Rate: regular rate Rhythm: regular rhythm Heart sounds: S1 normal heart sound present, S2 normal heart sound present, no murmurs and no rubs Neuro General: patient oriented x3 Extrem General: Yes normal to inspection Psych Appearance: grossly normal Mental Status: mental status grossly normal Speech and movement: Normal speech and movement present Assessment & Plan Assessment & Plan (1) Tachycardia: Code(s): R00.0 - Tachycardia, unspecified Plan: Reported history of tachycardia, elevated heart rates. [place] [facility] she was noted to have episodes of SVT. She was started on metoprolol XL 25 mg daily. An echocardiogram showed EF 40-45%, normal RV, mild mitral regurgitation, severe mitral annular calcification. Outpatient Holter monitor done on 12/22/2022 for 3 days showed sinus rhythm with average heart rate 100, 59% of the time heart rate greater than 100, PACs 1%. At that time her metoprolol dose was increased to 50 mg daily. Today she denies any heart palpitations. She tells me even when her heart rate was more rapid she was not getting any palpitations. She denies chest discomfort or shortness of breath. Pulse is in normal range today. Her cardiomyopathy may be related to elevated heart rates. Will recheck a limited echo prior to her next visit. (2) Cardiomyopathy: Code(s): I42.9 - Cardiomyopathy, unspecified Plan: New finding of cardiomyopathy with EF 40-45% during last hospital admission. She did have evidence of mild heart failure at that time with BNP 600. She was treated with Lasix for diuresing and sent home with Lasix 10 mg daily. On exam today she has no clinical signs of heart failure. She has some mild swelling in her left lower extremities which she says is chronic from her prior DVT years ago. She is on low-dose lisinopril and metoprolol for neurohormonal modulation. Cardiomyopathy could be related to elevated heart rates as above however ischemia needs to be ruled out. Will check a pharmacological nuclear stress test. Will also be checking limited echo as above to re-evaluate EF. Cardiomyopathy findings reviewed with her, questions answered. (3) CHF (congestive heart failure): Code(s): I50.9 - Heart failure, unspecified Plan: As above (4) Acute pulmonary embolism: Code(s): I26.99 - Other pulmonary embolism without acute cor pulmonale Plan: Recent hospital admission with finding of right lower lobe PE. She was having symptoms of shortness of breath. Echo showed mildly reduced EF, normal RV. At this time she says her breathing has normalized. She will continue on Eliquis 5 mg b.i.d. for at least 6 months. At that time continuation will be determined by her PCP. (5) HTN (hypertension): Code(s): I10 - Essential (primary) hypertension Plan: Mild elevation in the office today. She tells me she has white coat syndrome. Continue metoprolol and lisinopril. If blood pressure remains elevated then lisinopril dose could be increased. (6) Hospital discharge follow-up: Code(s): Z09 - Encounter for follow-up examination after completed treatment for conditions other than malignant neoplasm Plan: As above Plan Time spent on chart review, documentation, interview, assessment Orders: Orders CA lexiscan stress w gertrudis Today I42.9 - Cardiomyopathy, unspecified NM cardiolite stress test Today I42.9 - Cardiomyopathy, unspecified CA echo limited Today I42.9 - Cardiomyopathy, unspecified Coding Level of Care Code Est Pt Level 4 (70645) Diagnoses Tachycardia R00.0 Cardiomyopathy I42.9 CHF (congestive heart failure) I50.9 Acute pulmonary embolism I26.99 HTN (hypertension) I10 Hospital discharge follow-up Z09 Time Spent (min) 28
[2023-03-09 08:30] VITALS: BP 140/82; PULSE 75; BMI 42.7
== END 2023-03-09 09:15 | disposition home or self-care (01) ==
PROVIDERS: PCP Nurse Practitioner Family; Visit Provider Nurse Practitioner Family
DX: R00.0 Tachycardia, unspecified (principal); I42.9 Cardiomyopathy, unspecified; I50.9 Heart failure, unspecified; I26.99 Other pulmonary embolism without acute cor pulmonale; I10 Essential (primary) hypertension; Z09 Encounter for follow-up examination after completed treatment for conditions other than malignant neoplasm
CPT/HCPCS: 99214

== ENCOUNTER → 2023-03-09 08:23 | Outpatient (BNVA) | payer MEDICARE, SELFPAY | PROVIDERS: PCP Nurse Practitioner Family; Visit Provider Internal Medicine | DX: Z09 Encounter for follow-up examination after completed treatment for conditions other than malignant neoplasm (principal); I11.0 Hypertensive heart disease with heart failure; I50.9 Heart failure, unspecified; R00.0 Tachycardia, unspecified; I42.9 Cardiomyopathy, unspecified; I26.99 Other pulmonary embolism without acute cor pulmonale | CPT/HCPCS: 99212 ==

== ENCOUNTER → 2023-04-23 07:35 | Outpatient (REF) | payer MEDICARE, SELFPAY ==
--- NOTE | ~2023-04-23 | NM_ITS ---
Lexiscan Myocardial perfusion study Indication: Shortness of breath, abnormal EKG, assess for ischemia Technique: The patient was brought in for a Lexiscan perfusion study on 04/23/2023 and was injected 0.4 mg of Lexiscan intravenously. Within a minute of this injection 30 mCi of sestamibi was given intravenously. Images were obtained using the SPECT gamma camera interlaced with the gating device. Images were obtained in supine position. Resting perfusion study was performed on 04/28/2023. Patient was administered 30 mCi of sestamibi intravenously at rest. Images were then obtained in supine position. Images were processed with the software and compared side to side in short axis, horizontal long axis and vertical long axis views. Total DLP 193mGy-cm. Findings: Raw acquisition reviewed. Arms by the patient's side. The stress perfusion study showed diminished tracer uptake in the distal part of inferolateral wall. There is some improvement with CT attenuation correction and hence could have components of diaphragmatic attenuation artifact. The gated study shows normal LV systolic function with calculated LVEF of 64%. LV cavity is normal in size. The gated study shows normal wall thickening and contraction of segments. Resting study shows no significant perfusion abnormality. Gating at rest reveals normal wall motion with ejection fraction at 64%. The findings are consistent with reversible distal inferolateral perfusion defect. NM/NM cardiolite stress test Impression: 1. Myocardial perfusion imaging study shows possible ischemia in the distal inferolateral wall. Could also be from diaphragmatic attenuation artifact. 2. Gated LVEF is 64% during stress and rest. 3. Transient ischemic dilatation not present. EKG component of the test reported separately.
--- NOTE | 2023-04-23 07:39 | CA_ITS ---
Acquisition Time: 2023-04-23 08:59:07 Total Exercise Time: 00:02:00 Test Indications: Dyspnea Medications: ALBUTEROL ELIQUIS IRON WIXELA INHALER FUROSEMIDE LISINOPRIL METOPROLOL Protocol: LEXISCAN Max HR: 108 BPM 76% of Pred: 141 BPM Max BP: 190/090 mmHG Max Work Load: 1.0 METS Pharmacological stress test with Lexiscan injection while sititng and kicking her legs, with mild SOB, no chest discomfort, with isolated PACs, with resting HTN, normotensive response, with nondiagnositic EKGs. Aminophylline 75mg IVP given to reverse Lexiscan due to feeling lightheaded. Nuclear images pending. Test reviewed with Dr. High. END rhythm sinus rhythm HR 89 bpm. BP 148/76 . Referred By: Jennifer Linares Overread By: Maria Del Carmen Bautista
--- NOTE | 2023-04-23 07:39 | CA_ITS ---
Transthoracic Echocardiogram Patient (Last, First, Middle): Padma Durant S Gender: Female Date of : 1945 Age: 78 Procedure Date: 04/23/2023 Procedure Type: Transthoracic Echocardiogram Location: OP Height: 152.4 cm Weight: 98.88 kg BSA: 1.94 m2 Heart Rate: bpm BP: 130 / 88 mmHg Transplant Rn: TO Referring MD: Jennifer Linares HIGH SCHOOL ASSISTANT PRINCIPALRahul Symptoms: I42.9 - Cardiomyopathy, unspecified Study Quality: Adequate with contrast Conclusions: - 1. Mildly reduced LV ejection fraction with at least moderate LVH with impaired relaxation filling pattern 2. Moderate pericardial effusion close to LV Findings Left Ventricle Normal left ventricular cavity size. There is moderately increased left ventricular wall thickness. The left ventricular systolic function is mildly decreased. The visually estimated ejection fraction is between 45-50%. Spectral Doppler is indicative of an impaired relaxation filling pattern. Pericardium/Pleural There is a moderate loculated pericardial effusion overlying the left ventricle. Prior Study Comparison Changes noted compared to prior study dated: 11/27/2022. LV systolic function is marginally improved. There is moderate pericardial effusion near the left ventricle. Measurements 2D Linear Measurements IVSd: 1.47 0.6-0.9/0.6-1.0 cm LVIDd: 4.09 3.9-5.3/4.2-5.9 cm LVIDd Index: 2.11 2.4-3.2/2.2-3.1 cm/m2 LVIDs: 2.91 2.0-3.6 cm LVPWd: 1.48 0.7-1.1 cm LV Mass: 291.72 67-162/88-224 g LV Mass Index: 150.37 43-95/49-115 g/m2 LVOT Diam: 2.00 3.0+(-)1.3 cm 2D Systolic Function EF 4C: 47.20 >55% EF 2C: 44.90 >55% EF BiP: 46.70 >55% Mitral Valve MV Pk E: 0.94 MV PK A: 1.60 MV Decel Time: 263.00 E/A: 0.60 E'Lateral: 5.11 E'Medial: 3.15 E/E' Med: 29.80 E/E' Lat: 18.40 PHT: 77.00 MVA PHT: 2.86 Decel Dubois: 3.58 LVOT LVOT Pk Glenn: 1.53 LVOT Mn Glenn: 1.04 LVOT VTI: 0.34 LVOT Pk Grad: 9.00 LVOT Mn Grad: 5.00 LVOT Diam: 2.00 LVOT Area: 3.14 Diastolic Function MV Pk E: 0.94 MV Pk A: 1.60 E/A: 0.60 E'Medial: 3.15 E/E' Med: 29.80 E' Laterial: 5.11 E/E' Lat: 18.40 Right Ventricle TAPSE (mm): 28.50 TVS' Glenn: 17.40 Tricuspid Valve RA Press: 3.00 Updated in Other Vendor System with Status of Final Joe Payan MD electronically signed on 04/24/2023 2:12:40 PM with status of Final
== END ==
LOC: HO.CARD 07:35
PROVIDERS: PCP Nurse Practitioner Family; Visit Provider Nurse Practitioner Family
DX: I42.9 Cardiomyopathy, unspecified (principal)
CPT/HCPCS: 78452; 93017; 93308; A9500; J0280; J2785; Q9957

== ENCOUNTER → 2023-04-23 07:39 | Outpatient (BNV) | payer MEDICARE, SELFPAY | PROVIDERS: PCP Nurse Practitioner Family; Visit Provider Nurse Practitioner | DX: I42.9 Cardiomyopathy, unspecified (principal); R06.02 Shortness of breath | CPT/HCPCS: 78452; 93016; 93018; 93308 ==

== ENCOUNTER 2023-04-27 14:02 | Outpatient (AMB) | payer MEDICARE, SELFPAY ==
[2023-04-27 14:31] VITALS: BP 160/80; PULSE 68; BMI 43.3
--- NOTE | 2023-04-27 14:31 | MHC.OFFVIS ---
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 Required: No Research Manufacturing Operator: Research Manufacturing Operator Present Allergies No Known Allergies Allergy (Verified 04/27/23 14:34) Medication List - Last Reconciled 04/27/23 by ELIZA Doyle albuterol sulfate 2.5 mg inhalation Q6H PRN albuterol sulfate 90 mcg/actuation 2 puffs inhalation Q6H PRN apixaban (Eliquis) 5 mg PO BID 90 days ferrous sulfate (Feosol) 325 mg PO DAILY fluticasone propion-salmeterol 250-50 mcg/dose (Wixela Inhub) 1 ea inhalation BID furosemide 10 mg (1/2 x 20 mg) PO DAILY 30 days lisinopril 2.5 mg PO DAILY metoprolol succinate ER 50 mg PO DAILY 90 days HPI 6 wk s/p ett/ echo HPI Details Padma is a 78-year-old female past medical hypertension, asthma who was recently admitted for shortness of breath and found to have pulmonary embolism. An echocardiogram showed severe MAC, with mitral valve gradient, small pericardial effusion, mildly reduced EF. She did have runs of SVT. She was seen by Dr. High for inpatient Cardiology consult. She now presents for hospital follow-up. Today she reports she has been feeling her since her hospital discharge. She denies having any shortness of breath at rest or with activity. No chest discomfort, palpitations, lightheadedness, presyncope, syncope, falls. No PND, orthopnea. She does get some mild edema in her left lower extremity which is not new. She has been taking her medications as directed. No bleeding issues noted with Eliquis. [facility] Medical History Atypical meningioma of brain Osteoporosis Osteoarthritis Osteopenia Asthma DVT (deep venous thrombosis) HTN (hypertension) Idiopathic peripheral neuropathy Anxiety Anemia Basal cell carcinoma Surgical History Knee joint replacement status Social History Household Members: Spouse Housing: Apartment Alcohol intake: never Patient Tobacco Use Status: Never used Tobacco e-Cigarette/Vaping Use: Never Used Second Hand Smoke Exposure: No service: No Current occupational status: retired Cognitive needs: No Hearing needs: No Vision needs: No Review of Systems Const All systems reviewed & are unremarkable except as noted in HPI and below ENT Reports dizziness Card Denies chest pain, Denies chest pain at rest, Denies chest pain with activity, Denies rapid heart rate, Denies pedal edema, Denies edema, Denies leg edema, Denies lightheadedness, Denies palpitations, Denies dyspnea, Denies dyspnea on exertion and Denies orthopnea Resp Denies cough, Denies dyspnea and Denies dyspnea on exertion GI Denies hematochezia and Denies change in stool character Musc Denies abnormal gait, Denies limited range of motion, Denies muscle cramps, Denies muscle weakness, Denies numbness, Denies radiating pain into limb, Denies stiffness and Denies tingling Neuro Denies abnormal gait, Reports dizziness, Denies numbness and Denies tingling Endo Denies palpitations Physical Exam Vital Signs: Last Vital Signs Pulse 68 04/27/23 14:31 BP 160/80 H 04/27/23 14:31 BMI result Body Mass Index 43.3 Const General: cooperative, healthy appearing, comfortable and no acute distress Orientation/consciousness: patient oriented x3 Neck Neck: Yes normal visual inspection and Yes no JVD Resp Effort & Inspection: normal respiratory effort Auscultation: clear to auscultation bilaterally, no crackles, no rales, no rhonchi and no wheezes Cardio Jugular venous distension: no JVD Rate: regular rate Rhythm: regular rhythm Heart sounds: S1 normal heart sound present, S2 normal heart sound present, no murmurs and no rubs Neuro General: patient oriented x3 Extrem General: Yes normal to inspection, No no pedal edema and No calf tenderness Psych Appearance: grossly normal Mental Status: mental status grossly normal Speech and movement: Normal speech and movement present Assessment & Plan Assessment & Plan (1) Cardiomyopathy: Code(s): I42.9 - Cardiomyopathy, unspecified Plan: Echocardiogram done while inpatient for pulmonary embolism. She was noted to have EF 40-45 %. New finding of cardiomyopathy. No clinical signs of heart failure at that time or on examination today. She was started on low-dose Lasix, lisinopril, metoprolol XL. She was put on Eliquis for anticoagulation for the pulmonary embolism. A repeat echocardiogram was done on 04/23/2023 showing EF 45-50%, moderate pericardial effusion, close to the LV. Today she reports feeling well and denies shortness of breath. Blood pressure is elevated today, recheck done by me 154/82. She is currently on low-dose lisinopril, will increase up to 10 mg daily. Repeat labs in 1 week. Continue current Lasix and metoprolol. Eliquis will be managed by her PCP. Will check with her primary crop consultant regarding further management of her pericardial effusion. Nuclear stress test is being done, results are not available as of yet. Plan to call her when results is available. Cardiology follow-up 3 months, sooner if needed (2) Acute pulmonary embolism: Code(s): I26.99 - Other pulmonary embolism without acute cor pulmonale Plan: As above. Continue Eliquis (3) HTN (hypertension): Code(s): I10 - Essential (primary) hypertension Plan: Elevated today. Increasing lisinopril from 2.5 mg daily up to 10 mg daily. Continue metoprolol XL at 50 mg daily. (4) Tachycardia: Code(s): R00.0 - Tachycardia, unspecified Plan: During [facility] admit notes indicate episodes of SVT. She was put on metoprolol. Since discharge she denies having heart palpitations. Pulse is regular on examination today with normal rate. Will continue on current dose of metoprolol. (5) Pericardial effusion: Code(s): I31.39 - Other pericardial effusion (noninflammatory) Plan: Current echo showing moderate pericardial effusion near the LV. EF 45-50% which is slight increase from last. No clinical signs indicating decompensation, tamponade. Plan Time spent on chart review, documentation, interview and assessment Medications: New lisinopril 10 mg PO DAILY 30 tabs 5RF Discontinued lisinopril Discontinued Reason: Doctor's Order 2.5 mg PO DAILY 90 tabs 1RF Coding Level of Care Code Est Pt Level 4 (93641) Diagnoses Cardiomyopathy I42.9 Acute pulmonary embolism I26.99 HTN (hypertension) I10 Tachycardia R00.0 Pericardial effusion I31.39 Time Spent (min) 28
== END 2023-04-27 15:17 | disposition home or self-care (01) ==
PROVIDERS: PCP Nurse Practitioner Family; Visit Provider Nurse Practitioner Family
DX: I42.9 Cardiomyopathy, unspecified (principal); I26.99 Other pulmonary embolism without acute cor pulmonale; I10 Essential (primary) hypertension; R00.0 Tachycardia, unspecified; I31.39 Other pericardial effusion (noninflammatory)
CPT/HCPCS: 99214

== ENCOUNTER → 2023-04-27 14:02 | Outpatient (BNVA) | payer MEDICARE, SELFPAY | PROVIDERS: PCP Nurse Practitioner Family; Visit Provider Nurse Practitioner Family | DX: I42.9 Cardiomyopathy, unspecified (principal); I26.99 Other pulmonary embolism without acute cor pulmonale; I31.39 Other pericardial effusion (noninflammatory); I10 Essential (primary) hypertension; R00.0 Tachycardia, unspecified | CPT/HCPCS: 99212 ==

== ENCOUNTER 2023-06-25 12:53 | Outpatient (AMB) | payer MEDICARE, SELFPAY ==
[2023-06-25 13:00] VITALS: BP 140/80; PULSE 76; O2SAT 96; BMI 44.3
--- NOTE | 2023-06-25 13:00 | MHC.PC.OV ---
Vital Signs 06/25/23 13:00 Height 5 ft Weight 227 lb BMI 44.3 BP 140/80 H Blood Pressure Location Lt brachial Position Sitting Pulse 76 Pulse Source Pulse Oximeter Pulse Oximetry (%) 96 Oxygen Delivery Method Room Air Intake Visit Reasons: 3 mon f/u (r/s 05/25/23) Intake Note: pt is here for 3 month follow up Cage Fighter Required: No Accompanied by: Self / Same As Patient Allergies No Known Allergies Allergy (Verified 06/25/23 13:00) Medication List - Last Reconciled 06/25/23 by WILMAN Barkley albuterol sulfate 2.5 mg inhalation Q6H PRN albuterol sulfate 90 mcg/actuation 2 puffs inhalation Q6H PRN apixaban (Eliquis) 5 mg PO BID 90 days ferrous sulfate (Feosol) 325 mg PO DAILY fluticasone propion-salmeterol 250-50 mcg/dose (Wixela Inhub) 1 ea inhalation BID furosemide 10 mg (1/2 x 20 mg) PO DAILY 90 days lisinopril 20 mg PO DAILY 90 days metoprolol succinate ER 50 mg PO DAILY 90 days Tobacco use date assessed: 06/25/23 Fall risk assessment: 1 Fall in past year Last assessed Fall Risk: 06/25/23 Dental Screening Dental Screen Date: 06/25/23 Did you have a dental visit in the last 12 months?: Yes Did you have a dental problem in the last 6 months where you did not have access to dental care?: No Was dental information given to patient?: Patient has dentist HPI 3 mon f/u (r/s 05/25/23) HPI Details HTN: Blood pressure is managed with furosemide 10mg, lisinopril 10mg and metoprolol 50mg. BP is elevated today. Will increase lisinopril from 10mg to 20mg. Denies chest pain, shortness of breath, headache, dizziness, and blurred vision. Pt reports right trigger thumb. Will refer to ortho. Pt reports urinary frequency, urgency, and incontinence. She has a hx of vaginal births. Will order UA and culture and refer to urology. ON LICENSE OF [facility] Medical History Atypical meningioma of brain Osteoporosis Osteoarthritis Osteopenia Asthma DVT (deep venous thrombosis) HTN (hypertension) Idiopathic peripheral neuropathy Anxiety Anemia Basal cell carcinoma Surgical History Knee joint replacement status Social History Household Members: Spouse Housing: Apartment Alcohol intake: never Patient Tobacco Use Status: Never used Tobacco e-Cigarette/Vaping Use: Never Used Second Hand Smoke Exposure: No service: No Current occupational status: retired Cognitive needs: No Hearing needs: No Vision needs: No Questionnaire Thrive Questionnaire Date Thrive assessed: 06/25/23 I am a: Patient What is your living situation today?: I have a steady place to live Within the past 12 months, did the food you bought not last and you didn't have the money to get more?: Never true Within the past 12 months, did you worry whether your food would run out before you got money to buy more?: Never true Do you have trouble paying for medicines?: No Do you have trouble getting transportation to medical appointments?: No Do you have trouble paying your heating and electricity bill?: No Do you have trouble taking care of your child, family member or friend?: No Do you have trouble with day-to-day activities such as bathing, preparing meals, shopping, managing finances, etc.?: No Are you currently unemployed and looking for a job?: No Are you interested in more education?: No Please select the resources that you would like help with: None Currently or been in a relationship where the following occur: no concerns reported THRIVE Score: 0 AUDIT C Alcohol Use Questionnaire (AUDIT-C) 1. How often do you have a drink containing alcohol?: Never 3. How often do you have six or more drinks on one occasion?: Never Total Score: 0 Score Reviewed/Action Taken: Yes ALEISHA-7 AMB Questionnaire ALEISHA-7 Date ALEISHA - 7 assessed: 06/25/23 Feeling nervous, anxious, or on edge: 0 = Not at all Not being able to stop or control worryin = Not at all Worrying too much about different things: 0 = Not at all Trouble relaxin = Not at all Being so restless that it is hard to sit still: 0 = Not at all Becoming easily annoyed or irritable: 0 = Not at all Feeling afraid as if something awful might happen: 0 = Not at all Total ALEISHA-7 score (0-4 normal; 5-9 mild; 10-14 moderate; 15-21 severe): 0 Source: Developed by Drs. Kannan Welsh, Akiko Sanchez, Sukumar Son and colleagues, with an educational mignon from [employer] ALEISHA-7 Assessment Billing ALEISHA-7 Assessment Tool: ALEISHA-7 Assessment 17184 Review of Systems Const Reports as per HPI Physical exam (Primary Care) Vital Signs: Last Vital Signs Pulse 76 06/25/23 13:00 BP 140/80 H 06/25/23 13:00 Pulse Ox 96 06/25/23 13:00 Oxygen Delivery Method Room Air 06/25/23 13:00 BMI result Body Mass Index 44.3 Tobacco/Smoking Status: Tobacco use Status Tobacco use date assessed 06/25/23 06/25/23 13:03 Patient Tobacco Use Status Never used Tobacco 06/25/23 13:03 e-Cigarette/Vaping Use Never Used 06/25/23 13:03 Thrive Assessment: Date of Thrive Assessment Date Thrive assessed 06/25/23 06/25/23 13:03 Currently or been in a relationship where the following occur: no concerns reported Const General: cooperative Nutritional Appearance: obese morbidly obese Orientation/consciousness: patient oriented x3 Resp Effort & Inspection: normal respiratory effort Auscultation: clear to auscultation bilaterally Cardio Other: very faint systolic murmur Rate: regular rate Rhythm: regular rhythm Heart sounds: S1 normal heart sound present and S2 normal heart sound present Neuro General: patient oriented x3 Extrem Other: trace edema to BLE, right trigger thumb (interphalangeal joint), snapping and discomfort noted with extension Psych Appearance: grossly normal Mental Status: mental status grossly normal Speech and movement: Normal speech and movement present Affect: normal affect Attitude: cooperative Thought process: Normal thought process present Thought content: Normal thought content present Insight: Good insight present (Psych) Judgement: Good judgement present (Psych) Assessment and Plan Assessment & Plan (1) HTN (hypertension): Code(s): I10 - Essential (primary) hypertension Plan: Increasing lisinopril from 10mg to 20mg (2) Trigger thumb: Code(s): M65.319 - Trigger thumb, unspecified thumb Plan: Referred to ortho (3) Skin lesions: Code(s): L98.9 - Disorder of the skin and subcutaneous tissue, unspecified Plan: Referred to derm (4) Urinary frequency: Code(s): R35.0 - Frequency of micturition Plan: UA and culture ordered, referred to urology (5) Urinary urgency: Code(s): R39.15 - Urgency of urination Plan: UA and culture ordered, referred to urology (6) Bladder incontinence: Code(s): R32 - Unspecified urinary incontinence Plan: UA and culture ordered, referred to urology Plan The patient agreed to the use of a medical physics researcher for this encounter. Scribed for POWER Rosenthal-HARMONY by neelima Henry scribe, on 06/25/2023 at 13:25 EST. Orders: Orders Comprehensive Met. Panel Today I10 - Essential (primary) hypertension UA CC w/rflx Micro + Cult Today R32 - Unspecified urinary incontinence, R35.0 - Frequency of micturition, R39.15 - Urgency of urination Urine Culture Today R32 - Unspecified urinary incontinence, R35.0 - Frequency of micturition, R39.15 - Urgency of urination Referrals Orthopedics Referral M65.319 - Trigger thumb, unspecified thumb Dermatology Referral L98.9 - Disorder of the skin and subcutaneous tissue, unspecified Urology Referral R32 - Unspecified urinary incontinence, R35.0 - Frequency of micturition, R39.15 - Urgency of urination Medications: New hydrocortisone 2.5% 1 appl topical BID PRN 30 grams 0RF skin irritation Changed From lisinopril 10 mg PO DAILY 30 tabs 5RF To lisinopril 20 mg PO DAILY 90 days 90 tabs 1RF Coding Level of Care Code Est Pt Level 3 (92738) Diagnoses HTN (hypertension) I10 Trigger thumb M65.319 Skin lesions L98.9 Urinary frequency R35.0 Urinary urgency R39.15 Bladder incontinence R32 Additional Codes ALEISHA-7 Assessment Billing - ALEISHA-7 Assessment Tool: ALEISHA-7 Assessment 43188 ([id number])
== END 2023-06-25 13:57 | disposition home or self-care (01) ==
PROVIDERS: PCP Nurse Practitioner Family; Visit Provider Nurse Practitioner Family
DX: I10 Essential (primary) hypertension (principal); M65.311 Trigger thumb, right thumb; L98.9 Disorder of the skin and subcutaneous tissue, unspecified; R35.0 Frequency of micturition; R39.15 Urgency of urination; R32 Unspecified urinary incontinence
CPT/HCPCS: 99213

== ENCOUNTER 2023-07-07 12:51 | Outpatient (AMB) | payer MEDICARE, SELFPAY ==
[2023-07-07 13:41] VITALS: BP 130/90; PULSE 87; TEMP 36.3; O2SAT 98; BMI 43.7
--- NOTE | 2023-07-07 13:41 | MHC.OFFWIV ---
Intake Vital Signs 07/07/23 13:41 Height 5 ft Weight 224 lb BMI 43.7 BP 130/90 H Blood Pressure Location Lt brachial Position Sitting Pulse 87 Pulse Source Pulse Oximeter Temp 97.4 F Temp Source Temporal Artery Scan Pulse Oximetry (%) 98 Oxygen Delivery Method Room Air Intake Visit Reasons: EP Asthma/Respiratory [phone] Intake Note: pt is here today for asthma and respiratory started 3 days ago Patient Tobacco Use Status: Never used Tobacco Allergies No Known Allergies Allergy (Verified 07/07/23 14:42) Medication List - Last Reconciled 07/07/23 by POWER Mercer albuterol sulfate 2.5 mg (3 mL) inhalation Q6H PRN albuterol sulfate 90 mcg/actuation 2 puffs inhalation Q6H PRN apixaban (Eliquis) 5 mg PO BID 90 days azithromycin For 250 mg dose pack: take 500 mg today (day 1), then 250 mg for 4 days (days 2-5) PO ferrous sulfate (Feosol) 325 mg PO DAILY fluticasone propion-salmeterol 250-50 mcg/dose (Wixela Inhub) 1 ea inhalation BID furosemide 10 mg (1/2 x 20 mg) PO DAILY 90 days hydrocortisone 2.5% 1 appl topical BID PRN lisinopril 20 mg PO DAILY 90 days metoprolol succinate ER 50 mg PO DAILY 90 days prednisone 20 mg PO BID Do you need a note to return to daycare/school/sports/work: No HPI HPI Comments History of Present Illness Details Patient is a 78-year-old female in today for a sick visit. She has a past medical history significant for asthma, pulmonary embolisms after mechanical fall, hypertension. Patient is currently on Eliquis, Advair Diskus, albuterol inhaler, furosemide, metoprolol, lisinopril, ferrous fumarate. Patient states that for the past 3 days she has developed symptoms of sore throat, cough, wheeze. Patient states that she did have a fever that broke 1 day prior. Patient's primary complaint today is cough that is exacerbating her wheeze. States that she is bringing up green mucus occasionally. Denies chest pain, shortness a breath, dizziness, numbness, nausea, vomiting, diarrhea. Patient had albuterol nebulizer treatment 1 hour prior to today's appointment [facility] Medical History Atypical meningioma of brain Osteoporosis Osteoarthritis Osteopenia Asthma DVT (deep venous thrombosis) HTN (hypertension) Idiopathic peripheral neuropathy Anxiety Anemia Basal cell carcinoma Surgical History Knee joint replacement status Social History Household Members: Spouse Housing: Apartment Alcohol intake: never Patient Tobacco Use Status: Never used Tobacco e-Cigarette/Vaping Use: Never Used Second Hand Smoke Exposure: No service: No Current occupational status: retired Cognitive needs: No Hearing needs: No Vision needs: No Review of Systems Const All systems reviewed & are unremarkable except as noted in HPI and below Denies chills, Denies fever(s) and Denies headache(s) Eyes Denies eye discharge ENT Denies dizziness, Denies headache(s), Denies sinus pain and Reports sore throat Card Denies chest pain and Denies dyspnea Resp Reports cough, Denies dyspnea and Reports wheezing Neuro Denies dizziness and Denies headache(s) Aller/Immun Reports wheezing Physical Exam Vital Signs: Last Vital Signs Temp 97.4 F 07/07/23 13:41 Pulse 87 07/07/23 13:41 BP 130/90 H 07/07/23 13:41 Pulse Ox 98 07/07/23 13:41 Oxygen Delivery Method Room Air 07/07/23 13:41 BMI result Body Mass Index 43.7 Const Other: Appearance: Alert.? Oriented X3.? No acute distress.? Head: Normocephalic, atraumatic. Eyes: Pupils equal, round and reactive to light.? ENT: Pharynx erythema. TM intact and pearly moran. ? Neck: Normal inspection.? Neck supple.?Full ROM CVS: Normal heart rate and rhythm.? Pulses normal.? Respiratory: No respiratory distress.? Bilateral wheeze upper lobes. Neuro: Oriented X 3.? No motor deficit.? No sensory deficit. CN 2-12 intact Assessment & Plan Assessment & Plan (1) Upper respiratory tract infection: Comment: Will give patient prednisone common azithromycin. Code(s): J06.9 - Acute upper respiratory infection, unspecified Qualifiers: URI type: unspecified URI Qualified Code(s): J06.9 - Acute upper respiratory infection, unspecified Plan: Take your medications as prescribed. If you were prescribed antibiotics today, it is important that you take your medication to their entirety, do not skip any doses, do not finish them early. Follow-up with your primary care provider this week. Return to the emergency department with new or worsening symptoms. Such as fevers, chills, chest pain, shortness of breath, nausea, vomiting, dizziness, headache, vision changes, lethargy In case of emergency call 911 Plan Follow-up with PCP Medications: New prednisone 20 mg PO BID 10 tabs 0RF azithromycin For 250 mg dose pack: take 500 mg today (day 1), then 250 mg for 4 days (days 2-5) PO 6 tabs 0RF Coding Level of Care Code Est Pt Level 3 (06472) Diagnoses Upper respiratory tract infection, unspecified type J06.9 URI type: unspecified URI Time Spent (min) 22
== END 2023-07-07 15:03 | disposition home or self-care (01) ==
PROVIDERS: PCP Nurse Practitioner Family; Visit Provider Nurse Practitioner Primary Care
DX: J06.9 Acute upper respiratory infection, unspecified (principal)
CPT/HCPCS: 99213

== ENCOUNTER 2023-07-15 14:07 | Outpatient (AMB) | payer MEDICARE, SELFPAY ==
[2023-07-15 14:47] VITALS: BMI 43.7
--- NOTE | 2023-07-15 14:47 | MHC.OFFVIS ---
Intake Vital Signs 07/15/23 14:47 Height 5 ft Weight 224 lb BMI 43.7 Intake Visit Reasons: new prob- Trigger thumb Intake Note: Padma 78 yr old right hand dominant female presents today for a new problem visit for her right thumb finger. States her thumb is locking for about 1 month now. States she has no pain at all just popping when bending. Denies numbness, tingling or injury to thumb. She wears a brace that helps with popping and locking. Allergies No Known Allergies Allergy (Verified 07/15/23 14:52) HPI new prob- Trigger thumb HPI Details Padma is a 78 year old right hand dominant woman who presents with complaints of locking & catching of her right thumb. She complains of her right thumb locking for ~1 month. She denies any pain and says this is not particularly bothersome. She says she has some deviation of her right small finger, but his happened some time ago. Neither she nor her know why and deny any injuries, and she says this does not cause her issues. FORMERLY [facility] Medical History Atypical meningioma of brain Osteoporosis Osteoarthritis Osteopenia Asthma DVT (deep venous thrombosis) HTN (hypertension) Idiopathic peripheral neuropathy Anxiety Anemia Basal cell carcinoma Surgical History Knee joint replacement status Social History (Updated 07/15/23 @ 14:53 by Nae Rico [facility]) Household Members: Spouse Housing: Apartment Alcohol intake: never Patient Tobacco Use Status: Never used Tobacco e-Cigarette/Vaping Use: Never Used Second Hand Smoke Exposure: No service: No Current occupational status: retired 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 Cognitive needs: No Hearing needs: No Vision needs: No Review of Systems Const All systems reviewed & are unremarkable except as noted in HPI and below Physical Exam Vital Signs: BMI result Body Mass Index 43.7 Const General: cooperative, healthy appearing and no acute distress Orientation/consciousness: patient oriented x3 HEENT Head: Yes normocephalic and Yes atraumatic Eyes EOM: EOMs intact bilaterally Resp Effort & Inspection: normal respiratory effort and able to speak in complete sentences Cardio Jugular venous distension: no JVD Skin General skin exam: turgor normal Rashes: no rashes Neuro General: patient oriented x3 Extrem Other: Evaluation of Right Upper Extremity: The patient is alert, oriented, and in no acute distress Neuro: Median, Ulnar, Radial nerves motor and sensory intact and sensation is normal to the tips of all digits Vascular: Cap refill brisk ROM: She can make a fist and extend all her digits Visible and palpable locking & catching of the thumb Tender over the a1 sue of the thumb Right small finger DIP joint ulnar deviation Skin: No lacerations or abrasions. General: No Ecchymosis. No Erythema or evidence of infection. Psych Appearance: grossly normal Affect: normal affect Attitude: cooperative Office Procedures Fracture Care Details: No fracture, injection Fracture Billing Code: Fracture Billing Code Assessment & Plan Assessment & Plan (1) Trigger thumb, right thumb: Code(s): M65.311 - Trigger thumb, right thumb Plan Assessment & Plan: 1. Right trigger thumb I educated her about this condition I discussed operative and non-operative treatment options The patient would like to proceed with an injection Injection #1: The risks and benefits of a steroid injection including but not limited to risk of damage to blood vessels, nerves, tendons, infection, skin bleaching, failure to improve symptoms, increased pain, and possible need for further injections or other intervention were discussed with the patient and the patient wishes to proceed with the steroid injection. Once consent was obtained, I sterilely prepped the area over the A1 sue of the flexor tendon sheath of the right thumb. I then injected the flexor tendon sheath with a combination of 1 mL of dexamethasone (4mg/ml), and 1% lidocaine. The patient tolerated the procedure well with no complications. If the patient continues to have locking and catching 4-6 weeks following this injection, they may call to schedule appointment to discuss alternative treatment options Follow-up prn 2. 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 No complaints Scribed for Emely Figueroa MD by Royer Grant medical physics researcher, on 07/15/23 at 3:05 PM, EST. Coding Level of Care Code New Pt Level 4 (23709) Diagnoses Trigger thumb, right thumb M65.311 CPT Codes Fracture Care - Fracture Billing Code: Fracture Billing Code ([id number])
== END 2023-07-15 15:32 | disposition home or self-care (01) ==
PROVIDERS: PCP Nurse Practitioner Family; Visit Provider Orthopaedic Surgery
DX: M65.311 Trigger thumb, right thumb (principal)
CPT/HCPCS: 20550; 99203

== ENCOUNTER → 2023-07-15 14:07 | Outpatient (BNVA) | payer MEDICARE, SELFPAY | PROVIDERS: PCP Nurse Practitioner Family; Visit Provider Orthopaedic Surgery | DX: M65.311 Trigger thumb, right thumb (principal) | CPT/HCPCS: 99202; J1100 ==

== ENCOUNTER → 2023-07-23 08:27 | Outpatient (REF) | payer MEDICARE, SELFPAY ==
--- NOTE | 2023-07-23 08:32 | CA_ITS ---
Transthoracic Echocardiogram Patient (Last, First, Middle): Padma Durant S Gender: Female Date of : 1945 Age: 78 Procedure Date: 07/23/2023 Procedure Type: Transthoracic Echocardiogram Location: OP Height: 157.48 cm Weight: 95.26 kg BSA: 1.95 m2 Heart Rate: 78 bpm BP: 152 / 80 mmHg Pharmaceutical Scientist: NAYA Ricks MD: Jennifer Linares WRAPPER OPERATOR-C Sensor Technician: Joe Payan MD Symptoms: I31.39 - Other pericardial effusion (noninflammatory) Study Quality: Fair ECG Rhythm: Arrhythmia Conclusions: - 1. Normal LV ejection fraction 55-60% with impaired relaxation filling pattern 2. Moderate left atrial enlargement 3. Severe mitral calcification with mild mitral regurgitation and mild aortic regurgitation 4. Mildly dilated ascending aorta at 3.8 cm 5. Upper limits of normal RV systolic pressure 6. Small to moderate pericardial effusion more prominent near the left ventricle Findings Left Ventricle Mildly increased left ventricular cavity size. There is normal left ventricular wall thickness. The left ventricular systolic function is normal. The visually estimated ejection fraction is between 50-55%. Spectral Doppler is indicative of an impaired relaxation filling pattern. E/E prime ratio is between 8 and 15 consistent with indeterminate filling pressures. Peak GLS is -15.9%, mildly reduced. Right Ventricle Normal right ventricular cavity size and systolic function. Atria The left atrium is moderately dilated. There is no evidence of interatrial shunt. The right atrium is mildly dilated. Aortic Valve There is mild calcification of the aortic valve. There is no aortic valve stenosis. There is mild aortic valve regurgitation. Mitral Valve There is mild anterior and severe posterior mitral leaflet thickening. There is severe mitral annular calcification. There is mild mitral valve regurgitation. There is no mitral valve stenosis. Pulmonic Valve The pulmonic valve was not well visualized. Tricuspid Valve Likely normal tricuspid valve structure and function. There is mild tricuspid valve regurgitation. Normal right atrial pressure. There is no evidence of pulmonary hypertension. Great Vessels The pulmonary artery was not well visualized. There is mild dilatation of the ascending aorta measuring 3.80 cm. Venous The inferior vena cava is normal in size and collapses greater than 50% with inspiration. Pericardium/Pleural There is a small circumferential pericardial effusion. more moderate near the left ventricle. Prior Study Comparison No significant change compared to prior study dated: 04/23/2023. Measurements 2D Linear Measurements IVSd: 0.68 0.6-0.9/0.6-1.0 cm LVIDd: 6.18 3.9-5.3/4.2-5.9 cm LVIDd Index: 3.17 2.4-3.2/2.2-3.1 cm/m2 LVIDs: 3.70 2.0-3.6 cm LVPWd: 1.03 0.7-1.1 cm LA Diam: 4.80 2.7-3.8/3.0-4.0 cm LAIDs Index: 2.46 1.5-2.3 cm/m2 LV Mass: 265.35 67-162/88-224 g LV Mass Index: 136.07 43-95/49-115 g/m2 LVOT Diam: 1.90 3.0+(-)1.3 cm 2D Systolic Function EF 4C: 60.30 >55% EF 2C: 56.30 >55% EF BiP: 57.80 >55% Mitral Valve MV VTI: 0.54 MV Pk Glenn: 2.14 MV Mn Glenn: 1.30 MV Pk Grad: 18.00 MV Mn Grad: 8.00 MV Pk E: 1.59 MV PK A: 1.91 MV Decel Time: 230.00 E/A: 0.80 E'Lateral: 3.84 E'Medial: 4.64 E/E' Med: 34.30 E/E' Lat: 41.40 PHT: 67.00 MVA PHT: 3.28 MVA Continuity: 1.69 Decel Char[place]: 6.90 Aortic Valve AoV Pk Glenn: 2.10 AoV Mn Glenn: 1.38 AoV VTI: 0.45 AoV Pk Grad: 18.00 Aov Mn Grad: 9.00 DREW Cont.VTI: 2.05 AI Pk Glenn: 4.50 AI Chariton: 4.07 LVOT LVOT Pk Glenn: 1.66 LVOT Mn Glenn: 1.01 LVOT VTI: 0.32 LVOT Pk Grad: 11.00 LVOT Mn Grad: 5.00 LVOT Diam: 1.90 LVOT Area: 2.84 Diastolic Function MV Pk E: 1.59 MV Pk A: 1.91 E/A: 0.80 E'Medial: 4.64 E/E' Med: 34.30 E' Laterial: 3.84 E/E' Lat: 41.40 Right Ventricle TAPSE (mm): 21.70 TVS' Glenn: 12.40 Tricuspid Valve TR Pk Glenn: 2.81 TR Pk Grad: 32.00 RA Press: 3.00 RVSP: 35.00 Great Vessels Aorta Sinus of Valsalva: 3.00 2.0-3.5 cm Ao Asc: 3.80 2.1-3.4 cm Ao Arch: 3.60 Pulmonary Valve PV Pk Glenn: 1.23 Peak PV Grad: 6.00 Updated in Other Vendor System with Status of Final Joe Payan MD electronically signed on 07/24/2023 12:49:35 PM with status of Final
== END ==
LOC: HO.CARD 08:27
PROVIDERS: PCP Nurse Practitioner Family; Visit Provider Nurse Practitioner Family
DX: I31.39 Other pericardial effusion (noninflammatory) (principal); I42.9 Cardiomyopathy, unspecified
CPT/HCPCS: 93306; 93356

== ENCOUNTER → 2023-07-23 08:32 | Outpatient (BNV) | payer MEDICARE, SELFPAY | PROVIDERS: PCP Nurse Practitioner Family; Visit Provider Internal Medicine Cardiovascular Disease | DX: I31.39 Other pericardial effusion (noninflammatory) (principal) | CPT/HCPCS: 93306; 93356 ==

== ENCOUNTER 2023-07-27 12:59 | Outpatient (AMB) | payer MEDICARE, SELFPAY ==
[2023-07-27 13:20] VITALS: BP 130/62; PULSE 75; BMI 44.0
--- NOTE | 2023-07-27 13:20 | MHC.OFFVIS ---
Vital Signs 07/27/23 13:20 Height 5 ft Weight 225 lb 4.999 oz BMI 44.0 BP 130/62 Blood Pressure Location Lt brachial Position Sitting Pulse 75 Pulse Source Pulse Oximeter Intake Visit Reasons: 3 mth f/up Intake Note: pt states that she is doing fine. Collections Representative Required: No Accompanied by: Daughter Allergies No Known Allergies Allergy (Verified 07/15/23 14:52) Medication List - Last Reconciled 07/27/23 by Iggy High MD albuterol sulfate 2.5 mg (3 mL) inhalation Q6H PRN albuterol sulfate 90 mcg/actuation 2 puffs inhalation Q6H PRN apixaban (Eliquis) 5 mg PO BID 90 days ferrous sulfate (Feosol) 325 mg PO DAILY fluticasone propion-salmeterol 250-50 mcg/dose (Wixela Inhub) 1 ea inhalation BID furosemide 10 mg (1/2 x 20 mg) PO DAILY 90 days hydrocortisone 2.5% 1 appl topical BID PRN lisinopril 20 mg PO DAILY 90 days metoprolol succinate ER 50 mg PO DAILY 90 days HPI Comments Details: [age] year female who is here for follow-up. She was seen in the hospital in November 2022 when she presented with acute pulmonary embolism. She was treated and discharged home. At the time she had echocardiography performed which showed [id number] pericardial effusion and mild LV dysfunction. She was started on guideline directed medical therapy. She was seen in the office by our nurse practitioners. She has done well since then. No chest pain or shortness of breath. She had repeat echocardiography performed few days ago which is showing normal LV function. She continues to have a [id number] pericardial effusion. His November 2022 she had a CTA of the chest to diagnosed pulmonary embolism which did not show any lung mass or concern for cancer. She also had a normal TSH level before that. Repeat ECHO is showing [id number] pericardial effusion. She otherwise is clinically quite stable. She is following with Hematology and will be getting off the anticoagulation but it appears she will have a repeat CTA done before that. 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 Cognitive needs: No Hearing needs: No Vision needs: No Review of Systems Const Denies chills, Denies fatigue, Denies fever(s), Denies frequent falls, Denies weakness, Denies weight gain and Denies weight loss ENT Denies dizziness Card Denies chest pain, Denies leg edema, Denies lightheadedness, Denies palpitations, Denies dyspnea and Denies dyspnea on exertion Resp Denies cough, Denies dyspnea and Denies dyspnea on exertion GI Denies hematochezia Musc Denies abnormal gait, Denies muscle weakness, Denies numbness, Denies radiating pain into limb and Denies tingling Neuro Denies abnormal gait, Denies dizziness, Denies frequent falls, Denies numbness, Denies tingling and Denies weakness Endo Denies fatigue and Denies palpitations Physical Exam Vital Signs: Last Vital Signs Pulse 75 07/27/23 13:20 BP 130/62 07/27/23 13:20 BMI result Body Mass Index 44.0 GENERAL APPEARANCE: in no acute distress, pleasant. NECK: no carotid bruit, no jugular venous distention. SKIN: no suspicious lesions, warm and dry. HEART: no murmurs, regular rate and rhythm. LUNGS: clear to auscultation bilaterally. ABDOMEN: soft, nontender. EXTREMITIES: no edema. PERIPHERAL PULSES: equal. NEUROLOGIC: No gross deficits, AAO X 3 Assessment & Plan Assessment & Plan (1) HTN (hypertension): Code(s): I10 - Essential (primary) hypertension Category: Medical (2) Pericardial effusion: Code(s): I31.39 - Other pericardial effusion (noninflammatory) Category: Medical (3) Cardiomyopathy: Code(s): I42.9 - Cardiomyopathy, unspecified Category: Medical Plan Very pleasant 78 year female who is here for follow-up. She had mild cardiomyopathy which has improved with medications. She had provoked PE after a fall and has been on anticoagulation and will be following closely with Hematology and as per the daughter will be taken off the anticoagulation after chest CTA is performed. I think CT will also help us understand if there is any lung nodule or any other concerns for lung cancer as a potential cause for pericardial effusion. The effusion has been stable and she has no symptoms from it. Etiology still unclear to me. She has not hypothyroid. No pulmonary hypertension has been noticed. It is also hard to know how long this effusion has been there because she came for pulmonary embolism which led to echocardiography showing this. Preceding that she did not have any viral illness 2. I have reassured the patient and the family that currently she is stable. We will do repeat echocardiography in 4 months to reassess the effusion. My hope is that it will be stable or regressing. I have also explained to the patient and family about symptoms/signs of pericardial tamponade in case the pericardial effusion worsens. I have explained to them that if she develops any unexplained fatigue, dizziness, shortness of breath low blood pressure or weakness then we should reach out to us. Thank you for allowing me to participate in the care of your patient. Please feel free to contact me if you have any questions. Orders: Orders CA echo transthoracic complete 4 Months I31.39 - Other pericardial effusion (noninflammatory) Coding Level of Care Code Est Pt Level 4 (91371) Diagnoses HTN (hypertension) I10 Pericardial effusion I31.39 Cardiomyopathy I42.9
== END 2023-07-27 14:07 | disposition home or self-care (01) ==
PROVIDERS: PCP Nurse Practitioner Family; Visit Provider Internal Medicine Cardiovascular Disease
DX: I10 Essential (primary) hypertension (principal); I31.39 Other pericardial effusion (noninflammatory); I42.9 Cardiomyopathy, unspecified
CPT/HCPCS: 99214

== ENCOUNTER → 2023-07-27 12:59 | Outpatient (BNVA) | payer MEDICARE, SELFPAY | PROVIDERS: PCP Nurse Practitioner Family; Visit Provider Internal Medicine Cardiovascular Disease | DX: I10 Essential (primary) hypertension (principal); I42.9 Cardiomyopathy, unspecified; I31.39 Other pericardial effusion (noninflammatory); Z86.711 Personal history of pulmonary embolism | CPT/HCPCS: 99212 ==

== ENCOUNTER 2023-08-10 15:04 | Outpatient (REF) | payer MEDICARE, SELFPAY ==
--- NOTE | ~2023-08-10 | CT_ITS ---
EXAMINATION: CT ANGIOGRAM OF THE CHEST WITH AND WITHOUT CONTRAST (CT PULMONARY ANGIOGRAM FOR PE) CLINICAL INFORMATION: Reason for Exam Follow-up on pulmonary embolism. COMPARISON: CTA chest 11/26/2022. TECHNIQUE: Prior to contrast administration, noncontrast localization images were obtained. Subsequently, multidetector volumetric imaging was performed from the thoracic inlet to below the diaphragms following the administration of 65 mL Omnipaque 350 intravenous contrast. No contrast reaction reported Sagittal, coronal, and MIP oblique sagittal reformatted images were obtained on the CT workstation, uploaded to PACS, and reviewed. This CT examination was performed using dose optimization techniques as appropriate, variously including the following: *Automated exposure control *Adjustment of mA and/or kV according to patient size (this includes techniques or standardized protocols for targeted exams where dose is matched to indication/reason for exam; i.e. extremities or head) *Use of iterative reconstruction technique Total exam dose-length product 185 mGy-cm FINDINGS: QUALITY OF STUDY/CONTRAST BOLUS: Satisfactory. PULMONARY ARTERIES: Negative for pulmonary embolism. Previously seen right lower lobe filling defect has resolved. No visible lab or chronic mural abnormality in this location. The main pulmonary artery is dilated measuring 3.9 cm as compared to adjacent aorta 3.8 cm. THORACIC AORTA: No aortic aneurysm. LUNG: No focal consolidation, nodules or masses. PLEURA: No pleural effusion or pneumothorax. MEDIASTINUM: The left ventricle and left atrium appear dilated. There is significant mitral annular calcification. CORONARY ARTERY CALCIFICATION: Mild. CHEST WALL/AXILLA: No axillary or internal mammary lymphadenopathy. OSSEOUS STRUCTURES: Degenerative changes in the spine. UPPER ABDOMEN: Unremarkable. No reflux of contrast into the hepatic veins to suggest elevated right heart pressures. CT/CT angio chest PE protocol IMPRESSION: Negative for pulmonary embolism. Previously seen right lower lobe pulmonary embolism has resolved. Dilated main pulmonary artery measuring 3.9 cm suggestive of pulmonary arterial hypertension. Dilated left atrium and left ventricle. Significant mitral annular calcification may relate to underlying mitral valve disease. Consider correlation with echocardiogram. VTE: negative
[2023-08-10] MEDS: iohexoL 350 MG/ML 100 ML INFUS..BTL 65 ML IV (16:04)
[2023-08-12 13:57] LABS: GFR POC > 60
== END 2023-08-10 15:05 | disposition home or self-care (01) ==
LOC: HO.CT 15:04
PROVIDERS: PCP Nurse Practitioner Family; Visit Provider Internal Medicine Medical Oncology
DX: I26.99 Other pulmonary embolism without acute cor pulmonale (principal); I05.9 Rheumatic mitral valve disease, unspecified
CPT/HCPCS: 71275; 82565; Q9967

== ENCOUNTER 2023-09-02 13:39 | Outpatient (AMB) | payer MEDICARE, SELFPAY ==
[2023-09-02 13:48] VITALS: BP 172/98; PULSE 73; O2SAT 97; BMI 44.2
--- NOTE | 2023-09-02 13:48 | MHC.PC.OV ---
Vital Signs 09/02/23 13:48 09/02/23 14:24 Height 5 ft Weight 226 lb 4 oz BMI 44.2 BP 172/98 H 140/82 H Blood Pressure Location Lt brachial Lt brachial Position Sitting Sitting Pulse 73 Pulse Source Pulse Oximeter Pulse Oximetry (%) 97 Oxygen Delivery Method Room Air Intake Visit Reasons: Annual PE Allergies No Known Allergies Allergy (Verified 09/02/23 13:51) Medication List - Last Reconciled 09/02/23 by WILMAN Barkley albuterol sulfate 2.5 mg (3 mL) inhalation Q6H PRN albuterol sulfate 90 mcg/actuation 2 puffs inhalation Q6H PRN apixaban (Eliquis) 5 mg PO BID 90 days ferrous sulfate (Feosol) 325 mg PO DAILY fluticasone propion-salmeterol 250-50 mcg/dose (Wixela Inhub) 1 ea inhalation BID furosemide 10 mg (1/2 x 20 mg) PO DAILY 90 days hydrocortisone 2.5% 1 appl topical BID PRN lisinopril 20 mg PO DAILY 90 days metoprolol succinate ER 50 mg PO DAILY 90 days Tobacco use date assessed: 09/02/23 Fall risk assessment: No Falls in past year Last assessed Fall Risk: 09/02/23 Dental Screening Dental Screen Date: 09/02/23 Did you have a dental visit in the last 12 months?: Yes Did you have a dental problem in the last 6 months where you did not have access to dental care?: No Was dental information given to patient?: Patient has dentist HPI Annual PE HPI Details Pt is here for a PE. Will order labs. Mammo is up to date. Bone density is up to date. Will track down last colon screen. Pt is following up with urology, cardiology, and hematology. Pt has increased swelling of her lower extremities. Will increase lasix from 10mg to 20mg. Pt is anxious today. Her blood pressure is elevated today. Will have pt monitor her BP at home and record readings. [facility] Medical History Atypical meningioma of brain Osteoporosis Osteoarthritis Osteopenia Asthma DVT (deep venous thrombosis) HTN (hypertension) Idiopathic peripheral neuropathy Anxiety Anemia Basal cell carcinoma Surgical History Knee joint replacement status Social History (Reviewed 09/02/23 @ 15:35 by Juanito Riley [facility] Household Members: Spouse Housing: Apartment Alcohol intake: never Patient Tobacco Use Status: Never used Tobacco e-Cigarette/Vaping Use: Never Used Second Hand Smoke Exposure: No service: No Current occupational status: retired 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 63601 - PHQ-9 Billing: Patient declined-do not bill Source: Developed by Drs. Kannan Welsh, Akiko Sanchez, Sukumar Son and colleagues, with an educational mignon from [employer]. Thrive Questionnaire Date Thrive assessed: 06/25/23 AUDIT C Alcohol Use Questionnaire (AUDIT-C) 1. How often do you have a drink containing alcohol?: Never 3. How often do you have six or more drinks on one occasion?: Never Total Score: 0 Score Reviewed/Action Taken: Yes ALEISHA-7 AMB Questionnaire ALEISHA-7 Date ALEISHA - 7 assessed: 06/25/23 Feeling nervous, anxious, or on edge: 0 = Not at all Not being able to stop or control worryin = Not at all Worrying too much about different things: 0 = Not at all Trouble relaxin = Not at all Being so restless that it is hard to sit still: 0 = Not at all Becoming easily annoyed or irritable: 0 = Not at all Feeling afraid as if something awful might happen: 0 = Not at all Total ALEISHA-7 score (0-4 normal; 5-9 mild; 10-14 moderate; 15-21 severe): 0 Source: Developed by Drs. Kannan Welsh, Akiko Sanchez, Sukumar Son and colleagues, with an educational mignon from [employer]. ALEISHA-7 Assessment Billing ALEISHA-7 Assessment Tool: pt declined-do not bill Review of Systems Const Denies chills and Denies fever(s) Eyes Denies blurry vision ENT Denies vertigo, Denies dizziness and Denies sore throat Card Denies chest pain at rest, Denies chest pain with activity, Denies diaphoresis, Denies dyspnea and Denies dyspnea on exertion Resp Denies cough, Denies dyspnea, Denies dyspnea on exertion and Denies wheezing GI Denies abdominal pain, Denies melena, Denies hematochezia, Denies constipation, Denies diarrhea and Denies loose stools Denies hematuria Musc Denies numbness and Denies tingling Skin/Breast Denies lesions Neuro Denies vertigo, Denies dizziness, Denies numbness and Denies tingling Psych Denies anxiety, Denies depression, Denies homicidal ideation, Denies suicidal ideation and Denies other (substance abuse) Aller/Immun Denies wheezing Physical exam (Primary Care) Vital Signs: Last Vital Signs Pulse 73 09/02/23 13:48 BP 140/82 H 09/02/23 14:24 Pulse Ox 97 09/02/23 13:48 Oxygen Delivery Method Room Air 09/02/23 13:48 BMI result Body Mass Index 44.2 Tobacco/Smoking Status: Tobacco use Status Tobacco use date assessed 09/02/23 09/02/23 13:54 Patient Tobacco Use Status Never used Tobacco 09/02/23 13:49 e-Cigarette/Vaping Use Never Used 09/02/23 13:49 Thrive Assessment: Date of Thrive Assessment Date Thrive assessed 06/25/23 09/02/23 13:49 Const General: cooperative Nutritional Appearance: obese morbidly obese Orientation/consciousness: patient oriented x3 HENMT Head: Yes normal to inspection, Yes normocephalic and Yes atraumatic Ears: TM's normal bilaterally Eyes General: appearance normal, both eyes and all related structures Alignment and Position: alignment normal and position normal Neck Neck: Yes normal visual inspection and Yes no lymphadenopathy Thyroid: Thyroid normal Resp Effort & Inspection: normal respiratory effort Auscultation: clear to auscultation bilaterally Cardio Rate: regular rate Rhythm: regular rhythm Heart sounds: S1 normal heart sound present, S2 normal heart sound present and Murmur heart sound present systolic (faint) GI Palpation (GI): Soft to palpation and nontender Auscultation: normal bowel sounds Skin Rashes: no rashes Neuro General: patient oriented x3, moves all extremities, no focal motor deficits and deep tendon reflexes 2+ bilaterally Romberg Test: Negative Extrem Right lower extremity: edema Details: pitting and 1+ Left lower extremity: edema Details: pitting and 1+ Psych Appearance: grossly normal Mental Status: mental status grossly normal Speech and movement: Normal speech and movement present Affect: Anxious affect present Attitude: cooperative Thought process: Normal thought process present Thought content: Normal thought content present Insight: Good insight present (Psych) Judgement: Good judgement present (Psych) Assessment and Plan Assessment & Plan (1) Physical exam: Code(s): Z00.00 - Encounter for general adult medical examination without abnormal findings Plan: Labs ordered (2) Vitamin D deficiency: Code(s): E55.9 - Vitamin D deficiency, unspecified Plan: Labs ordered Plan The patient agreed to the use of a anesthesiology medical doctor for this encounter. Scribed for WILMAN Rosenthal by Janet Gavin anesthesiology medical doctor, on 09/02/2023 at 14:05 EST. Orders: Orders Comprehensive [place]. Panel Fast Today Z00.00 - Encounter for general adult medical examination without abnormal findings UA CC w/rflx Micro + Cult Today Z00.00 - Encounter for general adult medical examination without abnormal findings Lipid Panel Today Z00.00 - Encounter for general adult medical examination without abnormal findings TSH reflex Free T4 Today Z00.00 - Encounter for general adult medical examination without abnormal findings Vitamin D 25-OH Total Today E55.9 - Vitamin D deficiency, unspecified, Z00.00 - Encounter for general adult medical examination without abnormal findings Magnesium Today Z00.00 - Encounter for general adult medical examination without abnormal findings Medications: Changed From furosemide 10 mg (1/2 x 20 mg) PO DAILY 90 days 45 tabs 1RF To furosemide 20 mg PO DAILY 90 tabs 1RF 90 days Coding Level of Care Code Est Pt Prev Care >65y(63556) Diagnoses Physical exam Z00. Vitamin D deficiency E55.9
[2023-09-02 14:24] VITALS: BP 140/82
== END 2023-09-02 15:19 | disposition home or self-care (01) ==
PROVIDERS: PCP Nurse Practitioner Family; Visit Provider Nurse Practitioner Family
DX: Z00.00 Encounter for general adult medical examination without abnormal findings (principal); E55.9 Vitamin D deficiency, unspecified
CPT/HCPCS: 99397

== ENCOUNTER 2023-09-07 09:44 | Outpatient (REF) | payer MEDICARE, SELFPAY ==
[2023-09-07 13:46] LABS: Appearance Urine Turbid; Color Urine Dark Yellow; Glucose Urine UA Negative (Negative); Leukocyte Esterase Urine Trace (Negative); Nitrite Urine Negative (Negative); PH 5.5 (5.0-9.0); Specific Gravity - Urine 1.025 (1.005-1.025); UMIC TRIGGER UACC YES; Urine Blood Negative (Negative); Urine Ketones Trace mg/dL (Negative); Urine Protein Trace mg/dL (Neg-Trace)
[2023-09-07 13:53] LABS: Bacteria Urine None Seen (None Seen); Hyaline Casts Urine 0-2 /LPF (0-2); RBC Urine 0-2 /HPF (0-2); WBC Urine 0-5 /HPF (0-5)
[2023-09-07 13:56] LABS: Alanine Aminotransferase 13 U/L (0-31); Albumin Level 3.8 g/dL (3.5-5.0); Alkaline Phosphatase 67 U/L (39-117); Anion Gap 16 (12-20); Aspartate Amino Transferase 18 U/L (5-31); Bilirubin Total 0.6 mg/dL (0.0-1.0); Blood Urea Nitrogen 23 mg/dL (9-16); Calcium 9.8 mg/dL (8.4-10.2); Carbon Dioxide 28 mmol/L (22-29); Chloride 104 mmol/L (96-108); Cholesterol 190 mg/dL (<200); Estimated Glomerular Filt Rate 47; Glucose Fasting 98 mg/dL (60-99); HDL Cholesterol 48 mg/dL (>40); LDL Cholesterol Calculated 123 mg/dL (<100); Magnesium 2.3 mg/dL (1.6-2.6); Sodium 144 mmol/L (135-145); Total Protein 6.5 g/dL (6.5-8.0); Triglycerides 98 mg/dL (<150)
[2023-09-07 13:57] LABS: TSH reflex Free T4 1.75 uIU/mL (0.32-4.0); Vitamin D 25-OH Total 48.8 ng/mL (>30)
== END 2023-09-07 09:45 | disposition home or self-care (01) ==
LOC: HO.HMGCLDS 09:44
PROVIDERS: PCP Nurse Practitioner Family; Visit Provider Nurse Practitioner Family
DX: Z00.00 Encounter for general adult medical examination without abnormal findings (principal); E55.9 Vitamin D deficiency, unspecified
CPT/HCPCS: 36415; 80053; 80061; 81001; 82306; 83735; 84443

== ENCOUNTER 2023-09-14 13:44 | Outpatient (AMB) | payer MEDICARE, SELFPAY ==
--- NOTE | 2023-09-14 13:45 | MHC.OFFVIS ---
Intake Visit Reasons: incontinence, urinary urgency, urinary frequency Intake Note: New Patient presents today for initial visit to establish treatment for : urinary incontinence, frequency, and urgency Urology Medications: none Allergies to Antibiotic: none Blood Thinner: apixaban PVR: 0ml's Hardware Supplies Sales Representative Required: No Accompanied by: daughter and spouse Allergies No Known Allergies Allergy (Verified 09/14/23 21:03) Medication List - Last Reconciled 09/14/23 by BRENNA OlmedoP- albuterol sulfate 2.5 mg (3 mL) inhalation Q6H PRN albuterol sulfate 90 mcg/actuation 2 puffs inhalation Q6H PRN apixaban (Eliquis) 5 mg PO BID 90 days ferrous sulfate (Feosol) 325 mg PO DAILY fluticasone propion-salmeterol 250-50 mcg/dose (Wixela Inhub) 1 ea inhalation BID furosemide 20 mg PO DAILY 90 days hydrocortisone 2.5% 1 appl topical BID PRN lisinopril 20 mg PO DAILY 90 days metoprolol succinate ER 50 mg PO DAILY 90 days mirabegron ER (Myrbetriq) 25 mg PO DAILY 30 days HPI Comments Details: Padma is a very pleasant 78-year-old female patient of Dr. Soriano who was accompanied by her and daughter at today's office visit. She has a past medical history of atypical meningioma of the brain, osteoporosis, osteoarthritis, osteopenia, asthma, DVT, hypertension, idiopathic peripheral neuropathy, anxiety, anemia, and basal cell carcinoma. She presents to the office today as a new patient for mixed urinary incontinence in urinary leakage. In discussion with the patient and family today it appears patient has a longstanding history of lower urinary tract symptoms. She reports having previously trialed Botox over 15 years ago in [place] and found this somewhat helpful for about 6 months however symptoms then returned. She reports feeling symptoms continue to worsen with time. She reports utilizing 4-6 adult pads per day. She otherwise denies hematuria, dysuria, foul smelling urine, changes to urinary stream, flank pain, fever, and or chills. Unable to obtain urine for urinalysis however PVR 0 mL. Discussed at length potential treatment options for lower urinary tract symptoms patient is experiencing. Discussed pelvic floor therapy. Discussed obtaining retroperitoneal ultrasound for further assessment evaluation. She otherwise offers no other issues or concerns at this time. [facility] Medical History Atypical meningioma of brain Osteoporosis Osteoarthritis Osteopenia Asthma DVT (deep venous thrombosis) HTN (hypertension) Idiopathic peripheral neuropathy Anxiety Anemia Basal cell carcinoma Surgical History Knee joint replacement status Social History Household Members: Spouse Housing: Apartment Alcohol intake: never Patient Tobacco Use Status: Never used Tobacco e-Cigarette/Vaping Use: Never Used Second Hand Smoke Exposure: No service: No Current occupational status: retired 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 Cognitive needs: No Hearing needs: No Vision needs: No Review of Systems Const Reports no additional complaints Eyes Reports no additional complaints ENT Reports no additional complaints Card Reports as per HPI Resp Reports as per HPI GI Reports no additional complaints Reports as per HPI Musc Reports as per HPI Neuro Reports as per HPI Psych Reports as per HPI Endo Reports no additional complaints Elieser/Lymph Reports as per HPI Aller/Immun Reports no additional complaints Physical Exam Const General: cooperative, healthy appearing, comfortable, no acute distress, well developed, alert and awake Orientation/consciousness: patient oriented x3 Limitations: no limitations HEENT Head: Yes normal to inspection, Yes normocephalic and Yes atraumatic Ears: hearing grossly normal bilaterally Eyes General: appearance normal, both eyes and all related structures Neck Neck: Yes normal visual inspection and Yes trachea midline Chest Chest palpation & inspection: normal inspection of the chest Resp Effort & Inspection: normal respiratory effort and able to speak in complete sentences Cardio Rate: regular rate GI Inspection: Yes normal to inspection General: Yes no CVA tenderness Back/Spine/Pelvis Back: no CVA tenderness Skin General skin exam: no rashes or lesions noted Neuro General: patient oriented x3 Extrem General: Yes normal to inspection Psych Appearance: grossly normal and well kempt Mental Status: mental status grossly normal Speech and movement: Normal speech and movement present and Clear speech present Affect: normal affect Attitude: cooperative Thought process: Normal thought process present Thought content: Normal thought content present Insight: Fair insight present (Psych) Judgement: Fair judgement present (Psych) Office Procedures Post Void Residual Post Residual Void Post Void Residual (PVR): 0 [id number] Void Residual by ultrasound Assessment & Plan Assessment & Plan (1) Urinary incontinence, mixed: Code(s): N39.46 - Mixed incontinence Category: Medical (2) Bladder incontinence: Code(s): R32 - Unspecified urinary incontinence Category: Medical Plan Unable to obtain urine for urinalysis however PVR 0 mL. Discussed at length potential causes for lower urinary tract symptoms patient is experiencing. Discussed obtaining retroperitoneal ultrasound for further assessment evaluation. Discussed further treatment options; this was discussed at length. Start Myrbetriq as discussed and prescribed. Discussed bladder triggers/irritants. Discussed timed voiding. Information provided regarding pelvic floor exercises Discussed possible near future in office urodynamics if symptoms persist and/or worsen. Follow-up in 1-3 months with imaging to be completed prior and PVR at next office visit; or sooner with any issues, concerns, and or questions. Orders: Orders AMB Urinalysis Automated Today Z13.9 - Encounter for screening, unspecified US retroperitoneal comp Today N39.46 - Mixed incontinence AMB Post Void Residual by ultrasound Today R35.0 - Frequency of micturition Medications: New mirabegron ER (Myrbetriq) 25 mg PO DAILY 30 tabs 3RF 30 days N30.10 - Interstitial cystitis (chronic) without hematuria, N32.81 - Overactive bladder, R35.1 - Nocturia, R39.15 - Urgency of urination Patient Instructions: The patient had an opportunity to ask questions regarding the treatment plan. All questions were answered. Physical exam, labs, and imaging were discussed and reviewed in detail. As well as risks, benefits, and discussion of treatment choices. No major barriers to understanding were identified. The patient expressed understanding and agreement with the above treatment plan. The patient was made aware they should contact our office by phone for worsening of their current condition, the appearance of new symptoms, or with any questions or concerns. Compliance is encouraged with any medications and follow up testing that is ordered. It is a privilege to be allowed the opportunity to participate in? your urological care.? Again, if you have any questions or concerns If you have any questions or concerns please do not hesitate to contact me. The office is [phone]. This note is constructed using voice recognition software. While every effort has been made to ensure accuracy electronic tester errors may have been included. Yours sincerely, WILMAN Olmedo Coding Level of Care Code New Pt Level 4 (00720) Diagnoses Urinary incontinence, mixed N39.46 Bladder incontinence R32 CPT Codes Post Residual Void - PVR CPT Code: 87765-Neqe Void Residual by ultrasound ([id number])
== END 2023-09-14 14:19 | disposition home or self-care (01) ==
PROVIDERS: PCP Nurse Practitioner Family; Visit Provider Nurse Practitioner Family
DX: N39.46 Mixed incontinence (principal)
CPT/HCPCS: 99204

== ENCOUNTER → 2023-09-14 13:44 | Outpatient (BNVA) | payer MEDICARE, SELFPAY | PROVIDERS: PCP Nurse Practitioner Family; Visit Provider Nurse Practitioner Family | DX: N39.46 Mixed incontinence (principal); R32 Unspecified urinary incontinence | CPT/HCPCS: 51798; 99202 ==

== ENCOUNTER 2023-10-06 12:16 | Outpatient (AMB) | payer MEDICARE, SELFPAY ==
--- NOTE | 2023-10-06 12:24 | MHC.OFFVIS ---
Vital Signs 10/06/23 12:26 Height 5 ft 6 in Weight 223 lb BMI 36.0 Intake Visit Reasons: OV- RT thumb trig, last inj 07/15/23 Intake Note: Padma is a 78 year old right hand dominant female who presents today with her daughter and for a follow up visit for her right thumb trigger s/p last injection 07/15/23. Patient reports that this injection was not helping and she would like to discuss alternative treatment options. Allergies No Known Allergies Allergy (Verified 10/06/23 12:29) HPI HPI OV- RT thumb trig, last inj 07/15/23: Details: Padma is a 78 year old right hand dominant woman who returns to discuss her right trigger thumb, S/P injection on 07/15/23. She is seen today with her & daughter. She says the injection was not particularly helpful and she continues to have locking & catching of her thumb. She would like to discuss alternative treatment options. [facility] Medical History Atypical meningioma of brain Osteoporosis Osteoarthritis Osteopenia Asthma DVT (deep venous thrombosis) HTN (hypertension) Idiopathic peripheral neuropathy Anxiety Anemia Basal cell carcinoma Surgical History Knee joint replacement status Social History Household Members: Spouse Housing: Apartment Alcohol intake: never Patient Tobacco Use Status: Never used Tobacco e-Cigarette/Vaping Use: Never Used Second Hand Smoke Exposure: No service: No Current occupational status: retired 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 Cognitive needs: No Hearing needs: No Vision needs: No Review of Systems Const All systems reviewed & are unremarkable except as noted in HPI and below Physical Exam Vital Signs: BMI result Body Mass Index 36.0 Const General: no acute distress and alert Orientation/consciousness: patient oriented x3 Neuro General: patient oriented x3 Extrem Other: Evaluation of Right Upper Extremity: The patient is alert, oriented, and in no acute distress Neuro: Median, Ulnar, Radial nerves motor and sensory intact and sensation is normal to the tips of all digits Vascular: Cap refill brisk ROM: She can make a fist and extend all her digits Visible and palpable locking & catching of the thumb Tender over the a1 sue of the thumb Right small finger DIP joint ulnar deviation Psych Appearance: grossly normal Affect: normal affect Attitude: cooperative Assessment & Plan Assessment & Plan (1) Trigger thumb, right thumb: Code(s): M65.311 - Trigger thumb, right thumb Category: Medical Plan Assessment & Plan: 1. Right trigger thumb, S/P injection Date of injection: 07/15/23 I educated her about this condition I discussed operative and non-operative treatment options The patient would like to proceed with surgery The risks and benefits of operative treatment were discussed with the patient and the patient wishes to proceed with surgery. These risks include, but are not limited to risk of damage to blood vessels, nerves, tendons, infection, recurrence, incomplete relief of preoperative symptoms, persistent pain, possible need for further surgery and the risks associated with regional blocks and anesthesia. The plan is to take the patient to the operating room sometime in the next few weeks for the following procedures: 1. Right trigger thumb release, under local All of the preoperative paperwork including the consent was reviewed today. All the patient's questions were answered. The patient understands that they will be contacted by our surgery nurse soon to schedule this procedure She denies Diabetes, asthma, lung, kidney issues She is on Eliquis with a Hx of Cardiomyopathy & a PE. 2. 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 No complaints Scribed for Emely Figueroa MD by Royer Grant, medical claims specialist, on 10/06/23 at 12:40 PM, EST. Coding Level of Care Code Est Pt Level 4 (45579) Diagnoses Trigger thumb, right thumb M65.311
[2023-10-06 12:26] VITALS: BMI 36.0
== END 2023-10-06 12:51 | disposition home or self-care (01) ==
PROVIDERS: PCP Nurse Practitioner Family; Visit Provider Orthopaedic Surgery
DX: M65.311 Trigger thumb, right thumb (principal)
CPT/HCPCS: 99214

== ENCOUNTER → 2023-10-06 12:16 | Outpatient (BNVA) | payer MEDICARE, SELFPAY | PROVIDERS: PCP Nurse Practitioner Family; Visit Provider Orthopaedic Surgery | DX: M65.311 Trigger thumb, right thumb (principal) | CPT/HCPCS: 99212 ==

== ENCOUNTER 2023-11-02 09:25 | Outpatient (REF) | payer MEDICARE, SELFPAY ==
--- NOTE | ~2023-11-02 | US_ITS ---
EXAMINATION: US RETROPERITONEAL COMPLETE (RENAL) CLINICAL INFORMATION: Mixed incontinence. COMPARISON: None available. TECHNIQUE: Real-time imaging of the kidneys and bladder. FINDINGS: RIGHT KIDNEY: 11.4 x 5.1 x 5.6 cm (SAG x AP x TRV). The kidney is normal in size, contour, and echogenicity. Renal cortical thickness is normal. There is mild fullness of the collecting system without overt hydronephrosis. No renal calculi. A few small simple appearing cysts are noted, the largest measuring 1.9 cm. LEFT KIDNEY: 11.0 x 4.5 x 5.7 cm (SAG x AP x TRV). The kidney is normal in size, contour, and echogenicity. Renal cortical thickness is normal. There is mild fullness of the collecting system without overt hydronephrosis. No renal calculi. BLADDER: Well distended and normal. Bilateral ureteral jets are demonstrated. Prevoid bladder volume is 190 mL. Postvoid bladder volume is 11.4 mL. INCIDENTAL FINDING: Uterine endometrium appears thickened measuring up to 1.2 cm. US/US retroperitoneal comp IMPRESSION: -Mild prominence of both collecting systems without hydronephrosis. -No renal calculi bilaterally. -Incidentally noted is endometrial thickening measuring up to 1.2 cm. Dedicated pelvic ultrasound recommended. Direct inspection/biopsy may be warranted. Electronically signed by: Jason Valle MD 11/28/2023 09:11 AM EDT
== END 2023-11-02 09:26 | disposition home or self-care (01) ==
LOC: HO.US 09:25
PROVIDERS: PCP Nurse Practitioner Family; Visit Provider Nurse Practitioner Family
DX: N39.46 Mixed incontinence (principal)
CPT/HCPCS: 76770

== ENCOUNTER 2023-12-01 11:43 | Outpatient (AMB) | payer MEDICARE, SELFPAY ==
--- NOTE | 2023-12-01 12:04 | A.OFFVIS_ITS ---
Intake Visit Reasons: 2m/US(set) Intake Note: Patient presents for follow up on: incontinence and ultrasound results Imaging Completed: 11/02/23 Urology Medications: none Allergies to Antibiotic: none Blood Thinner: apixaban PVR: 0ml's Supervisor Pleating Required: No Accompanied by: daughter and spouse Allergies No Known Allergies Allergy (Verified 12/01/23 13:53) Medication List - Last Reconciled 12/01/23 by BRENNA OlmedoP- albuterol sulfate 2.5 mg (3 mL) inhalation Q6H PRN albuterol sulfate 90 mcg/actuation 2 puffs inhalation Q6H PRN apixaban (Eliquis) 5 mg PO BID 90 days ferrous sulfate (Feosol) 325 mg PO DAILY fluticasone propion-salmeterol 250-50 mcg/dose (Wixela Inhub) 1 ea inhalation BID furosemide 20 mg PO DAILY 90 days hydrocortisone 2.5% 1 appl topical BID PRN lisinopril 20 mg PO DAILY 90 days metoprolol succinate ER 50 mg PO DAILY 90 days mirabegron ER (Myrbetriq) 25 mg PO DAILY 90 days HPI Comments Details: Padma is a very pleasant 78-year-old female patient of Dr. Soriano who was accompanied by her at today's office visit. She has a past medical history of atypical meningioma of the brain, osteoporosis, osteoarthritis, osteopenia, asthma, DVT, hypertension, idiopathic peripheral neuropathy, anxiety, anemia, and basal cell carcinoma. She presents to the office today for follow-up. Of note, patient was seen approximately 3 months ago as a new patient for mixed urinary incontinence in urinary leakage at which time a retroperitoneal ultrasound was ordered for further assessment evaluation in the patient was started on Myrbetriq 25 mg daily. In discussion with the patient today she reports significant improvement in mixed urinary incontinence with 25 mg of Myrbetriq daily. She discusses at length how helpful she feels this has been for her. Recent retroperitoneal ultrasound 11/20 results reviewed with the patient and her today. No hydronephrosis or renal calculi noted bilaterally. A few small right simple appearing cysts are noted the largest measuring 1.9 cm. The bladder is well distended and normal. Bilateral ureteral jets are demonstrated. Pre void bladder volume is approximately 200 mL. Postvoid bladder volume is approximately 10 mL. Incidental uterine endometrium appears thickened measuring up to 1.2 cm. Dictated pelvic ultrasound is recommended per radiology report. In office urinalysis results reviewed with the patient today. PVR 0 mL. She reports she had been utilizing 4-6 adult diapers per day and this has significantly decreased to a proximally 1 per day. She reports experiencing episodes of urinary urgency and frequency however rela lasha this to her furosemide. She denies hematuria, dysuria, foul smelling urine, changes to urinary stream, flank pain, fever, and or chills. She otherwise offers no other issues or concerns at this time. [facility] Medical History Atypical meningioma of brain Osteoporosis Osteoarthritis Osteopenia Asthma DVT (deep venous thrombosis) HTN (hypertension) Idiopathic peripheral neuropathy Anxiety Anemia Basal cell carcinoma Surgical History Knee joint replacement status Social History Household Members: Spouse Housing: Apartment Alcohol intake: never Patient Tobacco Use Status: Never used Tobacco e-Cigarette/Vaping Use: Never Used Second Hand Smoke Exposure: No service: No Current occupational status: retired 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 Cognitive needs: No Hearing needs: No Vision needs: No Review of Systems Const Reports no additional complaints Eyes Reports no additional complaints ENT Reports no additional complaints Card Reports as per HPI Resp Reports as per HPI GI Reports no additional complaints Reports as per HPI Musc Reports as per HPI Neuro Reports as per HPI Psych Reports as per HPI Endo Reports no additional complaints Elieser/Lymph Reports as per HPI Aller/Immun Reports no additional complaints Physical Exam Const General: cooperative, healthy appearing, comfortable, no acute distress, well developed, alert and awake Orientation/consciousness: patient oriented x3 Limitations: no limitations HEENT Head: Yes normal to inspection, Yes normocephalic and Yes atraumatic Ears: hearing grossly normal bilaterally Eyes General: appearance normal, both eyes and all related structures Neck Neck: Yes normal visual inspection and Yes trachea midline Chest Chest palpation & inspection: normal inspection of the chest Resp Effort & Inspection: normal respiratory effort and able to speak in complete sentences Cardio Rate: regular rate GI Inspection: Yes normal to inspection General: Yes no CVA tenderness Back/Spine/Pelvis Back: no CVA tenderness Skin General skin exam: no rashes or lesions noted Neuro General: patient oriented x3 Extrem General: Yes normal to inspection Psych Appearance: grossly normal and well kempt Mental Status: mental status grossly normal Speech and movement: Normal speech and movement present and Clear speech present Affect: normal affect Attitude: cooperative Thought process: Normal thought process present Thought content: Normal thought content present Insight: Fair insight present (Psych) Judgement: Fair judgement present (Psych) Office Procedures Post Void Residual Post Residual Void Post Void Residual (PVR): 0 [id number]-[id number] Void Residual by ultrasound Results AMB Urinalysis, Automated UA Leukoctes 0 Amparo/uL Last Edit by [employer] on 12/01/23 12:25 UA Nitrite Last Edit by [employer] on 12/01/23 12:25 UA Urobilinogen 0.2 mg/dL Last Edit by [employer] Amayacong on 12/01/23 12:25 UA Protein 15 mg/dL Last Edit by [employer] on 12/01/23 12:25 UA pH 6.0 Last Edit by Coreen Amayacong on 12/01/23 12:25 UA Blood 0 Ramon/uL Last Edit by [employer] on 12/01/23 12:25 UA Specific [place] 1.025 Last Edit by [employer] on 12/01/23 12:25 UA Ketone Last Edit by [employer] on 12/01/23 12:25 UA Bilirubin 0 mg/dL Last Edit by [employer] on 12/01/23 12:25 UA Glucose 0 mg/dL Last Edit by [employer] on 12/01/23 12:25 Results Reviewed Results Reviewed: Laboratory Last Values Urine pH (Auto) 6.0 12/01/23 12:24 Specific [place] (Auto) 1.025 12/01/23 12:24 Urine Protein (Auto) 15 mg/dL 12/01/23 12:24 Glucose (UA)(Auto) 0 mg/dL 12/01/23 12:24 Urine Blood (Auto) 0 Ramon/uL 12/01/23 12:24 Urine Bilirubin (Auto) 0 mg/dL 12/01/23 12:24 Urine Urobilinogen (Auto) 0.2 mg/dL 12/01/23 12:24 Leukocyte Esterase (Auto) 0 Amparo/uL 12/01/23 12:24 Date of Service: 11/02/23 EXAMINATION: US RETROPERITONEAL COMPLETE (RENAL) FINDINGS: RIGHT KIDNEY: 11.4 x 5.1 x 5.6 cm (SAG x AP x TRV). The kidney is normal in size, contour, and echogenicity. Renal cortical thickness is normal. There is mild fullness of the collecting system without overt hydronephrosis. No renal calculi. A few small simple appearing cysts are noted, the largest measuring 1.9 cm. LEFT KIDNEY: 11.0 x 4.5 x 5.7 cm (SAG x AP x TRV). The kidney is normal in size, contour, and echogenicity. Renal cortical thickness is normal. There is mild fullness of the collecting system without overt hydronephrosis. No renal calculi. BLADDER: Well distended and normal. Bilateral ureteral jets are demonstrated. Prevoid bladder volume is 190 mL. Postvoid bladder volume is 11.4 mL. INCIDENTAL FINDING: Uterine endometrium appears thickened measuring up to 1.2 cm. IMPRESSION: -Mild prominence of both collecting systems without hydronephrosis. -No renal calculi bilaterally. -Incidentally noted is endometrial thickening measuring up to 1.2 cm. Dedicated pelvic ultrasound recommended. Direct inspection/biopsy may be warranted. Assessment & Plan Assessment & Plan (1) Thickened endometrium: Code(s): R93.89 - Abnormal findings on diagnostic imaging of other specified body structures Category: Medical (2) Urinary incontinence, mixed: Code(s): N39.46 - Mixed incontinence Category: Medical (3) Renal cyst: Code(s): N28.1 - Cyst of kidney, acquired Category: Medical Plan In office urinalysis results reviewed with the patient today; as noted above. PVR 0 mL. Recent retroperitoneal ultrasound results reviewed with the patient and today; as noted above. Patient reports significant improvement in lower urinary tract symptoms on Myrbetriq 25 mg daily; will continue; refill provided. Discussed endometrial thickening noted on ultrasound will refer to gynecologist for further assessment evaluation per patient request. Discussed importance of pelvic floor exercises. Discussed importance of timed voiding. Follow-up in 6 months with PVR; or sooner with any issues, concerns, and or questions. Orders: Orders AMB Urinalysis Automated Today Z13.9 - Encounter for screening, unspecified AMB Post Void Residual by ultrasound Today N39.46 - Mixed incontinence Referrals REGISTERED SAFETY ENGINEER Referral R93.89 - Abnormal findings on diagnostic imaging of other specified body structures Medications: Changed From mirabegron ER (Myrbetriq) 25 mg PO DAILY 30 tabs 3RF 30 days N30.10 - Interstitial cystitis (chronic) without hematuria, N32.81 - Overactive bladder, R35.1 - Nocturia, R39.15 - Urgency of urination To mirabegron ER (Myrbetriq) 25 mg PO DAILY 90 tabs 3RF 90 days N30.10 - Interstitial cystitis (chronic) without hematuria, N32.81 - Overactive bladder, R35.1 - Nocturia, R39.15 - Urgency of urination Patient Instructions: The patient had an opportunity to ask questions regarding the treatment plan. All questions were answered. Physical exam, labs, and imaging were discussed and reviewed in detail. As well as risks, benefits, and discussion of treatment choices. No major barriers to understanding were identified. The patient expressed understanding and agreement with the above treatment plan. The patient was made aware they should contact our office by phone for worsening of their current condition, the appearance of new symptoms, or with any questions or concerns. Compliance is encouraged with any medications and follow up testing that is ordered. It is a privilege to be allowed the opportunity to participate in? your urological care.? Again, if you have any questions or concerns If you have any questions or concerns please do not hesitate to contact me. The office is [phone]. This note is constructed using voice recognition software. While every effort has been made to ensure accuracy quality lab assoc errors may have been included. Yours sincerely, WILMAN Olmedo Coding Level of Care Code Est Pt Level 3 (20616) Diagnoses Thickened endometrium R93.89 Urinary incontinence, mixed N39.46 Renal cyst N28.1 CPT Codes Post Residual Void - PVR CPT Code: 37801-Nopq Void Residual by ultrasound ([id number])
== END 2023-12-01 12:40 | disposition home or self-care (01) ==
PROVIDERS: PCP Nurse Practitioner Family; Visit Provider Nurse Practitioner Family
DX: R93.89 Abnormal findings on diagnostic imaging of other specified body structures (principal); N39.46 Mixed incontinence; N28.1 Cyst of kidney, acquired; Z13.9 Encounter for screening, unspecified
CPT/HCPCS: 99213

== ENCOUNTER → 2023-12-01 11:43 | Outpatient (BNVA) | payer MEDICARE, SELFPAY | PROVIDERS: PCP Nurse Practitioner Family; Visit Provider Nurse Practitioner Family | DX: R93.89 Abnormal findings on diagnostic imaging of other specified body structures (principal); N39.46 Mixed incontinence; N28.1 Cyst of kidney, acquired | CPT/HCPCS: 51798; 81003; 99212 ==

== ENCOUNTER → 2023-12-10 10:47 | Outpatient (REF) | payer MEDICARE, SELFPAY ==
--- NOTE | 2023-12-10 10:53 | CA_ITS ---
Transthoracic Echocardiogram Patient (Last, First, Middle): Padma Durant S Gender: Female Date of : 1945 Age: 78 Procedure Date: 12/10/2023 Procedure Type: Transthoracic Echocardiogram Location: OP Height: 157.48 cm Weight: 104.33 kg BSA: 2.03 m2 Heart Rate: bpm BP: 140 / 90 mmHg Apiculture Teacher: TO Referring MD: Iggy High MD Chemical Economist: Iggy High MD Symptoms: I31.39 - Other pericardial effusion (noninflammatory) Study Quality: Fair Conclusions: - Normal left ventricular size and systolic function. There is mildly increased left ventricular wall thickness. The visually estimated ejection fraction is between 55-60%. - Normal right ventricular cavity size and systolic function. - The left atrium is severely dilated. - There is severe mitral annular calcification. There is no mitral valve regurgitation. The mean mitral valve gradient is 5.00 mmHg. Calcific mitral stenosis is present. - There is a small pericardial effusion. There are no definitive echocardiographic findings of tamponade physiology. Findings Procedure Information The study quality is limited by patients body habitus. Left Ventricle Normal left ventricular size and systolic function. There is mildly increased left ventricular wall thickness. The visually estimated ejection fraction is between 55-60%. Diastolic function is indeterminate on the basis of available data. There is moderate septal asymmetric hypertrophy. Right Ventricle Normal right ventricular cavity size and systolic function. Atria The left atrium is severely dilated. Aortic Valve There is a normal trileaflet aortic valve. There is no aortic valve stenosis. There is mild aortic valve regurgitation. Mitral Valve There is severe mitral annular calcification. There is no mitral valve regurgitation. The mean mitral valve gradient is 5.00 mmHg. Calcific mitral stenosis is present. Pulmonic Valve The pulmonic valve is normal. There is trace pulmonic valve regurgitation. Tricuspid Valve Likely normal tricuspid valve structure and function. Normal right atrial pressure. There is no evidence of pulmonary hypertension. Great Vessels All visible segments of the aorta are normal in size. The visualized portions of the pulmonary artery and branches are normal. Venous The inferior vena cava is normal in size and collapses greater than 50% with inspiration. Pericardium/Pleural There is a small pericardial effusion. There are no definitive echocardiographic findings of tamponade physiology. Prior Study Comparison Changes noted compared to prior study dated: 07/23/2023. Severe LA enlargement. Calcific MS present. small pericardial effusion. Measurements 2D Linear Measurements IVSd: 1.34 0.6-0.9/0.6-1.0 cm LVIDd: 4.05 3.9-5.3/4.2-5.9 cm LVIDd Index: 2.00 2.4-3.2/2.2-3.1 cm/m2 LVIDs: 2.69 2.0-3.6 cm LVPWd: 0.93 0.7-1.1 cm LA Diam: 4.60 2.7-3.8/3.0-4.0 cm LAIDs Index: 2.27 1.5-2.3 cm/m2 LV Mass: 193.07 67-162/88-224 g LV Mass Index: 95.11 43-95/49-115 g/m2 LVOT Diam: 2.00 3.0+(-)1.3 cm 2D Systolic Function EF 4C: 51.70 >55% EF 2C: 55.90 >55% EF BiP: 53.30 >55% Mitral Valve MV VTI: 0.53 MV Pk Glenn: 1.96 MV Mn Glenn: 1.23 MV Pk Grad: 15.00 MV Mn Grad: 7.00 MV Pk E: 1.07 MV PK A: 1.57 MV Decel Time: 334.00 E/A: 0.70 E'Lateral: 3.15 E'Medial: 2.94 E/E' Med: 36.40 E/E' Lat: 34.00 PHT: 98.00 MVA Continuity: 1.50 Decel Troup: 3.21 Aortic Valve AoV Pk Glenn: 1.71 AoV Mn Glenn: 1.11 AoV VTI: 0.39 AoV Pk Grad: 12.00 Aov Mn Grad: 6.00 DREW Cont.VTI: 2.05 AI Pk Glenn: 4.43 AI Troup: 1.58 LVOT LVOT Pk Glenn: 0.93 LVOT Mn Glenn: 0.73 LVOT VTI: 0.25 LVOT Pk Grad: 3.00 LVOT Mn Grad: 2.00 LVOT Diam: 2.00 LVOT Area: 3.14 Diastolic Function MV Pk E: 1.07 MV Pk A: 1.57 E/A: 0.70 E'Medial: 2.94 E/E' Med: 36.40 E' Laterial: 3.15 E/E' Lat: 34.00 Right Ventricle TAPSE (mm): 23.50 TVS' Glenn: 13.70 Tricuspid Valve TR Pk Glenn: 2.68 TR Pk Grad: 29.00 RA Press: 3.00 RVSP: 32.00 Great Vessels Aorta Sinus of Valsalva: 3.05 2.0-3.5 cm Ao Asc: 3.60 2.1-3.4 cm Ao Arch: 3.70 Updated in Other Vendor System with Status of Final Iggy High MD electronically signed on 12/11/2023 3:14:07 PM with status of Final
== END ==
LOC: HO.CARD 10:47
PROVIDERS: PCP Nurse Practitioner Family; Visit Provider Internal Medicine Cardiovascular Disease
DX: I31.39 Other pericardial effusion (noninflammatory) (principal)
CPT/HCPCS: 93306

== ENCOUNTER → 2023-12-10 10:53 | Outpatient (BNV) | payer MEDICARE, SELFPAY | PROVIDERS: PCP Nurse Practitioner Family; Visit Provider Internal Medicine Cardiovascular Disease | DX: I35.1 Nonrheumatic aortic (valve) insufficiency (principal); I34.2 Nonrheumatic mitral (valve) stenosis; I34.81 Nonrheumatic mitral (valve) annulus calcification; I42.2 Other hypertrophic cardiomyopathy; I31.39 Other pericardial effusion (noninflammatory) | CPT/HCPCS: 93306 ==

== ENCOUNTER 2023-12-16 08:14 | Outpatient (REF) | payer MEDICARE, SELFPAY | END 2023-12-16 08:15 | disposition home or self-care (01) | LOC: HO.LNP 08:14 | PROVIDERS: PCP Nurse Practitioner Family; Visit Provider Obstetrics & Gynecology | DX: N84.1 Polyp of cervix uteri (principal); R93.89 Abnormal findings on diagnostic imaging of other specified body structures | CPT/HCPCS: 57500; 88305; 99202 ==

== ENCOUNTER 2023-12-16 08:14 | Outpatient (AMB) | payer MEDICARE, SELFPAY ==
[2023-12-16 08:28] VITALS: BP 158/70; BMI 44.3
--- NOTE | 2023-12-16 08:28 | MHC.OFFVIS ---
Vital Signs 12/16/23 08:28 Height 5 ft Weight 227 lb 1.218 oz BMI 44.3 BP 158/70 H Intake Visit Reasons: Abnormal U/S Internal Medicine Physician Required: No Information Interpreted: non-clinical & clinical Accompanied by: Spouse Allergies No Known Allergies Allergy (Verified 12/16/23 08:34) Post menopausal: Yes HPI Comments Details: Presenting referred from PCP regarding incidental finding of thickened endometrium on a retroperitoneal ultrasound done on 11/01. Report showed the following: IMPRESSION: -Mild prominence of both collecting systems without hydronephrosis. -No renal calculi bilaterally. -Incidentally noted is endometrial thickening measuring up to 1.2 cm. Dedicated pelvic ultrasound recommended. 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 Cognitive needs: No Hearing needs: No Vision needs: No Review of Systems Const All systems reviewed & are unremarkable except as noted in HPI and below Physical Exam Vital Signs: Last Vital Signs BP 158/70 H 12/16/23 08:28 BMI result Body Mass Index 44.3 General: Yes no CVA tenderness External Female Exam: normal external appearance and normal appearance of the urethra Speculum Exam - Vagina: normal appearance of the vagina, normal palpation, no lesions and no masses Speculum Exam - Cervix: normal appearance of the cervix, normal palpation, no lesions, no masses, nontender and Other cervical findings present (Small endocervical polyp) Bimanual exam- vagina & uterus: normal bimanual exam, normal palpation, uterine size normal, normal palpation, uterine shape normal, No Cervical tenderness present and non-tender Bimanual Exam- Adnexa, other: normal adnexae Back/Spine/Pelvis Back: no CVA tenderness Office Procedures MANAGER DRIVE Biopsy Before the procedure was started, discussed with the patient the procedure technique, alternatives & all the risks associated with the procedure including but not limited to: bleeding , infection, uterine perforation, injury to bladder, vessels, bowels, possible need for transfusion with all its risks, and others. All questions were answered, the patient verbalized understanding and signed the consent. Urine test done in the office was negative Using a long Kemi Clamp the endocervical polyp was grasped and twisted around till it came off, hemostasis was secured using pressure. The patient tolerated the procedure well. Instructions were given to the patient to call if bleeding, temp>100.4 occur. The patient verbalized understanding and agreed with the plan. This note was generated with a voice recognition program. Some errors may have been overlooked during the review of this note. Sometimes these errors may affect the content or meaning of a given sentence. 52101-Buzlnu of Cervix Procedure code (CPT) selection complete Assessment & Plan Assessment & Plan (1) Thickened endometrium: Code(s): R93.89 - Abnormal findings on diagnostic imaging of other specified body structures Category: Medical Plan: Discussed with the patient differential diagnosis of thickened endometrium in menopause including but not limited to endometrial polyp, hyperplasia or malignancy. Will order pelvic ultrasound to confirm the thickened endometrium, once confirmed proceed with endometrial sampling either with office endometrial biopsy or hysteroscopy D&C possible polypectomy/myomectomy. Instructions given the patient to schedule a pelvic ultrasound and a follow-up appointment. (2) Endocervical polyp: Code(s): N84.1 - Polyp of cervix uteri Category: Medical Plan: Discussed with the patient the finding on pelvic exam showing small endocervical polyp, polypectomy done, see procedure note Orders: Orders AMB MANAGER DRIVE Biopsy Today N84.1 - Polyp of cervix uteri US pelvic and transvaginal Today R93.89 - Abnormal findings on diagnostic imaging of other specified body structures Surgical Today N84.1 - Polyp of cervix uteri Coding Level of Care Code New Pt Level 3 (26950) Diagnoses Thickened endometrium R93.89 Endocervical polyp N84.[address] Biopsy - CPT: 12009-Cfzuvb of Cervix ([id number])
== END 2023-12-16 09:18 | disposition home or self-care (01) ==
PROVIDERS: PCP Nurse Practitioner Family; Visit Provider Obstetrics & Gynecology
DX: R93.89 Abnormal findings on diagnostic imaging of other specified body structures (principal); N84.1 Polyp of cervix uteri
CPT/HCPCS: 57500; 99203

== ENCOUNTER 2024-01-18 10:46 | Outpatient (REF) | payer MEDICARE, SELFPAY ==
--- NOTE | ~2024-01-18 | US_ITS ---
EXAMINATION: US PELVIS CLINICAL INFORMATION: Abnormal findings thickened endometrium, incidentally. COMPARISON: None available. TECHNIQUE: Ultrasound of the pelvis is performed using both transabdominal and transvaginal transducers along with Doppler. Transvaginal imaging is performed due to inadequate visualization transabdominally. FINDINGS: Submitted for interpretation on February 18, 2024. Uterus: The uterus is anteverted and measures 7 x 3 x 4 cm. Volume is 49 cc The double wall endometrial thickness is 16 mm. Questionable 5 mm anechoic structure in the anterior endometrial stripe region. The uterus is smooth in contour and has normal myometrial echogenicity. There is a 3 cm intramural none calcified soft tissue on the right side of the uterus Adnexa: The ovaries are not identified. US/US pelvic and transvaginal IMPRESSION: 16 mm thickened endometrial stripe. This is abnormal in a postmenopausal woman. Recommend direct inspection. Probable uterine fibroid. Electronically signed by: Kevin Chacon MD 02/18/2024 10:46 AM SALAZAR
== END 2024-01-18 10:47 | disposition home or self-care (01) ==
LOC: HO.US 10:46
PROVIDERS: PCP Nurse Practitioner Family; Visit Provider Obstetrics & Gynecology
DX: R93.89 Abnormal findings on diagnostic imaging of other specified body structures (principal)
CPT/HCPCS: 76830; 76856

== ENCOUNTER → 2024-01-18 10:48 | Outpatient (BNV) | payer MEDICARE, SELFPAY | PROVIDERS: PCP Nurse Practitioner Family; Visit Provider Radiology Diagnostic Radiology | DX: R93.89 Abnormal findings on diagnostic imaging of other specified body structures (principal) | CPT/HCPCS: 76856 ==

== ENCOUNTER 2024-01-25 13:59 | Outpatient (AMB) | payer MEDICARE, SELFPAY ==
[2024-01-25 14:28] VITALS: BP 130/74; PULSE 65; BMI 43.8
--- NOTE | 2024-01-25 14:28 | MHC.OFFVIS ---
Vital Signs 01/25/24 14:28 Height 5 ft Weight 224 lb 6.889 oz BMI 43.8 BP 130/74 Blood Pressure Location Lt brachial Position Sitting Pulse 65 Pulse Source Monitor Intake Visit Reasons: 6 mth s/p echo Intake Note: 6 mth f/up/echo General Maintenance Technician Required: No Accompanied by: Daughter Allergies No Known Allergies Allergy (Verified 12/16/23 08:34) Medication List - Last Reconciled 01/25/24 by Iggy High MD albuterol sulfate 2.5 mg (3 mL) inhalation Q6H PRN albuterol sulfate 90 mcg/actuation 2 puffs inhalation Q6H PRN ferrous sulfate (Feosol) 325 mg PO DAILY fluticasone propion-salmeterol 250-50 mcg/dose (Wixela Inhub) 1 ea inhalation BID furosemide 20 mg PO DAILY 90 days hydrocortisone 2.5% 1 appl topical BID PRN lisinopril 20 mg PO DAILY 90 days metoprolol succinate ER 50 mg PO DAILY 90 days mirabegron ER (Myrbetriq) 25 mg PO DAILY 90 days HPI Comments Details: [age] year female who is here for follow-up. She was seen in the hospital in November 2022 when she presented with acute pulmonary embolism. She was treated and discharged home. At the time she had echocardiography performed which showed [id number] pericardial effusion and mild LV dysfunction. She was started on guideline directed medical therapy. She was seen in the office by our nurse practitioners. She has done well since then. No chest pain or shortness of breath. She had repeat echocardiography performed few days ago which is showing normal LV function. She continues to have a [id number] pericardial effusion. His November 2022 she had a CTA of the chest to diagnosed pulmonary embolism which did not show any lung mass or concern for cancer. She also had a normal TSH level before that. Repeat ECHO is showing hbwgw-tr-[id number] pericardial effusion. She otherwise is clinically quite stable. She is following with Hematology and will be getting off the anticoagulation but it appears she will have a repeat CTA done before that. 01/25/2024: She is here for follow-up. She is off anticoagulation at this stage. No significant shortness of breath. No chest discomfort. No syncope slight dizziness at any stage. Echocardiography has shown small pericardial effusion. This was done in 12/18/2023. She had a CTA performed which did not show any lung nodules or concern for lung cancer. 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 Cognitive needs: No Hearing needs: No Vision needs: No Review of Systems Const Denies chills, Denies fatigue, Denies fever(s), Denies frequent falls, Denies weakness, Denies weight gain and Denies weight loss ENT Denies dizziness Card Denies chest pain, Denies leg edema, Denies lightheadedness, Denies palpitations, Denies dyspnea and Denies dyspnea on exertion Resp Denies cough, Denies dyspnea and Denies dyspnea on exertion GI Denies hematochezia Musc Denies abnormal gait, Denies muscle weakness, Denies numbness, Denies radiating pain into limb and Denies tingling Neuro Denies abnormal gait, Denies dizziness, Denies frequent falls, Denies numbness, Denies tingling and Denies weakness Endo Denies fatigue and Denies palpitations Physical Exam Vital Signs: Last Vital Signs Pulse 65 01/25/24 14:28 BP 130/74 01/25/24 14:28 BMI result Body Mass Index 43.8 GENERAL APPEARANCE: in no acute distress, pleasant. NECK: no carotid bruit, no jugular venous distention. SKIN: no suspicious lesions, warm and dry. HEART: no murmurs, regular rate and rhythm. LUNGS: clear to auscultation bilaterally. ABDOMEN: soft, nontender. EXTREMITIES: no edema. PERIPHERAL PULSES: equal. NEUROLOGIC: No gross deficits, AAO X 3 Office Procedures EKG Details: Sinus rhythm 65 beats per minute, normal axis, poor R-wave progression-can not rule out anterior infarct, left ventricular hypertrophy, QTC 428 milliseconds. 28294-Iwaklekhvbcmrxqwd, Complete Assessment & Plan Assessment & Plan (1) HTN (hypertension): Code(s): I10 - Essential (primary) hypertension Category: Medical (2) Pericardial effusion: Code(s): I31.39 - Other pericardial effusion (noninflammatory) Category: Medical Plan Pleasant 78-year-old female who is here for follow-up. She has known history of thromboembolism and was on anticoagulation which has been stopped by pulmonology at this stage. Her echocardiography showed small pericardial effusion which has not grown on serial echocardiography. I think she should have repeat ECHO in [address] scan of her chest which did not show any lung nodules or concern for cancer also. Overall she is clinically stable. Blood pressure is well controlled currently. Same medications for now. Follow-up with us in 1 year. Thank you for allowing me to participate in the care of your patient. Please feel free to contact me if you have any questions. Coding Level of Care Code Est Pt Level 4 (64078) Diagnoses HTN (hypertension) I10 Pericardial effusion I31.39 CPT Codes EKG - CPT: 04541-Fnfekjcxyecjyohna, Complete ([id number])
== END 2024-01-25 14:54 | disposition home or self-care (01) ==
PROVIDERS: PCP Nurse Practitioner Family; Visit Provider Internal Medicine Cardiovascular Disease
DX: I10 Essential (primary) hypertension (principal); I31.39 Other pericardial effusion (noninflammatory)
CPT/HCPCS: 93010; 99214

== ENCOUNTER → 2024-01-25 13:59 | Outpatient (BNVA) | payer MEDICARE, SELFPAY | PROVIDERS: PCP Nurse Practitioner Family; Visit Provider Internal Medicine Cardiovascular Disease | DX: I10 Essential (primary) hypertension (principal); I31.39 Other pericardial effusion (noninflammatory); Z86.711 Personal history of pulmonary embolism | CPT/HCPCS: 93005; 99212 ==

== ENCOUNTER 2024-02-08 12:11 | Outpatient (AMB) | payer MEDICARE, SELFPAY ==
[2024-02-08 12:27] VITALS: BP 126/80; PULSE 82; O2SAT 97; BMI 44.4
--- NOTE | 2024-02-08 12:27 | A.OFFPC_ITS ---
Vital Signs 02/08/24 12:27 Height 5 ft Weight 227 lb 4 oz BMI 44.4 BP 126/80 Blood Pressure Location Rt brachial Position Sitting Pulse 82 Pulse Source Pulse Oximeter Pulse Oximetry (%) 97 Intake Visit Reasons: 5 mon f/u Intake Note: pt is here for 5 month follow up Dentist Attendant Required: No Accompanied by: Self / Same As Patient Allergies No Known Allergies Allergy (Verified 02/08/24 17:13) Medication List - Last Reconciled 02/08/24 by WILMAN Barkley albuterol sulfate 2.5 mg (3 mL) inhalation Q6H PRN albuterol sulfate 90 mcg/actuation 2 puffs inhalation Q6H PRN ferrous sulfate (Feosol) 325 mg PO DAILY fluticasone propion-salmeterol 250-50 mcg/dose (Wixela Inhub) 1 ea inhalation BID furosemide 20 mg PO DAILY 90 days hydrocortisone 2.5% 1 appl topical BID PRN lisinopril 20 mg PO DAILY 90 days metoprolol succinate ER 50 mg PO DAILY 90 days mirabegron ER (Myrbetriq) 25 mg PO DAILY 90 days Tobacco use date assessed: 09/02/23 Fall risk assessment: No Falls in past year Last assessed Fall Risk: 02/08/24 Dental Screening Dental Screen Date: 09/02/23 HPI 5 thu f/u HPI Details HTN: Blood pressure is stable, managed with furosemide 20mg, lisinopril 20mg, and metoprolol 50mg. Denies chest pain, shortness of breath, headache, dizziness, and blurred vision. 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 1. Little interest or pleasure in doing things: not at all 2. Feeling down, depressed, or hopeless: not at all 3. Trouble falling or staying asleep, or sleeping too much: not at all 4. Feeling tired or having little energy: not at all 5. Poor appetite or overeating: not at all 6. Feeling bad about yourself - or that you are a failure or have let yourself or your family down: not at all 7. Trouble concentrating on things, such as reading the newspaper or watching television: not at all 8. Moving or speaking so slowly that other people could have noticed. Or the opposite - being so fidgety or restless that you have been moving around a lot more than usual: not at all 9. Thoughts that you would be better off or of hurting yourself in some way: not at all Total score: 0 Depression Screening Interpretation: Negative Depression Screening Done: Yes 27976 - PHQ-9 Billing: Yes Source: Developed by Drs. Kannan Welsh, Akiko Sanchez, Sukumar Son and colleagues, with an educational mignon from [employer]. Thrive Questionnaire Date Thrive assessed: 02/08/24 I am a: Patient What is your living situation today?: I have a steady place to live Within the past 12 months, did the food you bought not last and you didn't have the money to get more?: Never true Within the past 12 months, did you worry whether your food would run out before you got money to buy more?: Never true Do you have trouble paying for medicines?: No Do you have trouble getting transportation to medical appointments?: No Do you have trouble paying your heating and electricity bill?: No Do you have trouble taking care of your child, family member or friend?: No Do you have trouble with day-to-day activities such as bathing, preparing meals, shopping, managing finances, etc.?: No Are you currently unemployed and looking for a job?: No Are you interested in more education?: No Please select the resources that you would like help with: None Currently or been in a relationship where the following occur: No concerns reported THRIVE Score: 0 AUDIT C Alcohol Use Questionnaire (AUDIT-C) 1. How often do you have a drink containing alcohol?: Never 2. How many drinks containing alcohol do you have on a typical day when you are drinking?: 1 or 2 3. How often do you have six or more drinks on one occasion?: Never Total Score: 0 Score Reviewed/Action Taken: Yes ALEISHA-7 AMB Questionnaire ALEISHA-7 Date ALEISHA - 7 assessed: 02/08/24 Feeling nervous, anxious, or on edge: 0 = Not at all Not being able to stop or control worryin = Not at all Worrying too much about different things: 0 = Not at all Trouble relaxin = Not at all Being so restless that it is hard to sit still: 0 = Not at all Becoming easily annoyed or irritable: 0 = Not at all Feeling afraid as if something awful might happen: 0 = Not at all Total ALEISHA-7 score (0-4 normal; 5-9 mild; 10-14 moderate; 15-21 severe): 0 Source: Developed by Drs. Kannan Welsh, Akiko Sanchez, Sukumar Son and colleagues, with an educational mignon from [employer]. ALEISHA-7 Assessment Billing ALEISHA-7 Assessment Tool: ALEISHA-7 Assessment 49435 Review of Systems Const Reports as per HPI Physical exam (Primary Care) Vital Signs: Last Vital Signs Pulse 82 02/08/24 12:27 BP 126/80 02/08/24 12:27 Pulse Ox 97 02/08/24 12:27 BMI result Body Mass Index 44.4 Tobacco/Smoking Status: Tobacco use Status Tobacco use date assessed 09/02/23 02/08/24 12:28 Patient Tobacco Use Status Never used Tobacco 02/08/24 12:28 e-Cigarette/Vaping Use Never Used 02/08/24 12:28 PHQ-9: PHQ-9 Score PHQ-9: Total score 0 02/08/24 12:45 Depression Screening Interpretation: Negative Thrive Assessment: Date of Thrive Assessment Date Thrive assessed 02/08/24 02/08/24 12:28 Currently or been in a relationship where the following occur: No concerns reported Const General: cooperative Nutritional Appearance: obese morbidly obese Orientation/consciousness: patient oriented x3 Resp Effort & Inspection: normal respiratory effort Auscultation: clear to auscultation bilaterally Cardio Rate: regular rate Rhythm: regular rhythm Heart sounds: S1 normal heart sound present and S2 normal heart sound present Neuro General: patient oriented x3 Psych Appearance: grossly normal Mental Status: mental status grossly normal Speech and movement: Normal speech and movement present Affect: normal affect Attitude: cooperative Thought process: Normal thought process present Thought content: Normal thought content present Insight: Good insight present (Psych) Judgement: Good judgement present (Psych) Coding Level of Care Code Est Pt Level 3 (93021) Diagnoses HTN (hypertension) I10 Additional Codes ALEISHA-7 Assessment Billing - ALEISHA-7 Assessment Tool: ALEISHA-7 Assessment 61985 ([id number]) PHQ-9 - 58095 - PHQ-9 Billing: Yes ([id number]) Assessment & Plan Assessment & Plan (1) HTN (hypertension): Code(s): I10 - Essential (primary) hypertension Category: Medical Plan: cont same medications, currently, BP is stable Plan The patient agreed to the use of a medical reimbursement manager for this encounter. Scribed f or POWER Rosenthal-HARMONY by Janet Gavin medical reimbursement manager, on 02/08/2024 at 12:45 EST.
== END 2024-02-08 13:20 | disposition home or self-care (01) ==
PROVIDERS: PCP Nurse Practitioner Family; Visit Provider Nurse Practitioner Family
DX: I10 Essential (primary) hypertension (principal)

== ENCOUNTER → 2024-02-08 12:11 | Outpatient (BNVA) | payer MEDICARE, SELFPAY | PROVIDERS: PCP Nurse Practitioner Family; Visit Provider Nurse Practitioner Family | DX: I10 Essential (primary) hypertension (principal) | CPT/HCPCS: 96127; 99212 ==

== ENCOUNTER 2024-06-15 10:44 | Outpatient (REF) | payer MEDICARE, SELFPAY ==
--- OUTSIDE RECORDS SUMMARY | 2024-06-15 12:47 | XMS_ITS | Data Portability ---
Author Organization [place] [facility] [employer] [employer] [facility] Address [address] [place] [address] Care Team Providers Care Bench Precision Assembler Name Role Phone MEG JONES Primary Care Provider [phone] MEG JONES Referring Provider [phone] MEG JONES Primary Care Provider Assessment Encounter Date Assessment Date Assessment LastModified by Organization Details LastModified Time 04/22/2021 04/22/2021 This is a atopic dermatitis I do not know why something that she is come in contact with I suspect low-dose prednisone 20 mg a day for 5 days hopefully this will help her at this point is really not pruritic so I would hold off any further intensive treatment. We then discussed her 's declining mental status and his early dementia she is justifiably concerned and cries when she tells me about what is bothering her understandably quite a bit [email or web address] Not available 04/22/2021 20:35:42 05/30/2021 05/30/2021 She is obese [email or web address] Not availabl e 05/30/2021 14:09:59 07/02/2021 07/02/2021 1. His varicose veins of the legs she is really upset with them she had a ago with a previous vascular surgeon is unhappy with the cosmetic results and would like a referral to a new vascular surgeon will continue that. 2. Obesity, her BMI is 46 diet weight loss and exercise were encouraged she does not like the Qsymia because of meter step at night we will give a course of clonidine she was given written instructions how to use this risk and benefits discussed. 3. 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 4. Asthma she tells me she is been coughing for 3 weeks though her lungs are clear and I have not heard her cough at all here today she can back off on her nebulizer it seems as though she is breathing comfortably on room air [email or web address] Not available 07/02/2021 14:18:24 12/04/2021 12/04/2021 Obesity, non-compliant with medical management. She discontinued the Plenity telling me that she couldn't sleep at night when using this. She has tried and failed on multiple medications and can not restrict her calories. Edema to the knee in the left lower extremity, started a week ago. She has a history of DVT in her right lower extremity. Will order stat venous ultrasound of her left lower extremity. Skin rash, granuloma annulare completely resolved. She can discontinue the pentoxifylline ER 400 mg. No further treatment. Asthma, not bothering her at this time and controlled with Wixela Inhub 250 mcg-50 mcg, one puff twice daily with the occasional albuterol sulfate HFA 90 mcg 2 puffs every six hours as needed for rescue. She is breathing comfortably on room air, not coughing or short of breath. Continue treatment and follow up as needed. Osteopenia, she is s/p 5 years of ibandronate 150 mg monthly. Will order bone density next year when she's due and reassess once the results were received. Preventative healthcare discussed. Last colonoscopy was in 2012 and was normal. Up-to-date on vaccines and would like a flu vaccine today. Risks/benefits, contraindications and risk factors for not receiving vaccine discussed with patient. All questions answered. Verbal understanding and consent given by patient. She is due for mammogram and will be given orders today. All available labs, imaging, and old records were reviewed. Anticipatory guidance given. The diagnosis, care plan and expectations for improvement were reviewed. Should symptoms worsen or do not improve, or new concerns, the patient will return to our office. Follow up other chacon as needed. [email or web address] Not available 12/04/2021 13:31:29 Plan of Treatment Reminders Order Date Submit Date Provider Last Modified By Organization Details Last Modified Time Details Appointments None recorded. Lab lipid panel, serum 2021 [facility] [employer] [facility], [address], [place], [address], 3 21:40:53 TSH, serum or plasma 2021 022 [email or web address], [address], [place], [address], 3 21:40:54 CBC 2021 [place] [address] [email or web address], [address], [place], [address], 3 21:40:53 urinalysis, complete 2021 022 [place] [address] [email or web address], [address], [place], [address], 3 21:40:53 CMP, serum or plasma 2021 022 [place] [address] [email or web address], [address], [place], [address], 3 21:40:53 Referral vein specialist referral - Please call the patient to schedule an appointment .Please send request with Physician and appointment information if payor approval required 2021 022 [email or web address] 15 Not available 11:00:26 orthopedic surgeon referral - Please call the patient to schedule an appointment . 2021 022 [email or web address] 15 Not available 09:21:15 vein specialist referral - Please call the patient to schedule an appointment . 2021 022 [email or web address] 15 Liset Maldonado MD ([facility]), [address], [place], [address], 10:40:30 Procedures None recorded. Surgeries None recorded. Imaging MAMMO, screening, digital, bilateral - Please call the patient to schedule an appointment . 2021 022 [email or web address] [facility] ([facility]), [address], [place], [address], 3 07:54:49 US, duplex, venous, extremity, complete - Please call the patient to schedule an appointment . Possible DVT. 2021 022 [place] [facility] ([facility]), [address], [place], [address], 2 17:39:08 Medication Orders Plenity (Welcome Kit) 0.75 gram capsule 2021 022 [email or web address] [facility], [address], [address], [place], [address], 13:16:25 pentoxifyll ine ER 400 mg tablet,exte nded release [email or web address] [place] [address]/Pharmacy #[id number], [address] [facility] [address] [place], [address], 19:09:19 prednisone 20 mg tablet 2021 022 [facility]/Ph[facility]acy #[id number], [address] [facility] [address], [place], [address], 13:50:44 Patient TargetsNo targets recorded. Patient Instructions Encounter Date Encounter Id Patient Instructions Last Modified By Organization Details Last Modified Time 12/04/2021 [id number] advance directives: care instructions [email or web address] Not available 12/04/2021 14:01:45 learning about living haas [email or web address] Not available 12/04/2021 14:01:45 do not rescuscitate education [email or web address] Not available 12/04/2021 14:01:45 Advance Directives Education w/sample forms for Living Will/Health Care Surrogate [email or web address] Not available 12/04/2021 14:01:45 Reason for Referral Vein Specialist Referral for Varicose veins of lower extremity Please call the patient to schedule an appointment. Referring Physician: Meg Jones, Pediatric Internal Medicine, Encounter Date: 05/30/2021 Orthopedic Surgeon Referral for Pain of left knee joint Please call the patient to schedule an appointment. Referring Physician: Meg Jones, Pediatric Internal Medicine, Encounter Date: 05/30/2021 Vein Specialist Referral for Varicose veins of lower extremity Please call the patient to schedule an appointment.Please send request with Physician and appointment information if payor approval required Referring Physician: Meg Jones, Pediatric Internal Medicine, Encounter Date: 07/02/2021 Results Created Date Observation Date Name Description Value Unit Range Abnormal Flag Note LastModifiedBy Organization Detail LastModifiedTime 05/14/19 22 05/14/2021 MAMMO , scree ashtyn, bilat eral No observ ation record ed. [email or web address] [facility] [address], [address], 05/30/2021 14:08:19 12/05/19 22 12/04/2021 , agusto rust s, kenn nash, lamar ete No observ ation record ed. [email or web address] [facility] [address] [place], [address], 12/06/2021 15:54:12 Result Notes None recorded. Problems Name Problem SNOMED Code Status Onset Date Resolution Date Notes Provider Name and Address Organization Details Recorded Time Asthma 589044900 Active Not Available [facility] 2 22:12:58 Anxiety disorder 660302811 Active 2018 Not Available [employer] 2 22:12:58 Idiopathic peripheral neuropathy 98115916 Active Not Available [employer] 2 22:12:58 Morbid obesity 783173600 Active [address] [facility] 2 22:12:58 Osteoarthriti s of knee 746545192 Active [address] [facility] 2 22:12:58 Disorder of bone and articular cartilage 701348764 Active Not Available [facility] 2 22:12:58 Anemia 184170271 Active 2016 Not Available [facility] 2 22:12:58 Osteopenia 317230045 Active 2016 Not Available [facility] 2 22:12:58 Basal cell carcinoma of face 602803624 Active 2018 Not Available [facility] 2 22:12:58 Deep venous thrombosis of lower extremity 911335489 Active Not Available [facility] 2 22:12:58 Obesity 831399363 Active Not Available [facility] 2 22:12:58 IgE-mediated allergic asthma 112653761 Active Not Available [facility] 2 22:12:58 Essential hypertension 99756890 Active 2017 Not Available [facility] 2 22:12:58 Allergic rhinitis 21243398 Active Not Available [facility] 2 22:12:58 Skin lesion 59521560 Active 2018 Not Available [facility] 2 22:12:58 Problem Notes None recorded. Procedures Surgical History Date Name Laterality Status Provider Name and Address Organization Details Recorded Time 12/05/19 22 Quality Functional Assessment completed Lily Mar [facility] Physician [facility] 12/04/2021 11:14:06 12/05/19 22 Quality Medication Reviewed and Updated completed Lily Mar [facility] 12/04/2021 11:14:06 12/05/19 22 Quality BMI with follow up completed [facility] 12/04/2021 11:14:06 12/05/19 22 Quality Advanced Care Planning completed Lily Mar [facility], [facility] 12/04/2021 11:14:06 12/05/19 22 Quality Incontinence Screening [facility] 12/04/2021 11:14:06 12/05/19 22 Medicare AWV - Screening Schedule [facility] 12/04/2021 11:14:06 12/05/19 22 Counseling: Advanced care planning completed Cee Dangelo [facility] Physician [facility], [facility] 12/04/2021 13:32:06 12/05/19 22 Quality Fall Risk Assessment [facility] 12/04/2021 11:14:06 02/07/20 21 screening for osteoporosis completed Cee Dangelo [facility] Physician [facility], [facility] 04/22/2021 12:00:03 05/10/19 21 mammography completed Cee Dangelo [facility] Physician [facility], [facility] 04/22/2021 11:59:47 03/30/19 17 total replacement of left knee joint completed Cee Dangelo [facility] Physician [facility], [facility] 04/22/2021 11:57:21 03/30/19 13 [facility] 04/22/2021 11:59:27 03/30/19 04 total replacement of right knee joint completed Cee Dangelo [facility] Physician [facility], [facility] 04/22/2021 11:57:11 excision of bunion [facility] 04/22/2021 11:58:53 Imaging Results Imaging Date Name Status LastModified by [facility] Details LastModified Time 05/14/2021 MAMMO, screening, bilateral completed [email or web address] [facility] [address], [address], 05/30/2021 14:08:19 12/04/2021 US, duplex, venous, extremity, complete completed [email or web address] [facility] [address], [place], [address], 12/06/2021 15:54:12 Procedure Notes None recorded. Medical Equipment None Reported. Allergies No known drug allergies Medications Name Sig Start Date Stop Date Status Note LastModified by Organization Details LastModified Time amoxicillin 500 mg capsule TAKE FOUR CAPSULES BY MOUTH 1 HOUR PRIOR TO APPOINTME NT active Not Available Not Available No t Available fluconazole 100 mg tablet TAKE 2 TABLETS BY MOUTH ON DAY 1 THEN 1 TABLET BY MOUTH DAY 2 active Not Available Not Available No t Available desonide 0.05 % topical cream active Not Available Not Available Not Available albuterol sulfate 2.5 mg/3 mL (0.083 %) solution for nebulizatio n Inhale 3 mL every 6 hours by nebulizat ion route. active Not Available Not Available No t Available azithromyci n 250 mg tablet Take as directed. 11/28 completed Not Available Not Available Not Available valacyclovi r 1 gram tablet TAKE 2 TABLETS NOW AND 2 TABLETS IN 12 HOURS active Not Available Not Available No t Available hydrocodone 5 mg-acetamin ophen 325 mg tablet TAKE 1-2 TABLETS BY MOUTH EVERY 4 HOURS NEEDED FOR PAIN 07/30 completed Not Available Not Available Not Available clotrimazol e-betametha sone 1 %-0.05 % lotion APPLY THREE TIMES A DAY FOR 10 DAYS TO SKIN 04/22 completed Not Available Not Available Not Available fluconazole 200 mg tablet TAKE 1 TABLET(S) EVERY DAY BY ORAL ROUTE FOR 10 DAYS. 10/22 completed Not Available Not Available Not Available meloxicam 15 mg tablet TAKE 1 TABLET BY MOUTH EVERY DAY active Not Available Not Available No t Available prednisone 20 mg tablet Take 1 tablet every day by oral route for 5 days. 07/02 completed Not Available Not Available Not Available alendronate 70 mg tablet TAKE 1 TABLET BY MOUTH ONCE A MONTH 08/28 completed Not Available Not Available Not Available torsemide 10 mg tablet TAKE 1 TABLET(S) EVERY DAY BY ORAL ROUTE. 07/30 completed Not Available Not Available Not Available potassium chloride ER 10 mEq tablet,exte nded release Take 1 tablet every day by oral route. active Not Available Not Available No t Available phentermine 37.5 mg tablet TAKE 1 TABLET BY MOUTH EVERY DAY 11/27 completed Not Available Not Available Not Available sulfamethox azole 800 mg-trimetho prim 160 mg tablet TAKE 1 TABLET BY MOUTH TWICE A DAY 07/30 completed Not Available Not Available Not Available aspirin 81 mg tablet,anh yed release Take 1 tablet every day by oral route. 07/30 completed Not Available Not Available Not Available amoxicillin 500 mg tablet TAKE ONE TABLET BY MOUTH THREE TIMES A DAY UNTIL GONE 11/28 completed Not Available Not Available Not Available pentoxifyll ine ER 400 mg tablet,exte nded release TAKE 1 TABLET BY MOUTH EVERY DAY 2021 active Not Available Not Available Not Avai lable cefadroxil 500 mg capsule TAKE ONE CAPSULE BY MOUTH TWICE A DAY FOR 10 DAYS 08/28 completed Not Available Not Available Not Available alprazolam 0.5 mg tablet TAKE 1 TABLET BY MOUTH TWICE A DAY 11/22 completed Not Available Not Available Not Available alprazolam 0.25 mg tablet TAKE 1 TABLET BY MOUTH TWICE A DAY 11/28 completed Not Available Not Available Not Available oxycodone-a cetaminophe n 10 mg-325 mg tablet TAKE 1 TO 2 TABLETS BY MOUTH EVERY 4 HOURS NEEDED FOR PAIN 10/22 completed Not Available Not Available Not Available triamcinolo ne acetonide 0.1 % topical ointment APPLY TWICE DAILY TO AREA ON THE RIGHT EPISCOPALIAN (AVOIDING THE BIOPSY SITES) FOR 7DAYS THEN DISCONTIN UE 07/02 completed Not Available Not Available Not Available clotrimazol e-betametha sone 1 %-0.05 % topical cream APPLY TO AFFECTED AREA(S) 2 TIMES DAILY IN THE MORNING AND EVENING FOR 10 DAYS 10/22 completed Not Available Not Available Not Available indomethaci n 25 mg capsule TAKE 1 CAPSULE BY MOUTH 3 TIMES A DAY FOR 6 DAYS. 11/27 completed Not Available Not Available Not Available mupirocin 2 % topical ointment APPLY A SMALL AMOUNT TO THE AFFECTED AREA BY TOPICAL ROUTE 2 TIMES PER DAY X 10 DAYS 04/17 completed Not Available Not Available Not Available furosemide 20 mg tablet TAKE 1 TABLET BY MOUTH EVERY DAY 10/22 completed Not Available Not Available Not Available Nasonex 50 mcg/actuati on Glynn Glynn 1 spray twice a day by intranasa l route for 90 days. 10/22 completed Not Available Not Available Not Available levofloxaci n 500 mg tablet Take 1 tablet every 24 hours by oral route for 10 days. 11/28 completed Not Available Not Available Not Available albuterol sulfate HFA 90 mcg/actuati on aerosol inhaler INHALE 2 PUFFS BY MOUTH EVERY 6 HOURS NEEDED 2021 active Not Available Not Available Not Avai lable topiramate 100 mg tablet Take one tablet PO QD 10/22 completed Not Available Not Available Not Available potassium chloride ER 10 mEq tablet,exte nded release(par t/cryst) TAKE 1 TABLET BY MOUTH EVERY DAY 07/30 completed Not Available Not Available Not Available nitrofurant oin monohydrate /macrocryst als 100 mg capsule 1 CAPSULE BY MOUTH EVERY 12 HOURS 10/22 completed Not Available Not Available Not Available Vesicare 5 mg tablet Take 1 tablet twice a day by oral route for 90 days. 07/30 completed Not Available Not Available Not Available ibandronate 150 mg tablet TAKE 1 TABLET BY MOUTH EVERY MONTH 07/02 completed Not Available Not Available Not Available Nasonex as directed 2012 active Not Available Not Available Not Avai lable Aspir-81 poqd 08/28 completed Not Available Not Available Not Available Flector 1.3 % transdermal 12 hour patch Apply 1 patch twice a day by transderm al route for 30 days. 10/22 completed Not Available Not Available Not Available diclofenac 1 % topical gel APPLY 3 GM ON THE SKIN FOUR TIMES A DAY 07/30 completed Not Available Not Available Not Available Xarelto 10 mg tablet TAKE 1 TABLET EVERY DAY 10/22 completed Not Available Not Available Not Available Myrbetriq 50 mg tablet,exte nded release Take 1 tablet every day by oral route. 10/15 completed Not Available Not Available Not Available Qsymia 3.75 mg-23 mg capsule, extended release Take 1 capsule every day by oral route for 14 days. 04/28 completed Not Available Not Available Not Available Qsymia 7.5 mg-46 mg capsule, extended release Take 1 capsule every day by oral route for 30 days. 04/22 completed Not Available Not Available Not Available Belviq 10 mg tablet TAKE 1 TABLET BY MOUTH TWICE A DAY active Not Available Not Available No t Available Fluvirin 2519-7724 45 mcg (15 mcg x 3)/0.5 mL intramuscul ar suspension INJECT 0.5 ML INTRAMUSC ULARLY DIRECTED. active Not Available Not Available No t Available Fluzone High-Dose (PF) 180 mcg/0.5 mL intramuscul ar syringe active Not Available Not Available N ot Available Fluzone High-Dose 4586-1099 (PF) 180 mcg/0.5 mL intramuscul ar syringe ADM 0.5ML IM UTD active Not Available Not Available No t Available Fluzone High-Dose 0928-3189 (PF) 180 mcg/0.5 mL intramuscul ar syringe ADM 0.5ML IM UTD 01/13 completed Not Available Not Available Not Available Wixela Inhub 250 mcg-50 mcg/dose powder for inhalation TAKE 1 PUFF BY MOUTH TWICE A DAY *RINSE MOUTH AFTER USE* active Not Available Not Available No t Available Fluad 2018- 65yr up(PF)45 mcg(15 mcgx3)/0.5 mL intramuscul ar syringe ADM 0.5ML IM UTD 03/07 completed Not Available Not Available Not Available Fluad Quad 0923-7962(6 5yr up)(PF) 60 mcg (15 mcg x 4)/0.5mL IM syringe ADM 0.5ML IM UTD 04/17 completed Not Available Not Available Not Available Plenity 0.75 gram capsule Take 3 caps 20 minutes before lunch and dinner with 16 fl oz of water. 12/04 completed Not Available Not Available Not Available Vitals Date Recorded Body mass index (BMI) Body height Pain severity - 0-10 verbal numeric rating [Score] - Reported Heart rate Respiratory rate Body temperature Body weight Systolic blood pressure Diastolic blood pressure Provider Name and Address Organization Details Last Updated DateTime 1 42.8 kg/m2 148.59 cm 0 98 /min 18 /min 98 [degF] 24520.6 6 g 155 mm[Hg] 84 mm[Hg] Not Available [facility] 2 22:10:47 Date Recorded Body height Heart rate Pain severity - 0-10 verbal numeric rating [Score] - Reported Respiratory rate Body temperature Body mass index (BMI) Body weight Systolic blood pressure Diastolic blood pressure Systolic blood pressure Diastolic blood pressure Provider Name and Address Organization Details Last Updated DateTime 2 148.59 cm 94 /min 0 18 /min 97.6 [degF] 43.8 kg/m2 76378.9 2 g 181 mm[Hg] 84 mm[Hg] 183 mm[Hg] 100 mm[Hg] Cee Dangelo [facility], [facility] 2 11:37:51 Date Recorded Body height Heart rate Pain severity - 0-10 verbal numeric rating [Score] - Reported Respiratory rate Body temperature Body mass index (BMI) Body weight Systolic blood pressure Diastolic blood pressure Provider Name and Address Organization Details Last Updated DateTime 2 148.59 cm 98 /min 0 18 /min 97.5 [degF] 45 kg/m2 76979.0 8 g 168 mm[Hg] 72 mm[Hg] ELIANA Paredes [facility], [facility] 2 13:25:46 Date Recorded Body height Heart rate Pain severity - 0-10 verbal numeric rating [Score] - Reported Respiratory rate Body temperature Body mass index (BMI) Body weight Systolic blood pressure Diastolic blood pressure Systolic blood pressure Diastolic blood pressure Provider Name and Address Organization Details Last Updated DateTime 2 148.59 cm 86 /min 0 18 /min 97.6 [degF] 46 kg/m2 163138. 39 g 173 mm[Hg] 83 mm[Hg] 135 mm[Hg] 70 mm[Hg] Cee Dangelo [facility], [facility] 2 13:50:14 Date Recorded Body height Heart rate Pain severity - 0-10 verbal numeric rating [Score] - Reported Respiratory rate Body temperature Body mass index (BMI) Body weight Systolic blood pressure Diastolic blood pressure Systolic blood pressure Diastolic blood pressure Provider Name and Address Organization Details Last Updated DateTime 2 149.86 cm 97 /min 0 18 /min 97.6 [degF] 44.8 kg/m2 833169. 51 g 179 mm[Hg] 89 mm[Hg] 134 mm[Hg] 70 mm[Hg] Lily Mar [facility], [facility] 2 12:58:47 Social History Question Answer Notes LastModified by Organizat ion Details LastModified Time Tobacco Smoking Status Never Smoker ELIANA Paredes, [facility] Physician [facility], [facility] 04/22/2021 11:56:51 What Is Your Level Of Alcohol Consumption? Occasional [email or web address] Information not available 04/22/2021 Are You Currently Employed? No [email or web address] Information not available 04/22/2021 What Is Your Occupation? Retired [email or web address] Information not available 03/30/2021 What Was The Date Of Your Most Recent Tobacco Screening? 04/22/2021 [email or web address] Information not available 04/22/2021 What Is Your Relationship Status? [email or web address] Information not available 04/22/2021 Do You Use Any Illicit Or Recreational Drugs? No [email or web address] Information not available 04/22/2021 Has Tobacco Cessation Counseling Been Provided? Yes Information not available 12/04/2021 On What Date Was Tobacco Cessation Counseling Provided? 12/04/2021 Information not available 12/04/2021 Do You Or Have You Ever Used Any Other Forms Of Tobacco Or Nicotine? No [email or web address] Information not available 04/22/2021 Sex: Unknown Functional Status None recorded. Mental Status None recorded. Family History Relationship Description Onset Age of this Age Resolved Age Notes LastModified by Organization Details LastModified Time Mother Heart disease [email or web address] Not available 2021 11:56:18 Father of unknown cause [email or web address] Not available 2021 11:56:33 Notes:father at 77 of n atural causes mother at 67 unknown cause no brothers or sisters 2 children alive and well Medical History Condition Response High blood pressure Y Cancer (location) Y Blood Clots Y Anemia Y Urinary Problems Y Osteopenia/Osteoporosis Y Anxiety/Stress Y Asthma Y Allergies (other than meds) Y Gynecological HistoryNo gynecological history recorded. Obstetrics History GPAL:G 0 P 0 0 0 0 Immunizations Vaccine Type Date Status Note Provider Nam e and Address Organization Details Recorded Time Influenza, high-dose, quadrivalent, PF 2 completed eMg Jones MD [address] [facility], [place], [address], [facility], [facility] 12/04/2021 16:33:40 Influenza, high-dose, trivalent, PF 5 completed Lily Pateli null, [facility], [facility] 12/04/2021 11:14:37 Influenza, split virus, trivalent, preservative 4 completed Lily Pateli null, [facility], [facility] 12/04/2021 11:14:37 Influenza, split virus, quadrivalent, preservative 3 completed Cee Dangelo RMA null, [facility], [facility] 12/04/2021 13:13:56 Influenza, high-dose, trivalent, PF 2 completed Lily Pateli null, [facility], [facility] 12/04/2021 11:14:37 Influenza, split virus, trivalent, preservative 4 completed Lily Mar null, [facility], [facility] 12/04/2021 11:14:37 Influenza, split virus, trivalent, preservative 3 completed Lily Pateli null, [facility], [facility] 12/04/2021 11:14:37 tetanus toxoid, unspecified formulation 9 completed Lily Pateli null, [facility], [facility] 12/04/2021 11:14:38 zoster live 8 completed Lily Mar null, [facility], [facility] 12/04/2021 11:14:37 pneumococcal, unspecified formulation 8 completed Lily Pateli null, [facility], [facility] 12/04/2021 11:14:37 Td (adult), 5 Lf tetanus toxoid, preservative free, adsorbed 1 completed Lily Mar null, [facility], [facility] 12/04/2021 11:14:37 Pneumococcal conjugate PCV 13 5 completed Lily Mar null, [facility], [facility] 12/04/2021 11:14:37 Influenza, adjuvanted, trivalent, PF 8 completed Lily Dulski null, [facility], [facility] 12/04/2021 11:14:37 Influenza, high-dose, trivalent, PF 6 completed Lily Dulski null, [facility], [facility] 12/04/2021 11:14:37 Influenza, high-dose, quadrivalent, PF 1 completed Lily Dulski null, [facility], [facility] 12/04/2021 11:14:37 Influenza, split virus, trivalent, preservative 3 completed Lily Dulski null, [facility], [facility] 12/04/2021 11:14:37 pneumococcal, unspecified formulation 8 [facility] 12/04/2021 11:14:37 COVID-19, mRNA, LNP-S, PF, 100 mcg/0.5mL dose or 50 mcg/0.25mL dose 1 completed [facility] 12/04/2021 11:14:37 Influenza, split virus, trivalent, PF 0 completed [facility] 12/04/2021 11:14:37 Influenza, high-dose, trivalent, PF 7 completed Lily Dulski null, [facility], [facility] 12/04/2021 11:14:37 COVID-19, mRNA, LNP-S, PF, 100 mcg/0.5mL dose or 50 mcg/0.25mL dose 1 completed Lily Dulski null, [facility], [facility] 12/04/2021 11:14:37 COVID-19, mRNA, LNP-S, PF, 100 mcg/0.5mL dose or 50 mcg/0.25mL dose 1 completed Lily Dulski null, [facility], [facility] 12/04/2021 11:14:37 tetanus toxoid, unspecified formulation 9 completed Lily hassan, [facility], [facility] 12/04/2021 11:14:38 Influenza, adjuvanted, trivalent, PF 9 completed Lily Isabela hassan, [facility], [facility] 12/04/2021 11:14:38 COVID-19, mRNA, LNP-S, PF, 100 mcg/0.5mL dose or 50 mcg/0.25mL dose 2 completed Lily hassan, [facility], [facility] 12/04/2021 11:14:37 Past Encounters Encounter ID Performer Location Encounter Start Date Encounter Closed Date Diagnosis/Indication Diagnosis SNOMED-CT Code Diagnosis ICD10 Code Diagnosis Note [id number] [facility] [place] [address] [place] [address] [place] [address] 10/22/2012 00:00:00 10/26/2012 08:28:41 [id number] [facility] [place] [address] [place] [address] [place] [address] 09/06/2013 00:00:00 09/07/2013 21:41:30 [id number] [facility] [place] [address] [place] [address] [place] [address] 11/30/2013 00:00:00 11/30/2013 22:42:00 [id number] [facility] [place] [address] [place] [address] [place] [address] 05/10/2014 00:00:00 05/11/2014 22:00:37 [id number] [facility] [place] [address] [place] [address] [place] [address] 09/19/2014 00:00:00 09/19/2014 18:25:49 [id number] [facility] [place] [address] [place] [address] [place] [address] 11/06/2014 00:00:00 11/06/2014 20:16:24 [id number] [facility] [place] [address] [place] [address] [place] [address] 11/08/2014 00:00:00 11/08/2014 22:55:56 [id number] [facility] [place] [address] [place] [address] [place] [address] 11/13/2014 00:00:00 11/13/2014 19:56:28 [id number] [facility] [place] [address] [place] [address] [place] [address] 11/16/2014 00:00:00 11/16/2014 12:12:08 [id number] [facility] [place] [address] [place] [address] [place] [address] 11/22/2014 00:00:00 11/22/2014 20:57:12 [id number] [facility] [place] [address] [place] [address] [place] [address] 11/29/2014 00:00:00 11/29/2014 21:17:57 [id number] [facility] [place] [address] [place] [address] [place] [address] 12/11/2014 00:00:00 12/11/2014 17:00:49 [id number] [facility] [place] [address] [place] [address] [place] [address] 01/29/2015 00:00:00 01/29/2015 19:24:49 [id number] [facility] [place] [address] [place] [address] [place] [address] 02/13/2015 00:00:00 02/13/2015 19:36:14 [id number] [facility] [place] [address] [place] [address] [place] [address] 04/06/2015 00:00:00 04/06/2015 20:01:09 [id number] [facility] [place] [address] [place] [address] [place] [address] 05/04/2015 00:00:00 05/04/2015 20:56:40 [id number] [facility] [place] [address] [place] [address] [place] [address] 07/03/2015 00:00:00 07/03/2015 19:25:37 [id number] [facility] [place] [address] [place] [address] [place] [address] 07/26/2015 00:00:00 07/26/2015 12:20:55 [id number] [facility] [place] [address] [place] [address] [place] [address] 09/24/2015 00:00:00 09/24/2015 21:54:39 [id number] [facility] [place] [address] [place] [address] [place] [address] 02/15/2016 00:00:00 02/16/2016 11:14:32 [id number] [facility] [place] [address] [place] [address] [place] [address] 03/11/2016 00:00:00 03/11/2016 19:47:42 [id number] [facility] [place] [address] [place] [address] [place] [address] 04/22/2016 00:00:00 04/23/2016 20:04:09 [id number] [facility] [place] [address] [place] [address] [place] [address] 07/11/2016 00:00:00 07/11/2016 12:53:59 [id number] [facility] [place] [address] [place] [address] [place] [address] 10/22/2016 00:00:00 10/22/2016 18:37:46 [id number] [facility] [place] [address] [place] [address] [place] [address] 01/13/2017 00:00:00 01/13/2017 11:21:51 [id number] [facility] [place] [address] [place] [address] [place] [address] 04/30/2017 00:00:00 04/30/2017 16:35:49 [id number] [facility] [place] [address] [place] [address] [place] [address] 05/04/2017 00:00:00 05/04/2017 18:10:27 [id number] [facility] [place] [address] [place] [address] [place] [address] 08/28/2017 00:00:00 08/28/2017 20:18:52 [id number] [facility] [place] [address] [place] [address] [place] [address] 11/17/2017 00:00:00 11/17/2017 16:45:00 [id number] [facility] [place] [address] [place] [address] [place] [address] 01/26/2018 00:00:00 01/26/2018 14:03:01 [id number] [facility] [place] [address] [place] [address] [place] [address] 07/30/2018 00:00:00 07/30/2018 19:30:09 [id number] [facility] [place] [address] [place] [address] [place] [address] 08/10/2018 00:00:00 08/10/2018 19:31:58 [id number] _ATHENA_M IGRATION_ DEFAULT_2 2_1 , 09/20/2018 00:00:00 09/20/2018 13:36:53 [id number] _ATHENA_M IGRATION_ DEFAULT_2 2_1 , 09/23/2018 00:00:00 09/23/2018 11:43:16 [id number] [facility] [place] [address] [place] [address] [place] [address] 11/22/2018 00:00:00 11/22/2018 19:56:20 [id number] [facility] [place] [address] [place] [address] [place] [address] 12/23/2018 00:00:00 12/23/2018 19:37:25 [id number] [facility] [place] [address] [place] [address] [place] [address] 03/07/2019 00:00:00 03/07/2019 20:46:15 [id number] [facility] [place] [address] [place] [address] [place] [address] 11/28/2019 00:00:00 11/28/2019 18:38:23 [id number] [facility] [place] [address] [place] [address] [place] [address] 03/16/2020 00:00:00 03/16/2020 17:04:11 [id number] [facility] [place] [address] [place] [address] [place] [address] 04/04/2020 00:00:00 04/04/2020 18:30:41 [id number] [facility] [place] [address] [place] [address] [place] [address] 04/17/2020 00:00:00 04/17/2020 20:13:31 [id number] [facility] [place] [address] [place] [address] [place] [address] 04/28/2020 00:00:00 04/28/2020 15:05:49 [id number] [facility] [place] [address] [place] [address] [place] [address] 04/30/2020 00:00:00 04/30/2020 19:14:31 [id number] [facility] [place] [address] [place] [address] [place] [address] 06/18/2020 00:00:00 06/18/2020 20:15:51 [id number] [facility] [place] [address] [place] [address] [place] [address] 11/28/2020 00:00:00 11/28/2020 20:58:53 [id number] MD SID Whalen [place] [address] [place] [address] [place] [address] 04/22/2021 10:49:42 04/22/2021 12:00:16 Eruption [id number] R21 Atopic dermatitis 907483 01 L20.9 [id number] Stephanie MelendrezYOKO martin [facility] [place] [address] [place] [address] [place] [address] 05/30/2021 13:15:37 05/30/2021 14:29:35 Pain of left knee joint [id number] 99248 M25.562 Pain in the left knee I have made a referral for a second opinion on what to do 5 years out of a total left knee replacemen t with recurrent and persistent pain she took some Mobic without any help she wants to know what else she can do I really not a lot see her other than a redo of the knee Varicose v eins of lower extremity 06162195 I83.93 She has fairly extensive varicose veins in both lower extremitie s she is asked to be sent to a vein specialist I will do that at her request and they can surgically attack these 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 The rash she has can be treated with Trental 400 mg once a day I will reassess in 30 days and see if this helps Body mass index 40+ - severely obese 622408930 Z68.41 I have strongly advised her to cut back her calories she does not think she eats too much and when she does that she is not going to lose any weight diet weight loss and exercise were encouraged Acute deep vein thrombosis of lower limb [id number] 08 I82.409 [id number] MD SID Whalen [place] [address] [place] [address] [place] [address] 07/02/2021 13:32:33 07/02/2021 14:57:23 Obesity 408588763 E66.9 Varicose v eins of lower extremity 88820549 I83.93 Asthma 978875776 J45.90 9 Cough 51852914 R05.9 Eruption 045713976 R21 Granuloma annulare 61132 009 L92.0 The rash she has can be treated with Trental 400 mg once a day I will reassess in 30 days and see if this helps [id number] Meg Jones MD [facility] [place] [address] [place] [address] [place] [address] 12/04/2021 12:45:53 12/04/2021 15:36:38 Adult health examination 624579612 Z00.00 Annual Wellness Visit done today Advance care planning 71 6136114 Z71.89 Active or passive immunization 578871777 Z23 Essential hypertension 81337990 I10 Obesity 541596165 E66.9 Screening mammography 24 991025 Z12.31 Dependent edema 43421185 4 R60.0 Eruption 392817275 R21 Asthma 500828071 J45.90 9 Granuloma annulare 18237 009 L92.0 The rash she has can be treated with Trental 400 mg once a day I will reassess in 30 days and see if this helps Health Concerns Section Related Observation LastModified by Organization Detai ls LastModified Time None Recorded Concern Status LastModified by Organization Details LastModified Time None Recorded Advance Directives Directive None Recorded Payers Encounter Date Sequence Insurance Name Policy Number Policy Warren Covered Member ID Warren Member ID Guarantor Name 04/22/2021 1 [employer] (MEDICARE REPLACEMENT HMO) Padma S Houde [id number] Padma S Houde 05/30/2021 1 [employer] (MEDICARE REPLACEMENT HMO) Padma S Houde [id number] Padma S Houde 07/02/2021 1 [employer] (MEDICARE REPLACEMENT HMO) Padma S Houde [id number] Padma S Houde 12/04/2021 1 [employer] (MEDICARE REPLACEMENT HMO) Padma S Houde [id number] Padma S Houde Notes Date Note Type Note Provider Name and Address Organization Details Recorded Time 04/22/2021 text/html CORONAVIRUS SCREENING TOOLThijaylen is a 76-year-old female who comes in after developing diffuse rash on both of her breasts and in her groin area she reports a red raised nonpruritic rash for at least 48 hours no new foods no new soaps no fever no illness?Are you experiencing any NEW symptom(s) listed below that is not due to another health problem ?None of the below ?Is anyone else in your household experiencing any NEW symptoms ?No ?In the past 2 weeks did you have close contact (within 6 feet for at least 15 minutes) with someone with symptoms of COVID-19 or who tested positive for COVID-19 ?No ?In the past 2 weeks have you been tested for COVID-19 ?No, I have not been tested ?Why did you get tested? Please select all that apply ?N/A ?In the past 2 weeks has someone in your household tested positive for COVID-19 ?No ?Have you ever received a dose of COVID-19 vaccine?Yes ?Which vaccine product did you receive?Moderna Imported from [facility] on 04/22/2021 QUALITY MEASURE QUESTIONNAIRE ?Has the Patient had a fracture in the last year ?No ?Has the Patient had a bone density testing performed before ?Yes ?Has the Patient been diagnosed as having osteoporosis ?No Imported from [facility] on 04/22/2021 Meg Jones MD [address], [place], [address], [facility], [email or web address] 04/22/2021 20:35:51 05/30/2021 text/html CORONAVIRUS SCREENING [id number] female comes in for 6-month Medicare follow-up she tells me her left knee is hurting her ever since she had it redone and a replacement by Dr. De La Rosa in [place] about 4 4 5 years ago. She is also concerned that her varicose veins on her leg are getting worse and would like to be referred to have those taken care of the rash on her chest turns out to be granuloma annulare she had it biopsied it was not getting better?Are you experiencing any NEW symptom(s) listed below that is not due to another health problem ?None of the below ?Is anyone else in your household experiencing any NEW symptoms ?No ?In the past 2 weeks did you have close contact (within 6 feet for at least 15 minutes) with someone with symptoms of COVID-19 or who tested positive for COVID-19 ?No ?In the past 2 weeks have you been tested for COVID-19 ?No, I have not been tested ?Why did you get tested? Please select all that apply ?N/A ?In the past 2 weeks has someone in your household tested positive for COVID-19 ?No Imported from [facility] on 05/30/2021 Meg Jones MD [address], [place], [address], [facility], [facility] 05/30/2021 19:09:36 07/02/2021 text/html CORONAVIRUS SCREENING TOOLThis patient is a 76-year-old female that comes in today for reasons I am really not sure of she tells me that the rash is gotten much worse though she told my medical library assistant to complete opposite it was cured. 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 She then tells me that she wants to lose weight and that the Qsymia we gave her made her not sleep but she does want that but wants something else she then tells me at home her blood pressure is 130/70 but here is quite high she then tells me that she has been coughing for 3 weeks and wants to know she should get the booster shot for Covid there she is been using her nebulizer 3 times a day?Are you experiencing any NEW symptom(s) listed below that is not due to another health problem ?None of the below ?Is anyone else in your household experiencing any NEW symptoms ?No ?In the past 2 weeks did you have close contact (within 6 feet for at least 15 minutes) with someone with symptoms of COVID-19 or who tested positive for COVID-19 ?No ?In the past 2 weeks have you been tested for COVID-19 ?No, I have not been tested ?Why did you get tested? Please select all that apply ?N/A ?In the past 2 weeks has someone in your household tested positive for COVID-19 ?No Imported from [facility] on 07/02/2021 Meg Jones MD [address], [place], [address], [email or web address] 07/02/2021 21:07:52 12/04/2021 text/html This is a 76 yea r old, obese white female here for her annual physical exam and wellness visit. She is complaining of swelling in her left lower extremity to the knee that is not painful and started approximately one week ago. She has swelling in her right ankle that started a few days ago. She is also complaining of a rash on her right breast and chest that is unresolved. She has tried Plenity for weight loss but discontinued this after some time and losing some weight telling me that it kept her awake at night. She has asthma, Meg Jones MD [address], [place], [address], [email or web address] 12/04/2021 16:33:47 OBGyn Episode No OBEpisode recorded.
--- OUTSIDE RECORDS SUMMARY | 2024-06-15 12:47 | XMS_ITS | Data Portability ---
Author Organization [place] - [facility] IP Address [address] [place] [address] Care Team Providers Care Belling Machine Operator Name Role Phone CARLOS MADRID Primary Care Provider MEG JONES Primary Care Provider Assessment Encounter Date Assessment Date Assessment LastModified by Organization Details LastModified Time 04/30/2020 04/30/2020 multiple contusions to the forearm with lacerations please see the pictures spent approximately 40 minutes cleaning in repairing laceration to Christine pose it and remove all the debris and prior Steri-Strips carefully with binocular microscope [email or web address] Not available 04/30/2020 19:14:23 06/18/2020 06/18/2020 community-acquir ed pneumonia than obese deconditioned white female with history of mild asthma by her report I am of course concerned with COVID-19 will get a stat chest x-ray Levaquin we gave her 1 nebulizer treatment here in the office that did not really help her will go ahead and continue nebulizer treatments as an outpatient he may require inpatient hospitalization if things get worse she is satting okay on room air breathing comfortably on room air at this time [email or web address] Not available 06/18/2020 20:15:13 11/28/2020 11/28/2020 Time Spent: Alcohol screening and counselin minutes Depression Screening and counselin minutes 1. She has been on Boniva for 3 years she tells me I have told them to go ahead and stop it and we will repeat a bone density. 2. Morbid obesity her body mass index is 43 diet weight loss exercise were encouraged she would like to continue with medications to try to help her with weight loss that is fine up to this point has not been at all successful though she assures me she has lost 8 lb 3. generalized anxiety disorder I believe she is a comfort and obsessive eater cannot cut back on her diet secondary to stress in her life. 4. asthma on Advair b.i.d. her breathing is quite well controlled she should continue this indefinitely. 5. preventive healthcare discussed she needs a mammogram bone density she gets yearly complete comprehensive eye exam and she is up-to-date on colonoscopy 6. History of overactive bladder not treating at this time. 7. She is status post total left knee replacement by Dr. bains she has had her hernia is heard her ever since we will try some topical approaches she did not like the Mobic meloxicam he gave her and does not want to take any other pills. 8. history of essential hypertension, not treated at this time diet weight loss exercise would help. 1. She has a dermatitis in her right external auditory canal weave use Lotrisone lotion for and has worked well she has asked for refill she continues a as needed 2. rash in the left groin inguinal fold area she has a red well-demarcated row of raised lesions I suspect early shingles versus impetigo will go ahead and treat for impetigo with Bactroban cream generic b.i.d. for 10 days see if this helps 3. Today she is totally flustered depressed anxious with disorganized racing tangential thought process she is unable to follow simple commands and cannot fill out a paperwork claimant language barrier then just being unable to do it she could draw clock she could do anything could answer my questions directly 4. she is basically only using Mobic for her left knee pain and Lotrisone cream for her ear 5. She is 16 years out of right knee replacement which she is not hurting her at all 3 years out of left total knee replacement which is hurting her on a daily basis if she is using Mobic 15 mg a day for that. I will defer to orthopedic surgery. 6. she has osteoporosis and is on Boniva now for approximately 2 years 150 mg once a month I told her to continue for total of 3-5 years. 7. She is 4 years out of the colon card which was negative 1 year out of a bone density and mammogram she needs a repeat mammogram now in February of this year. adult health examination Interpreted and discussed multi-dimensional health assessment questionnaire results Provided advance directives: care instructions Provided Advance Care Directives Patient WebLink Handout screening for disorder Interpreted and discussed alcohol use disorders identification test results Interpreted and discussed fall risk screening results depression screening Interpreted and discussed geriatric depression screen results screening mammography Provided mammogram: about this test Will order MAMMO, screening, digital, bilateral on 02-28-2020 eruption Provided rash: care instructions Start mupirocin 2 % topical ointment APPLY A SMALL AMOUNT TO THE AFFECTED AREA BY TOPICAL ROUTE 2 TIMES PER DAY x 10 days dermatitis of right external ear canal Renew clotrimazole-betam ethasone 1 %-0.05 % lotion pain in left knee rash of groin dependent edema [email or web address] Not available 11/28/2020 13:43:59 Plan of Treatment Reminders Order Date Submit Date Provider Last Modified By Organization Details Last Modified Time Details Appointments None recorded. Lab lipid panel, serum 2020 021 [email or web address], [address] [place] [address], [address], [place], [address], 08:15:01 CMP, serum or plasma 2020 021 [email or web address], [address] [place] [address], [address], [place], [address], 08:15:00 TSH, serum or plasma 2020 021 [email or web address], [address] [place] [address], [address], [place], [address], 10:14:28 urinalysis complete, reflex culture 2020 021 [email or web address], [address] [place] [address], [address], [place], [address], 08:15:01 CBC w/ auto diff 2020 021 [email or web address], [address] [place] [address], [address], [place], [address], 08:14:59 Referral None recorded. Procedures None recorded. Surgeries None recorded. Imaging XR, knee, 4 or more view [email or web address] Not available 17:03:21 MAMMO, screening, digital, bilateral - Please call the patient to schedule. 2020 [email or web address] ([facility] [address], [place], [address], 10:09:11 bone density - Please call the patient to schedule. 2020 [email or web address] ([facility] [address], [place], [address], 10:09:11 XR, chest, 2 view 2020 [facility] ([facility] [address], [place], [address], 13:38:41 Medication Orders Voltaren Arthritis Pain 1 % topical gel 2021 [email or web address] 68 [id number], [address], [place], [address], 17:03:21 Qsymia 7.5 mg-46 mg capsule, extended release 2020 [facility], [address] [place], [address], 21:01:04 levofloxaci n 500 mg tablet 2020 [id number], [address], [place], [address], 13:28:56 albuterol sulfate 2.5 mg/3 mL (0.083 %) solution for nebulizatio n 2020 021 [email or web address] 50 [id number], [address] [facility] [address], [place], [address], 12:02:22 Patient TargetsNo targets recorded. Patient Instructions Encounter Date Encounter Id Patient Instructions Last Modified By Organization Details Last Modified Time 04/28/2020 [id number] Keep wound dress ing in place for 24 hours. After 24 hours, you may change the dressing. After 24 hours, you may get the wound wet in the shower but dry thoroughly afterwards. Please return here to urgent care follow-up with primary care provider as needed for new or worsening symptoms. [email or web address] Not available 04/28/2020 15:05:21 06/18/2020 [id number] cough: care instructions [email or web address] Not available 06/18/2020 12:02:22 11/28/2020 [id number] alcohol use disorders identification test* [email or web address] Not available 11/28/2020 13:22:10 fall risk screening* [email or web address] Not bryce ilable 11/28/2020 13:22:10 geriatric depres coni screen* [email or web address] Not available 11/28/2020 13:22:10 mammogram: about this test Not available 11/28/2020 13:22:10 When You Want to Lose Weight: Care Instructions [email or web address] Not available 11/28/2020 13:22:10 multi-dimensiona l health assessment questionnaire* [email or web address] Not available 11/28/2020 13:22:10 advance directiv es: care instructions [email or web address] Not available 11/28/2020 13:22:10 Advance Care Directives Patient WebLink Handout [email or web address] Not available 11/28/2020 13:22:10 high blood press ure: care instructions [email or web address] Not available 11/28/2020 13:22:10 learning about h igh blood pressure [email or web address] Not available 11/28/2020 13:22:10 Personalized [facility] lt Plan and Screening Recommendations Advance Directives - Do you have one? Advance Directives - Do we have your advance directive on file in your health record? Primary Prevention/Intervent ion (prevents or decreases the chance of common diseases from occurring) Tobacco/Nicotine Risk:? Alcohol Misuse Screening:? Weight:? Physical activity:? Nutrition:? Fall Risk (screened today):? Vaccines Influenza:? ? ? Pneumococcal:? ? ? Shingles:? ? ? COVID-19:? ? ? Tetanus:? ? ? Hepatitis B:? ? ? Secondary Prevention/Intervent ion (detects treatable diseases before they may cause symptoms, disability, or ) Breast Cancer Screening with mammogram:? ? ? Cervical Cancer Screening: Osteoporosis Screening:? ? ? Colon Cancer Screening:? Eye Disease Screening:? ? ? Depression Screening:? Cognitive Screening:? Diabetes Screening: Cardiovascular Disease (CVD) Screening: labs - Aspirin Recommendations: you are Abdominal Aortic Aneurysm (AAA) Screening: Lung Cancer Screening: Hepatitis B Screening: Hepatitis C Screening: Sexually Transmitted Infections Screening: Human Immunodeficiency Virus (HIV) Screening: Tertiary Prevention/Intervent ion (identifies your current known diseases and attempts to prevent complications of those diseases) Complications of many of these diseases can be minimized through the primary prevention/intervent ions listed above but some may require medication addition/change or referrals and will be addressed today or at a follow-up appointment? ? ? Pain Control Status: ? ? ? Pain Medication Use and Risk for Opioid Misuse: ? ? ? Pain Management Plan: ? ? ? Not available 11/28/2020 12:56:41 Reason for Referral None Reported. Results Created Date Observation Date Name Description Value Unit Range Abnormal Flag Note LastModifiedBy Organization Detail LastModifiedTime 12/05/19 21 12/05/2020 CBC WITH DIFFE DEVONTE AL/PL ATELE T WBC 5.3 x10e3 /uL 3.4-10 .8 Not Available [facility] ([facility]) [address], [place], [address], 12/07/2020 08:14:58 12/05/19 21 12/05/2020 CBC WITH DIFFE RENTI AL/PL ATELE T RBC 4.63 x10e6 /uL 3.77-5 .28 Not Available [facility] ([facility]) [address] [place], [address], 12/07/2020 08:14:58 12/05/19 21 12/05/2020 CBC WITH DIFFE RENTI AL/PL ATELE T hemoglobin 13.6 g/dL 11.1-1 5.9 Not Available [facility] ([facility]) [address] [place], [address], 12/07/2020 08:14:58 12/05/1912/05/2020 CBC WITH DIFFE RENTI AL/PL ATELE T hematocrit 39.9 % 34.0-4 6.6 Not Available [facility] ([facility]) [address] [place], [address], 12/07/2020 08:14:58 12/05/1912/05/2020 CBC WITH DIFFE RENTI AL/PL ATELE T MCV 86 fL 79-97 Not Available [facility] ([facility]) [address] [place], [address], 12/07/2020 08:14:58 12/05/1912/05/2020 CBC WITH DIFFE RENTI AL/PL ATELE T MCH 29.4 pg 26.6-3 3.0 Not Available [facility] ([facility]) [address] [place], [address], 12/07/2020 08:14:58 12/05/1912/05/2020 CBC WITH DIFFE RENTI AL/PL ATELE T MCHC 34.1 g/dL 31.5-3 5.7 Not Available [facility] ([facility]) [address] [place], [address], 12/07/2020 08:14:58 12/05/19 21 12/05/2020 CBC WITH DIFFE RENTI AL/PL ATELE T RDW 14.0 % 11.7-1 5.4 Not Available [facility] ([facility]) [address], [place], [address], 12/07/2020 08:14:58 12/05/19 21 12/05/2020 CBC WITH DIFFE RENTI AL/PL ATELE T platelets 217 x10e3 /uL 150-45 0 Not Available [facility] ([facility]) [address], [place], [address], 12/07/2020 08:14:58 12/05/19 21 12/05/2020 CBC WITH DIFFE RENTI AL/PL ATELE T neutrophils 54 % not estab. Not Available [facility] ([facility]) [address] [facility], [place], [address], 12/07/2020 08:14:58 12/05/19 21 12/05/2020 CBC WITH DIFFE RENTI AL/PL ATELE T lymphs 29 % not estab. Not Available [facility] ([facility]) [address], [place], [address], 12/07/2020 08:14:58 12/05/19 21 12/05/2020 CBC WITH DIFFE RENTI AL/PL ATELE T monocytes 10 % not estab. Not Available [facility] ([facility]) [address], [place], [address], 12/07/2020 08:14:58 12/05/19 21 12/05/2020 CBC WITH DIFFE RENTI AL/PL ATELE T eos 6 % not estab. Not Available [facility] ([facility]) [address], [place], [address], 12/07/2020 08:14:58 12/05/19 21 12/05/2020 CBC WITH DIFFE RENTI AL/PL ATELE T basos 1 % not estab. Not Available [facility] ([facility]) [address] [place], [address], 12/07/2020 08:14:58 12/05/19 21 12/05/2020 CBC WITH DIFFE RENTI AL/PL ATELE T immature cells COORDINATOR HOTELS Not Available [facility] ([facility]) [address] [facility], [place], [address], 12/07/2020 08:14:58 12/05/19 21 12/05/2020 CBC WITH DIFFE RENTI AL/PL ATELE T neutrophils (absolute) 2.8 x10e3 /uL 1.4-7. 0 Not Available [facility] ([facility]) [address] [facility], [place], [address], 12/07/2020 08:14:58 12/05/1912/05/2020 CBC WITH DIFFE RENTI AL/PL ATELE T lymphs (absolute) 1.6 x10e3 /uL 0.7-3. 1 Not Available [facility] ([facility]) [address] [place], [address], 12/07/2020 08:14:58 12/05/19 21 12/05/2020 CBC WITH DIFFE RENTI AL/PL ATELE T monocytes(ab solute) 0.5 x10e3 /uL 0.1-0. 9 Not Available [facility] ([facility]) [address] [place], [address], 12/07/2020 08:14:58 12/05/19 21 12/05/2020 CBC WITH DIFFE RENTI AL/PL ATELE T eos (absolute) 0.3 x10e3 /uL 0.0-0. 4 Not Available [facility] ([facility]) [address] [place], [address], 12/07/2020 08:14:58 12/05/19 21 12/05/2020 CBC WITH DIFFE RENTI AL/PL ATELE T baso (absolute) 0.1 x10e3 /uL 0.0-0. 2 Not Available [facility] ([facility]) [address] [facility], [place], [address], 12/07/2020 08:14:58 12/05/19 21 12/05/2020 CBC WITH DIFFE RENTI AL/PL ATELE T immature granulocytes 0 % not estab. Not Available [facility] ([facility]) [address] [facility], [place], [address], 12/07/2020 08:14:58 12/05/19 21 12/05/2020 CBC WITH DIFFE RENTI AL/PL ATELE T immature grans (abs) 0.0 x10e3 /uL 0.0-0. 1 Not Available [facility] ([facility]) [address] [facility], [place], [address], 12/07/2020 08:14:58 12/05/19 21 12/05/2020 CBC WITH DIFFE RENTI AL/PL ATELE T NRBC COORDINATOR HOTELS Not Available [facility] ([facility]) [address] [facility], [place], [address], 12/07/2020 08:14:58 12/05/19 21 12/05/2020 CBC WITH DIFFE RENTI AL/PL ATELE T hematology comments: COORDINATOR HOTELS Not Available [facility] ([facility]) [address] [facility], [place], [address], 12/07/2020 08:14:58 12/05/19 21 12/05/2020 COMP. METAB OLIC PANEL (14) glucose 90 mg/dL 65-99 Not Available [facility] ([facility]) [address] [place], [address], 12/07/2020 08:15:00 12/05/19 21 12/05/2020 COMP. METAB OLIC PANEL (14) BUN 29 mg/dL 8-27 above high normal Not Available [facility] ([facility]) [address] [place], [address], 12/07/2020 08:15:00 12/05/19 21 12/05/2020 COMP. METAB OLIC PANEL (14) creatinine 1.01 mg/dL 0.57-1 .00 above high normal Not Available [facility] ([facility]) [address] [place], [address], 12/07/2020 08:15:00 12/05/19 21 12/05/2020 COMP. METAB OLIC PANEL (14) eGFR if nonafricn AM 54 mL/mi n/1.7 3 >59 below low normal Not Available [facility] ([facility]) [address] [place], [address], 12/07/2020 08:15:00 12/05/19 21 12/05/2020 COMP. METAB OLIC PANEL (14) eGFR if africn AM 62 mL/mi n/1.7 3 >59 [facility] ntly repor ts eGFR in compl iance with the curre nt recom menda tions of the [facility] . [facility] will updat e repor ting as new guide lines are publi shed from the NKF-A SN Task force . Not Available [facility] ([facility]) [address] [place], [address], 12/07/2020 08:15:00 12/05/19 21 12/05/2020 COMP. METAB OLIC PANEL (14) BUN/creatini ne ratio 29 12-28 above high normal Not Available [facility] ([facility]) [address] [place], [address], 12/07/2020 08:15:00 12/05/19 21 12/05/2020 COMP. METAB OLIC PANEL (14) sodium 139 mmol/ L 134-14 4 Not Available [facility] ([facility] [address] [place], [address], 12/07/2020 08:15:00 12/05/19 21 12/05/2020 COMP. METAB OLIC PANEL (14) potassium 3.9 mmol/ L 3.5-5. 2 Not Available [facility] ([facility]) [address] [place], [address], 12/07/2020 08:15:00 12/05/19 21 12/05/2020 COMP. METAB OLIC PANEL (14) chloride 103 mmol/ L 96-106 Not Available [facility] ([facility]) [address] [place], [address], 12/07/2020 08:15:00 12/05/19 21 12/05/2020 COMP. METAB OLIC PANEL (14) carbon dioxide, total 23 mmol/ L 20-29 Not Available [facility] ([facility]) [address] [place], [address], 12/07/2020 08:15:00 12/05/19 21 12/05/2020 COMP. METAB OLIC PANEL (14) calcium 9.4 mg/dL 8.7-10 .3 Not Available [facility] ([facility]) [address] [place], [address], 12/07/2020 08:15:00 12/05/19 21 12/05/2020 COMP. METAB OLIC PANEL (14) protein, total 6.2 g/dL 6.0-8. 5 Not Available [facility] ([facility]) [address] [place], [address], 12/07/2020 08:15:00 12/05/19 21 12/05/2020 COMP. METAB OLIC PANEL (14) albumin 4.1 g/dL 3.7-4. 7 Not Available [facility] ([facility]) [address] [place], [address], 12/07/2020 08:15:00 12/05/19 21 12/05/2020 COMP. METAB OLIC PANEL (14) globulin, total 2.1 g/dL 1.5-4. 5 Not Available [facility] ([facility]) [address] [place], [address], 12/07/2020 08:15:00 12/05/19 21 12/05/2020 COMP. METAB OLIC PANEL (14) A/G ratio 2.0 1.2-2. 2 Not Available [facility] ([facility]) [address] [place], [address], 12/07/2020 08:15:00 12/05/19 21 12/05/2020 COMP. METAB OLIC PANEL (14) bilirubin, total 0.5 mg/dL 0.0-1. 2 Not Available [facility] ([facility]) [address] [place], [address], 12/07/2020 08:15:00 12/05/19 21 12/05/2020 COMP. METAB OLIC PANEL (14) alkaline phosphatase 114 IU/L 48-121 Eff ectiv e Septe mber 2020 Alkal ine Phosp hatas e refer ence inter quinn will be alonzo ing to: Age Male Femal e 0 - 5 days 47 - 127 47 - 127 6 - 10 days 29 - 242 29 - 242 11 - 20 days 109 - 357 109 - 357 21 - 30 days 94 - 494 94 - 494 1 - 2 month s 149 - 539 149 - 539 3 - 6 month s 131 - 452 131 - 452 7 - 11 month s 117 - 401 117 - 401 12 month s - 6 years 158 - 369 158 - 369 7 - 12 years 150 - 409 150 - 409 13 years 156 - 435 78 - 227 14 years 114 - 375 64 - 161 15 years 88 - 279 56 - 134 16 years 74 - 207 51 - 121 17 years 63 - 161 47 - 113 18 - 20 years 51 - 125 42 - 106 >20 years 44 - 121 44 - 121 Not Available [facility] ([facility]) [address] [place], [address], 12/07/2020 08:15:00 12/05/19 21 12/05/2020 COMP. METAB OLIC PANEL (14) AST (SGOT) 18 IU/L 0-40 Not Available [facility] ([facility]) [address], [place], [address], 12/07/2020 08:15:00 12/05/19 21 12/05/2020 COMP. METAB OLIC PANEL (14) ALT (SGPT) 18 IU/L 0-32 Not Available [facility] ([facility]) [address], [place], [address], 12/07/2020 08:15:00 12/05/19 21 12/05/2020 UA/M W/RFL X CULTU RE, ROUTI NE specific gravity 1.025 1.005- 1.030 Not Available [facility] ([facility]) [address], [place], [address], 12/07/2020 08:15:00 12/05/19 21 12/05/2020 UA/M W/RFL X CULTU RE, ROUTI NE pH 5.5 5.0-7. 5 Not Available [facility] ([facility]) [address], [place], [address], 12/07/2020 08:15:00 12/05/19 21 12/05/2020 UA/M W/RFL X CULTU RE, ROUTI NE urine-color Yellow yellow Not Available [facility] ([facility]) [address], [place], [address], 12/07/2020 08:15:00 12/05/19 21 12/05/2020 UA/M W/RFL X CULTU RE, ROUTI NE appearance Clear clear Not Available [facility] ([facility]) [address] [facility], [place], [address], 12/07/2020 08:15:00 12/05/19 21 12/05/2020 UA/M W/RFL X CULTU RE, ROUTI NE WBC esterase Trace negati ve abnormal Not Available [facility] ([facility]) [address] [facility], [place], [address], 12/07/2020 08:15:00 12/05/19 21 12/05/2020 UA/M W/RFL X CULTU REDAWNI NE protein Trace negati ve/tra ce Not Available [facility] ([facility]) [address] [facility], [place], [address], 12/07/2020 08:15:00 12/05/19 21 12/05/2020 UA/M W/RFL X CULTU RE, DAWNI NE glucose Negati ve negati ve Not Available [facility] ([facility]) [address] [place], [address], 12/07/2020 08:15:00 12/05/19 21 12/05/2020 UA/M W/RFL X CULTU RE, ROUTI NE ketones Negati ve negati ve Not Available [facility] ([facility]) [address] [place], [address], 12/07/2020 08:15:00 12/05/19 21 12/05/2020 UA/M W/RFL X CULTU REDAWNI NE occult blood Negati ve negati ve Not Available [facility] ([facility]) [address] [place], [address], 12/07/2020 08:15:00 12/05/19 21 12/05/2020 UA/M W/RFL X CULTU RE ROUTI NE bilirubin Negati ve negati ve Not Available [facility] ([facility]) [address] [place], [address], 12/07/2020 08:15:00 12/05/19 21 12/05/2020 UA/M W/RFL X CULTU RE, ROUTI NE urobilinogen ,semi-qn 0.2 mg/dL 0.2-1. 0 Not Available [facility] ([facility]) [address] [facility], [place], [address], 12/07/2020 08:15:00 12/05/19 21 12/05/2020 UA/M W/RFL X CULTU RE, ROUTI NE nitrite, urine Negati ve negati ve Not Available [facility] ([facility]) [address] [facility], [place], [address], 12/07/2020 08:15:00 12/05/19 21 12/05/2020 UA/M W/RFL X CULTU RE, ROUTI NE microscopic examination See below: Micro scopi c was indic ated and was perfo rmed. Not Available [facility] ([facility]) [address] [facility], [place], [address], 12/07/2020 08:15:00 12/05/19 21 12/05/2020 UA/M W/RFL X CULTU RE, ROUTI NE WBC 0-5 /hpf 0 - 5 Not Available [facility] ([facility]) [address] [facility], [place], [address], 12/07/2020 08:15:00 12/05/19 21 12/05/2020 UA/M W/RFL X CULTU RE, ROUTI NE RBC None seen /hpf 0 - 2 Not Available [facility] ([facility]) [address] [facility], [place], [address], 12/07/2020 08:15:00 12/05/19 21 12/05/2020 UA/M W/RFL X CULTU RE, ROUTI NE epithelial cells (non renal) 0-10 /hpf 0 - 10 Not Available [facility] ([facility]) [address] [place], [address], 12/07/2020 08:15:00 12/05/19 21 12/05/2020 UA/M W/RFL X CULTU RE, ROUTI NE epithelial cells (renal) COORDINATOR HOTELS Not Available [facility] ([facility]) [address] [facility], [place], [address], 12/07/2020 08:15:00 12/05/19 21 12/05/2020 UA/M W/RFL X CULTU RE, ROUTI NE casts None seen /lpf none seen Not Available [facility] ([facility]) [address] [facility], [place], [address], 12/07/2020 08:15:00 12/05/19 21 12/05/2020 UA/M W/RFL X CULTU RE, ROUTI NE cast type COORDINATOR HOTELS Not Available [facility] ([facility]) [address] [facility], [place], [address], 12/07/2020 08:15:00 12/05/19 21 12/05/2020 UA/M W/RFL X CULTU RE, ROUTI NE crystals COORDINATOR HOTELS Not Available [facility] ([facility]) [address] [facility], [place], [address], 12/07/2020 08:15:00 12/05/19 21 12/05/2020 UA/M W/RFL X CULTU RE, ROUTI NE crystal type COORDINATOR HOTELS Not Available [facility] [address] [facility], [place], [address], 12/07/2020 08:15:00 12/05/19 21 12/05/2020 UA/M W/RFL X CULTU RE, ROUTI NE mucus threads COORDINATOR HOTELS Not Available [facility] ([facility]) [address] [facility], [place], [address], 12/07/2020 08:15:00 12/05/19 21 12/05/2020 UA/M W/RFL X CULTU RE, ROUTI NE bacteria None seen none seen/f ew Not Available [facility] ([facility]) [address] [facility], [place], [address], 12/07/2020 08:15:00 12/05/19 21 12/05/2020 UA/M W/RFL X CULTU RE, ROUTI NE yeast COORDINATOR HOTELS Not Available [facility] ([facility]) [address] [facility], [place], [address], 12/07/2020 08:15:00 12/05/19 21 12/05/2020 UA/M W/RFL X CULTU RE, ROUTI NE trichomonas COORDINATOR HOTELS Not Available [facility] ([facility]) [address] [facility], [place], [address], 12/07/2020 08:15:00 12/05/19 21 12/05/2020 UA/M W/RFL X CULTU RE, ROUTI NE comment COORDINATOR HOTELS Not Available [facility] ([facility]) [address] [facility], [place], [address], 12/07/2020 08:15:00 12/05/19 21 12/05/2020 UA/M W/RFL X CULTU RE, ROUTI NE microscopic examination COORDINATOR HOTELS Not Available [facility] ([facility]) [address] [facility], [place], [address], 12/07/2020 08:15:00 12/05/19 21 12/05/2020 UA/M W/RFL X CULTU RE, ROUTI NE urinalysis reflex Commen t This speci men has refle xed to a Urine Cultu re. Not Available [facility] ([facility]) [address] [facility], [place], [address], 12/07/2020 08:15:00 12/05/19 21 12/06/2020 UA/M W/RFL X CULTU RE, ROUTI NE urine culture, routine Final report Not Available [facility] ([facility]) [address] [facility], [place], [address], 12/07/2020 08:15:00 12/05/19 21 12/06/2020 UA/M W/RFL X CULTU RE, ROUTI NE result 1 Commen t Mixed uroge nital francisco 10,00 0-25, 000 colon y formi ng units per mL Not Available [facility] ([facility]) [address] [place], [address], 12/07/2020 08:15:00 12/05/19 21 12/05/2020 LIPID PANEL cholesterol, total 191 mg/dL 100-19 9 Not Available [facility] ([facility]) [address] [place], [address], 12/07/2020 08:15:01 12/05/19 21 12/05/2020 LIPID PANEL triglyceride s 69 mg/dL 0-149 Not Available [facility] ([facility]) [address] [place], [address], 12/07/2020 08:15:01 12/05/19 21 12/05/2020 LIPID PANEL HDL cholesterol 58 mg/dL >39 Not Available [facility] ([facility]) [address] [place], [address], 12/07/2020 08:15:01 12/05/19 21 12/05/2020 LIPID PANEL VLDL cholesterol davide 13 mg/dL 5-40 Not Available [facility] ([facility]) [address] [place], [address], 12/07/2020 08:15:01 12/05/19 21 12/05/2020 LIPID PANEL LDL chol calc ([facility]) 120 mg/dL 0-99 above high normal Not Available [facility] ([facility]) [address] [place], [address], 12/07/2020 08:15:01 12/05/19 21 12/05/2020 LIPID PANEL comment: COORDINATOR HOTELS Not Available [facility] ([facility]) [address] [facility], [place], [address], 12/07/2020 08:15:01 12/05/19 21 12/05/2020 TSH TSH 1.700 uIU/m L 0.450- 4.500 Not Available [facility] ([facility]) [address] [facility], [place], [address], 12/07/2020 08:15:02 12/05/19 21 12/04/2020 AMBIG ABBRE V CMP14 DEFAU LT ambig abbrev CMP14 default Commen t A hand- writt en panel /prof ile was recei brien from your offic e. In accor dance with the [facility] Ambig uous Test Code Polic y dated September 2002, we have compl eted your order by using the close st curre ntly or forme rly recog nized AMA panel . We have leticia palomares Compr ehens desmond Metab olic Panel (14), Test Code #32[address]. If this is not the testi ng you wishe d to recei ve on this speci men, pleas e conta ct the [facility] Clien t Inqui ry/Te chnic al Servi bruna Depar tment to love fy the test order . We appre ciate your busin ess. Not Available [facility] ([facility]) [address] [facility], [place], [address], 12/07/2020 08:15:03 12/05/19 21 12/04/2020 AMBIG ABBRE V LP DEFAU LT ambig abbrev LP default Commen t A hand- writt en panel /prof ile was recei brien from your offic e. In accor dance with the [facility] Ambig uous Test Code Polic y dated September 2002, we have compl eted your order by using the close st curre ntly or forme rly recog nized AMA panel . We have leticia palomares Lipid Panel , Test Code #30[address]. If this is not the testi ng you wishe d to recei ve on this speci men, pleas e conta ct the [facility] Clien t Inqui ry/Te chnic al Servi bruna Depar tment to love fy the test order . We appre ciate your busin ess. Not Available [facility] ([facility]) [address], [place], [address], 12/07/2020 08:15:04 05/10/19 21 05/10/2020 MAMMO , scree ashtyn, digit al, bilat eral No observ ation record ed. [place] [id number] [facility] [address], [place], [address], 06/15/2020 09:59:21 06/19/19 21 06/18/2020 XR, chest , 2 view No observ ation record ed. [place] [id number] [facility] ([facility] [address], [place], [address], 06/19/2020 09:39:32 02/07/20 21 02/06/2021 bone densi ty No observ ation record ed. [facility] ([facility] [address], [place], [address], 02/12/2021 19:22:06 Result Notes None recorded. Problems Name Problem SNOMED Code Status Onset Date Resolution Date Notes Provider Name and Address Organization Details Recorded Time Asthma 233789703 Active Victorina hassan, [facility] [place] 8 13:18:43 Deep venous thrombosis of lower extremity 176450755 Active Victorina hassan, [address] 8 13:19:01 Obesity 632738208 Active Victorina hassan, [facility] [place] 8 13:19:12 Anemia 159370827 Active 2016 Victorina hassan, [address] 8 13:18:58 Osteoarthriti s of knee 706853475 Active 2016 Victorina hassan [facility] [place] 8 13:18:48 Osteopenia 943386596 Active 2016 Victorina hassan [place] [facility] [facility] [place] 8 13:19:00 Essential hypertension 10046138 Active 2017 MADELIN Lombardo [facility] [place] 8 13:18:11 Bladder muscle dysfunction - overactive Active 2017 Not Available [facility] 2 15:11:17 Morbid obesity 244376668 Active 2017 Victorina hassan [address] 8 08:53:40 Anxiety disorder 002660651 Active 2018 ELIANA Paredes mo [place] [address] 9 10:09:44 Skin lesion 15118241 Active 2018 LUDMILA RIVERS MD [address], [address] , [address] 9 13:28:01 Basal cell carcinoma of face 709557279 Active 2018 LUDMILA RIVERS MD [address], [place], [address] , [address] 9 11:39:23 Allergic rhinitis 93046252 Active Victorina hassan [address] 8 13:19:10 Disorder of bone and articular cartilage 076452115 Active Victorina hassan [address] 8 13:18:50 Idiopathic peripheral neuropathy 75219352 Active Victorina hassan [address] 8 13:18:44 IgE-mediated allergic asthma 301760476 Active Victorina hassan [place] [facility] [place] 8 13:19:08 Problem Notes None recorded. Procedures Surgical History Date Name Laterality Status Provider Name and Address Organization Details Recorded Time 1 Medicare Wellness CPT Code, Subsequent completed Cee Dangelo JOSHUALeanna MADELIN LOPES [place] 11/28/2020 12:56:42 0 Medicare Wellness CPT Code, Subsequent completed ELIANA Paredes [place] [address] 11/28/2019 10:03:20 9 Medicare Wellness CPT Code, Subsequent completed Cee Dangelo, [address] 11/22/2018 10:27:39 9 Blank Procedure Template completed LUDMILA RIVERS MD [address], [place], [address], [address] 09/23/2018 11:39:14 9 Blank Procedure Template completed LUDMILA RIVERS MD [address], [place], [address], [address] 09/20/2018 13:36:47 8 Medicare Wellness CPT Code, Subsequent completed Victorina Hickey [address] 11/17/2017 13:41:58 7 Medicare Wellness CPT Code, Subsequent completed Deyaniraihsan Givens, [address] 10/22/2016 12:53:07 5 Laceration Repair completed Katelin Berry [address] 11/06/2014 17:07:47 3 Colonoscopy completed Macie Figueroa, [address] 11/28/2015 08:46:37 Other completed LUDMILA RIVERS MD [address], [place], [address], [address] 09/20/2018 13:32:40 Orthopaedic Surgery completed LUDMILA RIVERS MD [address], [place], [address], [address] 09/20/2018 13:32:14 Vascular Surgery completed Linus Thomas, [address] 09/06/2013 15:07:40 Imaging Results Imaging Date Name Status LastModified by [facility] Details LastModified Time 05/10/2020 MAMMO, screening, digital, bilateral [place] [address] [facility] [address], [place], [address], 06/15/2020 09:59:21 06/18/2020 XR, chest, 2 view [place] [address] [facility] ([facility] [address], [address], 06/19/2020 09:39:32 02/06/2021 bone density completed [facility] ([place]) [address], [place], [address], 02/12/2021 19:22:06 Procedure Notes None recorded. Medical Equipment None Reported. Allergies No known drug allergies Medications Name Sig Start Date Stop Date Status Note LastModified by Organization Details LastModified Time torsemide 10 mg tabs 11/17 completed Not Available Not Available Not Available amoxicillin 500 mg caps 10/22 completed Not Available Not Available Not Available levofloxaci n 500 mg tabs active Not Available Not Available Not Available meloxicam 15 mg tabs active Not Available Not Available N ot Available alprazolam 0.25 mg tabs 08/10 completed Not Available Not Available Not Available oxycodone/a cetaminophe n 10-325 mg tabs 07/11 completed Not Available Not Available Not Available furosemide 20 mg tabs active Not Available Not Available N ot Available clotrimazol e/betametha sone dipropionat e 1-0.05 % lotn 11/22 completed Not Available Not Available Not Available cefadroxil 500 mg caps 08/28 completed Not Available Not Available Not Available fluzone high-dose pf 7242-3253 .5 ml azul active Not Available Not Available N ot Available clotrimazol e/betametha sone dipropionat e 1-0.05 % crea active Not Available Not Available Not Available alprazolam 0.5 mg tabs 11/22 completed Not Available Not Available Not Available fluzone high-dose pf 7341-0715 .5 ml azul active Not Available Not Available N ot Available potassium chloride cr 10 meq tbcr 11/17 completed Not Available Not Available Not Available ibandronate sodium 150 mg tabs 03/07 completed Not Available Not Available Not Available alendronate sodium 70 mg tabs 04/30 completed Not Available Not Available Not Available topiramate 100 mg tabs 01/13 completed Not Available Not Available Not Available fluconazole 200 mg tabs 10/22 completed Not Available Not Available Not Available xarelto 10 mg tabs 07/11 completed Not Available Not Available Not Available ph top bu na met capsules 11/17 completed Not Available Not Available Not Available compounded medication take 1 tablet every day 09/04 completed Not Available Not Available Not Available advair diskus 250-50 mcg/dose aepb 06/07 completed Not Available Not Available Not Available prednisone 20 mg tabs active Not Available Not Available N ot Available compounded medication take 1 capsule every day 01/26 completed Not Available Not Available Not Available amoxicillin 500 mg tabs 07/30 completed Not Available Not Available Not Available myrbetriq 50 mg tb24 11/17 completed Not Available Not Available Not Available fluad .5 ml azul 03/07 completed Not Available Not Available Not Available sulfamethox azole/trime thoprim ds 800-160 mg tabs 07/30 completed Not Available Not Available Not Available hydrocodone /acetaminop hen 5-325 mgtabs 07/30 completed Not Available Not Available Not Available fluzone high-dose pf 6561-1639 .5 ml azul 01/13 completed Not Available Not Available Not Available compounded medication take 1 capsule every day 01/26 completed Not Available Not Available Not Available phen top 3 75 23mg sr caps 11/17 completed Not Available Not Available Not Available valacyclovi r hcl 1 gm tabs active Not Available Not Available Not Available amoxicillin 500 mg capsule TAKE FOUR CAPSULES [...] 5 mg-acetamin ophen 325 mg tablet TAKE ONE TABLET BY MOUTH EVERY 4 TO 6 HOURS NEEDED FOR ACUTE PAIN active Not Available Not Available No t Available clotrimazol e-betametha sone 1 %-0.05 % lotion APPLY THREE TIMES A DAY FOR 10 DAYS TO SKIN active Not Available Not Available No t Available fluconazole 200 mg tablet TAKE 1 TABLET(S) EVERY DAY BY ORAL ROUTE FOR 10 DAYS. 10/22 completed Not Available Not Available Not Available meloxicam 15 mg tablet TAKE 1 TABLET BY MOUTH EVERY DAY active Not Available Not Available No t Available prednisone 20 mg tablet TAKE 1 TABLET BY MOUTH EVERY DAY FOR 5 DAYS active Not Available Not Available No t Available alendronate 70 mg tablet TAKE 1 TABLET BY MOUTH ONCE A MONTH 08/28 completed Not Available Not Available Not Available torsemide 10 mg tablet TAKE 1 TABLET(S) EVERY DAY BY ORAL ROUTE. 07/30 completed Not Available Not Available Not Available potassium chloride ER 10 mEq tablet,exte nded release Take 1 tablet every day by oral route. 2014 active Not Available Not Available Not Avai lable phentermine 37.5 mg tablet TAKE 1 TABLET [...] TAKE 1 TABLET BY MOUTH EVERY DAY FOR 30 DAYS active Not Available Not Available No t Available cefadroxil 500 mg capsule TAKE ONE CAPSULE [...] TWICE DAILY TO AREA ON THE RIGHT BUDDHISM (AVOIDING THE BIOPSY SITES) FOR 7DAYS THEN DISCONTIN UE active Not Available Not Available No t Available clotrimazol e-betametha sone 1 %-0.05 % [...] completed Not Available Not Available Not Available clobetasol 0.05 % topical ointment APPLY TWICE DAILY TO THE AFFECTED AREAS FOR 2-3 WEEKS active Not Available Not Available No t Available Nasonex 50 mcg/actuati on [address] 1 spray twice a day by intranasa l route for 90 days. 10/22 completed Not Available Not Available Not Available levofloxaci n 500 mg tablet Take 1 tablet every 24 hours by oral route for 10 days. 11/28 completed Not Available Not Available Not Available albuterol sulfate HFA 90 mcg/actuati on aerosol inhaler INHALE 2 PUFFS BY MOUTH EVERY 6 HOURS NEEDED active Not Available Not Available No t Available topiramate 100 mg tablet Take one tablet [...] TAKE 1 TABLET BY MOUTH EVERY MONTH active Not Available Not Available No t Available Nasonex as directed active Not Available Not Available No t Available Aspir-81 poqd 08/28 completed Not Available Not [...] day by oral route for 30 days. 2020 active Not Available Not Available Not Avai lable Belviq 10 mg tablet TAKE 1 TABLET BY MOUTH TWICE A DAY active Not Available Not Available No t Available Fluvirin 5012-8041 45 mcg (15 mcg x 3)/0.5 mL intramuscul ar suspension INJECT 0.5 ML INTRAMUSC ULARLY DIRECTED. active Not Available Not Available No t Available Fluzone High-Dose 2014- (PF) 180 mcg/0.5 mL intramuscul ar syringe active Not Available Not Available N ot Available Fluzone High-Dose 3505-0361 (PF) 180 mcg/0.5 mL intramuscul ar syringe ADM 0.5ML IM UTD active Not Available Not Available No t Available Fluzone High-Dose 0591-7841 (PF) 180 mcg/0.5 mL intramuscul ar syringe [...] completed Not Available Not Available Not Available Voltaren Arthritis Pain 1 % topical gel APPLY 2 GRAMS TO THE AFFECTED AREA(S) BY TOPICAL ROUTE 4 TIMES PER DAY 2021 active Not Available Not Available Not Avai lable Fluad Quad 9014-5739(6 5yr up)(PF) 60 mcg (15 mcg x 4)/0.5mL IM syringe ADM 0.5ML IM UTD 04/17 completed Not Available Not Available Not Available Vitals Date Recorded Body height Body mass index (BMI) Body weight Heart rate Respiratory rate Oxygen saturation Oxygen saturation in Arterial blood by Pulse oximetry Body temperature Systolic blood pressure Diastolic blood pressure Provider Name and Address Organization Details Last Updated DateTime 147.95 cm 43.5 kg/m2 41519.4 g 89 /min 18 /min 98 % 98 % 97.6 [degF] 188 mm[Hg] 98 mm[Hg] Bijal Dumas [facility] [place] 14:51:47 Date Recorded Body height Body mass index (BMI) Body weight Respiratory rate Body temperature Provider Name and Address Organization Details Last Updated DateTime 04/30/2020 147.95 cm 43.5 kg/m2 25578.4 g 18 /min 97.7 [degF] Cee Dangelo [address] 14:13:54 Date Recorded Body height Body mass index (BMI) Body weight Respiratory rate Provider Name and Address Organization Details Last Updated DateTime 06/18/2020 147.95 cm 43.5 kg/m2 74139.4 g 20 /min Cee Dangelo [address] 06/18/2020 11:53:50 Date Recorded Body height Body mass index (BMI) Body weight Heart rate Respiratory rate Body temperature Pain severity - 0-10 verbal numeric rating [Score] - Reported Systolic blood pressure Diastolic blood pressure Provider Name and Address Organization Details Last Updated DateTime 148.59 cm 42.8 kg/m2 17682.6 6 g 98 /min 18 /min 98 [degF] 0 155 mm[Hg] 84 mm[Hg] Cee Dangelo [address] 13:07:02 Date Recorded Body height Body mass index (BMI) Body weight Pain severity - 0-10 verbal numeric rating [Score] - Reported Provider Name and Address Organization Details Last Updated DateTime 06/19/2021 148.59 cm 42.7 kg/m2 64762.21 g 8 Natalie Mesa LPN [facility]14 [place] 06/19/2021 12:47:43 Social History Question Answer Notes LastModified by Organizat ion Details LastModified Time Tobacco Smoking Status Never Smoker Lou hassan [facility] [place] 10/22/2012 12:53:32 Do You Have An Advance Directive? No [email or web address] Information not available 11/28/2020 What Is Your Level Of Alcohol Consumption? Occasional Information not available 09/06/2013 How Many Times Per Week Do You Consume Alcohol? 1-2 Times Per Week [email or web address] Information not available 11/28/2020 Are You Blind Or Do You Have Difficulty Seeing? No Information not available 10/22/2016 What Is Your Level Of Caffeine Consumption? None [email or web address] Information not available 11/28/2020 Are You Deaf Or Do You Have Serious Difficulty Hearing? No Information not available 10/22/2016 What Type Of Diet Are You Following? REGULAR [email or web address] Information not available 10/23/2012 What Is Your Occupation? Retired [email or web address] Information not available 10/23/2012 Do You Feel Safe At Home? Yes Information not available 10/22/2016 Advance Directive - Provider Has Reviewed Directives And Consents To Follow Them (insert Provider Name With Any Objections In Notes Field) No Information not available 10/22/2016 Marital Status [email or web address] Informati on not available 10/23/2012 Do You Have A Medical Power Of Rear Admiral? No [email or web address] Information not available 11/28/2020 What Was The Date Of Your Most Recent Tobacco Screening? 11/28/2020 [email or web address] Information not available 11/28/2020 How Many Children Do You Have? 2 Information not available 09/06/2013 Seat Belts Used Routinely Yes Information not available 10/22/2016 Smoke Alarm In Home Yes Information not available 10/22/2016 How Much Tobacco Do You Smoke? No [email or web address] Information not available 10/22/2012 General Stress Level Low [email or web address] Information not available 10/23/2012 Do You Use Any Illicit Or Recreational Drugs? No [email or web address] Information not available 11/28/2020 Do You Use Sunscreen Routinely? No Information not available 10/22/2016 Has Tobacco Cessation Counseling Been Provided? No [email or web address] Information not available 11/28/2020 How Many Years Have You Smoked Tobacco? 0 [email or web address] Information not available 11/17/2017 Do You Or Have You Ever Used Any Other Forms Of Tobacco Or Nicotine? No Information not available 11/28/2020 Sex: Unknown Functional Status Question Answer Note LastModified by Organization D etails LastModified Time Do you have difficulty walking or climbing stairs? No Information not available 10/22/2016 Do you have difficulty doing errands alone? No Information not available 10/22/2016 Are you able to care for yourself? Yes [email or web address] Information n ot available 11/28/2020 Do you have difficulty dressing or bathing? No Information not available 10/22/2016 What is your exercise level? None [email or web address] Information not available 10/23/2012 Mental Status Question Answer Note LastModified by Organization D etails LastModified Time Do you have difficulty concentrating, remembering or making decisions? No Information no t available 10/22/2016 Family History Relationship Description Onset Age of this Age Resolved Age Notes LastModified by Organization Details LastModified Time Father of unknown cause 77 [email or web address] Not available 2016 15:06:31 Mother Heart disease 67 [email or web address] Not available 2016 15:06:31 Notes:father at 77 of n atural causes mother at 67 unknown cause no brothers or sisters 2 children alive and well Medical History Condition Response Anemia Y Hypertension Y Asthma Y Allergies Y Osteoporosis Y Gynecological HistoryNo gynecological history recorded. Obstetrics History GPAL:G 0 P 0 0 0 0 Immunizations Vaccine Type Date Status Note Provider Nam e and Address Organization Details Recorded Time Pneumococcal conjugate PCV 13 5 completed Not Available [facility] 04/16/2019 02:09:45 Influenza, high-dose, trivalent, PF 5 completed ELIANA Paredes, [address] 11/28/2020 12:54:34 Td (adult), 5 Lf tetanus toxoid, preservative free, adsorbed 1 completed Rosario Evans RN null, [address] 04/28/2020 15:51:39 pneumococcal, unspecified formulation 8 completed Junepato Donnellysshirley [address] 07/11/2016 11:23:43 zoster live 8 completed June [facility], [address] 07/11/2016 11:23:43 Influenza, split virus, trivalent, preservative 3 completed June Eutsler [address] 07/11/2016 11:23:43 Influenza, high-dose, trivalent, PF 2 completed Not Available [facility] 04/30/2019 02:11:12 Influenza, split virus, quadrivalent, preservative 3 completed Not Available [facility] 04/30/2019 02:11:12 Influenza, split virus, trivalent, preservative 4 completed Not Available [facility] 04/30/2019 02:11:12 tetanus toxoid, unspecified formulation 9 completed June Eutsler [address] 07/11/2016 11:23:44 Influenza, split virus, trivalent, preservative 4 completed Macie Figueroa CMA [address] 11/17/2017 11:55:28 Past Encounters Encounter ID Performer Location Encounter Start Date Encounter Closed Date Diagnosis/Indication Diagnosis SNOMED-CT Code Diagnosis ICD10 Code Diagnosis Note [id number] Meg Jones MD [facility] [address] [place] [address] 10/22/2012 10:57:07 10/22/2012 13:24:01 [id number] [facility] [address] [place] [address] 09/06/2013 13:06:18 09/06/2013 15:11:33 Long-term drug therapy 831839583 Adult heal th examination 931149564 Obesity 508008411 Asthma 822836894 Body mass index 30+ - obesity 252038215 Screening mammography 84130893 [id number] ELIANA Betancourt [facility] [place] [facility] [address] [place] [address] 11/30/2013 10:19:00 11/30/2013 13:52:15 Varicose veins of lower extremity 41043131 Knee pain 09831248 [id number] [place] [facility] [address] [place] [address] 05/10/2014 15:32:59 05/10/2014 16:24:39 Dependent edema [id number] [place] [facility] [address] [place] [address] 09/19/2014 13:00:08 09/19/2014 17:34:10 Adult health examination 429796525 Dependent edema 235272013 Obesity 384087205 Long-term drug therapy 791104944 Administra tion of pneumococcal vaccine 24710371 Screening mammography 66205165 Disorder o f bone and articular cartilage 586869771 Asthma finding 288871564 [id number] ELIANA Betancourt [place] [facility] [address] [place] [address] 11/06/2014 09:33:20 11/06/2014 13:43:57 Laceration of forearm 572598485 Injury of head 11579073 Laceration of lip 455714354 [id number] Meg Jones MD [place] [facility] [address] [place] [address] 11/08/2014 11:19:55 11/08/2014 13:08:42 Laceration of forearm 991451318 Postconcus coni syndrome 21034900 Contusion of knee 72992578 Fall [id number] Meg Jones MD [place] [facility] [address] [place] [address] 11/13/2014 11:22:14 11/13/2014 13:21:17 Laceration of forearm 202203462 Candidiasis of mouth 96253052 [id number] Meg Jones MD [place] [facility] [address] [place] [address] 11/16/2014 09:51:30 11/16/2014 10:15:42 Gingivostomatitis 11529802 [id number] Meg Jones MD [place] [facility] [address] [place] [address] 11/22/2014 14:27:17 11/22/2014 15:37:52 Glossitis 14467245 Laceration of lip 042303118 [id number] [facility] [address] [place] [address] 11/29/2014 13:58:04 11/29/2014 17:15:23 Laceration of forearm 889971486 Laceration of lip 175409569 [id number] Meg Jones MD [place] [facility] [address] [place] [address] 12/11/2014 13:49:11 12/11/2014 14:41:27 Laceration of forearm 624138529 Skin eschar 529531426 [id number] Meg Jones MD [place] [facility] [address] [place] [address] 01/29/2015 15:42:50 01/29/2015 16:45:47 Candidiasis of skin 13071560 B37.2 [id number] Meg Jones MD [place] [facility] [address] [place] [address] 02/13/2015 10:38:57 02/13/2015 12:06:27 Candidiasis of skin 49915031 B37.2 Benign ess ential hypertension 7892486 I10 Lesion of breast 4423737 04 N64.9 Eruption 990583535 R21 Long-term drug therapy 064451543 Z79.030 [id number] MD [facility] [address] [place] [address] 04/06/2015 10:26:39 04/06/2015 14:45:37 Eruption 667393105 R21 Upper resp iratory infection 52899042 J00 Lesion of skin of face 9899455927 06 L98.9 Cheilitis 8586485 K13.0 [id number] Meg Jones MD [place] [facility] [address] [place] [address] 05/04/2015 09:47:55 05/04/2015 13:49:50 Eruption 497856728 R21 Angular cheilitis 102547 005 K13.0 [id number] Meg Jones MD [place] [facility] [address] [place] [address] 07/03/2015 10:50:53 07/03/2015 16:20:46 Bronchitis 02066441 J40 Asthma 658055992 J45.90 9 [id number] Meg Jones MD [place] [facility] [address] [address] [place] [address] 07/26/2015 10:51:58 07/26/2015 12:01:09 Edema of lower extremity 745603239 R60.0 Candidiasis of skin 4988 3006 B37.2 [id number] Meg Jones MD [place] [facility] [address] [place] [address] [place] [address] 09/24/2015 12:56:16 09/24/2015 16:30:42 Pain in left knee 8640118761 72315 M25.562 Dependent edema 38156223 4 R60.0 Allergic rhinitis 534124 04 J30.9 Ganglion cyst 957403119 M67.441 Liver enzy mes outside reference range 562343928 R94.5 Obesity 698871594 E66.9 Asthma 319458902 J45.90 9 Adult heal th examination 843607624 Z00.01 Z72.89 Z79.899 E78.5 E55.9 R53.83 Varicose v eins of lower extremity 34327610 I83.565 [id number] Meg Jones MD [place] [facility] [address] [place] [address] 02/15/2016 14:28:28 02/15/2016 15:55:15 Tinea corporis 01341191 B35.4 Candidiasis of skin 4988 3006 B37.2 [id number] MD [facility] [address] [place] [address] 03/11/2016 14:05:48 03/11/2016 16:21:40 Tinea corporis 47064478 B35.4 Acute bronchitis 0503696 2 J20.9 Pneumonia 771190604 J18. 9 Cough 94876039 R05 Upper resp iratory infection 29033740 J06.9 [id number] Meg Jones MD [place] [facility] [address] [place] [address] 04/22/2016 14:33:17 04/22/2016 17:35:48 Pain in left knee 7974919507 21994 M25.562 Osteoarthr itis of knee 714149177 M17.12 [id number] Meg Jones MD [place] [facility] [address] [address] [place] [address] 07/11/2016 11:13:06 07/11/2016 11:50:08 Candidiasis of mouth 72904454 B37.0 Fatigue 58994047 R53.83 Pain in left knee 558454 5263 02649 M25.331 [id number] Meg Jones MD [place] [facility] [address] [place] [address] 10/22/2016 12:23:14 10/22/2016 14:36:16 Adult health examination 846591785 Z00.00 Screening for disorder 335488120 Z13.9 Anemia 304002756 D64.9 Osteoarthr itis of knee 906200561 M17.12 Pain in pelvis 81698771 R10.2 Obesity 017563768 E66.9 Shoulder pain 44825354 M 25.511 Screening mammography 24 501897 Z12.31 Osteoporosis 65148959 M8 1.0 N95.9 [id number] Meg Jones MD [place] [facility] [address] [place] [address] 01/13/2017 09:14:11 01/13/2017 10:08:30 Pain in right arm 912848032 M79.601 Cervical radiculopathy 47801933 M54.12 Osteopenia 239695069 M85 .80 [id number] Meg Jones MD [place] [facility] [address] [place] [address] 04/30/2017 10:23:58 04/30/2017 14:52:42 Cellulitis of finger 88759785 L03.848 [id number] Meg Jones MD [place] [facility] [address] [facility] [place] [address] 05/04/2017 10:06:59 05/04/2017 12:07:20 Cellulitis of finger 83190853 L03.338 [id number] Meg Jones MD [place] [facility] [address] [place] [address] [place] [address] 08/28/2017 14:04:39 08/28/2017 15:15:32 Urinary incontinence 083160824 R32 Morbid obesity 275924845 E66.01 Dietary ma nagement surveillance 034886824 Z71.3 [id number] Meg Jones MD [place] [facility] [address] [facility] [place] [address] 11/17/2017 13:14:51 11/17/2017 15:27:04 Adult health examination 471559230 Z00.00 Screening for disorder 589947852 Z13.89 Obesity 307300166 E66.9 Anemia 994655294 D64.9 R53.83 Z79.899 D50.8 Osteopenia 621627918 M85 .80 Essential hypertension 78520440 I10 Asthma 794800734 J45.90 9 [id number] Meg Jones MD [place] [facility] [address] [place] [address] 01/26/2018 08:18:01 01/26/2018 11:05:38 Morbid obesity 182547637 E66.01 Bladder mu scle dysfunction - overactive 865038316 N32.81 [id number] Meg Jones MD [place] [facility] [address] [place] [address] 07/30/2018 14:55:42 07/30/2018 16:01:26 Generalized anxiety disorder 72740112 F41.1 Pain of ri ght shoulder joint 2352458728 3249340 M25.511 Basal cell carcinoma of face 736308404 C44.173 [id number] Meg Jones MD [place] [facility] [address] [place] [address] 08/10/2018 14:32:11 08/10/2018 17:02:27 Spasm 49575468 R25.2 Generalize d anxiety disorder 33927521 F41.1 [id number] LUDMILA RIVERS MD [place] [facility] [address] [facility] [address] [place] [address] 09/20/2018 12:54:29 09/20/2018 13:27:16 Skin lesion 93067285 L98.9 [id number] LUDMILA RIVERS MD [place] [facility] [address] [facility] [address] [place] [address] 09/23/2018 10:46:08 09/23/2018 11:50:59 Basal cell carcinoma of face 887323797 C44.781 [id number] Meg Jones MD [place] [facility] [address] [facility] [address] [place] [address] 11/22/2018 09:39:42 11/22/2018 13:50:41 Adult health examination 499993139 Z00.00 Screening for disorder 192766837 Z13.89 Depression screening 171 985480 Z13.31 Obesity 040878868 E66.9 Essential hypertension 19309155 I10 Hyperlipidemia 84373821 E78.5 Fatigue 61801549 R53.83 Varicose v eins of lower extremity 47977420 I83.819 Screening for malignant neoplasm of breast 709697973 Z12.31 Menopausal syndrome 1237 20555 N95.9 Asthma 134727208 J45.90 9 Medication monitoring 39 6731110 Z51.81 Urinary incontinence 165 753657 R32 Degenerati ve joint disease involving multiple joints 379288704 M15.9 [id number] Meg Jones MD [place] [facility] [address] [place] [address] 12/23/2018 13:32:18 12/23/2018 16:00:14 Morbid obesity 934697231 E66.01 Anxiety disorder 0962351 06 F41.9 Medication monitoring 39 0344721 Z51.81 [id number] Meg Jones MD [place] [facility] [address] [place] [address] 03/07/2019 15:51:00 03/07/2019 17:03:05 Pain in right foot 9612771873 32121 M79.671 Candidiasis of skin 4988 3006 B37.2 [id number] Meg Jones MD [place] [facility] [address] [place] [address] 11/28/2019 12:56:17 11/28/2019 14:52:58 Adult health examination 348598647 Z00.00 Screening for disorder 590553072 Z13.89 Depression screening 171 666724 Z13.31 Screening mammography 24 063922 Z12.31 Eruption 365415358 R21 Dermatitis of right external ear canal 6853799753 516925 H60.91 Pain in left knee 011292 4664 10970 M25.562 Rash of groin 9350206982 2772184 R21 Dependent edema 78596848 4 R60.0 [id number] Meg Jones MD [place] [facility] [address] [place] [address] 03/16/2020 14:44:51 03/16/2020 16:10:07 Tinea corporis 65818264 B35.4 Pain in left knee 608110 2893 98709 M25.562 Generalize d anxiety disorder 28651758 F41.1 Insomnia 450419563 G47.0 0 [id number] MD [facility] [address] [place] [address] 04/04/2020 13:11:04 04/04/2020 15:38:19 Eruption 015754130 R21 Pain in left knee 084249 7667 77583 M25.562 [id number] Meg Jones MD [place] [facility] [address] [place] [address] 04/17/2020 14:14:47 04/17/2020 16:43:20 Obesity 434178552 E66.9 Pain in left knee 254139 5615 59252 M25.562 Anxiety disorder 0933384 06 F41.9 Insomnia 351355696 G47.0 0 [id number] GELACIO EVANS [place] [facility] [address] [place] [address] 04/28/2020 14:07:47 04/28/2020 15:08:28 Superficial laceration of hand 887901138 S61.411A [id number] Meg Jones MD [place] [facility] [address] [place] [address] 04/30/2020 13:36:28 04/30/2020 16:19:49 Laceration of finger of left hand 4257886347 2477956 S61.211A Laceration of right hand 4483891878 7531851 S61.411A [id number] Meg Jones MD [place] [facility] [address] [place] [address] 06/18/2020 10:58:11 06/18/2020 12:25:22 Left lower zone pneumonia 432487144 J18.1 Cough 49183801 R05 Asthma 336952196 J45.90 9 [id number] Meg Jones MD [place] [facility] [address] [place] [address] 11/28/2020 12:48:10 11/28/2020 14:23:59 Adult health examination 912165061 Z00.00 Screening for disorder 495004649 Z13.89 Depression screening 171 601419 Z13.31 Essential hypertension 29208821 I10 Morbid obesity 626708197 E66.01 Fatigue 39433991 R53.83 Screening mammography 24 072597 Z12.31 Menopausal syndrome 1237 14311 N95.9 Multiple joint pain 3567 8005 M25.50 Asthma 435716542 J45.90 9 Pain in left knee 185770 3756 63180 M25.562 [id number] Jacob Sanders MD [facility] [address] [place] [address] 06/19/2021 12:32:46 06/19/2021 13:53:38 Pain of left knee joint 0607868006 94910 M25.562 History of total knee arthroplasty 4714937581 105 Z96.659 patient has a history of right knee replacemen t 19 years ago and left knee replacemen t 6 years ago. She is having some intermitte nt pain on the left knee. We had a long discussion about risks and benefits. I do not see any obvious loosening of the left knee component. The pain is intermitte nt. She understand s that future interventi on would potentiall y warrant revision surgery. We have discussed taking infection labs today but the patient would like to start with Voltaren gel and home exercises. If her symptoms worse the patient will undergo blood tests for inflammato ry markers. We will consider aspiration of the knee if condition worsens or sending her to a revision specialist . DIAGNOSTIC TEST: ?Radiogra phs of the left kneeDATE: [facility] IND[facility] : Knee painCOMPAR DOM: Any prior imaging within the [facility] system was reviewed.T ECHNIQUE: AP, lateral, sunrise and notch view of the left knee were reviewed.W ithFINDING S: ?Radiogra phs of the left knee revealed intact total knee replacemen t. No evidence of loosening or periprosth etic fracture. Alignment is overall well maintained No obvious masses or lesions in the soft tissues. Right knee also has a total knee replacemen t with limited views. No obvious loosening. IMPRESSION : ?Radiogra phs of the left knee intact total knee replacemen t. Health Concerns Section Related Observation LastModified by Organization Detai ls LastModified Time None Recorded Concern Status LastModified by Organization Details LastModified Time None Recorded Advance Directives Directive N: Payers Encounter Date Sequence Insurance Name Policy Number Policy Warren Covered Member ID Warren Member ID Guarantor Name 04/28/2020 1 [employer] (MEDICARE REPLACEMENT HMO) Padma S Houde [id number] Padma S Houde 04/30/2020 1 [employer] (MEDICARE REPLACEMENT HMO) Padma S Houde [id number] Padma S Houde 06/18/2020 1 [employer] (MEDICARE REPLACEMENT HMO) Padma S Houde [id number] Padma S Houde 11/28/2020 1 [employer] (MEDICARE REPLACEMENT HMO) Padma S Houde [id number] Padma S Houde 06/19/2021 1 [employer] (MEDICARE REPLACEMENT HMO) Padma S Houde [id number] Padma S Houde Notes Date Note Type Note Provider Name and Address Organization Details Recorded Time 04/28/2020 text/html patient presents with complaints of a skin tear to the back of her right hand which occurred today after a fall. She did not hit her head. She also has a small wound to her left index finger. She is not on blood thinners and is not up-to-date on her tetanus. She states that pain is minimal and located to the areas of injury. No fevers or chills, cough shortness breath, chest pain or palpitation. No alleviating or exacerbating factors. GELACIO EVANS [address], [place], [address], [facility] [place] 04/28/2020 15:05:49 04/30/2020 text/html this is a 75-year-old obese female who fell 2 and half days ago and comes in today for wound check and hospital follow-up there was no loss of consciousness Meg Jones MD [address], [place], [address], [facility] [place] 04/30/2020 19:14:31 06/18/2020 text/html 75-year-old leta spicer female on seeing today because her asthma is very bad I was not aware that she had asthma she tells me that she has for many years she thinks it is bad right now, no fever no vomiting no diarrhea Meg Jones MD [address], [place], [address], [facility] [place] 06/18/2020 20:15:51 11/28/2020 text/html 75-year-old leta spicer female who comes in for her annual wellness check. She today wants to pursue a treatment for her own morbid obesity and as requested medications to help her lose weight. She would like to discuss her anxiety she is no longer taking medication for it though he she bit of foot compulsive eater. She has serious knee pain since having her left knee replaced it has never felt the same and without her Advair type inhaler medicine she said she wheezes quite a bit she would like to discuss that Meg Jones MD [address], [place], [address], [facility] [place] 11/28/2020 20:58:53 06/19/2021 text/html KneeReported bypatient.Location: right Quality:sharp; constant Severity:pain level 8/10 Duration:3 years Timing:chronic Context:cannot identify Alleviating Factors:OTC medication; NSAIDs Aggravating Factors:sitting; standing Previous Surgery:none Prior Imaging:none Previous Injections:none Previous PT:none Work Related:no Working:no 06/19/21 patient is a 76-year-old female here for evaluation of left knee pain. She has had prior bilateral total knee replacements. The 1st was by Dr. Corea on her right 19 years ago. The 2nd was by Dr. bains on her left 6 years ago. Patient reports that she has intermittent moderate to severe pain on the left. She denies any fevers or chills. Pain is worse while walking. I am seeing the patient at the request of Dr. Jones. Consultation is greatly appreciated and documentation will be forwarded Jacob Sanders MD [address], [place], [address], [facility] [place] 06/21/2021 07:28:13 OBGyn Episode No OBEpisode recorded.
[2024-06-15 13:51] LABS: Appearance Urine Clear; Color Urine Yellow; Glucose Urine UA Negative (Negative); Leukocyte Esterase Urine Negative (Negative); Nitrite Urine Negative (Negative); PH 5.5 (5.0-9.0); Urine Blood Negative (Negative); Urine Ketones Negative (Negative); Urine Protein Negative (Neg-Trace)
[2024-06-15 14:15] LABS: Alanine Aminotransferase 12 U/L (0-31); Albumin Level 3.7 g/dL (3.5-5.0); Anion Gap 12 (12-20); Aspartate Amino Transferase 25 U/L (5-31); Bilirubin Total 1.1 mg/dL (0.0-1.0); Blood Urea Nitrogen 27 mg/dL (9-16); Calcium 9.5 mg/dL (8.4-10.2); Carbon Dioxide 27 mmol/L (22-29); Chloride 108 mmol/L (96-108); Estimated Glomerular Filt Rate 49; Glucose Random 92 mg/dL (60-115); Potassium 3.9 mmol/L (3.3-5.1); Sodium 143 mmol/L (135-145); Total Protein 6.8 g/dL (6.5-8.0)
[2024-06-15 14:27] LABS: Alkaline Phosphatase 70 U/L (39-117)
== END 2024-06-15 10:45 | disposition home or self-care (01) ==
LOC: HO.HMGCLDS 10:44
PROVIDERS: PCP Nurse Practitioner Family; Visit Provider Nurse Practitioner Family
DX: I10 Essential (primary) hypertension (principal); R35.0 Frequency of micturition; R32 Unspecified urinary incontinence; R39.15 Urgency of urination
CPT/HCPCS: 36415; 80053; 81003; 87086

== ENCOUNTER 2024-06-20 13:14 | Outpatient (AMB) | payer MEDICARE, SELFPAY ==
--- NOTE | 2024-06-20 13:47 | A.OFFVIS_ITS ---
Intake Visit Reasons: 6 month follow up/ PVR Intake Note: Patient presents for follow up on: incontinence Urology Medications: myrbetriq Allergies to Antibiotic: none Blood Thinner: apixaban PVR: 0ml's Clipper And Turner Required: No Accompanied by: daughter and spouse Allergies No Known Allergies Allergy (Verified 06/20/24 14:21) Medication List - Last Reconciled 06/20/24 by WILMAN Olmedo albuterol sulfate 2.5 mg (3 mL) inhalation Q6H PRN albuterol sulfate 90 mcg/actuation 2 puffs inhalation Q6H PRN cholecalciferol (vitamin D3) 50 mcg PO DAILY ferrous sulfate (Feosol) 325 mg PO DAILY fluticasone propion-salmeterol 250-50 mcg/dose (Wixela Inhub) 1 ea inhalation BID furosemide 20 mg PO DAILY 90 days hydrocortisone 2.5% 1 appl topical BID PRN lisinopril 20 mg PO DAILY 90 days metoprolol succinate ER 50 mg PO DAILY 90 days mirabegron ER (Myrbetriq) 25 mg PO DAILY 90 days HPI Comments Details: Padma is a very pleasant 78-year-old female patient of Dr. Soriano who was accompanied by her and daughter at today's office visit. She has a past medical history of atypical meningioma of the brain, osteoporosis, osteoarthritis, osteopenia, asthma, DVT, hypertension, idiopathic peripheral neuropathy, anxiety, anemia, and basal cell carcinoma. She presents to the office today for follow-up. In discussion with the patient today she reports to be doing and feeling well. She denies having had any bothersome urinary issues or concerns since her last office visit here. She discusses how helpful Myrbetriq has been in lower urinary tract symptoms she had been experiencing of urinary urgency, urinary frequency, and mixed urinary incontinence. In office urinalysis results reviewed with the patient today. PVR 0 mL. Previous workup has included a retroperitoneal ultrasound 11/20 nothing no hydronephrosis or renal calculi noted bilaterally. A few small right simple appearing cysts are noted the largest measuring 1.9 cm. The bladder is well distended and normal. Bilateral ureteral jets are demonstrated. Pre void bladder volume is approximately 200 mL. Postvoid bladder volume is approximately 10 mL. Incidental uterine endometrium appears thickened measuring up to 1.2 cm. She denies hematuria, dysuria, foul smelling urine, changes to urinary stream, flank pain, fever, and or chills. She does report noting episodes of urinary frequency and urgency after consumption of her diuretic however feels symptoms are manageable. She otherwise offers no other issues or concerns at this time. 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 Cognitive needs: No Hearing needs: No Vision needs: No Review of Systems Const Reports no additional complaints Eyes Reports no additional complaints ENT Reports no additional complaints Card Reports as per [facility] Resp Reports as per HPI GI Reports no additional complaints Reports as per [facility] Musc Reports as per [facility] Neuro Reports as per HPI Psych Reports as per HPI Endo Reports no additional complaints Elieser/Lymph Reports as per HPI Aller/Immun Reports no additional complaints Physical Exam Const General: cooperative, healthy appearing, comfortable, no acute distress, well developed, alert and awake Orientation/consciousness: patient oriented x3 Limitations: no limitations HEENT Head: Yes normal to inspection, Yes normocephalic and Yes atraumatic Ears: hearing grossly normal bilaterally Eyes General: appearance normal, both eyes and all related structures Neck Neck: Yes normal visual inspection and Yes trachea midline Chest Chest palpation & inspection: normal inspection of the chest Resp Effort & Inspection: normal respiratory effort and able to speak in complete sentences Cardio Rate: regular rate GI Inspection: Yes normal to inspection General: Yes no CVA tenderness Back/Spine/Pelvis Back: no CVA tenderness Skin General skin exam: no rashes or lesions noted Neuro General: patient oriented x3 Extrem General: Yes normal to inspection Psych Appearance: grossly normal and well kempt Mental Status: mental status grossly normal Speech and movement: Normal speech and movement present and Clear speech present Affect: normal affect Attitude: cooperative Thought process: Normal thought process present Thought content: Normal thought content present Insight: Fair insight present (Psych) Judgement: Fair judgement present (Psych) Office Procedures Post Void Residual Post Residual Void Post Void Residual (PVR): 0 31541-Cpnf Void Residual by ultrasound Results AMB Urinalysis, Automated UA Leukoctes 0 Amparo/uL Last Edit by [employer] on 06/20/24 14:12 UA Nitrite Last Edit by [employer] on 06/20/24 14:12 UA Urobilinogen 0.2 mg/dL Last Edit by [employer] on 06/20/24 14:12 UA Protein 15 mg/dL Last Edit by [employer] on 06/20/24 14:12 UA pH 6.0 Last Edit by [employer] on 06/20/24 14:12 UA Blood 0 Ramon/uL Last Edit by [employer] on 06/20/24 14:12 UA Specific [place] 1.025 Last Edit by [employer] on 06/20/24 14:12 UA Ketone Negative Last Edit by [employer] on 06/20/24 14:12 UA Bilirubin 0 mg/dL Last Edit by [employer] on 06/20/24 14:12 UA Glucose 0 mg/dL Last Edit by [employer] on 06/20/24 14:12 Results Reviewed Results Reviewed: Laboratory Last Values Urine pH (Auto) 6.0 06/20/24 14:01 Specific [place] (Auto) 1.025 06/20/24 14:01 Urine Protein (Auto) 15 mg/dL 06/20/24 14:01 Glucose (UA)(Auto) 0 mg/dL 06/20/24 14:01 Urine Ketones (Auto) Negative 06/20/24 14:01 Urine Blood (Auto) 0 Ramon/uL 06/20/24 14:01 Urine Bilirubin (Auto) 0 mg/dL 06/20/24 14:01 Urine Urobilinogen (Auto) 0.2 mg/dL 06/20/24 14:01 Leukocyte Esterase (Auto) 0 Amparo/uL 06/20/24 14:01 Assessment & Plan Assessment & Plan (1) Thickened endometrium: Code(s): R93.89 - Abnormal findings on diagnostic imaging of other specified body s tructures Category: Medical (2) Urinary incontinence, mixed: Code(s): N39.46 - Mixed incontinence Category: Medical (3) Renal cyst: Code(s): N28.1 - Cyst of kidney, acquired Category: Medical Plan In office urinalysis results reviewed with the patient today; as noted above. PVR 0 mL. Continue Myrbetriq as discussed and prescribed; refill provided She currently denies any bothersome urinary issues or concerns. She reports be happy with current voiding parameters on Myrbetriq. Continue timed/scheduled voiding. Follow-up in 1 year with PVR; or sooner with any issues, concerns, and or questions. Orders: Orders AMB Urinalysis Automated Today Z13.9 - Encounter for screening, unspecified AMB Post Void Residual by ultrasound Today R35.0 - Frequency of micturition Medications: Refilled mirabegron ER (Myrbetriq) 25 mg PO DAILY 90 days 90 tabs 4RF N30.10 - Interstitial cystitis (chronic) without hematuria, N32.81 - Overactive bladder, R35.1 - Nocturia, R39.15 - Urgency of urination Patient Instructions: The patient had an opportunity to ask questions regarding the treatment plan. All questions were answered. Physical exam, labs, and imaging were discussed and reviewed in detail. As well as risks, benefits, and discussion of treatment cho ices. No major barriers to understanding were identified. The patient expressed understanding and agreement with the above treatment plan. The patient was made aware they should contact our office by phone for worsening of their current condition, the appearance of new symptoms, or with any questions or concerns. Compliance is encouraged with any medications and follow up testing that is ordered. It is a privilege to be allowed the opportunity to participate in? your urological care.? Again, if you have any questions or concerns If you have any questions or concerns please do not hesitate to contact me. The office is [phone]. This note is constructed using voice recognition software. While every effort has been made to ensure accuracy medication care manager errors may have been included. Yours sincerely, POWER Olmedo-BC Coding Level of Care Code Est Pt Level 3 (02092) Complex EM visit Add On G2211 Diagnoses Thickened endometrium R93.89 Urinary incontinence, mixed N39.46 Renal cyst N28.1 CPT Codes Post Residual Void - PVR CPT Code: 44569-Lkkr Void Residual by ultrasound ([id number])
== END 2024-06-20 14:19 | disposition home or self-care (01) ==
LOC: HO.HUSH 13:15
PROVIDERS: PCP Nurse Practitioner Family; Visit Provider Nurse Practitioner Family
DX: R93.89 Abnormal findings on diagnostic imaging of other specified body structures (principal); N39.46 Mixed incontinence; N28.1 Cyst of kidney, acquired; Z13.9 Encounter for screening, unspecified
CPT/HCPCS: 99213; G2211

== ENCOUNTER → 2024-06-20 13:14 | Outpatient (BNVA) | payer MEDICARE, SELFPAY | PROVIDERS: PCP Nurse Practitioner Family; Visit Provider Nurse Practitioner Family | DX: N39.46 Mixed incontinence (principal); N30.10 Interstitial cystitis (chronic) without hematuria; N32.81 Overactive bladder; N28.1 Cyst of kidney, acquired; R35.0 Frequency of micturition; R93.89 Abnormal findings on diagnostic imaging of other specified body structures; R35.1 Nocturia; R39.15 Urgency of urination | CPT/HCPCS: 51798; 81003; 99212 ==

== ENCOUNTER 2024-07-14 12:37 | Outpatient (AMB) | payer MEDICARE, SELFPAY ==
--- NOTE | 2024-07-14 12:41 | A.OFFPC_ITS ---
Vital Signs 07/14/24 12:45 Height 5 ft Weight 223 lb 6 oz BMI 43.6 BP 132/76 Blood Pressure Location Lt brachial Position Sitting Pulse 75 Pulse Source Pulse Oximeter Pulse Oximetry (%) 96 Oxygen Delivery Method Room Air Intake Visit Reasons: 5 months follow up - see comments Allergies No Known Allergies Allergy (Verified 07/14/24 12:45) Medication List - Last Reconciled 07/14/24 by BRENNA BarkleyP- albuterol sulfate 2.5 mg (3 mL) inhalation Q6H PRN albuterol sulfate 90 mcg/actuation 2 puffs inhalation Q6H PRN cholecalciferol (vitamin D3) 50 mcg PO DAILY clotrimazole-betamethasone 1-0.05 % 1 appl topical BID 2 weeks ferrous sulfate (Feosol) 325 mg PO DAILY fluticasone propion-salmeterol 250-50 mcg/dose (Wixela Inhub) 1 ea inhalation BID furosemide 20 mg PO DAILY 90 days hydrocortisone 2.5% 1 appl topical BID PRN lisinopril 20 mg PO DAILY 90 days metoprolol succinate ER 50 mg PO DAILY 90 days mirabegron ER (Myrbetriq) 25 mg PO DAILY 90 days Tobacco use date assessed: 07/14/24 Last assessed Fall Risk: 07/14/24 Dental Screening Dental Screen Date: 07/14/24 Did you have a dental problem in the last 6 months where you did not have access to dental care?: No HPI 5 months follow up - see comments HPI Details Chief Complaint The patient presents with left lower back pain. History of Present Illness The patient is an 79-year-old female presenting with musculoskeletal pain in the left lower back, without associated radicular symptoms, and no signs or symptoms suggestive of cauda equina syndrome. The pain has been persistent and non- radiating. She indicates a possible musculoskeletal basis for the discomfort. Additionally, a rash has been noted on her left upper breast, presenting as a macular erythematous lesion with borders and dry texture, a recurrent issue especially when in [place]. The patient is morbidly obese, which might contribute to her back pain. Social History - Present with her daughter and during the visit. Health Maintenance Review of Systems - Musculoskeletal: Reports left lower ba ck pain; Denies radicular symptoms or signs of cauda equina syndrome. - Dermatological: Reports a rash on the left upper breast. Physical Exam General: Cooperative, healthy appearing, comfortable, no acute distress and well developed, morbidly obese Orientation: Patient oriented x3 Limitations: No limitations Head: Normal to inspection Ears: Hearing grossly normal bilaterally Nose: Normal external nose present Face and sinus: Normal facial exam Eyes: Appearance normal, both eyes and all related structures Neck: Normal visual inspection and Yes full ROM Respiratory: Normal respiratory effort and able to speak in complete sentences. Clear to auscultation bilaterally Cardiovascular: Regular rate and rhythm. Normal S1 and S2 GI: Normal to inspection. Soft to palpation and nontender Skin: a faint, more macular, erythema with borders and somewhat dry (tinea) Neuro: Patient oriented x3 Extremities: Normal to inspection, negative straight leg raises, positive patellar reflexes Results - Tests: X-ray planned for musculoskelet al evaluation. Plan The patient?s musculoskeletal pain, believed to be musculoskeletal in nature, is slated for further evaluation with an x-ray to obtain a definitive cause. Management will likely encompass addressing her obesity to alleviate pressure on the musculoskeletal system. A topical cream is prescribed for the rash on her breast area. The respiratory examination revealed clear lungs, requiring no further action at this time. Discussion Notes During the visit, I discussed the likely musculoskeletal origin of the patient's back pain, with consideration given to her obesity as a contributing factor. The benefits and necessity of x-ray imaging to better assess the underlying issue were explained. For the diagnosed rash, a topical cream was recommended, detailing its application and anticipated benefits. The necessity for potential lifestyle modifications to address obesity was briefly introduced, considering its role in exacerbating musculoskeletal symptoms. The clear respiratory findings were relayed, with emphasis on the importance of monitoring for any changes. Consent for treatment plans was obtained. Patient Instructions - Use topical cream as provided for the rash. - Watch for changes in back pain, and no tify me of any new symptoms. - Follow up with any recommended lifesty le modifications to assist in weight management. - Look out for any changes and inform fa toño members. 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 1. Little interest or pleasure in doing things: not at all 2. Feeling down, depressed, or hopeless: not at all 3. Trouble falling or staying asleep, or sleeping too much: not at all 4. Feeling tired or having little energy: not at all 5. Poor appetite or overeating: not at all 6. Feeling bad about yourself - or that you are a failure or have let yourself or your family down: not at all 7. Trouble concentrating on things, such as reading the newspaper or watching television: not at all 8. Moving or speaking so slowly that other people could have noticed. Or the opposite - being so fidgety or restless that you have been moving around a lot more than usual: not at all 9. Thoughts that you would be better off or of hurting yourself in some way: not at all Total score: 0 Depression Screening Interpretation: Negative Depression Screening Done: Yes 48341 - PHQ-9 Billing: Yes Source: Developed by Drs. Kannan Welsh, Akiko Sanchez, Sukumar Son and colleagues, with an educational mignon from [employer] Thrive Questionnaire Date Thrive assessed: 07/14/24 I am a: Patient What is your living situation today?: I have a steady place to live Within the past 12 months, did the food you bought not last and you didn't have the money to get more?: Never true Within the past 12 months, did you worry whether your food would run out before you got money to buy more?: Never true Do you have trouble paying for medicines?: No Do you have trouble getting transportation to medical appointments?: No Do you have trouble paying your heating and electricity bill?: No Do you have trouble taking care of your child, family member or friend?: No Do you have trouble with day-to-day activities such as bathing, preparing meals, shopping, managing finances, etc.?: No Are you currently unemployed and looking for a job?: No Are you interested in more education?: No Please select the resources that you would like help with: None Currently or been in a relationship where the following occur: No concerns reported THRIVE Score: 0 AUDIT C Alcohol Use Questionnaire (AUDIT-C) 1. How often do you have a drink containing alcohol?: Never 3. How often do you have six or more drinks on one occasion?: Never Total Score: 0 Score Reviewed/Action Taken: Yes ALEISHA-7 AMB Questionnaire ALEISHA-7 Date ALEISHA - 7 assessed: 07/14/24 Feeling nervous, anxious, or on edge: 0 = Not at all Not being able to stop or control worryin = Not at all Worrying too much about different things: 0 = Not at all Trouble relaxin = Not at all Being so restless that it is hard to sit still: 0 = Not at all Becoming easily annoyed or irritable: 0 = Not at all Feeling afraid as if something awful might happen: 0 = Not at all Total ALEISHA-7 score (0-4 normal; 5-9 mild; 10-14 moderate; 15-21 severe): 0 Source: Developed by Drs. Kannan Welsh, Akiko Sanchez, Sukumar Son and colleagues, with an educational mignon from [employer]. ALEISHA-7 Assessment Billing ALEISHA-7 Assessment Tool: ALEISHA-7 Assessment 85460 Physical exam (Primary Care) Vital Signs: Last Vital Signs Pulse 75 07/14/24 12:45 BP 132/76 07/14/24 12:45 Pulse Ox 96 07/14/24 12:45 Oxygen Delivery Method Room Air 07/14/24 12:45 BMI result Body Mass Index 43.6 Tobacco/Smoking Status: Tobacco use Status Tobacco use date assessed 07/14/24 07/14/24 12:47 Patient Tobacco Use Status Never used Tobacco 07/14/24 12:42 e-Cigarette/Vaping Use Never Used 07/14/24 12:42 PHQ-9: PHQ-9 Score PHQ-9: Total score 0 07/14/24 12:47 Depression Screening Interpretation: Negative Thrive Assessment: Date of Thrive Assessment Date Thrive assessed 07/14/24 07/14/24 12:47 Currently or been in a relationship where the following occur: No concerns reported Coding Level of Care Code Est Pt Level 3 (93108) Diagnoses Lower back pain M54.50 Rash R21 Additional Codes ALEISHA-7 Assessment Billing - ALEISHA-7 Assessment Tool: ALEISHA-7 Assessment 09576 ([id number]) PHQ-9 - 83636 - PHQ-9 Billing: Yes ([id number]) Assessment & Plan Assessment & Plan (1) Lower back pain: Code(s): M54.50 - Low back pain, unspecified Category: Medical (2) Rash: Code(s): R21 - Rash and other nonspecific skin eruption Category: Medical Plan . Orders: Orders Complete Blood Count Auto Diff Today E55.9 - Vitamin D deficiency, unspecified, Z00.00 - Encounter for general adult medical examination without abnormal findings TSH reflex Free T4 Today E55.9 - Vitamin D deficiency, unspecified, Z00.00 - Encounter for general adult medical examination without abnormal findings UA CC w/rflx Micro + Cult Today E55.9 - Vitamin D deficiency, unspecified, Z00.00 - Encounter for general adult medical examination without abnormal findings XR lumbar spine 2-3V Today M54.50 - Low back pain, unspecified Comprehensive [place]. Panel Fast Today E55.9 - Vitamin D deficiency, unspecified, Z00.00 - Encounter for general adult medical examination without abnormal findings Lipid Panel Today E55.9 - Vitamin D deficiency, unspecified, Z00.00 - Encounter for general adult medical examination without abnormal findings Vitamin D 25-OH Total Today E55.9 - Vitamin D deficiency, unspecified, Z00.00 - Encounter for general adult medical examination without abnormal findings Medications: New clotrimazole-betamethasone 1-0.05 % 1 appl topical BID 2 weeks 45 grams 0RF
[2024-07-14 12:45] VITALS: BP 132/76; PULSE 75; O2SAT 96; BMI 43.6
--- OUTSIDE RECORDS SUMMARY | 2024-07-14 15:25 | XMS_ITS | Data Portability ---
Author Organization [place] - [employer], [employer], [facility] Address [address] [place] [address] Care Team Providers Care Train Driver Name Role Phone MEG JONES Primary Care Provider MEG JONES Referring Provider [phone] MEG JONES Primary Care Provider Assessment Encounter [...] is bothering her understandably quite a bit [email or web address] Not available 04/22/2021 20:35:42 05/30/2021 05/30/2021 She is obese [email or web address] Not availabl e 05/30/2021 14:09:59 07/02/2021 07/02/2021 [...] no place started topical steroids which her interactive media designer gave her I do not believe that this will help her. 4. Asthma she tells me she is been coughing for 3 weeks though her lungs are clear and I have not heard her cough at all here today she can back off on her nebulizer it seems as though she is breathing comfortably on room air [email or web address] Not available 07/02/2021 14:18:24 12/04/2021 12/04/2021 Obesity, [...] office. Follow up other chacon as needed. [email or web address] Not available 12/04/2021 13:31:29 Plan of Treatment Reminders Order Date Submit Date Provider Last Modified By Organization Details Last Modified Time Details Appointments None recorded. Lab [facility], [facility], [address], [place], [address], 3 21:40:53 TSH, serum or plasma 2021 022 [facility], [address], [place], [address], 3 21:40:54 CBC 2021 [email or web address] [address] [facility], [address], [place], [address], 3 21:40:53 urinalysis, complete 2021 022 [place] [address] [facility], [address], [place], [address], 3 21:40:53 CMP, serum or plasma 2021 022 [place] [address] [facility], [address], [place], [address], 3 21:40:53 Referral vein specialist referral - [...] ([facility]), [address], [place], [address], 10:40:30 Procedures None recorded. Surgeries None recorded. Imaging MAMMO, screening, digital, bilateral - Please call the patient to schedule an appointment . 2021 022 [email or web address] ([facility]), [address], [place], [address], 3 07:54:49 US, duplex, venous, extremity, complete - Please call the patient to schedule an appointment . Possible DVT. 2021 022 [place] [facility] ([facility]), [address], [place], [address], 2 17:39:08 Medication Orders Plenity (Welcome Kit) 0.75 gram capsule 2021 022 [email or web address] [facility], [address], [address], [place], [address], 13:16:25 pentoxifyll ine ER 400 mg tablet,exte nded release 2021 [email or web address] [place] [address]/Pharmacy #[id number], [address] [facility] [address] [place], [address], 19:09:19 prednisone 20 mg tablet 2021 022 [facility]acy #[id number], [address] [facility] [address], [place], [address], 13:50:44 Patient TargetsNo targets recorded. Patient Instructions Encounter Date Encounter Id Patient Instructions Last Modified By Organization Details Last Modified Time 12/04/2021 [id number] advance directives: care instructions [email or web address] Not available 12/04/2021 14:01:45 learning about living haas [email or web address] Not available 12/04/2021 14:01:45 do not rescuscitate education [email or web address] Not available 12/04/2021 14:01:45 Advance Directives Education [...] bilat eral No observ ation record ed. [email or web address] [facility] [address], [address], 05/30/2021 14:08:19 12/05/19 22 12/04/2021 , agusto rust s, kenn nash, lamar ete No observ ation record ed. [email or web address] [facility] [phone] [place], [address], 12/06/2021 15:54:12 Result Notes None recorded. Problems Name Problem SNOMED Code Status Onset Date Resolution Date Notes Provider Name and Address Organization Details Recorded Time Asthma 697258682 Active Not Available [facility] 2 22:12:58 Anxiety disorder 867379861 Active 2018 Not Available [facility] 2 22:12:58 Idiopathic peripheral neuropathy 76602435 Active Not Available [facility] 2 22:12:58 Morbid obesity 353053442 Active 2017 Not Available [facility] 2 22:12:58 Osteoarthriti s of knee 964490516 Active 2016 Not Available [facility] 2 22:12:58 Disorder of bone and articular cartilage 810507919 Active Not Available [facility] 2 22:12:58 Anemia 361234358 Active 2016 Not Available [facility] 2 22:12:58 Osteopenia 183696814 Active 2016 Not Available [facility] 2 22:12:58 Basal cell carcinoma of face 550469431 Active 2018 Not Available [facility] 2 22:12:58 Deep venous thrombosis of lower extremity 878226252 Active Not Available [facility] 2 22:12:58 Obesity 454798914 Active Not Available [facility] 2 22:12:58 IgE-mediated allergic asthma 621083863 Active Not Available [facility] 2 22:12:58 Essential hypertension 86765798 Active 2017 Not Available [facility] 2 22:12:58 Allergic rhinitis 79893885 Active Not Available [facility] 2 22:12:58 Skin lesion 46087459 Active 2018 Not Available [facility] 2 22:12:58 Problem Notes None recorded. Procedures Surgical History Date Name Laterality Status Provider Name and Address Organization Details Recorded Time 12/05/19 22 Quality Functional Assessment completed Lily Mar [facility] 12/04/2021 11:14:06 12/05/19 22 Quality Medication Reviewed and Updated completed Lily Mar [facility] 12/04/2021 11:14:06 12/05/19 22 Quality BMI with follow up [facility] 12/04/2021 11:14:06 12/05/19 22 Quality Advanced Care Planning completed Lily Mar [facility], [facility] 12/04/2021 11:14:06 12/05/19 22 Quality Incontinence Screening [facility], [facility] 12/04/2021 11:14:06 12/05/19 22 Medicare AWV - Screening Schedule [facility] 12/04/2021 11:14:06 12/05/19 22 Counseling: Advanced care planning completed Cee Dangelo [facility], [facility] 12/04/2021 13:32:06 12/05/19 22 Quality Fall Risk Assessment [facility], [facility] 12/04/2021 11:14:06 02/07/20 21 screening for osteoporosis completed Cee Dangelo [facility], [facility] 04/22/2021 12:00:03 05/10/19 21 mammography completed Cee Dangelo [facility], [facility] 04/22/2021 11:59:47 03/30/19 17 total replacement of left knee joint completed Cee Dangelo [facility], [facility] 04/22/2021 11:57:21 03/30/19 13 [facility], [facility] 04/22/2021 11:59:27 03/30/19 04 total replacement of right knee joint completed Cee Dangelo [facility], [facility] 04/22/2021 11:57:11 excision of bunion completed [facility], [facility] 04/22/2021 11:58:53 Imaging Results Imaging Date Name Status LastModified by [facility] Details LastModified Time 05/14/2021 MAMMO, screening, bilateral completed [email or web address] [facility] [address], [address], 05/30/2021 14:08:19 12/04/2021 US, duplex, venous, extremity, complete completed [email or web address] [facility] [address], [place], [address], 12/06/2021 15:54:12 Procedure Notes None recorded. Medical [...] TWICE DAILY TO AREA ON THE RIGHT ANABAPTIST (AVOIDING THE BIOPSY SITES) FOR 7DAYS THEN [...] Available Not Available Nasonex 50 mcg/actuati on [place] 1 spray twice a day by intranasa [...] Available Not Available No t Available Fluvirin 4800-3392 45 mcg (15 mcg x 3)/0.5 mL intramuscul ar suspension INJECT 0.5 ML INTRAMUSC ULARLY DIRECTED. active Not Available Not Available No t Available Fluzone High-Dose (PF) 180 mcg/0.5 mL intramuscul ar syringe active Not Available Not Available N ot Available Fluzone High-Dose 7604-3029 (PF) 180 mcg/0.5 mL intramuscul ar syringe ADM 0.5ML IM UTD active Not Available Not Available No t Available Fluzone High-Dose 6131-3681 (PF) 180 mcg/0.5 mL intramuscul ar syringe [...] Available Not Available Not Available Fluad Quad 2496-5852(6 5yr up)(PF) 60 mcg (15 mcg x [...] 0 98 /min 18 /min 98 [degF] 26973.6 6 g 155 mm[Hg] 84 mm[Hg] Not [...] 0 18 /min 97.6 [degF] 43.8 kg/m2 95097.9 2 g 181 mm[Hg] 84 mm[Hg] 183 mm[Hg] 100 mm[Hg] Cee Dangelo [facility], [facility] 2 11:37:51 Date Recorded Body height Heart rate Pain severity - 0-10 verbal numeric rating [Score] - Reported Respiratory rate Body temperature Body mass index (BMI) Body weight Systolic blood pressure Diastolic blood pressure Provider Name and Address Organization Details Last Updated DateTime 2 148.59 cm 98 /min 0 18 /min 97.5 [degF] 45 kg/m2 53162.0 8 g 168 mm[Hg] 72 mm[Hg] ELIANA Paredes [facility], [facility] 2 13:25:46 Date Recorded Body height Heart rate Pain severity - 0-10 verbal numeric rating [Score] - Reported Respiratory rate Body temperature Body mass index (BMI) Body weight Systolic blood pressure Diastolic blood pressure Systolic blood pressure Diastolic blood pressure Provider Name and Address Organization Details Last Updated DateTime 2 148.59 cm 86 /min 0 18 /min 97.6 [degF] 46 kg/m2 012022. 39 g 173 mm[Hg] 83 mm[Hg] 135 mm[Hg] 70 mm[Hg] Cee Dangelo [facility], [facility] 2 13:50:14 Date Recorded Body height Heart rate Pain severity - 0-10 verbal numeric rating [Score] - Reported Respiratory rate Body temperature Body mass index (BMI) Body weight Systolic blood pressure Diastolic blood pressure Systolic blood pressure Diastolic blood pressure Provider Name and Address Organization Details Last Updated DateTime 2 149.86 cm 97 /min 0 18 /min 97.6 [degF] 44.8 kg/m2 231297. 51 g 179 mm[Hg] 89 mm[Hg] 134 mm[Hg] 70 mm[Hg] Lily Mar [facility], [facility] 2 12:58:47 Social History Question Answer Notes LastModified by Organizat ion Details LastModified Time Tobacco Smoking Status Never Smoker ELIANA Paredes, [facility], [facility] 04/22/2021 11:56:51 What Is Your Level Of Alcohol Consumption? Occasional [email or web address] Information not available 04/22/2021 Are You Currently Employed? No Information not available 04/22/2021 What Is Your Occupation? Retired [email or web address] Information not available 03/30/2021 What Was The Date Of Your Most Recent Tobacco Screening? 04/22/2021 [email or web address] Information not available 04/22/2021 What Is Your Relationship Status? [email or web address] Information not available 04/22/2021 Do You Use Any Illicit Or Recreational Drugs? No [email or web address] Information not available 04/22/2021 Has Tobacco Cessation Counseling Been Provided? Yes Information not available 12/04/2021 On What Date Was Tobacco Cessation Counseling Provided? 12/04/2021 Information not available 12/04/2021 Do You Or Have You Ever Used Any Other Forms Of Tobacco Or Nicotine? No [email or web address] Information not available 04/22/2021 Sex: Unknown Functional Status None recorded. Mental Status None recorded. Family History Relationship Description Onset Age of this Age Resolved Age Notes LastModified by Organization Details LastModified Time Mother Heart disease [email or web address] Not available 2021 11:56:18 Father of unknown cause [email or web address] Not available 2021 11:56:33 Notes:father at 77 of n atural causes mother at 67 unknown cause no brothers or sisters 2 children alive and well Medical History Condition Response Cancer (location) Y High blood pressure Y Anemia Y Urinary Problems Y Osteopenia/Osteoporosis Y Anxiety/Stress Y Blood Clots Y Asthma Y Allergies (other than meds) Y Gynecological HistoryNo gynecological history recorded. Obstetrics History GPAL:G 0 P 0 0 0 0 Immunizations Vaccine Type Date Status Note Provider Nam e and Address Organization Details Recorded Time Influenza, high-dose, quadrivalent, PF 2 completed Meg Jones MD [address] [facility], [place], [address], [facility], [facility] 12/04/2021 16:33:40 Influenza, high-dose, trivalent, PF 5 completed Lily Pateli null, [facility], [facility] 12/04/2021 11:14:37 Influenza, split virus, trivalent, preservative 4 completed Lily Pateli null, [facility], [facility] 12/04/2021 11:14:37 Influenza, split virus, quadrivalent, preservative 3 completed Cee Dangelo RMA null, [facility], [facility] 12/04/2021 13:13:56 Influenza, high-dose, trivalent, PF 2 completed Lily Pateli null, [facility], [facility] 12/04/2021 11:14:37 Influenza, split virus, trivalent, preservative 4 completed Lily Mar null, [facility], [facility] 12/04/2021 11:14:37 Influenza, split virus, trivalent, preservative 3 completed Lily Pateli null, [facility], [facility] 12/04/2021 11:14:37 tetanus toxoid, unspecified formulation 9 completed Lily Pateli null, [facility], [facility] 12/04/2021 11:14:38 zoster live 8 completed Lily Mar null, [facility], [facility] 12/04/2021 11:14:37 pneumococcal, unspecified formulation 8 completed Lily Pateli null, [facility], [facility] 12/04/2021 11:14:37 Td (adult), 5 Lf tetanus toxoid, preservative free, adsorbed 1 completed Lily Mar null, [facility], [facility] 12/04/2021 11:14:37 Pneumococcal conjugate PCV 13 5 completed Lily Mar null, [facility], [facility] 12/04/2021 11:14:37 Influenza, adjuvanted, trivalent, PF 8 completed Lily Dulski null, [facility], [facility] 12/04/2021 11:14:37 Influenza, high-dose, trivalent, PF 6 completed Lily Dulski null, [facility], [facility] 12/04/2021 11:14:37 Influenza, high-dose, quadrivalent, PF 1 completed Lily Dulski null, [facility], [facility] 12/04/2021 11:14:37 Influenza, split virus, trivalent, preservative 3 completed Lily Dulski null, [facility], [facility] 12/04/2021 11:14:37 pneumococcal, unspecified formulation 8 completed [facility] 12/04/2021 11:14:37 COVID-19, mRNA, LNP-S, PF, 100 mcg/0.5mL dose or 50 mcg/0.25mL dose 1 completed [facility] 12/04/2021 11:14:37 Influenza, split virus, trivalent, PF 0 completed [facility] 12/04/2021 11:14:37 Influenza, high-dose, trivalent, PF 7 completed Lily Dulski null, [facility], [facility] 12/04/2021 11:14:37 COVID-19, mRNA, LNP-S, PF, 100 mcg/0.5mL dose or 50 mcg/0.25mL dose 1 completed Lily Dulski null, [facility], [facility] 12/04/2021 11:14:37 COVID-19, mRNA, LNP-S, PF, 100 mcg/0.5mL dose or 50 mcg/0.25mL dose 1 completed Lily Dulski null, [facility], [facility] 12/04/2021 11:14:37 tetanus toxoid, unspecified formulation 9 completed Lily hassan, [facility], [facility] 12/04/2021 11:14:38 Influenza, adjuvanted, trivalent, PF 9 completed Lily Isabela hassan, [facility], [facility] 12/04/2021 11:14:38 COVID-19, mRNA, LNP-S, PF, 100 mcg/0.5mL dose or 50 mcg/0.25mL dose 2 completed Lily hassan, [facility], [facility] 12/04/2021 11:14:37 Past Encounters Encounter ID Performer Location Encounter Start Date Encounter Closed Date Diagnosis/Indication Diagnosis SNOMED-CT Code Diagnosis ICD10 Code Diagnosis Note [id number] [facility] [place] [address] [place] [address] [place] [address] 10/22/2012 00:00:00 10/26/2012 08:28:41 [id number] [facility] [place] [address] [place] [address] [place] [address] 09/06/2013 00:00:00 09/07/2013 21:41:30 [id number] [facility] [place] [address] [place] [address] [place] [address] 11/30/2013 00:00:00 11/30/2013 22:42:00 [id number] [facility] [place] [address] [place] [address] [place] [address] 05/10/2014 00:00:00 05/11/2014 22:00:37 [id number] [facility] [place] [address] [place] [address] [place] [address] 09/19/2014 00:00:00 09/19/2014 18:25:49 [id number] [facility] [place] [address] [place] [address] [place] [address] 11/06/2014 00:00:00 11/06/2014 20:16:24 [id number] [facility] [place] [address] [place] [address] [place] [address] 11/08/2014 00:00:00 11/08/2014 22:55:56 [id number] [facility] [place] [address] [place] [address] [place] [address] 11/13/2014 00:00:00 11/13/2014 19:56:28 [id number] [facility] [place] [address] [place] [address] [place] [address] 11/16/2014 00:00:00 11/16/2014 12:12:08 [id number] [facility] [place] [address] [place] [address] [place] [address] 11/22/2014 00:00:00 11/22/2014 20:57:12 [id number] [facility] [place] [address] [place] [address] [place] [address] 11/29/2014 00:00:00 11/29/2014 21:17:57 [id number] [facility] [place] [address] [place] [address] [place] [address] 12/11/2014 00:00:00 12/11/2014 17:00:49 [id number] [facility] [place] [address] [place] [address] [place] [address] 01/29/2015 00:00:00 01/29/2015 19:24:49 [id number] [facility] [place] [address] [place] [address] [place] [address] 02/13/2015 00:00:00 02/13/2015 19:36:14 [id number] [facility] [place] [address] [place] [address] [place] [address] 04/06/2015 00:00:00 04/06/2015 20:01:09 [id number] [facility] [place] [address] [place] [address] [place] [address] 05/04/2015 00:00:00 05/04/2015 20:56:40 [id number] [facility] [place] [address] [place] [address] [place] [address] 07/03/2015 00:00:00 07/03/2015 19:25:37 [id number] [facility] [place] [address] [place] [address] [place] [address] 07/26/2015 00:00:00 07/26/2015 12:20:55 [id number] [facility] [place] [address] [place] [address] [place] [address] 09/24/2015 00:00:00 09/24/2015 21:54:39 [id number] [facility] [place] [address] [place] [address] [place] [address] 02/15/2016 00:00:00 02/16/2016 11:14:32 [id number] [facility] [place] [address] [place] [address] [place] [address] 03/11/2016 00:00:00 03/11/2016 19:47:42 [id number] [facility] [place] [address] [place] [address] [place] [address] 04/22/2016 00:00:00 04/23/2016 20:04:09 [id number] [facility] [place] [address] [place] [address] [place] [address] 07/11/2016 00:00:00 07/11/2016 12:53:59 [id number] [facility] [place] [address] [place] [address] [place] [address] 10/22/2016 00:00:00 10/22/2016 18:37:46 [id number] [facility] [place] [address] [place] [address] [place] [address] 01/13/2017 00:00:00 01/13/2017 11:21:51 [id number] [facility] [place] [address] [place] [address] [place] [address] 04/30/2017 00:00:00 04/30/2017 16:35:49 [id number] [facility] [place] [address] [place] [address] 05/04/2017 00:00:00 05/04/2017 18:10:27 [id number] [facility] [place] [address] [place] [address] [place] [address] 08/28/2017 00:00:00 08/28/2017 20:18:52 [id number] [facility] [place] [address] [place] [address] [place] [address] 11/17/2017 00:00:00 11/17/2017 16:45:00 [id number] [facility] [place] [address] [place] [address] [place] [address] 01/26/2018 00:00:00 01/26/2018 14:03:01 [id number] [facility] [place] [address] [place] [address] [place] [address] 07/30/2018 00:00:00 07/30/2018 19:30:09 [id number] [facility] [place] [address] [place] [address] [place] [address] 08/10/2018 00:00:00 08/10/2018 19:31:58 [id number] _ATHENA_M IGRATION_ DEFAULT_2 2_1 , 09/20/2018 00:00:00 09/20/2018 13:36:53 [id number] _ATHENA_M IGRATION_ DEFAULT_2 2_1 , 09/23/2018 00:00:00 09/23/2018 11:43:16 [id number] [facility] [place] [address] [place] [address] [place] [address] 11/22/2018 00:00:00 11/22/2018 19:56:20 [id number] [facility] [place] [address] [place] [address] [place] [address] 12/23/2018 00:00:00 12/23/2018 19:37:25 [id number] [facility] [place] [address] [place] [address] [place] [address] 03/07/2019 00:00:00 03/07/2019 20:46:15 [id number] [facility] [place] [address] [place] [address] [place] [address] 11/28/2019 00:00:00 11/28/2019 18:38:23 [id number] [facility] [place] [address] [place] [address] [place] [address] 03/16/2020 00:00:00 03/16/2020 17:04:11 [id number] [facility] [place] [address] [place] [address] [place] [address] 04/04/2020 00:00:00 04/04/2020 18:30:41 [id number] [facility] [place] [address] [place] [address] [place] [address] 04/17/2020 00:00:00 04/17/2020 20:13:31 [id number] [facility] [place] [address] [place] [address] [place] [address] 04/28/2020 00:00:00 04/28/2020 15:05:49 [id number] [facility] [place] [address] [place] [address] [place] [address] 04/30/2020 00:00:00 04/30/2020 19:14:31 [id number] [facility] [place] [address] [place] [address] [place] [address] 06/18/2020 00:00:00 06/18/2020 20:15:51 [id number] [facility] [place] [address] [place] [address] [place] [address] 11/28/2020 00:00:00 11/28/2020 20:58:53 [id number] MD SID Whalen [place] [address] [place] [address] [place] [address] 04/22/2021 10:49:42 04/22/2021 12:00:16 Eruption [id number] R21 Atopic dermatitis 540519 01 L20.9 [id number] Stephanie MelendrezYOKO martin [facility] [place] [address] [place] [address] [place] [address] 05/30/2021 13:15:37 05/30/2021 14:29:35 Pain of left knee joint [id number] 84001 M25.562 Pain in the left knee I [...] knee Varicose v eins of lower extremity 00395578 I83.93 She has fairly extensive varicose veins in both lower extremitie s she is asked to be sent to a vein specialist I will do that at her request and they can surgically attack these 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 The rash she has can be treated with Trental 400 mg once a day I will reassess in 30 days and see if this helps Body mass index 40+ - severely obese 965024940 Z68.41 I have strongly advised her to cut back her calories she does not think she eats too much and when she does that she is not going to lose any weight diet weight loss and exercise were encouraged Acute deep vein thrombosis of lower limb 1504402536 08 I82.409 [id number] MD SID Whalen [place] [address] [place] [address] [place] [address] 07/02/2021 13:32:33 07/02/2021 14:57:23 Obesity 505809304 E66.9 Varicose v eins of lower extremity 76284809 I83.93 Asthma 745931506 J45.90 9 Cough 07987169 R05.9 Eruption [id number] R21 Granuloma annulare 25108 009 L92.0 The rash she has can be treated with Trental 400 mg once a day I will reassess in 30 days and see if this helps [id number] Meg Jones MD [facility] [address] [place] [id number] 12/04/2021 12:45:53 12/04/2021 15:36:38 Adult health examination [id number] Z00.00 Annual Wellness Visit done today Advance care planning 71 [id number] Z71.89 Active or passive immunization 396897200 Z23 Essential hypertension 84021144 I10 Obesity 234361262 E66.9 Screening mammography 24 108684 Z12.31 Dependent edema 46452847 4 R60.0 Eruption 987820057 R21 Asthma 707250997 J45.90 9 Granuloma annulare 06071 009 L92.0 The rash she has can [...] HEALTH (MEDICARE REPLACEMENT HMO) Padma S Houde [id number] 01 Padma S Houde 05/30/2021 1 [facility] (MEDICARE REPLACEMENT HMO) Padma S Houde [id number] 01 Padma S Houde 07/02/2021 1 [facility] (MEDICARE REPLACEMENT HMO) Padma S Houde [id number] 1 [id number] 01 Padma S Houde 12/04/2021 1 [facility] (MEDICARE REPLACEMENT HMO) Padma S Houde [id number] 1 [id number] 01 Padma S Houde Notes Date Note [...] vaccine product did you receive?Moderna Imported from [facility] on 04/22/2021 QUALITY MEASURE QUESTIONNAIRE ?Has the Patient had a fracture in the last year ?No ?Has the Patient had a bone density testing performed before ?Yes ?Has the Patient been diagnosed as having osteoporosis ?No Imported from [facility] on 04/22/2021 Meg Jones MD [address], [place], [address], [facility], [employer] 04/22/2021 20:35:51 05/30/2021 text/html CORONAVIRUS SCREENING [id number] female comes in for 6-month Medicare follow-up she tells me her left knee is hurting her ever since she had it redone and a replacement by Dr. De La Rosa in [place] about 4 4 5 years ago. She [...] tested positive for COVID-19 ?No Imported from [facility] on 05/30/2021 Meg Jones MD [address], [place], [address], [facility], [facility] 05/30/2021 19:09:36 07/02/2021 text/html CORONAVIRUS SCREENING TOOLThis patient is a 76-year-old female that comes in today for reasons I am really not sure of she tells me that the rash is gotten much worse though she told my medical records specialist to complete opposite it was cured. She [...] tested positive for COVID-19 ?No Imported from [facility] on 07/02/2021 Meg Jones MD [address], [place], [address], [employer] 07/02/2021 21:07:52 12/04/2021 text/html This is a [...] She has asthma, Meg Jones MD [address], [place], [address], [facility] 12/04/2021 16:33:47 OBGyn Episode No OBEpisode recorded.
== END 2024-07-14 13:31 | disposition home or self-care (01) ==
LOC: HO.HMCC 12:38
PROVIDERS: PCP Nurse Practitioner Family; Visit Provider Nurse Practitioner Family
DX: M54.50 Low back pain, unspecified (principal); R21 Rash and other nonspecific skin eruption

== ENCOUNTER → 2024-07-14 12:37 | Outpatient (BNVA) | payer MEDICARE, SELFPAY | PROVIDERS: PCP Nurse Practitioner Family; Visit Provider Nurse Practitioner Family | DX: M54.50 Low back pain, unspecified (principal); R21 Rash and other nonspecific skin eruption | CPT/HCPCS: 96127; 99212 ==

== ENCOUNTER 2024-07-25 11:57 | Outpatient (REF) | payer MEDICARE, SELFPAY ==
--- NOTE | ~2024-07-25 | XR_ITS ---
EXAMINATION: XR LUMBOSACRAL SPINE CLINICAL INFORMATION: M54.50 - Low back pain, unspecified COMPARISON: None available. TECHNIQUE: Three views of the lumbosacral spine. FINDINGS: Limited examination. Facet joint hypertrophy bilaterally, L4-5 and L5-S1. Multilevel marginal osteophyte formation, endplate sclerosis, decreased intervertebral disc height throughout the vertebral bodies of the lower thoracic and the upper mid lumbar spine. Vacuum phenomenon at T12-L1 and L1-2 intervertebral disc levels. No acute cortical disruption. No lytic or blastic lesions. Vascular complications. XR/XR lumbar spine 2-3V IMPRESSION: Multilevel thoracolumbar spondylosis. Atherosclerosis disease, aorta. Electronically signed by: Kevin Chacon MD 07/27/2024 01:06 PM EDT
--- OUTSIDE RECORDS SUMMARY | 2024-07-25 14:21 | XMS_ITS | Data Portability ---
Author Organization MD - [facility]14 [facility] IP Address [address] [place] [address] Care Team Providers Care Power Superintendent Name Role Phone CARLOS MADRID Primary Care Provider MEG JONES Primary Care Provider Assessment Encounter Date Assessment Date Assessment LastModified by Organization Details LastModified Time 04/30/2020 04/30/2020 multiple contusions to the forearm with lacerations please see the pictures spent approximately 40 minutes cleaning in repairing laceration to Christine pose it and remove all the debris and prior Steri-Strips carefully with binocular microscope Not available 04/30/2020 19:14:23 06/18/2020 06/18/2020 community-acquir [...] comfortably on room air at this time [email or web address] Not available 06/18/2020 20:15:13 11/28/2020 11/28/2020 Time [...] left knee rash of groin dependent edema [email or web address] Not available 11/28/2020 13:43:59 Plan of Treatment Reminders Order Date Submit Date Provider Last Modified By Organization Details Last Modified Time Details Appointments None recorded. Lab lipid panel, serum 2020 021 [facility] [address] [place] [address], [address], [place], [address], 08:15:01 CMP, serum or plasma 2020 021 [facility], [address] [place], [address], [place], [address], 08:15:00 TSH, serum or plasma 2020 021 [email or web address], [address], [address], [place], [address], 10:14:28 urinalysis complete, reflex culture 2020 021 [facility], [address] [place] [address], [address], [place], [address], 08:15:01 CBC w/ auto diff 2020 021 [facility], [address] [place] [address], [address], [place], [address], 08:14:59 Referral None recorded. Procedures None recorded. Surgeries None recorded. Imaging XR, knee, 4 or more view 2021 [email or web address] Not available 17:03:21 MAMMO, screening, digital, bilateral - Please call the patient to schedule. 2020 [facility] ([facility]), [address], [place], [address], 10:09:11 bone density - Please call the patient to schedule. 2020 [email or web address] ([facility]), [address], [place], [address], 10:09:11 XR, chest, 2 view 2020 [place] [facility] ([facility]), [address], [place], [address], 13:38:41 Medication Orders Voltaren Arthritis Pain 1 % topical gel 2021 [email or web address] 68 [id number], [address] [facility] [address], [place], [address], 17:03:21 Qsymia 7.5 mg-46 mg capsule, extended release 2020 YVON [facility], [address] [place], [address], 21:01:04 levofloxaci n 500 mg tablet 2020 [email or web address] [id number], [address] [facility] [address], [place], [address], 13:28:56 albuterol sulfate 2.5 mg/3 mL (0.083 %) solution for nebulizatio n 2020 021 [email or web address] 50 [id number], [address] [facility] [address], [place], [address], 12:02:22 Patient TargetsNo targets recorded. Patient Instructions Encounter Date Encounter Id Patient Instructions Last Modified By Organization Details Last Modified Time 04/28/2020 [id number] Keep wound dress ing in place for 24 hours. After 24 hours, you may change the dressing. After 24 hours, you may get the wound wet in the shower but dry thoroughly afterwards. Please return here to urgent care follow-up with primary care provider as needed for new or worsening symptoms. [email or web address] Not available 04/28/2020 15:05:21 06/18/2020 [id number] cough: care instructions [email or web address] Not available 06/18/2020 12:02:22 11/28/2020 [id number] alcohol use disorders identification test* [email or web address] Not available 11/28/2020 13:22:10 fall risk screening* [email or web address] Not bryce ilable 11/28/2020 13:22:10 geriatric depres coni screen* [email or web address] Not available 11/28/2020 13:22:10 mammogram: about this test [email or web address] Not available 11/28/2020 13:22:10 When You Want to Lose Weight: Care Instructions [email or web address] Not available 11/28/2020 13:22:10 multi-dimensiona l health assessment questionnaire* [email or web address] Not available 11/28/2020 13:22:10 advance directiv es: care instructions [email or web address] Not available 11/28/2020 13:22:10 Advance Care Directives Patient WebLink Handout [email or web address] Not available 11/28/2020 13:22:10 high blood press ure: care instructions [email or web address] Not available 11/28/2020 13:22:10 learning about h igh blood pressure [email or web address] Not available 11/28/2020 13:22:10 Personalized [facility] lt Plan and Screening Recommendations Advance Directives [...] ? Pain Management Plan: ? ? ? [email or web address] Not available 11/28/2020 12:56:41 Reason for Referral None Reported. Results Created Date Observation Date Name Description Value Unit Range Abnormal Flag Note LastModifiedBy Organization Detail LastModifiedTime 12/05/19 21 12/05/2020 CBC WITH DIFFE DEVONTE AL/PL ATELE T WBC 5.3 x10e3 /uL 3.4-10 .8 Not Available [facility] ([facility]) [address] [facility], [place], [address], 12/07/2020 08:14:58 12/05/19 21 12/05/2020 CBC WITH DIFFE RENTI AL/PL ATELE T RBC 4.63 x10e6 /uL 3.77-5 .28 Not Available [facility] ([facility]) [address] [place], [address], 12/07/2020 08:14:58 12/05/19 21 12/05/2020 CBC WITH DIFFE RENTI AL/PL ATELE T hemoglobin 13.6 g/dL 11.1-1 5.9 Not Available [facility] ([facility]) [address] [place], [address], 12/07/2020 08:14:58 12/05/1912/05/2020 CBC WITH DIFFE RENTI AL/PL ATELE T hematocrit 39.9 % 34.0-4 6.6 Not Available [facility] ([facility]) [address] [place], [address], 12/07/2020 08:14:58 12/05/1912/05/2020 CBC WITH DIFFE RENTI AL/PL ATELE T MCV 86 fL 79-97 Not Available [facility] ([facility]) [address] [place], [address], 12/07/2020 08:14:58 12/05/1912/05/2020 CBC WITH DIFFE RENTI AL/PL ATELE T MCH 29.4 pg 26.6-3 3.0 Not Available [facility] ([facility]) [address] [place], [address], 12/07/2020 08:14:58 12/05/1912/05/2020 CBC WITH DIFFE RENTI AL/PL ATELE T MCHC 34.1 g/dL 31.5-3 5.7 Not Available [facility] ([facility]) [address] [place], [address], 12/07/2020 08:14:58 12/05/19 21 12/05/2020 CBC WITH DIFFE RENTI AL/PL ATELE T RDW 14.0 % 11.7-1 5.4 Not Available [facility] ([facility]) [address] [facility], [place], [address], 12/07/2020 08:14:58 12/05/19 21 12/05/2020 CBC WITH DIFFE RENTI AL/PL ATELE T platelets 217 x10e3 /uL 150-45 0 Not Available [facility] ([facility]) [address] [facility], [place], [address], 12/07/2020 08:14:58 12/05/19 21 12/05/2020 CBC WITH DIFFE RENTI AL/PL ATELE T neutrophils 54 % not estab. Not Available [facility] ([facility]) [address] [facility], [place], [address], 12/07/2020 08:14:58 12/05/19 21 12/05/2020 CBC WITH DIFFE RENTI AL/PL ATELE T lymphs 29 % not estab. Not Available [facility] ([facility]) [address] [facility], [place], [address], 12/07/2020 08:14:58 12/05/19 21 12/05/2020 CBC WITH DIFFE RENTI AL/PL ATELE T monocytes 10 % not estab. Not Available [facility] ([facility]) [address] [facility], [place], [address], 12/07/2020 08:14:58 12/05/19 21 12/05/2020 CBC WITH DIFFE RENTI AL/PL ATELE T eos 6 % not estab. Not Available [facility] ([facility]) [address] [facility], [place], [address], 12/07/2020 08:14:58 12/05/19 21 12/05/2020 CBC WITH DIFFE RENTI AL/PL ATELE T basos 1 % not estab. Not Available [facility] ([facility]) [address] [place], [address], 12/07/2020 08:14:58 12/05/19 21 12/05/2020 CBC WITH DIFFE RENTI AL/PL ATELE T immature cells DRY PAN CHARGER Not Available [facility] ([facility]) [address] [facility], [place], [address], 12/07/2020 08:14:58 12/05/19 21 12/05/2020 CBC WITH DIFFE RENTI AL/PL ATELE T neutrophils (absolute) 2.8 x10e3 /uL 1.4-7. 0 Not Available [facility] ([facility]) [address] [facility], [place], [address], 12/07/2020 08:14:58 12/05/1912/05/2020 CBC WITH DIFFE RENTI AL/PL ATELE T lymphs (absolute) 1.6 x10e3 /uL 0.7-3. 1 Not Available [facility] ([facility]) [address] [place], [address], 12/07/2020 08:14:58 12/05/19 21 12/05/2020 CBC WITH DIFFE RENTI AL/PL ATELE T monocytes(ab solute) 0.5 x10e3 /uL 0.1-0. 9 Not Available [facility] ([facility]) [address] [place], [address], 12/07/2020 08:14:58 12/05/19 21 12/05/2020 CBC WITH DIFFE RENTI AL/PL ATELE T eos (absolute) 0.3 x10e3 /uL 0.0-0. 4 Not Available [facility] ([facility]) [address] [place], [address], 12/07/2020 08:14:58 12/05/19 21 12/05/2020 CBC WITH DIFFE RENTI AL/PL ATELE T baso (absolute) 0.1 x10e3 /uL 0.0-0. 2 Not Available [facility] ([facility]) [address] [facility], [place], [address], 12/07/2020 08:14:58 12/05/19 21 12/05/2020 CBC WITH DIFFE RENTI AL/PL ATELE T immature granulocytes 0 % not estab. Not Available [facility] ([facility]) [address] [facility], [place], [address], 12/07/2020 08:14:58 12/05/19 21 12/05/2020 CBC WITH DIFFE RENTI AL/PL ATELE T immature grans (abs) 0.0 x10e3 /uL 0.0-0. 1 Not Available [facility] ([facility]) [address] [facility], [place], [address], 12/07/2020 08:14:58 12/05/19 21 12/05/2020 CBC WITH DIFFE RENTI AL/PL ATELE T NRBC DRY PAN CHARGER Not Available [facility] ([facility]) [address] [facility], [place], [address], 12/07/2020 08:14:58 12/05/19 21 12/05/2020 CBC WITH DIFFE RENTI AL/PL ATELE T hematology comments: DRY PAN CHARGER Not Available [facility] ([facility]) [address] [facility], [place], [address], 12/07/2020 08:14:58 12/05/19 21 12/05/2020 COMP. METAB OLIC PANEL (14) glucose 90 mg/dL 65-99 Not Available [facility] ([facility]) [address] [place], [address], 12/07/2020 08:15:00 12/05/19 21 12/05/2020 COMP. METAB OLIC PANEL (14) BUN 29 mg/dL 8-27 above high normal Not Available [facility] ([facility]) [address] [place], [address], 12/07/2020 08:15:00 12/05/19 21 12/05/2020 COMP. METAB OLIC PANEL (14) creatinine 1.01 mg/dL 0.57-1 .00 above high normal Not Available [facility] ([facility]) [address] [place] [place], [address], 12/07/2020 08:15:00 12/05/19 21 12/05/2020 COMP. METAB OLIC PANEL (14) eGFR if nonafricn AM 54 mL/mi n/1.7 3 >59 below low normal Not Available [facility] ([facility]) [address] [place], [address], 12/07/2020 08:15:00 12/05/19 21 12/05/2020 COMP. METAB [...] SN Task force . Not Available [facility] ([facility]) [address] [place], [address], 12/07/2020 08:15:00 12/05/19 21 12/05/2020 COMP. METAB OLIC PANEL (14) BUN/creatini ne ratio 29 12-28 above high normal Not Available [facility] ([facility]) [address] [place], [address], 12/07/2020 08:15:00 12/05/19 21 12/05/2020 COMP. METAB OLIC PANEL (14) sodium 139 mmol/ L 134-14 4 Not Available [facility] ([facility] [address] [facility] [place] [address], 12/07/2020 08:15:00 12/05/19 21 12/05/2020 COMP. METAB OLIC PANEL (14) potassium 3.9 mmol/ L 3.5-5. 2 Not Available [facility] ([facility]) [address] [place], [address], 12/07/2020 08:15:00 12/05/19 21 12/05/2020 COMP. METAB OLIC PANEL (14) chloride 103 mmol/ L 96-106 Not Available [facility] ([facility]) [address] [place], [address], 12/07/2020 08:15:00 12/05/19 21 12/05/2020 COMP. METAB OLIC PANEL (14) carbon dioxide, total 23 mmol/ L 20-29 Not Available [facility] ([facility]) [address] [facility] [place], [address], 12/07/2020 08:15:00 12/05/19 21 12/05/2020 COMP. METAB OLIC PANEL (14) calcium 9.4 mg/dL 8.7-10 .3 Not Available [facility] ([facility]) [address] [facility] [place], [address], 12/07/2020 08:15:00 12/05/19 21 12/05/2020 COMP. METAB OLIC PANEL (14) protein, total 6.2 g/dL 6.0-8. 5 Not Available [facility] ([facility]) [address] [facility] [place], [address], 12/07/2020 08:15:00 12/05/19 21 12/05/2020 COMP. METAB OLIC PANEL (14) albumin 4.1 g/dL 3.7-4. 7 Not Available [facility] ([facility]) [address] [facility] [place], [address], 12/07/2020 08:15:00 12/05/19 21 12/05/2020 COMP. METAB OLIC PANEL (14) globulin, total 2.1 g/dL 1.5-4. 5 Not Available [facility] ([facility]) [address] [place], [address], 12/07/2020 08:15:00 12/05/19 21 12/05/2020 COMP. METAB OLIC PANEL (14) A/G ratio 2.0 1.2-2. 2 Not Available [facility] ([facility]) [address] [place], [address], 12/07/2020 08:15:00 12/05/19 21 12/05/2020 COMP. METAB OLIC PANEL (14) bilirubin, total 0.5 mg/dL 0.0-1. 2 Not Available [facility] ([facility]) [address] [place], [address], 12/07/2020 08:15:00 12/05/19 21 12/05/2020 COMP. METAB [...] 121 44 - 121 Not Available [facility] ([facility]) [address] [facility], [address], 12/07/2020 08:15:00 12/05/19 21 12/05/2020 COMP. METAB OLIC PANEL (14) AST (SGOT) 18 IU/L 0-40 Not Available [facility] ([facility]) [address], [place], [address], 12/07/2020 08:15:00 12/05/19 21 12/05/2020 COMP. METAB OLIC PANEL (14) ALT (SGPT) 18 IU/L 0-32 Not Available [facility] ([facility]) [address], [place], [address], 12/07/2020 08:15:00 12/05/19 21 12/05/2020 UA/M W/RFL X CULTU RE, ROUTI NE specific gravity 1.025 1.005- 1.030 Not Available [facility] ([facility]) [address], [place], [address], 12/07/2020 08:15:00 12/05/19 21 12/05/2020 UA/M W/RFL X CULTU RE, ROUTI NE pH 5.5 5.0-7. 5 Not Available [facility] ([facility]) [address], [place], [address], 12/07/2020 08:15:00 12/05/19 21 12/05/2020 UA/M W/RFL X CULTU RE, ROUTI NE urine-color Yellow yellow Not Available [facility] ([facility]) [address], [place], [address], 12/07/2020 08:15:00 12/05/19 21 12/05/2020 UA/M W/RFL X CULTU RE, ROUTI NE appearance Clear clear Not Available [facility] ([facility]) [address] [facility], [place], [address], 12/07/2020 08:15:00 12/05/19 21 12/05/2020 UA/M W/RFL X CULTU RE, ROUTI NE WBC esterase Trace negati ve abnormal Not Available [facility] ([facility]) [address] [facility], [place], [address], 12/07/2020 08:15:00 12/05/19 21 12/05/2020 UA/M W/RFL X CULTU REDAWNI NE protein Trace negati ve/tra ce Not Available [facility] ([facility]) [address] [facility], [place], [address], 12/07/2020 08:15:00 12/05/19 21 12/05/2020 UA/M W/RFL X CULTU RE, DAWNI NE glucose Negati ve negati ve Not Available [facility] ([facility]) [address] [place], [address], 12/07/2020 08:15:00 12/05/19 21 12/05/2020 UA/M W/RFL X CULTU RE, ROUTI NE ketones Negati ve negati ve Not Available [facility] ([facility]) [address] [place], [address], 12/07/2020 08:15:00 12/05/19 21 12/05/2020 UA/M W/RFL X CULTU REDAWNI NE occult blood Negati ve negati ve Not Available [facility] ([facility]) [address] [place], [address], 12/07/2020 08:15:00 12/05/19 21 12/05/2020 UA/M W/RFL X CULTU RE ROUTI NE bilirubin Negati ve negati ve Not Available [facility] ([facility]) [address] [place], [address], 12/07/2020 08:15:00 12/05/19 21 12/05/2020 UA/M W/RFL X CULTU RE, ROUTI NE urobilinogen ,semi-qn 0.2 mg/dL 0.2-1. 0 Not Available [facility] ([facility]) [address] [facility], [place], [address], 12/07/2020 08:15:00 12/05/19 21 12/05/2020 UA/M W/RFL X CULTU RE, ROUTI NE nitrite, urine Negati ve negati ve Not Available [facility] ([facility]) [address] [facility], [place], [address], 12/07/2020 08:15:00 12/05/19 21 12/05/2020 UA/M W/RFL X CULTU RE, ROUTI NE microscopic examination See below: Micro scopi c was indic ated and was perfo rmed. Not Available [facility] ([facility]) [address] [facility], [place], [address], 12/07/2020 08:15:00 12/05/19 21 12/05/2020 UA/M W/RFL X CULTU RE, ROUTI NE WBC 0-5 /hpf 0 - 5 Not Available [facility] ([facility]) [address] [facility], [place], [address], 12/07/2020 08:15:00 12/05/19 21 12/05/2020 UA/M W/RFL X CULTU RE, ROUTI NE RBC None seen /hpf 0 - 2 Not Available [facility] ([facility]) [address] [facility], [place], [address], 12/07/2020 08:15:00 12/05/19 21 12/05/2020 UA/M W/RFL X CULTU RE, ROUTI NE epithelial cells (non renal) 0-10 /hpf 0 - 10 Not Available [facility] ([facility]) [address] [place], [address], 12/07/2020 08:15:00 12/05/19 21 12/05/2020 UA/M W/RFL X CULTU RE, ROUTI NE epithelial cells (renal) DRY PAN CHARGER Not Available [facility] ([facility]) [address] [facility], [place], [address], 12/07/2020 08:15:00 12/05/19 21 12/05/2020 UA/M W/RFL X CULTU RE, ROUTI NE casts None seen /lpf none seen Not Available [facility] ([facility]) [address] [facility], [place], [address], 12/07/2020 08:15:00 12/05/19 21 12/05/2020 UA/M W/RFL X CULTU RE, ROUTI NE cast type DRY PAN CHARGER Not Available [facility] ([facility]) [address] [facility], [place], [address], 12/07/2020 08:15:00 12/05/19 21 12/05/2020 UA/M W/RFL X CULTU RE, ROUTI NE crystals DRY PAN CHARGER Not Available [facility] ([facility]) [address] [facility], [place], [address], 12/07/2020 08:15:00 12/05/19 21 12/05/2020 UA/M W/RFL X CULTU RE, ROUTI NE crystal type DRY PAN CHARGER Not Available [facility] ([facility]) [address] [facility], [place], [address], 12/07/2020 08:15:00 12/05/19 21 12/05/2020 UA/M W/RFL X CULTU RE, ROUTI NE mucus threads DRY PAN CHARGER Not Available [facility] ([facility]) [address] [facility], [place], [address], 12/07/2020 08:15:00 12/05/19 21 12/05/2020 UA/M W/RFL X CULTU RE, ROUTI NE bacteria None seen none seen/f ew Not Available [facility] ([facility]) [address] [facility], [place], [address], 12/07/2020 08:15:00 12/05/19 21 12/05/2020 UA/M W/RFL X CULTU RE, ROUTI NE yeast DRY PAN CHARGER Not Available [facility] ([facility]) [address] [facility], [place], [address], 12/07/2020 08:15:00 12/05/19 21 12/05/2020 UA/M W/RFL X CULTU RE, ROUTI NE trichomonas DRY PAN CHARGER Not Available [facility] ([facility]) [address] [facility], [place], [address], 12/07/2020 08:15:00 12/05/19 21 12/05/2020 UA/M W/RFL X CULTU RE, ROUTI NE comment DRY PAN CHARGER Not Available [facility] ([facility]) [address] [facility], [place], [address], 12/07/2020 08:15:00 12/05/19 21 12/05/2020 UA/M W/RFL X CULTU RE, ROUTI NE microscopic examination DRY PAN CHARGER Not Available [facility] ([facility]) [address] [facility], [place], [address], 12/07/2020 08:15:00 12/05/19 21 12/05/2020 UA/M W/RFL X CULTU RE, ROUTI NE urinalysis reflex Commen t This speci men has refle xed to a Urine Cultu re. Not Available [facility] ([facility]) [address] [facility], [place], [address], 12/07/2020 08:15:00 12/05/19 21 12/06/2020 UA/M W/RFL X CULTU RE, ROUTI NE urine culture, routine Final report Not Available [facility] ([facility]) [address] [facility], [place], [address], 12/07/2020 08:15:00 12/05/19 21 12/06/2020 UA/M W/RFL X CULTU RE, ROUTI NE result 1 Commen t Mixed uroge nital francisco 10,00 0-25, 000 colon y formi ng units per mL Not Available [facility] ([facility]) [address] [place], [address], 12/07/2020 08:15:00 12/05/19 21 12/05/2020 LIPID PANEL cholesterol, total 191 mg/dL 100-19 9 Not Available [facility] ([facility]) [address] [place], [address], 12/07/2020 08:15:01 12/05/19 21 12/05/2020 LIPID PANEL triglyceride s 69 mg/dL 0-149 Not Available [facility] ([facility]) [address] [place], [address], 12/07/2020 08:15:01 12/05/19 21 12/05/2020 LIPID PANEL HDL cholesterol 58 mg/dL >39 Not Available [facility] ([facility]) [address] [place], [address], 12/07/2020 08:15:01 12/05/19 21 12/05/2020 LIPID PANEL VLDL cholesterol davide 13 mg/dL 5-40 Not Available [facility] ([facility]) [address] [place], [address], 12/07/2020 08:15:01 12/05/19 21 12/05/2020 LIPID PANEL LDL chol calc ([facility]) 120 mg/dL 0-99 above high normal Not Available [facility] ([facility]) [address] [place], [address], 12/07/2020 08:15:01 12/05/19 21 12/05/2020 LIPID PANEL comment: DRY PAN CHARGER Not Available [facility] ([facility]) [address] [facility], [place], [address], 12/07/2020 08:15:01 12/05/19 21 12/05/2020 TSH TSH 1.700 uIU/m L 0.450- 4.500 Not Available [facility] ([facility]) [address] [facility], [place], [address], 12/07/2020 08:15:02 12/05/19 21 12/04/2020 AMBIG ABBRE [...] ciate your busin ess. Not Available [facility] ([facility]) [address] [facility], [place], [address], 12/07/2020 08:15:03 12/05/19 21 12/04/2020 AMBIG ABBRE [...] ciate your busin ess. Not Available [facility] ([facility]) [address], [place], [address], 12/07/2020 08:15:04 05/10/19 21 05/10/2020 MAMMO , scree ashtyn, digit al, bilat eral No observ ation record ed. [place] [address] [facility] [address], [place], [address], 06/15/2020 09:59:21 06/19/19 21 06/18/2020 XR, chest , 2 view No observ ation record ed. [place] [id number] [facility] [address], [place], [address], 06/19/2020 09:39:32 02/07/20 21 02/06/2021 bone densi ty No observ ation record ed. [facility] ([facility] [address], [place], [address], 02/12/2021 19:22:06 Result Notes None recorded. Problems Name Problem SNOMED Code Status Onset Date Resolution Date Notes Provider Name and Address Organization Details Recorded Time Asthma [id number] Active Victorina hassan, [facility]14 [place] 8 13:18:43 Deep venous thrombosis of lower extremity 441533436 Active Victorina hassan, [address] 8 13:19:01 Obesity 621277968 Active Victorina hassan, [facility] [place] 8 13:19:12 Anemia 797475338 Active 2016 Victorina hassan, [address] 8 13:18:58 Osteoarthriti s of knee 473539549 Active 2016 Victorina hasasn [facility]14 [place] 8 13:18:48 Osteopenia 488470495 Active 2016 Victorina [facility] [place] 8 13:19:00 Essential hypertension 53468730 Active 2017 MADELIN Lombardo [facility] [place] 8 13:18:11 Bladder muscle dysfunction - overactive Active 2017 Not Available [facility] 2 15:11:17 Morbid obesity 533550182 Active 2017 Victorina hassan [address] 8 08:53:40 Anxiety disorder 371149308 Active 2018 ELIANA Paredes mo MD Elan [address] 9 10:09:44 Skin lesion 09731242 Active 2018 LUDMILA RIVERS MD [address], [address] , [address] 9 13:28:01 Basal cell carcinoma of face 754106640 Active 2018 LUDMIAL RIVERS MD [address], [place], [address] , [address] 9 11:39:23 Allergic rhinitis 22154995 Active Victorina hassan [address] 8 13:19:10 Disorder of bone and articular cartilage 875505953 Active Victorina hassan [address] 8 13:18:50 Idiopathic peripheral neuropathy 34873975 Active Victorina hassan [address] 8 13:18:44 IgE-mediated allergic asthma 546581999 Active Victorina hassan MD [facility] [place] 8 13:19:08 Problem Notes None recorded. Procedures Surgical History Date Name Laterality Status Provider Name and Address Organization Details Recorded Time 1 Medicare Wellness CPT Code, Subsequent completed Cee Dangelo JOSHUALeanna MADELIN LOPES [place] 11/28/2020 12:56:42 0 Medicare Wellness CPT Code, Subsequent completed ELIANA Paredes [place] [address] 11/28/2019 10:03:20 9 Medicare Wellness CPT Code, Subsequent completed Cee Dangelo, [address] 11/22/2018 10:27:39 9 Blank Procedure Template completed LUDMILA RIVERS MD [address], [place], [address], [address] 09/23/2018 11:39:14 9 Blank Procedure Template completed LUDMILA RIVERS MD [address], [place], [address], [address] 09/20/2018 13:36:47 8 Medicare Wellness CPT Code, Subsequent completed Victorina Hickey [address] 11/17/2017 13:41:58 7 Medicare Wellness CPT Code, Subsequent completed Deyaniraihsan Givens, [address] 10/22/2016 12:53:07 5 Laceration Repair completed Katelin Berry [address] 11/06/2014 17:07:47 3 Colonoscopy completed Macie iFgueroa, [address] 11/28/2015 08:46:37 Other completed LUDMILA RIVERS MD [address], [place], [address], [address] 09/20/2018 13:32:40 Orthopaedic Surgery completed LUDMILA RIVERS MD [address], [place], [address], [address] 09/20/2018 13:32:14 Vascular Surgery completed Linus Thomas, [address] 09/06/2013 15:07:40 Imaging Results Imaging Date Name Status LastModified by Organ [facility] Details LastModified Time 05/10/2020 MAMMO, screening, digital, bilateral [place] [address] [facility] [address], [place], [address], 06/15/2020 09:59:21 06/18/2020 XR, chest, 2 view [place] [address] [facility] ([facility]) [address], [address], 06/19/2020 09:39:32 02/06/2021 bone density completed [facility] ([place]) [address], [place], [address], 02/12/2021 19:22:06 Procedure Notes None recorded. Medical [...] Not Available Not Available fluzone high-dose pf 8480-3648 .5 ml azul active Not Available Not Available N ot Available clotrimazol e/betametha sone dipropionat e 1-0.05 % crea active Not Available Not Available Not Available alprazolam 0.5 mg tabs 11/22 completed Not Available Not Available Not Available fluzone high-dose pf 7886-6936 .5 ml azul active Not Available Not [...] Not Available Not Available fluzone high-dose pf 3350-6957 .5 ml azul 01/13 completed Not Available [...] TWICE DAILY TO AREA ON THE RIGHT ADVENT (AVOIDING THE BIOPSY SITES) FOR 7DAYS THEN [...] No t Available Nasonex 50 mcg/actuati on [place] 1 spray twice a day by intranasa [...] Available Not Available No t Available Fluvirin 8517-5613 45 mcg (15 mcg x 3)/0.5 mL intramuscul ar suspension INJECT 0.5 ML INTRAMUSC ULARLY DIRECTED. active Not Available Not Available No t Available Fluzone High-Dose 2014- (PF) 180 mcg/0.5 mL intramuscul ar syringe active Not Available Not Available N ot Available Fluzone High-Dose 5815-1759 (PF) 180 mcg/0.5 mL intramuscul ar syringe ADM 0.5ML IM UTD active Not Available Not Available No t Available Fluzone High-Dose 3612-9081 (PF) 180 mcg/0.5 mL intramuscul ar syringe [...] Not Available Not Avai lable Fluad Quad 2499-7999(6 5yr up)(PF) 60 mcg (15 mcg x [...] Last Updated DateTime 147.95 cm 43.5 kg/m2 33496.4 g 89 /min 18 /min 98 % 98 % 97.6 [degF] 188 mm[Hg] 98 mm[Hg] Bijal Dumas [facility] [place] 14:51:47 Date Recorded Body height Body mass index (BMI) Body weight Respiratory rate Body temperature Provider Name and Address Organization Details Last Updated DateTime 04/30/2020 147.95 cm 43.5 kg/m2 61986.4 g 18 /min 97.7 [degF] Cee Dangelo [address] 14:13:54 Date Recorded Body height Body mass index (BMI) Body weight Respiratory rate Provider Name and Address Organization Details Last Updated DateTime 06/18/2020 147.95 cm 43.5 kg/m2 06464.4 g 20 /min Cee Dangelo [address] 06/18/2020 11:53:50 Date Recorded Body height Body mass index (BMI) Body weight Heart rate Respiratory rate Body temperature Pain severity - 0-10 verbal numeric rating [Score] - Reported Systolic blood pressure Diastolic blood pressure Provider Name and Address Organization Details Last Updated DateTime 148.59 cm 42.8 kg/m2 99805.6 6 g 98 /min 18 /min 98 [degF] 0 155 mm[Hg] 84 mm[Hg] Cee Dangelo [address] 13:07:02 Date Recorded Body height Body mass index (BMI) Body weight Pain severity - 0-10 verbal numeric rating [Score] - Reported Provider Name and Address Organization Details Last Updated DateTime 06/19/2021 148.59 cm 42.7 kg/m2 44434.21 g 8 Natalie Mesa LPN [facility]14 [place] 06/19/2021 12:47:43 Social History Question Answer Notes LastModified by Organizat ion Details LastModified Time Tobacco Smoking Status Never Smoker Lou hassan [facility]14 [place] 10/22/2012 12:53:32 Do You Have An Advance Directive? No [email or web address] Information not available 11/28/2020 What Is Your Level Of Alcohol Consumption? Occasional Information not available 09/06/2013 How Many Times Per Week Do You Consume Alcohol? 1-2 Times Per Week Information not available 11/28/2020 Are You Blind Or Do You Have Difficulty Seeing? No Information not available 10/22/2016 What Is Your Level Of Caffeine Consumption? None [email or web address] Information not available 11/28/2020 Are You Deaf Or Do You Have Serious Difficulty Hearing? No Information not available 10/22/2016 What Type Of Diet Are You Following? REGULAR [email or web address] Information not available 10/23/2012 What Is Your Occupation? Retired Information not available 10/23/2012 Do You Feel Safe At Home? Yes Information not available 10/22/2016 Advance Directive - Provider Has Reviewed Directives And Consents To Follow Them (insert Provider Name With Any Objections In Notes Field) No Information not available 10/22/2016 Marital Status [email or web address] Informati on not available 10/23/2012 Do You Have A Medical Power Of Hairspring Setter? No [email or web address] Information not available 11/28/2020 What Was The Date Of Your Most Recent Tobacco Screening? 11/28/2020 Information not available 11/28/2020 How Many Children Do You Have? 2 Information not available 09/06/2013 Seat Belts Used Routinely Yes Information not available 10/22/2016 Smoke Alarm In Home Yes Information not available 10/22/2016 How Much Tobacco Do You Smoke? No [email or web address] Information not available 10/22/2012 General Stress Level Low [email or web address] Information not available 10/23/2012 Do You Use Any Illicit Or Recreational Drugs? No [email or web address] Information not available 11/28/2020 Do You Use Sunscreen Routinely? No Information not available 10/22/2016 Has Tobacco Cessation Counseling Been Provided? No [email or web address] Information not available 11/28/2020 How Many Years Have You Smoked Tobacco? 0 [email or web address] Information not available 11/17/2017 Do You Or Have You Ever Used Any Other Forms Of Tobacco Or Nicotine? No [email or web address] Information not available 11/28/2020 Sex: Unknown Functional Status Question Answer Note LastModified by Organization D etails LastModified Time Do you have difficulty walking or climbing stairs? No Information not available 10/22/2016 Do you have difficulty doing errands alone? No Information not available 10/22/2016 Are you able to care for yourself? Yes [email or web address] Information n ot available 11/28/2020 Do you have difficulty dressing or bathing? No Information not available 10/22/2016 What is your exercise level? None [email or web address] Information not available 10/23/2012 Mental Status Question [...] History Condition Response Anemia Y Hypertension Y Osteoporosis Y Asthma Y Allergies Y Gynecological HistoryNo gynecological history recorded. Obstetrics History GPAL:G 0 P 0 0 0 0 Immunizations Vaccine Type Date Status Note Provider Nam e and Address Organization Details Recorded Time Pneumococcal conjugate PCV 13 5 completed Not Available [facility] 04/16/2019 02:09:45 Influenza, high-dose, trivalent, PF 5 completed ELIANA Paredes, [address] 11/28/2020 12:54:34 Td (adult), 5 Lf tetanus toxoid, preservative free, adsorbed 1 completed Rosario Evans RN null, [address] 04/28/2020 15:51:39 pneumococcal, unspecified formulation 8 completed Junepato Donnellysshirley [address] 07/11/2016 11:23:43 zoster live 8 completed June Eutsler [facility], [address] 07/11/2016 11:23:43 Influenza, split virus, trivalent, preservative 3 completed June Eutsler [address] 07/11/2016 11:23:43 Influenza, high-dose, trivalent, PF 2 completed Not Available [facility] 04/30/2019 02:11:12 Influenza, split virus, quadrivalent, preservative 3 completed Not Available [facility] 04/30/2019 02:11:12 Influenza, split virus, trivalent, preservative 4 completed Not Available [facility] 04/30/2019 02:11:12 tetanus toxoid, unspecified formulation 9 completed June Eutsler [address] 07/11/2016 11:23:44 Influenza, split virus, trivalent, preservative 4 completed Macie Figueroa CMA [address] 11/17/2017 11:55:28 Past Encounters Encounter ID Performer Location Encounter Start Date Encounter Closed Date Diagnosis/Indication Diagnosis SNOMED-CT Code Diagnosis ICD10 Code Diagnosis Note [id number] Meg Jones MD [facility] [address] [place] [address] 10/22/2012 10:57:07 10/22/2012 13:24:01 [id number] [facility] [address] [place] [address] 09/06/2013 13:06:18 09/06/2013 15:11:33 Long-term drug therapy 831284517 Adult heal th examination 988400920 Obesity 400682175 Asthma 678660460 Body mass index 30+ - obesity 063339128 Screening mammography 36901801 [id number] ELIANA Betancourt [facility] [address] [place] [address] 11/30/2013 10:19:00 11/30/2013 13:52:15 Varicose veins of lower extremity 64543705 Knee pain 31708988 [id number] [facility] [address] [place] [address] 05/10/2014 15:32:59 05/10/2014 16:24:39 Dependent edema 380193927 [id number] [facility] [address] [place] [address] 09/19/2014 13:00:08 09/19/2014 17:34:10 Adult health examination 038058187 Dependent edema 218306557 Obesity 166795535 Long-term drug therapy 891121216 Administra tion of pneumococcal vaccine 39944375 Screening mammography 59387064 Disorder o f bone and articular cartilage 841966970 Asthma finding 254177466 [id number] ELIANA Betancourt [facility] [address] [place] [address] 11/06/2014 09:33:20 11/06/2014 13:43:57 Laceration of forearm 336968077 Injury of head 38477878 Laceration of lip 894028974 [id number] Meg Jones MD [facility] [address] [place] [address] 11/08/2014 11:19:55 11/08/2014 13:08:42 Laceration of forearm 199564552 Postconcus coni syndrome 63345408 Contusion of knee 67830195 Fall [id number] Meg Jones MD [facility] [address] [place] [address] 11/13/2014 11:22:14 11/13/2014 13:21:17 Laceration of forearm 436684952 Candidiasis of mouth 29745179 [id number] Meg Jones MD [facility] [address] [place] [address] 11/16/2014 09:51:30 11/16/2014 10:15:42 Gingivostomatitis 59360106 [id number] Meg Jones MD [facility] [address] [place] [address] 11/22/2014 14:27:17 11/22/2014 15:37:52 Glossitis 80910810 Laceration of lip 684695440 [id number] [facility] [address] [place] [address] 11/29/2014 13:58:04 11/29/2014 17:15:23 Laceration of forearm 430504386 Laceration of lip 901466223 [id number] Meg Jones MD [facility] [address] [place] [address] 12/11/2014 13:49:11 12/11/2014 14:41:27 Laceration of forearm 271085828 Skin eschar 544223780 [id number] Meg Jones MD [facility] [address] [place] [address] 01/29/2015 15:42:50 01/29/2015 16:45:47 Candidiasis of skin 93895181 B37.2 [id number] Meg Jones MD [facility] [address] [place] [address] 02/13/2015 10:38:57 02/13/2015 12:06:27 Candidiasis of skin 51517737 B37.2 Benign ess ential hypertension 1880631 I10 Lesion of breast 2077125 04 N64.9 Eruption 939400945 R21 Long-term drug therapy 735549110 Z79.533 [id number] MD [facility] [address] [place] [address] 04/06/2015 10:26:39 04/06/2015 14:45:37 Eruption 978367023 R21 Upper resp iratory infection 18558326 J00 Lesion of skin of face 6345048961 06 L98.9 Cheilitis 3188741 K13.0 [id number] Meg Jones MD [facility] [address] [place] [address] 05/04/2015 09:47:55 05/04/2015 13:49:50 Eruption 784437456 R21 Angular cheilitis 522181 005 K13.0 [id number] Meg Jones MD [facility] [address] [place] [address] 07/03/2015 10:50:53 07/03/2015 16:20:46 Bronchitis 79176911 J40 Asthma 675633313 J45.90 9 [id number] Meg Jones MD [facility] [address] [place] [address] [place] [address] 07/26/2015 10:51:58 07/26/2015 12:01:09 Edema of lower extremity 889393681 R60.0 Candidiasis of skin 4988 3006 B37.2 [id number] Meg Jones MD [facility] [address] [place] [address] [place] [address] 09/24/2015 12:56:16 09/24/2015 16:30:42 Pain in left knee 5571147598 38718 M25.562 Dependent edema 09500429 4 R60.0 Allergic rhinitis 495882 04 J30.9 Ganglion cyst 144255867 M67.441 Liver enzy mes outside reference range 741239961 R94.5 Obesity 787476416 E66.9 Asthma 153080445 J45.90 9 Adult heal th examination 959355770 Z00.01 Z72.89 Z79.899 E78.5 E55.9 R53.83 Varicose v eins of lower extremity 93584054 I83.742 [id number] Meg Jones MD [facility] [address] [place] [address] 02/15/2016 14:28:28 02/15/2016 15:55:15 Tinea corporis 01539949 B35.4 Candidiasis of skin 4988 3006 B37.2 [id number] Meg Jones MD [facility] [address] [place] [address] 03/11/2016 14:05:48 03/11/2016 16:21:40 Tinea corporis 18693123 B35.4 Acute bronchitis 5247484 2 J20.9 Pneumonia 831210402 J18. 9 Cough 40264324 R05 Upper resp iratory infection 58483212 J06.9 [id number] Meg Jones MD [facility] [address] [place] [address] 04/22/2016 14:33:17 04/22/2016 17:35:48 Pain in left knee 3965747107 91169 M25.562 Osteoarthr itis of knee 383278262 M17.12 [id number] Meg Jones MD [facility] [address] [place] [address] [place] [address] 07/11/2016 11:13:06 07/11/2016 11:50:08 Candidiasis of mouth 69681580 B37.0 Fatigue 05751273 R53.83 Pain in left knee 614488 2106 90094 M25.418 [id number] Meg Jones MD [facility] [address] [place] [address] 10/22/2016 12:23:14 10/22/2016 14:36:16 Adult health examination 858942638 Z00.00 Screening for disorder 949820809 Z13.9 Anemia 458412662 D64.9 Osteoarthr itis of knee 266158385 M17.12 Pain in pelvis 13933166 R10.2 Obesity 703335741 E66.9 Pain of sh oulder region 72595008 M25.511 Screening mammography 24 571235 Z12.31 Osteoporosis 15593168 M8 1.0 N95.9 [id number] Meg Jones MD [facility] [address] [place] [address] 01/13/2017 09:14:11 01/13/2017 10:08:30 Pain in right arm 723669428 M79.601 Cervical radiculopathy 09171026 M54.12 Osteopenia 647901559 M85 .80 [id number] Meg Jones MD [facility] [address] [place] [address] 04/30/2017 10:23:58 04/30/2017 14:52:42 Cellulitis of finger 90470416 L03.445 [id number] Meg Jones MD [facility] [address] [place] [address] 05/04/2017 10:06:59 05/04/2017 12:07:20 Cellulitis of finger 81788603 L03.046 [id number] Meg Jones MD [facility] [address] [facility] [place] [address] 08/28/2017 14:04:39 08/28/2017 15:15:32 Urinary incontinence 690444115 R32 Morbid obesity 561212853 E66.01 Dietary ma nagement surveillance 699797474 Z71.3 [id number] Meg Jones MD [facility] [address] [place] [address] 11/17/2017 13:14:51 11/17/2017 15:27:04 Adult health examination 035440377 Z00.00 Screening for disorder 804401566 Z13.89 Obesity 686105920 E66.9 Anemia 942935764 D64.9 R53.83 Z79.899 D50.8 Osteopenia 439942562 M85 .80 Essential hypertension 10740013 I10 Asthma 652288797 J45.90 9 [id number] Meg Jones MD [facility] [address] [place] [address] 01/26/2018 08:18:01 01/26/2018 11:05:38 Morbid obesity 160812080 E66.01 Bladder mu scle dysfunction - overactive 625551143 N32.81 [id number] Meg Jones MD [facility] [address] [place] [address] 07/30/2018 14:55:42 07/30/2018 16:01:26 Generalized anxiety disorder 87919343 F41.1 Pain of ri ght shoulder joint 7240146706 1751394 M25.511 Basal cell carcinoma of face 157755765 C44.737 [id number] Meg Jones MD [facility] [address] [place] [address] 08/10/2018 14:32:11 08/10/2018 17:02:27 Spasm 68821818 R25.2 Generalize d anxiety disorder 74679652 F41.1 [id number] LUDMILA RIVERS MD [facility] [address] [facility] [address] [place] [address] 09/20/2018 12:54:29 09/20/2018 13:27:16 Skin lesion 45681644 L98.9 [id number] LUDMILA RIVERS MD [facility] [address] [facility] [address] [place] [address] 09/23/2018 10:46:08 09/23/2018 11:50:59 Basal cell carcinoma of face 752615383 C44.644 [id number] Meg Jones MD [facility] [address] [facility] [address] [place] [address] 11/22/2018 09:39:42 11/22/2018 13:50:41 Adult health examination 556221137 Z00.00 Screening for disorder 057122135 Z13.89 Depression screening 171 531889 Z13.31 Obesity 706436566 E66.9 Essential hypertension 36654425 I10 Hyperlipidemia 25390343 E78.5 Fatigue 80026011 R53.83 Varicose v eins of lower extremity 87944777 I83.819 Screening for malignant neoplasm of breast 180694151 Z12.31 Menopausal syndrome 1237 65912 N95.9 Asthma 114309624 J45.90 9 Medication monitoring 39 6354999 Z51.81 Urinary incontinence 165 070395 R32 Generalize d osteoarthritis 257392355 M15.9 [id number] Meg Jones MD [facility] [address] [place] [address] 12/23/2018 13:32:18 12/23/2018 16:00:14 Morbid obesity 369513017 E66.01 Anxiety disorder 9671530 06 F41.9 Medication monitoring 39 5866378 Z51.81 [id number] Meg Jones MD [facility] [address] [place] [address] 03/07/2019 15:51:00 03/07/2019 17:03:05 Pain in right foot 8141882503 34785 M79.671 Candidiasis of skin 4988 3006 B37.2 [id number] Meg Jones MD [facility] [address] [place] [address] 11/28/2019 12:56:17 11/28/2019 14:52:58 Adult health examination 301676358 Z00.00 Screening for disorder 316346919 Z13.89 Depression screening 171 186297 Z13.31 Screening mammography 24 131700 Z12.31 Eruption 238636723 R21 Dermatitis of right external ear canal 8391921348 175781 H60.91 Pain in left knee 395857 1178 75465 M25.562 Rash of groin 4458145977 1427432 R21 Dependent edema 90230792 4 R60.0 [id number] [facility] [address] [place] [address] 03/16/2020 14:44:51 03/16/2020 16:10:07 Tinea corporis 35419098 B35.4 Pain in left knee 003711 0677 73447 M25.562 Generalize d anxiety disorder 76344339 F41.1 Insomnia 223129004 G47.0 0 [id number] MD [facility] [address] [place] [address] 04/04/2020 13:11:04 04/04/2020 15:38:19 Eruption 678683573 R21 Pain in left knee 726296 7335 70665 M25.562 [id number] Meg Jones MD [facility] [address] [place] [address] 04/17/2020 14:14:47 04/17/2020 16:43:20 Obesity 596252697 E66.9 Pain in left knee 454210 6911 97206 M25.562 Anxiety disorder 8239929 06 F41.9 Insomnia 887389693 G47.0 0 [id number] GELACIO EVANS [facility] [address] [place] [address] 04/28/2020 14:07:47 04/28/2020 15:08:28 Superficial laceration of hand 674266187 S61.411A [id number] Meg Jones MD [facility] [facility] [address] [place] [address] 04/30/2020 13:36:28 04/30/2020 16:19:49 Laceration of finger of left hand [id number] S61.211A Laceration of right hand [id number] S61.411A [id number] Meg Jones MD [facility] [address] [place] [address] 06/18/2020 10:58:11 06/18/2020 12:25:22 Left lower zone pneumonia [id number] J18.1 Cough 16029362 R05 Asthma [id number] J45.90 9 [id number] Meg Jones MD [facility] [address] [place] [address] 11/28/2020 12:48:10 11/28/2020 14:23:59 Adult health examination [id number] Z00.00 Screening for disorder 299520206 Z13.89 Depression screening 171 395693 Z13.31 Essential hypertension 19001219 I10 Morbid obesity 554710392 E66.01 Fatigue 06061874 R53.83 Screening mammography 24 701154 Z12.31 Menopausal syndrome 1237 81214 N95.9 Pain of mu ltiple joints 51052257 M25.50 Asthma 472485344 J45.90 9 Pain in left knee 860539 0745 26100 M25.562 [id number] Jacob Sanders MD [facility] [address] [facility] [address] [place] [address] 06/19/2021 12:32:46 06/19/2021 13:53:38 Pain of left knee joint 0105995713 60584 M25.562 History of total knee arthroplasty 0778857873 105 Z96.659 patient has a history of [...] left kneeDATE: [facility] : Knee painCOMPAR DOM: Any prior imaging within the [facility] system was reviewed.T ECHNIQUE: AP, lateral, sunrise [...] HEALTH (MEDICARE REPLACEMENT HMO) Padma S Houde [id number] 1 [id number] 01 Padma S Houde 04/30/2020 1 [facility] (MEDICARE REPLACEMENT HMO) Padma S Houde [id number] 1 [id number] Padma S Houde 06/18/2020 1 [facility] (MEDICARE REPLACEMENT HMO) Padma S Houde [id number] 1 [id number] 01 Padma S Houde 11/28/2020 1 [facility] (MEDICARE REPLACEMENT HMO) Padma S Houde [id number] 1 [id number] 01 Padma S Houde 06/19/2021 1 [facility] (MEDICARE REPLACEMENT HMO) Padma S Houde [id number] 1 [id number] 01 Padma S Houde Notes Date Note [...] alleviating or exacerbating factors. GELACIO EVANS [address], [place], [address], [facility] [place] 04/28/2020 15:05:49 04/30/2020 text/html this is a 75-year-old obese female who fell 2 and half days ago and comes in today for wound check and hospital follow-up there was no loss of consciousness Meg Jones MD [address], [place], [address], [facility] [place] 04/30/2020 19:14:31 06/18/2020 text/html 75-year-old leta spicer female on seeing today because her asthma is very bad I was not aware that she had asthma she tells me that she has for many years she thinks it is bad right now, no fever no vomiting no diarrhea Meg Jones MD [address], [place], [address], [facility] [place] 06/18/2020 20:15:51 11/28/2020 text/html 75-year-old leta e female who comes in for her annual [...] to discuss that Meg Jones MD [address], [place], [address], [facility] [place] 11/28/2020 20:58:53 06/19/2021 text/html KneeReported bypatient.Location: right [...] will be forwarded Jacob Sanders MD [address], [place], [address], [facility] [place] 06/21/2021 07:28:13 OBGyn Episode No OBEpisode recorded.
--- OUTSIDE RECORDS SUMMARY | 2024-07-25 14:21 | XMS_ITS | Data Portability ---
Author Organization [place] - [employer], [employer], [facility] Address [address] [place] [address] Care Team Providers Care Turn Operator Name Role Phone MEG JONES Primary Care Provider MEG JONES Referring Provider [phone] MEG JONES Primary Care Provider [phone] Assessment Encounter Date Assessment Date Assessment LastModified [...] is bothering her understandably quite a bit [email or web address] Not available 04/22/2021 20:35:42 05/30/2021 05/30/2021 She is obese [email or web address] Not availabl e 05/30/2021 14:09:59 07/02/2021 07/02/2021 [...] no place started topical steroids which 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 4. Asthma she tells me she is been coughing for 3 weeks though her lungs are clear and I have not heard her cough at all here today she can back off on her nebulizer it seems as though she is breathing comfortably on room air [email or web address] Not available 07/02/2021 14:18:24 12/04/2021 12/04/2021 Obesity, [...] office. Follow up other chacon as needed. Not available 12/04/2021 13:31:29 Plan of Treatment Reminders Order Date Submit Date Provider Last Modified By Organization Details Last Modified Time Details Appointments None recorded. Lab lipid panel, [facility], [address], [place], [address], 3 21:40:53 TSH, serum or plasma [address] [facility], [address], [place], [address], 3 21:40:54 CBC 2021 [place] [address] [facility], [address], [place], [address], 3 21:40:53 urinalysis, complete 2021 [address] [place] [address] [facility], [address], [place], [address], 3 21:40:53 CMP, serum or plasma 2021 [address]22 [place] [address] [facility], [address], [place], [address], 3 21:40:53 Referral vein specialist referral - [...] ([facility]), [address], [place], [address], 10:40:30 Procedures None recorded. Surgeries None recorded. Imaging MAMMO, screening, digital, bilateral - Please call the patient to schedule an appointment . 2021 022 [email or web address] [facility] ([facility]), [address], [place], [address], 3 07:54:49 US, duplex, venous, extremity, complete - Please call the patient to schedule an appointment . Possible DVT. 2021 022 COLDIRON [facility] ([facility]), [address], [place], [address], 2 17:39:08 Medication Orders Plenity (Welcome Kit) 0.75 gram capsule 2021 022 [email or web address] [facility], [address], [address], [place], [address], 13:16:25 pentoxifyll ine ER 400 mg tablet,exte nded release 2021 [email or web address] [place] [address]/Pharmacy #[id number], [address] [facility] [address] [place], [address], 19:09:19 prednisone 20 mg tablet 2021 022 [facility]/Pharmacy #[id number], [address] [facility] [address], [place], [address], 13:50:44 Patient TargetsNo targets recorded. Patient Instructions Encounter Date Encounter Id Patient Instructions Last Modified By Organization Details Last Modified Time 12/04/2021 [id number] advance directives: care instructions [email or web address] Not available 12/04/2021 14:01:45 learning about living haas [email or web address] Not available 12/04/2021 14:01:45 do not rescuscitate education [email or web address] Not available 12/04/2021 14:01:45 Advance Directives Education [...] bilat eral No observ ation record ed. [email or web address] [facility] [address], [address], 05/30/2021 14:08:19 12/05/19 22 12/04/2021 , agusto rust s, kenn nash, lamar ete No observ ation record ed. [email or web address] [facility] [address] [place], [address], 12/06/2021 15:54:12 Result Notes None recorded. Problems Name Problem SNOMED Code Status Onset Date Resolution Date Notes Provider Name and Address Organization Details Recorded Time Asthma 026718623 Active Not Available [facility] 2 22:12:58 Anxiety disorder 905903326 Active 2018 Not Available [facility] 2 22:12:58 Idiopathic peripheral neuropathy 99967864 Active Not Available [facility] 2 22:12:58 Morbid obesity 084773163 Active 2017 Not Available [facility] 2 22:12:58 Osteoarthriti s of knee 907700587 Active 2016 Not Available [facility] 2 22:12:58 Disorder of bone and articular cartilage 023220188 Active Not Available [facility] 2 22:12:58 Anemia 942148113 Active 2016 Not Available [facility] 2 22:12:58 Osteopenia 609525220 Active 2016 Not Available [facility] 2 22:12:58 Basal cell carcinoma of face 261749793 Active 2018 Not Available [facility] 2 22:12:58 Deep venous thrombosis of lower extremity 499751297 Active Not Available [facility] 2 22:12:58 Obesity 708546101 Active Not Available [facility] 2 22:12:58 IgE-mediated allergic asthma 260704804 Active Not Available [facility] 2 22:12:58 Essential hypertension 43865735 Active 2017 Not Available [facility] 2 22:12:58 Allergic rhinitis 67469414 Active Not Available [facility] 2 22:12:58 Skin lesion 60506565 Active 2018 Not Available [facility] 2 22:12:58 Problem Notes None recorded. Procedures Surgical History Date Name Laterality Status Provider Name and Address Organization Details Recorded Time 12/05/19 22 Quality Functional Assessment completed Lily Mar [facility]ician [facility] 12/04/2021 11:14:06 12/05/19 22 Quality Medication Reviewed and Updated completed Lily Mar [facility] 12/04/2021 11:14:06 12/05/19 22 Quality BMI with follow up completed [facility] 12/04/2021 11:14:06 12/05/19 22 Quality Advanced Care Planning completed Lily Mar [facility], [facility] 12/04/2021 11:14:06 12/05/19 22 Quality [facility]ence Screening [facility], [facility] 12/04/2021 11:14:06 12/05/19 22 Medicare AWV - Screening Schedule [facility] 12/04/2021 11:14:06 12/05/19 22 Counseling: Advanced care planning completed Cee Dangelo [facility]ician [facility], [facility] 12/04/2021 13:32:06 12/05/19 22 Quality Fall Risk Assessment [facility], [facility] 12/04/2021 11:14:06 02/07/20 21 screening for osteoporosis completed Cee Dangelo [facility]ician [facility], [facility] 04/22/2021 12:00:03 05/10/19 21 mammography completed Cee Dangelo [facility]ician [facility], [facility] 04/22/2021 11:59:47 03/30/19 17 total replacement of left knee joint completed Cee Dangelo [facility], [facility] 04/22/2021 11:57:21 03/30/19 13 [facility] 04/22/2021 11:59:27 03/30/19 04 total replacement of right knee joint completed Cee Dangelo [facility], [facility] 04/22/2021 11:57:11 excision of bunion [facility], [facility] 04/22/2021 11:58:53 Imaging Results Imaging Date Name Status LastModified by [facility] Details LastModified Time 05/14/2021 MAMMO, screening, bilateral completed [email or web address] [facility] [address], [address], 05/30/2021 14:08:19 12/04/2021 US, duplex, venous, extremity, complete completed [email or web address] [facility] [address], [place], [address], 12/06/2021 15:54:12 Procedure Notes None recorded. Medical [...] TWICE DAILY TO AREA ON THE RIGHT CATHOLIC (AVOIDING THE BIOPSY SITES) FOR 7DAYS THEN [...] Available Not Available Nasonex 50 mcg/actuati on Hardin Hardin 1 spray twice a day by intranasa [...] Available Not Available No t Available Fluvirin 1389-8609 45 mcg (15 mcg x 3)/0.5 mL intramuscul ar suspension INJECT 0.5 ML INTRAMUSC ULARLY DIRECTED. active Not Available Not Available No t Available Fluzone High-Dose (PF) 180 mcg/0.5 mL intramuscul ar syringe active Not Available Not Available N ot Available Fluzone High-Dose 6567-4097 (PF) 180 mcg/0.5 mL intramuscul ar syringe ADM 0.5ML IM UTD active Not Available Not Available No t Available Fluzone High-Dose 5744-2911 (PF) 180 mcg/0.5 mL intramuscul ar syringe [...] Available Not Available Not Available Fluad Quad 1284-2453(6 5yr up)(PF) 60 mcg (15 mcg x [...] 0 98 /min 18 /min 98 [degF] 23825.6 6 g 155 mm[Hg] 84 mm[Hg] Not [...] 0 18 /min 97.6 [degF] 43.8 kg/m2 01914.9 2 g 181 mm[Hg] 84 mm[Hg] 183 mm[Hg] 100 mm[Hg] Cee Dangelo [facility], [facility] 2 11:37:51 Date Recorded Body height Heart rate Pain severity - 0-10 verbal numeric rating [Score] - Reported Respiratory rate Body temperature Body mass index (BMI) Body weight Systolic blood pressure Diastolic blood pressure Provider Name and Address Organization Details Last Updated DateTime 2 148.59 cm 98 /min 0 18 /min 97.5 [degF] 45 kg/m2 27272.0 8 g 168 mm[Hg] 72 mm[Hg] ELIANA Paredes [facility], [facility] 2 13:25:46 Date Recorded Body height Heart rate Pain severity - 0-10 verbal numeric rating [Score] - Reported Respiratory rate Body temperature Body mass index (BMI) Body weight Systolic blood pressure Diastolic blood pressure Systolic blood pressure Diastolic blood pressure Provider Name and Address Organization Details Last Updated DateTime 2 148.59 cm 86 /min 0 18 /min 97.6 [degF] 46 kg/m2 098114. 39 g 173 mm[Hg] 83 mm[Hg] 135 mm[Hg] 70 mm[Hg] Cee Dangelo [facility], [facility] 2 13:50:14 Date Recorded Body height Heart rate Pain severity - 0-10 verbal numeric rating [Score] - Reported Respiratory rate Body temperature Body mass index (BMI) Body weight Systolic blood pressure Diastolic blood pressure Systolic blood pressure Diastolic blood pressure Provider Name and Address Organization Details Last Updated DateTime 2 149.86 cm 97 /min 0 18 /min 97.6 [degF] 44.8 kg/m2 914193. 51 g 179 mm[Hg] 89 mm[Hg] 134 mm[Hg] 70 mm[Hg] Lily Mar [facility], [facility] 2 12:58:47 Social History Question Answer Notes LastModified by Organizat ion Details LastModified Time Tobacco Smoking Status Never Smoker ELIANA Paredes, [facility] Physician [facility], [facility] 04/22/2021 11:56:51 What Is Your Level Of Alcohol Consumption? Occasional [email or web address] Information not available 04/22/2021 Are You Currently Employed? No [email or web address] Information not available 04/22/2021 What Is Your Occupation? Retired [email or web address] Information not available 03/30/2021 What Was The Date Of Your Most Recent Tobacco Screening? 04/22/2021 Information not available 04/22/2021 What Is Your Relationship Status? [email or web address] Information not available 04/22/2021 Do You Use Any Illicit Or Recreational Drugs? No [email or web address] Information not available 04/22/2021 Has Tobacco Cessation Counseling Been Provided? Yes Information not available 12/04/2021 On What Date Was Tobacco Cessation Counseling Provided? 12/04/2021 Information not available 12/04/2021 Do You Or Have You Ever Used Any Other Forms Of Tobacco Or Nicotine? No Information not available 04/22/2021 Sex: Unknown Functional Status None recorded. Mental Status None recorded. Family History Relationship Description Onset Age of this Age Resolved Age Notes LastModified by Organization Details LastModified Time Mother Heart disease [email or web address] Not available 2021 11:56:18 Father of unknown cause [email or web address] Not available 2021 11:56:33 Notes:father at 77 of n atural causes mother at 67 unknown cause no brothers or sisters 2 children alive and well Medical History Condition Response Cancer (location) Y Blood Clots Y High blood pressure Y Anemia Y Urinary Problems Y Osteopenia/Osteoporosis Y Anxiety/Stress Y Asthma Y Allergies (other than meds) Y Gynecological HistoryNo gynecological history recorded. Obstetrics History GPAL:G 0 P 0 0 0 0 Immunizations Vaccine Type Date Status Note Provider Nam e and Address Organization Details Recorded Time Influenza, high-dose, quadrivalent, PF 2 completed Meg Jones MD [address] [facility] [address], [place], [address], [facility], [facility] 12/04/2021 16:33:40 Influenza, high-dose, trivalent, PF 5 completed Lily Pateli null, [facility], [facility] 12/04/2021 11:14:37 Influenza, split virus, trivalent, preservative 4 completed Lily Pateli null, [facility], [facility] 12/04/2021 11:14:37 Influenza, split virus, quadrivalent, preservative 3 completed Cee Dangelo RMA null, [facility], [facility] 12/04/2021 13:13:56 Influenza, high-dose, trivalent, PF 2 completed Lily Pateli null, [facility], [facility] 12/04/2021 11:14:37 Influenza, split virus, trivalent, preservative 4 completed Lily Mar null, [facility], [facility] 12/04/2021 11:14:37 Influenza, split virus, trivalent, preservative 3 completed Lily Pateli null, [facility], [facility] 12/04/2021 11:14:37 tetanus toxoid, unspecified formulation 9 completed Lily Pateli null, [facility], [facility] 12/04/2021 11:14:38 zoster live 8 completed Lily Mar null, [facility], [facility] 12/04/2021 11:14:37 pneumococcal, unspecified formulation 8 completed Lily Pateli null, [facility], [facility] 12/04/2021 11:14:37 Td (adult), 5 Lf tetanus toxoid, preservative free, adsorbed 1 completed Lily Mar null, [facility], [facility] 12/04/2021 11:14:37 Pneumococcal conjugate PCV 13 5 completed Lily Mar null, [facility], [facility] 12/04/2021 11:14:37 Influenza, adjuvanted, trivalent, PF 8 completed Lily Dulski null, [facility], [facility] 12/04/2021 11:14:37 Influenza, high-dose, trivalent, PF 6 completed Lily Dulski null, [facility], [facility] 12/04/2021 11:14:37 Influenza, high-dose, quadrivalent, PF 1 completed Lily Dulski null, [facility], [facility] 12/04/2021 11:14:37 Influenza, split virus, trivalent, preservative 3 completed Lily Dulski null, [facility], [facility] 12/04/2021 11:14:37 pneumococcal, unspecified formulation 8 completed [facility] 12/04/2021 11:14:37 COVID-19, mRNA, LNP-S, PF, 100 mcg/0.5mL dose or 50 mcg/0.25mL dose 1 completed [facility] 12/04/2021 11:14:37 Influenza, split virus, trivalent, PF 0 completed [facility] 12/04/2021 11:14:37 Influenza, high-dose, trivalent, PF 7 completed Lily Dulski null, [facility], [facility] 12/04/2021 11:14:37 COVID-19, mRNA, LNP-S, PF, 100 mcg/0.5mL dose or 50 mcg/0.25mL dose 1 completed Lily Dulski null, [facility], [facility] 12/04/2021 11:14:37 COVID-19, mRNA, LNP-S, PF, 100 mcg/0.5mL dose or 50 mcg/0.25mL dose 1 completed Lily Dulski null, [facility], [facility] 12/04/2021 11:14:37 tetanus toxoid, unspecified formulation 9 completed Lily hassan, [facility], [facility] 12/04/2021 11:14:38 Influenza, adjuvanted, trivalent, PF 9 completed Lily Isabela hassan, [facility], [facility] 12/04/2021 11:14:38 COVID-19, mRNA, LNP-S, PF, 100 mcg/0.5mL dose or 50 mcg/0.25mL dose 2 completed Lily hassan, [facility], [facility] 12/04/2021 11:14:37 Past Encounters Encounter ID Performer Location Encounter Start Date Encounter Closed Date Diagnosis/Indication Diagnosis SNOMED-CT Code Diagnosis ICD10 Code Diagnosis Note [id number] [facility] [place] [address] [place] [address] [place] [address] 10/22/2012 00:00:00 10/26/2012 08:28:41 [id number] [facility] [place] [address] [place] [address] [place] [address] 09/06/2013 00:00:00 09/07/2013 21:41:30 [id number] [facility] [place] [address] [place] [address] [place] [address] 11/30/2013 00:00:00 11/30/2013 22:42:00 [id number] [facility] [place] [address] [place] [address] [place] [address] 05/10/2014 00:00:00 05/11/2014 22:00:37 [id number] [facility] [place] [address] [place] [address] [place] [address] 09/19/2014 00:00:00 09/19/2014 18:25:49 [id number] [facility] [place] [address] [place] [address] [place] [address] 11/06/2014 00:00:00 11/06/2014 20:16:24 [id number] [facility] [place] [address] [place] [address] [place] [address] 11/08/2014 00:00:00 11/08/2014 22:55:56 [id number] [facility] [place] [address] [place] [address] [place] [address] 11/13/2014 00:00:00 11/13/2014 19:56:28 [id number] [facility] [place] [address] [place] [address] [place] [address] 11/16/2014 00:00:00 11/16/2014 12:12:08 [id number] [facility] [place] [address] [place] [address] [place] [address] 11/22/2014 00:00:00 11/22/2014 20:57:12 [id number] [facility] [place] [address] [place] [address] [place] [address] 11/29/2014 00:00:00 11/29/2014 21:17:57 [id number] [facility] [place] [address] [place] [address] [place] [address] 12/11/2014 00:00:00 12/11/2014 17:00:49 [id number] [facility] [place] [address] [place] [address] [place] [address] 01/29/2015 00:00:00 01/29/2015 19:24:49 [id number] [facility] [place] [address] [place] [address] [place] [address] 02/13/2015 00:00:00 02/13/2015 19:36:14 [id number] [facility] [place] [address] [place] [address] [place] [address] 04/06/2015 00:00:00 04/06/2015 20:01:09 [id number] [facility] [place] [address] [place] [address] [place] [address] 05/04/2015 00:00:00 05/04/2015 20:56:40 [id number] [facility] [place] [address] [place] [address] [place] [address] 07/03/2015 00:00:00 07/03/2015 19:25:37 [id number] [facility] [place] [address] [place] [address] [place] [address] 07/26/2015 00:00:00 07/26/2015 12:20:55 [id number] [facility] [place] [address] [place] [address] [place] [address] 09/24/2015 00:00:00 09/24/2015 21:54:39 [id number] [facility] [place] [address] [place] [address] [place] [address] 02/15/2016 00:00:00 02/16/2016 11:14:32 [id number] [facility] [place] [address] [place] [address] [place] [address] 03/11/2016 00:00:00 03/11/2016 19:47:42 [id number] [facility] [place] [address] [place] [address] [place] [address] 04/22/2016 00:00:00 04/23/2016 20:04:09 [id number] [facility] [place] [address] [place] [address] [place] [address] 07/11/2016 00:00:00 07/11/2016 12:53:59 [id number] [facility] [place] [address] [place] [address] [place] [address] 10/22/2016 00:00:00 10/22/2016 18:37:46 [id number] [facility] [place] [address] [place] [address] [place] [address] 01/13/2017 00:00:00 01/13/2017 11:21:51 [id number] [facility] [place] [address] [place] [address] [place] [address] 04/30/2017 00:00:00 04/30/2017 16:35:49 [id number] [facility] [place] [address] [place] [address] [place] [address] 05/04/2017 00:00:00 05/04/2017 18:10:27 [id number] [facility] [place] [address] [place] [address] [place] [address] 08/28/2017 00:00:00 08/28/2017 20:18:52 [id number] [facility] [place] [address] [place] [address] [place] [address] 11/17/2017 00:00:00 11/17/2017 16:45:00 [id number] [facility] [place] [address] [place] [address] [place] [address] 01/26/2018 00:00:00 01/26/2018 14:03:01 [id number] [facility] [place] [address] [place] [address] [place] [address] 07/30/2018 00:00:00 07/30/2018 19:30:09 [id number] [facility] [place] [address] [place] [address] [place] [address] 08/10/2018 00:00:00 08/10/2018 19:31:58 [id number] _ATHENA_M IGRATION_ DEFAULT_2 2_1 , 09/20/2018 00:00:00 09/20/2018 13:36:53 [id number] _ATHENA_M IGRATION_ DEFAULT_2 2_1 , 09/23/2018 00:00:00 09/23/2018 11:43:16 [id number] [facility] [place] [address] [place] [address] [place] [address] 11/22/2018 00:00:00 11/22/2018 19:56:20 [id number] [facility] [place] [address] [place] [address] [place] [address] 12/23/2018 00:00:00 12/23/2018 19:37:25 [id number] [facility] [place] [address] [place] [address] [place] [address] 03/07/2019 00:00:00 03/07/2019 20:46:15 [id number] [facility] [place] [address] [place] [address] [place] [address] 11/28/2019 00:00:00 11/28/2019 18:38:23 [id number] [facility] [place] [address] [place] [address] [place] [address] 03/16/2020 00:00:00 03/16/2020 17:04:11 [id number] [facility] [place] [address] [place] [address] [place] [address] 04/04/2020 00:00:00 04/04/2020 18:30:41 [id number] [facility] [place] [address] [place] [address] [place] [address] 04/17/2020 00:00:00 04/17/2020 20:13:31 [id number] [facility] [place] [address] [place] [address] [place] [address] 04/28/2020 00:00:00 04/28/2020 15:05:49 [id number] [facility] [place] [address] [place] [address] [place] [address] 04/30/2020 00:00:00 04/30/2020 19:14:31 [id number] [facility] [place] [address] [place] [address] [place] [address] 06/18/2020 00:00:00 06/18/2020 20:15:51 [id number] [facility] [place] [address] [place] [address] [place] [address] 11/28/2020 00:00:00 11/28/2020 20:58:53 [id number] MD SID Whalen [place] [address] [place] [address] [place] [address] 04/22/2021 10:49:42 04/22/2021 12:00:16 Eruption [id number] R21 Atopic dermatitis 212512 01 L20.9 [id number] Stephanie MelendrezYOKO martin [facility] [place] [address] [place] [address] [place] [address] 05/30/2021 13:15:37 05/30/2021 14:29:35 Pain of left knee joint [id number] M25.562 Pain in the left knee I [...] knee Varicose v eins of lower extremity [id number] I83.93 She has fairly extensive varicose veins in both lower extremitie s she is asked to be sent to a vein specialist I will do that at her request and they can surgically attack these 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 The rash she has can be treated with Trental 400 mg once a day I will reassess in 30 days and see if this helps Body mass index 40+ - severely obese [id number] Z68.41 I have strongly advised her to cut back her calories she does not think she eats too much and when she does that she is not going to lose any weight diet weight loss and exercise were encouraged Acute deep vein thrombosis of lower limb [id number] 08 I82.409 [id number] MD SID Whalen [place] [address] [place] [address] 07/02/2021 13:32:33 07/02/2021 14:57:23 Obesity [id number] E66.9 Varicose v eins of lower extremity 51168224 I83.93 Asthma 209143890 J45.90 9 Cough 62251695 R05.9 Eruption 290016309 R21 Granuloma annulare 26470 009 L92.0 The rash she has can be treated with Trental 400 mg once a day I will reassess in 30 days and see if this helps [id number] Meg Jones MD [facility] [place] [address] [place] [address] [place] [address] 12/04/2021 12:45:53 12/04/2021 15:36:38 Adult health examination [id number] Z00.00 Annual Wellness Visit done today Advance care planning 71 4717009 Z71.89 Active or passive immunization 501126482 Z23 Essential hypertension 11277432 I10 Obesity 221260495 E66.9 Screening mammography 24 272256 Z12.31 Dependent edema 11140452 4 R60.0 Eruption 842445957 R21 Asthma 905434728 J45.90 9 Granuloma annulare 13115 009 L92.0 The rash she has can [...] HEALTH (MEDICARE REPLACEMENT HMO) Padma S Houde [id number] 1 [id number] 01 Padma S Houde 05/30/2021 1 [facility] (MEDICARE REPLACEMENT HMO) Padma S Houde [id number] 01 Padma S Houde 07/02/2021 1 [employer] [facility] (MEDICARE REPLACEMENT HMO) Padma S Houde [id number] 1 [id number] 01 Padma S Houde 12/04/2021 1 [employer] [facility] (MEDICARE REPLACEMENT HMO) Padma S Houde [id number] 1 [id number] 01 Padma S Houde Notes Date Note [...] vaccine product did you receive?Moderna Imported from [facility] on 04/22/2021 QUALITY MEASURE QUESTIONNAIRE ?Has the Patient had a fracture in the last year ?No ?Has the Patient had a bone density testing performed before ?Yes ?Has the Patient been diagnosed as having osteoporosis ?No Imported from [facility] on 04/22/2021 Meg Jones MD [address], [place], [address], [facility] - [facility], [facility] 04/22/2021 20:35:51 05/30/2021 text/html CORONAVIRUS SCREENING [id number] female comes in for 6-month Medicare follow-up she tells me her left knee is hurting her ever since she had it redone and a replacement by Dr. De La Rosa in [place] about 4 4 5 years ago. She [...] tested positive for COVID-19 ?No Imported from [facility] on 05/30/2021 Meg Jones MD [address], [place], [address], [facility] - [facility], [facility] 05/30/2021 19:09:36 07/02/2021 text/html CORONAVIRUS SCREENING TOOLThis patient is a 76-year-old female that comes in today for reasons I am really not sure of she tells me that the rash is gotten much worse though she told my medical laboratory technicians to complete opposite it was cured. She [...] tested positive for COVID-19 ?No Imported from [facility] on 07/02/2021 Meg Jones MD [address], [place], [address], [employer] 07/02/2021 21:07:52 12/04/2021 text/html This is a [...] She has asthma, Meg Jones MD [address], [employer], [address], [employer] 12/04/2021 16:33:47 OBGyn Episode No OBEpisode recorded.
== END 2024-07-25 11:58 | disposition home or self-care (01) ==
LOC: HO.XRAY 11:57
PROVIDERS: PCP Nurse Practitioner Family; Visit Provider Nurse Practitioner Family
DX: M54.50 Low back pain, unspecified (principal)
CPT/HCPCS: 72100

== ENCOUNTER → 2024-07-25 12:10 | Outpatient (BNV) | payer MEDICARE, SELFPAY | PROVIDERS: PCP Nurse Practitioner Family; Visit Provider Radiology Diagnostic Radiology | DX: M47.815 Spondylosis without myelopathy or radiculopathy, thoracolumbar region (principal); I70.0 Atherosclerosis of aorta | CPT/HCPCS: 72100 ==

== ENCOUNTER 2024-07-28 11:33 | Outpatient (REF) | payer MEDICARE, SELFPAY ==
[2024-07-28 13:06] LABS: MANUAL DIFF FLAG NO
[2024-07-28 13:13] LABS: Basophils Absolute Auto 0.1 X10*3/uL (0.0-0.2); Basophils Percent Auto 0.9 % (0-2); Eosinophils Absolute Auto 0.2 X10*3/uL (0.0-0.4); Hematocrit 41.4 % (37.0-47.0); Hemoglobin 13.7 g/dl (12.0-16.0); Imm Gran Abs Auto 0.01 X10*3/uL (0.00-0.03); Imm Gran Pct Auto 0.2 % (0.0-0.4); Lymphocytes Absolute Auto 1.2 X10*3/uL (1.2-4.9); Mean Corpuscular HGB Conc 33.1 g/dl (31.0-35.0); Mean Corpuscular Hemoglobin 30.3 pg (27.0-33.0); Mean Corpuscular Volume 91.6 fL (80.0-98.0); Mean Platelet Volume 10.8 fL (9.4-12.3); Monocytes Absolute Auto 0.5 X10*3/uL (0.1-1.2); Neutrophils Absolute Auto 3.7 x10*3/uL (2.0-8.3); Neutrophils Percent Auto 64.9 % (45-73); Platelet Count 164 X10*3/uL (160-400); Red Blood Count 4.52 X10*6/uL (4.20-5.50); Red Cell Distribution Width 13.2 % (11.0-16.0); White Blood Count 5.7 X10*3/uL (4.8-10.8)
[2024-07-28 13:14] LABS: Appearance Urine Clear; Color Urine Dark Yellow; Glucose Urine UA Negative (Negative); Leukocyte Esterase Urine Negative (Negative); Nitrite Urine Negative (Negative); PH 5.5 (5.0-9.0); Specific Gravity - Urine 1.025 (1.005-1.025); Urine Blood Negative (Negative); Urine Ketones Negative (Negative); Urine Protein Trace mg/dL (Neg-Trace)
[2024-07-28 13:36] LABS: Alanine Aminotransferase 13 U/L (0-31); Albumin Level 3.7 g/dL (3.5-5.0); Alkaline Phosphatase 74 U/L (39-117); Anion Gap 11 (12-20); Aspartate Amino Transferase 22 U/L (5-31); Blood Urea Nitrogen 24 mg/dL (9-16); Calcium 9.6 mg/dL (8.4-10.2); Carbon Dioxide 29 mmol/L (22-29); Chloride 108 mmol/L (96-108); Cholesterol 197 mg/dL (<200); Estimated Glomerular Filt Rate 48; Glucose Fasting 102 mg/dL (60-99); HDL Cholesterol 49 mg/dL (>40); LDL Cholesterol Calculated 130 mg/dL (<100); Potassium 4.1 mmol/L (3.3-5.1); Sodium 144 mmol/L (135-145); Total Protein 6.4 g/dL (6.5-8.0); Triglycerides 93 mg/dL (<150)
[2024-07-28 13:57] LABS: TSH reflex Free T4 1.26 uIU/mL (0.32-4.0); Vitamin D 25-OH Total 67.3 ng/mL (>30)
== END 2024-07-28 11:34 | disposition home or self-care (01) ==
LOC: HO.HMGCLDS 11:33
PROVIDERS: PCP Nurse Practitioner Family; Visit Provider Nurse Practitioner Family
DX: Z00.00 Encounter for general adult medical examination without abnormal findings (principal); E55.9 Vitamin D deficiency, unspecified
CPT/HCPCS: 36415; 80053; 80061; 81003; 82306; 84443; 85025

== ENCOUNTER 2024-09-05 13:37 | Outpatient (AMB) | payer MEDICARE, SELFPAY ==
[2024-09-05 13:49] VITALS: BP 134/64; PULSE 61; BMI 43.7
--- NOTE | 2024-09-05 13:49 | A.OFFVIS_ITS ---
Vital Signs 09/05/24 13:49 Height 5 ft Weight 223 lb 8.78 oz BMI 43.7 BP 134/64 Blood Pressure Location Lt brachial Position Sitting Pulse 61 Pulse Source Monitor Intake Visit Reasons: 6m follow up r/s 08/01/24 Intake Note: 6 mth f/up Consumer Affairs Director Required: No Accompanied by: Daughter Allergies No Known Allergies Allergy (Verified 07/14/24 12:45) Medication List - Last Reconciled 09/05/24 by Iggy High MD albuterol sulfate 2.5 mg (3 mL) inhalation Q6H PRN albuterol sulfate 90 mcg/actuation 2 puffs inhalation Q6H PRN atorvastatin 10 mg PO BEDTIME cholecalciferol (vitamin D3) (Vitamin D3) 50 mcg PO DAILY clotrimazole-betamethasone 1-0.05 % 1 appl topical BID 2 weeks ferrous sulfate (Feosol) 325 mg PO DAILY fluticasone propion-salmeterol 250-50 mcg/dose (Wixela Inhub) 1 ea inhalation BID furosemide 20 mg PO DAILY 90 days hydrocortisone 2.5% 1 appl topical BID PRN lisinopril 20 mg PO DAILY 90 days meloxicam 7.5 mg PO DAILY PRN metoprolol succinate ER 50 mg PO DAILY 90 days mirabegron ER (Myrbetriq) 25 mg PO DAILY 90 days HPI Comments Details: 79-year-old female who is here for follow-up. She was seen in the hospital in November 2022 when she presented with acute pulmonary embolism. She was treated and discharged home. At the time she had echocardiography performed which showed [id number] pericardial effusion and mild LV dysfunction. She was started on guideline directed medical therapy. She was seen in the office by our nurse practitioners. She has done well since then. No chest pain or shortness of breath. She had repeat echocardiography performed few days ago which is showing normal LV function. She continues to have a [id number]-[id number]-zopgmopi pericardial effusion. His November 2022 she had a CTA of the chest to diagnosed pulmonary embolism which did not show any lung mass or concern for cancer. She also had a normal TSH level before that. Echocardiography in November 2023 has shown small pericardial effusion. She has been taken off the anticoagulation by Hematology. She is denying any significant shortness of breath. She has back pain and arthritis which limits her mobility and she can not do significant activity due to that. No chest pains reported. 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 Cognitive needs: No Hearing needs: No Vision needs: No Review of Systems Const Denies chills, Denies fatigue, Denies fever(s), Denies frequent falls, Denies weakness, Denies weight gain and Denies weight loss ENT Denies dizziness Card Denies chest pain, Denies leg edema, Denies lightheadedness, Denies palpitations, Denies dyspnea and Denies dyspnea on exertion Resp Denies cough, Denies dyspnea and Denies dyspnea on exertion GI Denies hematochezia Musc Denies abnormal gait, Denies muscle weakness, Denies numbness, Denies radiating pain into limb and Denies tingling Neuro Denies abnormal gait, Denies dizziness, Denies frequent falls, Denies numbness, Denies tingling and Denies weakness Endo Denies fatigue and Denies palpitations Physical Exam Vital Signs: Last Vital Signs Pulse 61 09/05/24 13:49 BP 134/64 09/05/24 13:49 BMI result Body Mass Index 43.7 GENERAL APPEARANCE: in no acute distress, pleasant. NECK: no carotid bruit, no jugular venous distention. SKIN: no suspicious lesions, warm and dry. HEART: no murmurs, regular rate and rhythm. LUNGS: clear to auscultation bilaterally. ABDOMEN: soft, nontender. EXTREMITIES: no edema. PERIPHERAL PULSES: equal. NEUROLOGIC: No gross deficits, AAO X 3 Office Procedures EKG Details: Sinus rhythm 61 beats per minute, normal axis, poor R-wave progression, QTC 414 milliseconds. [id number], Complete Assessment & Plan Assessment & Plan (1) HTN (hypertension): Code(s): I10 - Essential (primary) hypertension Category: Medical (2) Pericardial effusion: Code(s): I31.39 - Other pericardial effusion (noninflammatory) Category: Medical Plan Pleasant 79-year-old female who is here for follow-up. She has known history of thromboembolism and was on anticoagulation which has been stopped at this stage. Her echocardiography showed small pericardial effusion which has not grown on serial echocardiography. Echo in November 2023 has shown small pericardial effusion. We will repeat echocardiography in another year and if it is stable then probably close monitoring is not required anymore. Limited mobility due to arthritis. No anginal symptoms. Follow-up with us in 6 months. Thank you for allowing me to participate in the care of your patient. Please feel free to contact me if you have any questions. Orders: Orders CA echo transthoracic complete 12/12/24 I31.39 - Other pericardial effusion (noninflammatory) Coding Level of Care Code Est Pt Level 4 (89777) Complex EM visit Add On G2211 Diagnoses HTN (hypertension) I10 Pericardial effusion I31.39 CPT Codes EKG - CPT: 06053-Sevemwrbmmoazwakz, Complete ([id number])
--- OUTSIDE RECORDS SUMMARY | 2024-09-05 15:23 | XMS_ITS | Data Portability ---
Author Organization [place] [facility]14 [facility] IP Address [address] [place] [address] Care Team Providers Care Frame Polisher Name Role Phone CARLOS MADRID Primary Care Provider MEG JONES Primary Care Provider [phone] Assessment Encounter Date Assessment Date Assessment LastModified by Organization Details LastModified Time 04/30/2020 04/30/2020 multiple contusions to the forearm with lacerations please see the pictures spent approximately 40 minutes cleaning in repairing laceration to Christine pose it and remove all the debris and prior Steri-Strips carefully with binocular microscope [email or web address] Not available 04/30/2020 19:14:23 06/18/2020 06/18/2020 community-acquir [...] comfortably on room air at this time [email or web address] Not available 06/18/2020 20:15:13 11/28/2020 11/28/2020 Time [...] left knee rash of groin dependent edema [email or web address] Not available 11/28/2020 13:43:59 Plan of Treatment Reminders Order Date Submit Date Provider Last Modified By Organization Details Last Modified Time Details Appointments None recorded. Lab lipid panel, serum 2020 021 [facility], [address] [place] [address], [address], [place], [address], 08:15:01 CMP, serum or plasma 2020 021 [facility], [address] [place] [address], [address], [place], [address], 08:15:00 TSH, serum or plasma 2020 021 [email or web address] 15 [facility], [address] [place] [address], [address], [place], [address], 10:14:28 urinalysis complete, reflex culture 2020 021 [facility], [address] [place] [address], [address], [place], [address], 08:15:01 CBC w/ auto diff 2020 021 [facility], [address] [place] [address], [address], [place], [address], 08:14:59 Referral None recorded. Procedures None recorded. Surgeries None recorded. Imaging XR, knee, 4 or more view [email or web address] Not available 17:03:21 MAMMO, screening, digital, bilateral - Please call the patient to schedule. 2020 [facility] 15 [facility] ([facility]), [address], [place], [address], 10:09:11 bone density - Please call the patient to schedule. [email or web address] ([facility]), [address], [place], [address], 10:09:11 XR, chest, 2 view 2020 [facility] ([facility]), [address], [place], [address], 13:38:41 Medication Orders Voltaren Arthritis Pain 1 % topical gel 2021 [email or web address] 68 [id number], [address] [facility] [address], [place], [address], 17:03:21 Qsymia 7.5 mg-46 mg capsule, extended release 2020 [facility], [address] [place], [address], 21:01:04 levofloxaci n 500 mg tablet 2020 [id number], [address] [facility] [address], [place], [address], 13:28:56 albuterol sulfate 2.5 mg/3 mL (0.083 %) solution for nebulizatio n 2020 021 [email or web address] 50 [id number], [address] [facility] [address], [place], [address], 12:02:22 Patient TargetsNo targets recorded. Patient Instructions Encounter Date Encounter Id Patient Instructions Last Modified By Organization Details Last Modified Time 04/28/2020 [id number] Keep wound dress ing in place for 24 hours. After 24 hours, you may change the dressing. After 24 hours, you may get the wound wet in the shower but dry thoroughly afterwards. Please return here to urgent care follow-up with primary care provider as needed for new or worsening symptoms. [email or web address] Not available 04/28/2020 15:05:21 06/18/2020 [id number] cough: care instructions [email or web address] Not available 06/18/2020 12:02:22 11/28/2020 [id number] alcohol use diso rders identification test* [email or web address] Not available 11/28/2020 13:22:10 fall risk screening* [email or web address] Not bryce ilable 11/28/2020 13:22:10 geriatric depres coni screen* [email or web address] Not available 11/28/2020 13:22:10 mammogram: about this test [email or web address] Not available 11/28/2020 13:22:10 When You Want to Lose Weight: Care Instructions [email or web address] Not available 11/28/2020 13:22:10 multi-dimensiona l health assessment questionnaire* Not available 11/28/2020 13:22:10 advance directiv es: care instructions [email or web address] Not available 11/28/2020 13:22:10 Advance Care Directives Patient WebLink Handout Not available 11/28/2020 13:22:10 high blood press ure: care instructions [email or web address] Not available 11/28/2020 13:22:10 learning about h igh blood pressure Not available 11/28/2020 13:22:[address] [facility] Plan and Screening Recommendations Advance Directives - Do you have one? Advance Directives - Do we have your advance directive on file in your health record? Primary Prevention/Interventio n (prevents or decreases the chance of common diseases from occurring) Tobacco/Nicotine Risk: Alcohol Misuse Screening: Weight: Physical activity: Nutrition: Fall Risk (screened today): Vaccines Influenza: # Recommended Recommen ded today, but you have declined Your next one in the fall of this year Your next one in the fall of next year Not indicated Pneumococcal: # Recommended Recommended today, but you have declined Series completed Your next one due: Not indicated Shingles: # Recommend first dose. Second dose due 2-6 months after first dose. There may be an out of pocket cost for preventative services. Recommend second dose. There may be an out of pocket cost for preventative services. Recommended today, but you have declined Series completed Not indicated COVID-19: # Recommended Recommended today, but you have declined Series completed Your next one due: Not indicated Tetanus: # Due: Recommended. There may be an out of pocket cost for preventive services Recommended today, but you have declined Not indicated Hepatitis B: # Recommended, next dose due: Recommended today, but you have declined Series completed Not indicated Secondary Prevention/Interventio n (detects treatable diseases before they may cause symptoms, disability, or ) Breast Cancer Screening with mammogram: Cervical Cancer Screening: Osteoporosis Screening: Colon Cancer Screening: # Due: Recommended Recommend ed today, but you have declined Referred to General Surgeon/ Bank Consultant No screening necessary Eye Disease Screening: # Your next exam due: Recommended Recommended today, but you have declined Per your eye care provider No Eye exam necessary Depression Screening: Cognitive Screening: Diabetes Screening: # Due: Performed/Ordered today Recommended today, but you have declined Not indicated Current Diagnosis Cardiovascular Disease (CVD) Screening: labs - # Due: Performed/Ordered today Recommended today, but you have declined Not indicated Current Diagnosis Aspirin Recommendations: you are # not at increased risk at increased risk # Daily aspirin recommended Recommended today, but you have declined Contraindicated On alternative therapy Daily aspirin not indicated at this time Abdominal Aortic Aneurysm (AAA) Screening: # Recommend Ultrasound Ultrasound completed Declined Not indicated Lung Cancer Screening: # Recommended Low dose CT scan Low dose CT scan due: Recommended today, but you have declined Not indicated Hepatitis B Screening: # You are not at increased risk, testing is not indicated today You are at increased risk, testing was performed/ordered today You are at increased risk, testing was recommended today but you have declined You are at increased risk, testing was performed and normal, continue to manage risk with your provider You have a current diagnosis, continue to manage your condition with your provider I would like to see you back at a future visit to assess your risk Hepatitis C Screening: # You are not at increased risk, testing is not indicated today You are at increased risk, testing was performed/ordered today You are at increased risk, testing was recommended today but you have declined You are at increased risk, testing was performed and normal, continue to manage risk with your provider You have a current diagnosis, continue to manage your condition with your provider I would like to see you back at a future visit to assess your risk Sexually Transmitted Infections Screening: # You are not at increased risk, testing is not indicated today You are at increased risk, testing was performed/ordered today You are at increased risk, testing was recommended today but you have declined You are at increased risk, testing was performed and normal, continue to manage risk with your provider You have a current diagnosis, continue to manage your condition with your provider I would like to see you back at a future visit to assess your risk Human Immunodeficiency Virus (HIV) Screening: # You are not at increased risk, testing is not indicated today You are at increased risk, testing was performed/ordered today You are at increased risk, testing was recommended today but you have declined You are at increased risk, testing was performed and normal, continue to manage risk with your provider You have a current diagnosis, continue to manage your condition with your provider I would like to see you back at a future visit to assess your risk Tertiary Prevention/Interventio n (identifies your current known diseases and attempts to prevent complications of those diseases) Complications of many of these diseases can be minimized through the primary prevention/interventio ns listed above but some may require medication addition/change or referrals and will be addressed today or at a follow-up appointment Pain Control Status: Pain Medication Use and Risk for Opioid Misuse: Pain Management Plan: [email or web address] Not available 11/28/2020 12:56:41 Reason for Referral None Reported. Results Created Date Observation Date Name Description Value Unit Range Abnormal Flag Note LastModifiedBy Organization Detail LastModifiedTime 12/05/1912/05/2020 CBC WITH DIFFE RENTI AL/PL ATELE T WBC 5.3 x10e3 /uL 3.4-10 .8 Not Available [facility] ([facility]) [address] [facility], [place], [address], 12/07/2020 08:14:58 12/05/19 21 12/05/2020 CBC WITH DIFFE RENTI AL/PL ATELE T RBC 4.63 x10e6 /uL 3.77-5 .28 Not Available [facility] ([facility]) [address] [facility], [place], [address], 12/07/2020 08:14:58 12/05/1912/05/2020 CBC WITH DIFFE RENTI AL/PL ATELE T hemoglobin 13.6 g/dL 11.1-1 5.9 Not Available [facility] ([facility]) [address] [place], [address], 12/07/2020 08:14:58 12/05/1912/05/2020 CBC WITH DIFFE RENTI AL/PL ATELE T hematocrit 39.9 % 34.0-4 6.6 Not Available [facility] ([facility]) [address] [place], [address], 12/07/2020 08:14:58 12/05/1912/05/2020 CBC WITH DIFFE RENTI AL/PL ATELE T MCV 86 fL 79-97 Not Available [facility] ([facility]) [address] [place], [address], 12/07/2020 08:14:58 12/05/1912/05/2020 CBC WITH DIFFE RENTI AL/PL ATELE T MCH 29.4 pg 26.6-3 3.0 Not Available [facility] ([facility]) [address] [place], [address], 12/07/2020 08:14:58 12/05/19 21 12/05/2020 CBC WITH DIFFE RENTI AL/PL ATELE T MCHC 34.1 g/dL 31.5-3 5.7 Not Available [facility] ([facility]) [address] [facility], [place], [address], 12/07/2020 08:14:58 12/05/19 21 12/05/2020 CBC WITH DIFFE RENTI AL/PL ATELE T RDW 14.0 % 11.7-1 5.4 Not Available [facility] ([facility]) [address] [facility], [place], [address], 12/07/2020 08:14:58 12/05/1912/05/2020 CBC WITH DIFFE RENTI AL/PL ATELE T platelets 217 x10e3 /uL 150-45 0 Not Available [facility] ([facility]) [address] [facility], [place], [address], 12/07/2020 08:14:58 12/05/19 21 12/05/2020 CBC WITH DIFFE RENTI AL/PL ATELE T neutrophils 54 % not estab. Not Available [facility] ([facility]) [address] [facility] [place], [place], [address], 12/07/2020 08:14:58 12/05/19 21 12/05/2020 CBC WITH DIFFE RENTI AL/PL ATELE T lymphs 29 % not estab. Not Available [facility] ([facility]) [address] [facility], [place], [address], 12/07/2020 08:14:58 12/05/19 21 12/05/2020 CBC WITH DIFFE RENTI AL/PL ATELE T monocytes 10 % not estab. Not Available [facility] ([facility]) [address] [place], [address], 12/07/2020 08:14:58 12/05/19 21 12/05/2020 CBC WITH DIFFE RENTI AL/PL ATELE T eos 6 % not estab. Not Available [facility] ([facility]) [address] [facility], [place], [address], 12/07/2020 08:14:58 12/05/1912/05/2020 CBC WITH DIFFE RENTI AL/PL ATELE T basos 1 % not estab. Not Available [facility] ([facility]) [address] [facility] [place], [place], [address], 12/07/2020 08:14:58 12/05/19 21 12/05/2020 CBC WITH DIFFE RENTI AL/PL ATELE T immature cells CEMENT MASON HELPER Not Available [facility] ([facility]) [address] [facility] [place], [place], [address], 12/07/2020 08:14:58 12/05/1912/05/2020 CBC WITH DIFFE RENTI AL/PL ATELE T neutrophils (absolute) 2.8 x10e3 /uL 1.4-7. 0 Not Available [facility] ([facility]) [address] [facility], [place], [address], 12/07/2020 08:14:58 12/05/1912/05/2020 CBC WITH DIFFE RENTI AL/PL ATELE T lymphs (absolute) 1.6 x10e3 /uL 0.7-3. 1 Not Available [facility] ([facility]) [address] [place], [address], 12/07/2020 08:14:58 12/05/1912/05/2020 CBC WITH DIFFE RENTI AL/PL ATELE T monocytes(ab solute) 0.5 x10e3 /uL 0.1-0. 9 Not Available [facility] ([facility]) [address] [place], [address], 12/07/2020 08:14:58 12/05/19 21 12/05/2020 CBC WITH DIFFE RENTI AL/PL ATELE T eos (absolute) 0.3 x10e3 /uL 0.0-0. 4 Not Available [facility] ([facility]) [address] [facility] [place], [place], [address], 12/07/2020 08:14:58 12/05/19 21 12/05/2020 CBC WITH DIFFE RENTI AL/PL ATELE T baso (absolute) 0.1 x10e3 /uL 0.0-0. 2 Not Available [facility] ([facility]) [address] [facility] [place], [place], [address], 12/07/2020 08:14:58 12/05/19 21 12/05/2020 CBC WITH DIFFE RENTI AL/PL ATELE T immature granulocytes 0 % not estab. Not Available [facility] ([facility]) [address] [facility], [place], [address], 12/07/2020 08:14:58 12/05/19 21 12/05/2020 CBC WITH DIFFE RENTI AL/PL ATELE T immature grans (abs) 0.0 x10e3 /uL 0.0-0. 1 Not Available [facility] ([facility]) [address] [facility], [place], [address], 12/07/2020 08:14:58 12/05/19 21 12/05/2020 CBC WITH DIFFE RENTI AL/PL ATELE T NRBC CEMENT MASON HELPER Not Available [facility] ([facility]) [address] [facility] [place], [place], [address], 12/07/2020 08:14:58 12/05/19 21 12/05/2020 CBC WITH DIFFE RENTI AL/PL ATELE T hematology comments: CEMENT MASON HELPER Not Available [facility] ([facility]) [address] [place], [address], 12/07/2020 08:14:58 12/05/19 21 12/05/2020 COMP. METAB OLIC PANEL (14) glucose 90 mg/dL 65-99 Not Available [facility] ([facility]) [address] [place], [address], 12/07/2020 08:15:00 12/05/19 21 12/05/2020 COMP. METAB OLIC PANEL (14) BUN 29 mg/dL 8-27 above high normal Not Available [facility] ([facility]) [address] [facility] [place], [address], 12/07/2020 08:15:00 12/05/19 21 12/05/2020 COMP. METAB OLIC PANEL (14) creatinine 1.01 mg/dL 0.57-1 .00 above high normal Not Available [facility] ([facility]) [address] [facility] [place], [address], 12/07/2020 08:15:00 12/05/19 21 12/05/2020 COMP. METAB OLIC PANEL (14) eGFR if nonafricn AM 54 mL/mi n/1.7 3 >59 below low normal Not Available [facility] ([facility]) [address] [facility], [place], [address], 12/07/2020 08:15:00 12/05/19 21 12/05/2020 COMP. METAB [...] SN Task force . Not Available [facility] ([facility]) [address] [facility] [place], [place], [address], 12/07/2020 08:15:00 12/05/19 21 12/05/2020 COMP. METAB OLIC PANEL (14) BUN/creatini ne ratio 29 12-28 above high normal Not Available [facility] ([facility]) [address] [place], [address], 12/07/2020 08:15:00 12/05/19 21 12/05/2020 COMP. METAB OLIC PANEL (14) sodium 139 mmol/ L 134-14 4 Not Available [facility] ([facility]) [address] [facility] [place], [address], 12/07/2020 08:15:00 12/05/19 21 12/05/2020 COMP. METAB OLIC PANEL (14) potassium 3.9 mmol/ L 3.5-5. 2 Not Available [facility] ([facility]) [address] [facility] [place], [address], 12/07/2020 08:15:00 12/05/19 21 12/05/2020 COMP. METAB OLIC PANEL (14) chloride 103 mmol/ L 96-106 Not Available [facility] ([facility]) [address] [facility] [place], [address], 12/07/2020 08:15:00 12/05/19 21 12/05/2020 COMP. METAB OLIC PANEL (14) carbon dioxide, total 23 mmol/ L 20-29 Not Available [facility] ([facility]) [address] [facility] [place], [address], 12/07/2020 08:15:00 12/05/19 21 12/05/2020 COMP. METAB OLIC PANEL (14) calcium 9.4 mg/dL 8.7-10 .3 Not Available [facility] ([facility]) [address] [facility] [place], [address], 12/07/2020 08:15:00 12/05/19 21 12/05/2020 COMP. METAB OLIC PANEL (14) protein, total 6.2 g/dL 6.0-8. 5 Not Available [facility] ([facility]) [address] [facility] [place], [address], 12/07/2020 08:15:00 12/05/19 21 12/05/2020 COMP. METAB OLIC PANEL (14) albumin 4.1 g/dL 3.7-4. 7 Not Available [facility] ([facility]) [address] [place], [address], 12/07/2020 08:15:00 12/05/19 21 12/05/2020 COMP. METAB OLIC PANEL (14) globulin, total 2.1 g/dL 1.5-4. 5 Not Available [facility] ([facility]) [address] [place], [address], 12/07/2020 08:15:00 12/05/19 21 12/05/2020 COMP. METAB OLIC PANEL (14) A/G ratio 2.0 1.2-2. 2 Not Available [facility] ([facility]) [address] [place], [address], 12/07/2020 08:15:00 12/05/19 21 12/05/2020 COMP. METAB OLIC PANEL (14) bilirubin, total 0.5 mg/dL 0.0-1. 2 Not Available [facility] ([facility]) [address] [place], [address], 12/07/2020 08:15:00 12/05/19 21 12/05/2020 COMP. METAB [...] 121 44 - 121 Not Available [facility] ([facility]) [address] [facility] [place], [address], 12/07/2020 08:15:00 12/05/19 21 12/05/2020 COMP. METAB OLIC PANEL (14) AST (SGOT) 18 IU/L 0-40 Not Available [facility] ([facility]) [address] [facility], [place], [address], 12/07/2020 08:15:00 12/05/19 21 12/05/2020 COMP. METAB OLIC PANEL (14) ALT (SGPT) 18 IU/L 0-32 Not Available [facility] ([facility]) [address] [facility] [place], [address], 12/07/2020 08:15:00 12/05/19 21 12/05/2020 UA/M W/RFL X CULTU REBEAU NE specific gravity 1.025 1.005- 1.030 Not Available [facility] ([facility]) [address] [facility] [place], [address], 12/07/2020 08:15:00 12/05/19 21 12/05/2020 UA/M W/RFL X CULTU BEAU ALCAZAR NE pH 5.5 5.0-7. 5 Not Available [facility] ([facility]) [address] [facility] [place], [address], 12/07/2020 08:15:00 12/05/19 21 12/05/2020 UA/M W/RFL X CULTU REDAWNI NE urine-color Yellow yellow Not Available [facility] ([facility]) [address] [facility] [place], [address], 12/07/2020 08:15:00 12/05/19 21 12/05/2020 UA/M W/RFL X CULTU RE, ROUTI NE appearance Clear clear Not Available [facility] ([facility]) [address] [place], [address], 12/07/2020 08:15:00 12/05/19 21 12/05/2020 UA/M W/RFL X CULTU RE, ROUTI NE WBC esterase Trace negati ve abnormal Not Available [facility] ([facility]) [address] [facility], [place], [address], 12/07/2020 08:15:00 12/05/19 21 12/05/2020 UA/M W/RFL X CULTU RE, ROUTI NE protein Trace negati ve/tra ce Not Available [facility] ([facility]) [address] [facility], [place], [address], 12/07/2020 08:15:00 12/05/19 21 12/05/2020 UA/M W/RFL X CULTU RE, ROUTI NE glucose Negati ve negati ve Not Available [facility] ([facility]) [address] [place], [address], 12/07/2020 08:15:00 12/05/19 21 12/05/2020 UA/M W/RFL X CULTU RE, ROUTI NE ketones Negati ve negati ve Not Available [facility] ([facility]) [address] [place], [address], 12/07/2020 08:15:00 12/05/19 21 12/05/2020 UA/M W/RFL X CULTU RE, ROUTI NE occult blood Negati ve negati ve Not Available [facility] ([facility]) [address] [place], [address], 12/07/2020 08:15:00 12/05/19 21 12/05/2020 UA/M W/RFL X CULTU RE, ROUTI NE bilirubin Negati ve negati ve Not Available [facility] ([facility]) [address] [facility], [place], [address], 12/07/2020 08:15:00 12/05/19 21 12/05/2020 UA/M W/RFL X CULTU RE, ROUTI NE urobilinogen ,semi-qn 0.2 mg/dL 0.2-1. 0 Not Available [facility] ([facility]) [address] [facility], [place], [address], 12/07/2020 08:15:00 12/05/19 21 12/05/2020 UA/M W/RFL X CULTU RE, ROUTI NE nitrite, urine Negati ve negati ve Not Available [facility] ([facility]) [address] [facility], [place], [address], 12/07/2020 08:15:00 12/05/19 21 12/05/2020 UA/M W/RFL X CULTU RE, ROUTI NE microscopic examination See below: Micro scopi c was indic ated and was perfo rmed. Not Available [facility] ([facility]) [address] [facility], [place], [address], 12/07/2020 08:15:00 12/05/19 21 12/05/2020 UA/M W/RFL X CULTU RE, ROUTI NE WBC 0-5 /hpf 0 - 5 Not Available [facility] ([facility]) [address] [facility], [place], [address], 12/07/2020 08:15:00 12/05/19 21 12/05/2020 UA/M W/RFL X CULTU RE, ROUTI NE RBC None seen /hpf 0 - 2 Not Available [facility] ([facility]) [address] [facility], [place], [address], 12/07/2020 08:15:00 12/05/19 21 12/05/2020 UA/M W/RFL X CULTU RE, ROUTI NE epithelial cells (non renal) 0-10 /hpf 0 - 10 Not Available [facility] ([facility]) [address] [facility], [place], [address], 12/07/2020 08:15:00 12/05/19 21 12/05/2020 UA/M W/RFL X CULTU RE, ROUTI NE epithelial cells (renal) CEMENT MASON HELPER Not Available [facility] ([facility]) [address] [facility], [place], [address], 12/07/2020 08:15:00 12/05/19 21 12/05/2020 UA/M W/RFL X CULTU RE, ROUTI NE casts None seen /lpf none seen Not Available [facility] ([facility]) [address] [facility], [place], [address], 12/07/2020 08:15:00 12/05/19 21 12/05/2020 UA/M W/RFL X CULTU RE, ROUTI NE cast type CEMENT MASON HELPER Not Available [facility] ([facility]) [address] [facility], [place], [address], 12/07/2020 08:15:00 12/05/19 21 12/05/2020 UA/M W/RFL X CULTU RE, ROUTI NE crystals CEMENT MASON HELPER Not Available [facility] ([facility]) [address] [facility], [place], [address], 12/07/2020 08:15:00 12/05/19 21 12/05/2020 UA/M W/RFL X CULTU RE, ROUTI NE crystal type CEMENT MASON HELPER Not Available [facility] ([facility]) [address] [facility] [place], [place], [address], 12/07/2020 08:15:00 12/05/19 21 12/05/2020 UA/M W/RFL X CULTU RE, ROUTI NE mucus threads CEMENT [employer]ON HELPER Not Available [facility] ([facility]) [address] [facility], [place], [address], 12/07/2020 08:15:00 12/05/19 21 12/05/2020 UA/M W/RFL X CULTU RE, ROUTI NE bacteria None seen none seen/f ew Not Available [facility] ([facility]) [address] [facility] [place], [place], [address], 12/07/2020 08:15:00 12/05/19 21 12/05/2020 UA/M W/RFL X CULTU RE, ROUTI NE yeast CEMENT MASON HELPER Not Available [facility] ([facility]) [address] [facility] [place], [place], [address], 12/07/2020 08:15:00 12/05/19 21 12/05/2020 UA/M W/RFL X CULTU RE, ROUTI NE trichomonas CEMENT [employer]ON HELPER Not Available [facility] ([facility]) [address] [facility] [place], [place], [address], 12/07/2020 08:15:00 12/05/19 21 12/05/2020 UA/M W/RFL X CULTU RE, ROUTI NE comment CEMENT [employer]ON HELPER Not Available [facility] ([facility]) [address] [facility] [place], [place], [address], 12/07/2020 08:15:00 12/05/19 21 12/05/2020 UA/M W/RFL X CULTU RE, ROUTI NE microscopic examination CEMENT [employer]ON HELPER Not Available [facility] ([facility]) [address] [facility] [place], [place], [address], 12/07/2020 08:15:00 12/05/19 21 12/05/2020 UA/M W/RFL X CULTU RE, ROUTI NE urinalysis reflex Commen t This speci men has refle xed to a Urine Cultu re. Not Available [facility] ([facility]) [address] [facility] [place], [place], [address], 12/07/2020 08:15:00 12/05/19 21 12/06/2020 UA/M W/RFL X CULTU RE, ROUTI NE urine culture, routine Final report Not Available [facility] ([facility]) [address] [place], [address], 12/07/2020 08:15:00 12/05/19 21 12/06/2020 UA/M W/RFL X CULTU RE, ROUTI NE result 1 Commen t Mixed uroge nital francisco 10,00 0-25, 000 colon y formi ng units per mL Not Available [facility] ([facility]) [address] [place], [address], 12/07/2020 08:15:00 12/05/19 21 12/05/2020 LIPID PANEL cholesterol, total 191 mg/dL 100-19 9 Not Available [facility] ([facility]) [address] [place], [address], 12/07/2020 08:15:01 12/05/19 21 12/05/2020 LIPID PANEL triglyceride s 69 mg/dL 0-149 Not Available [facility] ([facility]) [address] [place], [address], 12/07/2020 08:15:01 12/05/19 21 12/05/2020 LIPID PANEL HDL cholesterol 58 mg/dL >39 Not Available [facility] ([facility]) [address] [place], [address], 12/07/2020 08:15:01 12/05/19 21 12/05/2020 LIPID PANEL VLDL cholesterol davide 13 mg/dL 5-40 Not Available [facility] ([facility]) [address] [place], [address], 12/07/2020 08:15:01 12/05/19 21 12/05/2020 LIPID PANEL LDL chol calc ([facility]) 120 mg/dL 0-99 above high normal Not Available [facility] ([facility]) [address] [place], [address], 12/07/2020 08:15:01 12/05/19 21 12/05/2020 LIPID PANEL comment: CEMENT [employer]ON HELPER Not Available [facility] ([facility]) [address] [facility] [place], [place], [address], 12/07/2020 08:15:01 12/05/19 21 12/05/2020 TSH TSH 1.700 uIU/m L 0.450- 4.500 Not Available [facility] ([facility]) [address] [facility] [place], [place], [address], 12/07/2020 08:15:02 12/05/1912/04/2020 AMBIG ABBRE V CMP14 DEFAU LT ambig abbrev CMP14 default Commen t A hand- writt en panel /prof ile was recei brien from your offic e. In accor dance with the [facility] Ambig uous Test Code [facility] dated September 2002, we have compl eted your order by using the close st curre ntly or forme rly recog nized AMA panel . We have assig jelani Compr ehens desmond Metab olic Panel (14), [...] ciate your busin ess. Not Available [facility] ([facility]) [address] [facility] [place], [place], [address], 12/07/2020 08:15:03 12/05/1912/04/2020 AMBIG ABBRE V LP DEFAU LT ambig abbrev LP default Commen t A hand- writt en panel /prof ile was recei brien from your offic e. In accor dance with the [facility] Ambig uous Test Code [facility] y dated September 2002, we have compl eted your order by using the close st curre ntly or forme rly recog nized AMA panel . We have leticia mckinneyd Lipid Panel , Test Code #30[address]. If this is not the testi ng you wishe d to recei ve on this speci men, pleas e conta ct the [facility] Clien t Inqui ry/Te chnic al Servi bruna Depar tment to love fy the test order . We appre ciate your busin ess. Not Available [facility] ([facility]) [address] [facility] [place], [place], [address], 12/07/2020 08:15:04 05/10/19 21 05/10/2020 MAMMO , scree ashtyn, digit al, bilat eral No observ ation record ed. [place] [id number] [facility] [address] [address], [place], [address], 06/15/2020 09:59:21 06/19/19 21 06/18/2020 XR, chest , 2 view No observ ation record ed. [place] [id number] [facility] ([facility]) [address], [place], [address], 06/19/2020 09:39:32 02/07/20 21 02/06/2021 bone densi ty No observ ation record ed. [facility] ([facility]) [address] [place], [address], 02/12/2021 19:22:06 Result Notes None recorded. Problems Name Problem SNOMED Code Status Onset Date Resolution Date Notes Provider Name and Address Organization Details Recorded Time Asthma 557111869 Active [place] [facility] [place] 8 13:18:43 Deep venous thrombosis of lower extremity 546461217 Active Victorina Hickey null[place] [facility] [place] 8 13:19:01 Obesity 134645683 Active Victorina Hickey null[place] [address] 8 13:19:12 Anemia 437545994 Active 2016 Victorina hassan [address] 8 13:18:58 Osteoarthriti s of knee 341547332 Active 2016 Victorina hassan [address] 8 13:18:48 Osteopenia 977378839 Active 2016 Victorina hassan [address] 8 13:19:00 Essential hypertension 50732774 Active 2017 Victorina hassan [address] 8 13:18:11 Bladder muscle dysfunction - overactive Active 2017 Not Available [facility] 15:11:17 Morbid obesity 610542547 Active 2017 Victorina hassan [address] 8 08:53:40 Anxiety disorder 696132294 Active 2018 Cee Dangelo Obie mo [address] 9 10:09:44 Skin lesion 29811095 Active 2018 LUDMILA RIVERS [facility], [address] , [address] 9 13:28:01 Basal cell carcinoma of face 401076349 Active 2018 LUDMILA RIVERS [facility] [address] [facility], [address] , [address] 9 11:39:23 Allergic rhinitis 02290993 Active Victorina hassan [address] 8 13:19:10 Disorder of bone and articular cartilage 820846093 Active Victorina hassan [address] 8 13:18:50 Idiopathic peripheral neuropathy 43136798 Active Victorina hassan [address] 8 13:18:44 IgE-mediated allergic asthma 018145523 Active Victorina hassan [address] 8 13:19:08 Problem Notes None recorded. Procedures Surgical History Date Name Laterality Status Provider Name and Address Organization Details Recorded Time 1 Medicare Wellness CPT Code, Subsequent completed Cee Dangelo [address] 11/28/2020 12:56:42 0 Medicare Wellness CPT Code, Subsequent completed Cee Dangelo [address] 11/28/2019 10:03:20 9 Medicare Wellness CPT Code, Subsequent completed Cee Dangelo [address] 11/22/2018 10:27:39 9 Blank Procedure Template completed LUDMILA RIVERS MD [address], [place], [address], [address] 09/23/2018 11:39:14 9 Blank Procedure Template completed LUDMILA RIVERS MD [address], [place], [address], [address] 09/20/2018 13:36:47 8 Medicare Wellness CPT Code, Subsequent completed Victorina Hickey [address] 11/17/2017 13:41:58 7 Medicare Wellness CPT Code, Subsequent completed Deyanira Sartin, [address] 10/22/2016 12:53:07 5 Laceration Repair completed Katelin Berry [address] 11/06/2014 17:07:47 3 Colonoscopy completed Macie Figueroa, [address] 11/28/2015 08:46:37 Other completed LUDMILA RIVERS MD [address], [place], [address], [address] 09/20/2018 13:32:40 Orthopaedic Surgery completed LUDMILA RIVERS MD [address], [place], [address], [address] 09/20/2018 13:32:14 Vascular Surgery completed Linus Thomas [address] 09/06/2013 15:07:40 Imaging Results None recorded. Procedure Notes None recorded. Medical Equipment None [...] Not Available Not Available fluzone high-dose pf 8745-4389 .5 ml azul active Not Available Not Available N ot Available clotrimazol e/betametha sone dipropionat e 1-0.05 % crea active Not Available Not Available Not Available alprazolam 0.5 mg tabs 11/22 completed Not Available Not Available Not Available fluzone high-dose pf 8096-6115 .5 ml azul active Not Available Not [...] Not Available Not Available fluzone high-dose pf 6479-6181 .5 ml azul 01/13 completed Not Available [...] TWICE DAILY TO AREA ON THE RIGHT GNOSTICIST (AVOIDING THE BIOPSY SITES) FOR 7DAYS THEN [...] No t Available Nasonex 50 mcg/actuati on [place] 1 spray twice a day by intranasa [...] Available Not Available No t Available Fluvirin 9781-5444 45 mcg (15 mcg x 3)/0.5 mL intramuscul ar suspension INJECT 0.5 ML INTRAMUSC ULARLY DIRECTED. active Not Available Not Available No t Available Fluzone High-Dose 2014- (PF) 180 mcg/0.5 mL intramuscul ar syringe active Not Available Not Available N ot Available Fluzone High-Dose 3218-3689 (PF) 180 mcg/0.5 mL intramuscul ar syringe ADM 0.5ML IM UTD active Not Available Not Available No t Available Fluzone High-Dose 3546-8930 (PF) 180 mcg/0.5 mL intramuscul ar syringe [...] Not Available Not Avai lable Fluad Quad (6 5yr up)(PF) 60 mcg (15 mcg x [...] Last Updated DateTime 147.95 cm 43.5 kg/m2 54411.4 g 89 /min 18 /min 98 % 98 % 97.6 [degF] 188 mm[Hg] 98 mm[Hg] Bijalyosef Dumas [address] 14:51:47 Date Recorded Body height Body mass index (BMI) Body weight Respiratory rate Body temperature Provider Name and Address Organization Details Last Updated DateTime 04/30/2020 147.95 cm 43.5 kg/m2 96638.4 g 18 /min 97.7 [degF] Cee Dangelo[address] 14:13:54 Date Recorded Body height Body mass index (BMI) Body weight Respiratory rate Provider Name and Address Organization Details Last Updated DateTime 06/18/2020 147.95 cm 43.5 kg/m2 94115.4 g 20 /min Cee Dangelo[address] 06/18/2020 11:53:50 Date Recorded Body height Body mass index (BMI) Body weight Provider Name and Address Organization Details Last Updated DateTime 06/19/2021 148.59 cm 42.7 kg/m2 73746.21 g Natalie Mesa LPN [address] 06/19/2021 12:47:16 Date Recorded Body height Body mass index (BMI) Body weight Heart rate Respiratory rate Body temperature Systolic blood pressure Diastolic blood pressure Provider Name and Address Organization Details Last Updated DateTime 148.59 cm 42.8 kg/m2 81848.6 6 g 98 /min 18 /min 98 [degF] 155 mm[Hg] 84 mm[Hg] Cee Dangelo[address] 13:07:02 Social History Question Answer Notes LastModified by Organizat ion Details LastModified Time Tobacco Smoking Status Never Smoker Lou hassan[address] 10/22/2012 12:53:32 Do You Have An Advance Directive? No [email or web address] Information not available 11/28/2020 Are You Blind Or Do You Have Difficulty Seeing? No Information not available 10/22/2016 What Is Your Level Of Caffeine Consumption? None Information not available 11/28/2020 Are You Deaf Or Do You Have Serious Difficulty Hearing? No Information not available 10/22/2016 What Type Of Diet Are You Following? REGULAR [email or web address] Information not available 10/23/2012 Do You Feel Safe At Home? Yes Information not available 10/22/2016 Advance Directive - Provider Has Reviewed Directives And Consents To Follow Them (insert Provider Name With Any Objections In Notes Field) No Information not available 10/22/2016 Marital Status [email or web address] Informati on not available 10/23/2012 Do You Have A Medical Power Of Instrument Panel Assembler? No [email or web address] Information not available 11/28/2020 What Was The Date Of Your Most Recent Tobacco Screening? 11/28/2020 [email or web address] Information not available 11/28/2020 How Many Children Do You Have? 2 Information not available 09/06/2013 Seat Belts Used Routinely Yes Information not available 10/22/2016 Smoke Alarm In Home Yes Information not available 10/22/2016 How Much Tobacco Do You Smoke? No [email or web address] Information not available 10/22/2012 General Stress Level Low [email or web address] Information not available 10/23/2012 Do You Use Sunscreen Routinely? No Information not available 10/22/2016 Has Tobacco Cessation Counseling Been Provided? No [email or web address] Information not available 11/28/2020 How Many Years Have You Smoked Tobacco? 0 [email or web address] Information not available 11/17/2017 Do You Have Difficulty Walking Or Climbing Stairs? No Information not available 10/22/2016 Sex: Unknown Functional Status Question Answer Note LastModified by Organizat ion Details LastModified Time How many times per week do you consume alcohol? 1-2 times per week [email or web address] Information not available 11/28/2020 Do you use any illicit or recreational drugs? No Information not available 11/28/2020 Do you or have you ever used any other forms of tobacco or nicotine? No [email or web address] Information not available 11/28/2020 What is your level of alcohol consumption? Occasional Information not available 09/06/2013 Do you have difficulty doing errands alone? No Information not available 10/22/2016 Are you able to care for yourself? Yes [email or web address] Information not available 11/28/2020 What is your occupation? retired [email or web address] Information not available 10/23/2012 Do you have difficulty dressing or bathing? No Information not available 10/22/2016 What is your exercise level? None [email or web address] Information not available 10/23/2012 Mental Status Question [...] conjugate PCV 13 5 completed Not Available [facility] 04/16/2019 02:09:45 Influenza, high-dose, trivalent, PF 5 completed ELIANA Paredes [address] 11/28/2020 12:54:34 Td (adult), 5 Lf tetanus toxoid, preservative free, adsorbed 1 completed Rosario Evans RN [address] 04/28/2020 15:51:39 pneumococcal, unspecified formulation 8 completed June Jenkins [address] 07/11/2016 11:23:43 zoster live 8 completed June Jenkins [address] 07/11/2016 11:23:43 Influenza, split virus, trivalent, preservative 3 completed June Jenkins [address] 07/11/2016 11:23:43 Influenza, high-dose, trivalent, PF 2 completed Not Available [facility] 04/30/2019 02:11:12 Influenza, split virus, quadrivalent, preservative 3 completed Not Available [facility] 04/30/2019 02:11:12 Influenza, split virus, trivalent, preservative 4 completed Not Available [facility] 04/30/2019 02:11:12 tetanus toxoid, unspecified formulation 9 completed June Jenkins [facility] [place] 07/11/2016 11:23:44 Influenza, split virus, trivalent, preservative 4 completed Macie Figueroa CMA [facility]14 [place] 11/17/2017 11:55:28 Past Encounters Encounter ID Performer Location Encounter Start Date Encounter Closed Date Diagnosis/Indication Diagnosis SNOMED-CT Code Diagnosis ICD10 Code Diagnosis Note [id number] Meg oJnes MD [facility] [address] [place] [address] 10/22/2012 10:57:07 10/22/2012 13:24:01 [id number] [facility] [address] [place] [address] 09/06/2013 13:06:18 09/06/2013 15:11:33 Long-term drug therapy 482000100 Adult heal th examination 651077359 Obesity 210668730 Asthma 353456743 Body mass index 30+ - obesity 200282530 Screening mammography 67328618 [id number] [facility] [address] [place] [address] 11/30/2013 10:19:00 11/30/2013 13:52:15 Varicose veins of lower extremity 52985080 Knee pain 76997040 [id number] [facility] [address] [place] [address] 05/10/2014 15:32:59 05/10/2014 16:24:39 Dependent edema 244521376 [id number] [facility] [address] [place] [address] 09/19/2014 13:00:08 09/19/2014 17:34:10 Adult health examination 511571710 Dependent edema 175879553 Obesity 430920354 Long-term drug therapy 341206961 Administra tion of pneumococcal vaccine 74794130 Screening mammography 97069667 Disorder o f bone and articular cartilage 268090542 Asthma finding 267479051 [id number] [facility] [address] [place] [address] 11/06/2014 09:33:20 11/06/2014 13:43:57 Laceration of forearm 350326931 Injury of head 02285980 Laceration of lip 353766230 [id number] MD [facility] [address] [facility] [place] [address] 11/08/2014 11:19:55 11/08/2014 13:08:42 Laceration of forearm 252409714 Postconcus coni syndrome 62744194 Contusion of knee 60553962 Fall [id number] [facility] [address] [place] [address] [place] [address] 11/13/2014 11:22:14 11/13/2014 13:21:17 Laceration of forearm 659690849 Candidiasis of mouth 62887725 [id number] MD [facility] [address] [place] [address] 11/16/2014 09:51:30 11/16/2014 10:15:42 Gingivostomatitis 32335192 [id number] MD [facility] [address] [place] [address] 11/22/2014 14:27:17 11/22/2014 15:37:52 Glossitis 81872977 Laceration of lip 812538173 [id number] MD [facility] [address] [place] [address] 11/29/2014 13:58:04 11/29/2014 17:15:23 Laceration of forearm 881970262 Laceration of lip 482992203 [id number] Meg Jones MD [facility] [address] [place] [address] 12/11/2014 13:49:11 12/11/2014 14:41:27 Laceration of forearm 715627789 Skin eschar 042159255 [id number] Meg Jones MD [facility] [address] [place] [address] 01/29/2015 15:42:50 01/29/2015 16:45:47 Candidiasis of skin 48514827 B37.2 [id number] Meg Jones MD [facility] [address] [place] [address] 02/13/2015 10:38:57 02/13/2015 12:06:27 Candidiasis of skin 07619372 B37.2 Benign ess ential hypertension 9054576 I10 Lesion of breast 4973884 04 N64.9 Eruption 943371094 R21 Long-term drug therapy 984282386 Z79.640 [id number] Meg Jones MD [facility] [address] [place] [address] 04/06/2015 10:26:39 04/06/2015 14:45:37 Eruption 596881532 R21 Upper resp iratory infection 48580139 J00 Lesion of skin of face 3877969464 06 L98.9 Cheilitis 9494970 K13.0 [id number] Meg Jones MD [facility] [address] [place] [address] 05/04/2015 09:47:55 05/04/2015 13:49:50 Eruption 880762137 R21 Angular cheilitis 274186 005 K13.0 [id number] Meg Jones MD [facility] [address] [place] [address] 07/03/2015 10:50:53 07/03/2015 16:20:46 Bronchitis 21290472 J40 Asthma 200718729 J45.90 9 [id number] Meg Jones MD [facility] [address] [address] 07/26/2015 10:51:58 07/26/2015 12:01:09 Edema of lower extremity 492593948 R60.0 Candidiasis of skin 4988 3006 B37.2 [id number] Meg Jones MD [facility] [address] [address] 09/24/2015 12:56:16 09/24/2015 16:30:42 Pain in left knee 3145131727 82203 M25.562 Dependent edema 18567606 4 R60.0 Allergic rhinitis 224551 04 J30.9 Ganglion cyst 069218221 M67.441 Liver enzy mes outside reference range 219964205 R94.5 Obesity 961296044 E66.9 Asthma 022450445 J45.90 9 Adult heal th examination 229098954 Z00.01 Z72.89 Z79.899 E78.5 E55.9 R53.83 Varicose v eins of lower extremity 93380813 I83.291 [id number] Meg Jones MD [facility] [address] [address] 02/15/2016 14:28:28 02/15/2016 15:55:15 Tinea corporis 25433570 B35.4 Candidiasis of skin 4988 3006 B37.2 [id number] Meg Jones MD [facility] [address] [address] 03/11/2016 14:05:48 03/11/2016 16:21:40 Tinea corporis 37193170 B35.4 Acute bronchitis 9876972 2 J20.9 Pneumonia 660179297 J18. 9 Cough 11529699 R05 Upper resp iratory infection 87532465 J06.9 [id number] [facility] [address] [place] [address] 04/22/2016 14:33:17 04/22/2016 17:35:48 Pain in left knee 1039783881 14666 M25.562 Osteoarthr itis of knee 328522758 M17.12 [id number] Meg Jones MD [facility] [address] [place] [address] 07/11/2016 11:13:06 07/11/2016 11:50:08 Candidiasis of mouth 99202620 B37.0 Fatigue 26927584 R53.83 Pain in left knee 728317 8855 83472 M25.099 [id number] Meg Jones MD [facility] [address] [place] [address] 10/22/2016 12:23:14 10/22/2016 14:36:16 Adult health examination 651744871 Z00.00 Screening for disorder 221261121 Z13.9 Anemia 301593528 D64.9 Osteoarthr itis of knee 927348074 M17.12 Pain in pelvis 49638893 R10.2 Obesity 527963710 E66.9 Pain of sh oulder region 48011922 M25.511 Screening mammography 24 296398 Z12.31 Osteoporosis 87444549 M8 1.0 N95.9 [id number] MD [facility] [address] [place] [address] 01/13/2017 09:14:11 01/13/2017 10:08:30 Pain in right arm 703557843 M79.601 Cervical radiculopathy 74694124 M54.12 Osteopenia 058129023 M85 .80 [id number] MD [facility] [address] [place] [address] 04/30/2017 10:23:58 04/30/2017 14:52:42 Cellulitis of finger 56263400 L03.443 [id number] MD [facility] [address] [place] [address] 05/04/2017 10:06:59 05/04/2017 12:07:20 Cellulitis of finger 69193382 L03.633 [id number] MD [facility] [address] [place] [address] 08/28/2017 14:04:39 08/28/2017 15:15:32 Urinary incontinence 403300576 R32 Morbid obesity 470986386 E66.01 Dietary ma nagement surveillance 073544603 Z71.3 [id number] MD [facility] [address] [place] [address] 11/17/2017 13:14:51 11/17/2017 15:27:04 Adult health examination 328250882 Z00.00 Screening for disorder 729866865 Z13.89 Obesity 056506469 E66.9 Anemia 007886180 D64.9 R53.83 Z79.899 D50.8 Osteopenia 356713586 M85 .80 Essential hypertension 29464951 I10 Asthma 765316245 J45.90 9 [id number] MD [facility] [address] [facility] [place] [address] 01/26/2018 08:18:01 01/26/2018 11:05:38 Morbid obesity 491953044 E66.01 Bladder mu scle dysfunction - overactive 657836909 N32.81 [id number] MD [facility] [address] [place] [address] 07/30/2018 14:55:42 07/30/2018 16:01:26 Generalized anxiety disorder 54971059 F41.1 Pain of ri ght shoulder joint 8140805357 3724661 M25.511 Basal cell carcinoma of face 030403496 C44.469 [id number] MD [facility] [address] [place] [address] 08/10/2018 14:32:11 08/10/2018 17:02:27 Spasm 09135402 R25.2 Generalize d anxiety disorder 05693510 F41.1 [id number] LUDMILA RIVERS MD [facility] [address] [place] [address] 09/20/2018 12:54:29 09/20/2018 13:27:16 Skin lesion 05012665 L98.9 [id number] LUDMILA RIVESR MD [facility] [address] [place] [address] 09/23/2018 10:46:08 09/23/2018 11:50:59 Basal cell carcinoma of face 208275664 C44.669 [id number] Meg Jones MD [facility] [address] [facility] [address] 11/22/2018 09:39:42 11/22/2018 13:50:41 Adult health examination 572058817 Z00.00 Screening for disorder 582271130 Z13.89 Depression screening 171 152956 Z13.31 Obesity 809353315 E66.9 Essential hypertension 03430218 I10 Hyperlipidemia 33455708 E78.5 Fatigue 73022513 R53.83 Varicose v eins of lower extremity 74520657 I83.819 Screening for malignant neoplasm of breast 969105131 Z12.31 Menopausal syndrome 1237 28472 N95.9 Asthma 220223977 J45.90 9 Medication monitoring 39 2804903 Z51.81 Urinary incontinence 165 720686 R32 Generalize d osteoarthritis 493394144 M15.9 [id number] MD [facility] [address] [facility] [place] [address] 12/23/2018 13:32:18 12/23/2018 16:00:14 Morbid obesity 481648183 E66.01 Anxiety disorder 4470466 06 F41.9 Medication monitoring 39 8345322 Z51.81 [id number] MD [facility] [address] [facility] [place] [address] 03/07/2019 15:51:00 03/07/2019 17:03:05 Pain in right foot 8843609956 05671 M79.671 Candidiasis of skin 4988 3006 B37.2 [id number] Meg Jones MD [facility] [address] [place] [address] 11/28/2019 12:56:17 11/28/2019 14:52:58 Adult health examination 497963401 Z00.00 Screening for disorder 428936513 Z13.89 Depression screening 171 459328 Z13.31 Screening mammography 24 113661 Z12.31 Eruption 396949629 R21 Dermatitis of right external ear canal 3156688105 190105 H60.91 Pain in left knee 509788 6101 23432 M25.562 Rash of groin 2133953147 3566486 R21 Dependent edema 17392163 4 R60.0 [id number] Meg Jones MD [facility] [address] [place] [address] 03/16/2020 14:44:51 03/16/2020 16:10:07 Tinea corporis 92127861 B35.4 Pain in left knee 475201 2013 46948 M25.562 Generalize d anxiety disorder 11967390 F41.1 Insomnia 838459457 G47.0 0 [id number] Meg Jones MD [facility] [address] [place] [address] 04/04/2020 13:11:04 04/04/2020 15:38:19 Eruption 356095921 R21 Pain in left knee 258001 0096 92728 M25.562 [id number] Meg Jones MD [facility] [address] [place] [address] 04/17/2020 14:14:47 04/17/2020 16:43:20 Obesity 323006718 E66.9 Pain in left knee 116740 8447 81871 M25.562 Anxiety disorder 2922392 06 F41.9 Insomnia 922285283 G47.0 0 [id number] GELACIO EVANS [facility] [address] [place] [address] 04/28/2020 14:07:47 04/28/2020 15:08:28 Superficial laceration of hand 749461739 S61.411A [id number] Meg Jones MD [facility] [address] [place] [address] 04/30/2020 13:36:28 04/30/2020 16:19:49 Laceration of finger of left hand 5391229084 1498141 S61.211A Laceration of right hand 8708920842 2984628 S61.411A [id number] Meg Jones MD [facility] [address] [place] [address] 06/18/2020 10:58:11 06/18/2020 12:25:22 Left lower zone pneumonia 141747842 J18.1 Cough 11573984 R05 Asthma 205769762 J45.90 9 [id number] Meg Jones MD [facility] [address] [place] [address] 11/28/2020 12:48:10 11/28/2020 14:23:59 Adult health examination 183527176 Z00.00 Screening for disorder 432230345 Z13.89 Depression screening 171 812756 Z13.31 Essential hypertension 89422161 I10 Morbid obesity 360705400 E66.01 Fatigue 18801824 R53.83 Screening mammography 24 109584 Z12.31 Menopausal syndrome 1237 42427 N95.9 Pain of mu ltiple joints 79105406 M25.50 Asthma 692437152 J45.90 9 Pain in left knee 991198 7780 18328 M25.562 [id number] Jacob Sanders MD [facility] [address] [place] [address] 06/19/2021 12:32:46 06/19/2021 13:53:38 Pain of left knee joint 3976994510 71202 M25.562 History of total knee arthroplasty 7674297978 105 Z96.659 patient has a history of [...] left kneeDATE: Date of today's clinical visitCLINI DAVIDE INDICATION : Knee painCOMPAR DOM: Any prior imaging within [facility] system was reviewed.T ECHNIQUE: AP, lateral, sunrise and notch view of the left knee were reviewed.Shama Lee S: ?Radiogra phs of the left knee [...] None Recorded Advance Directives Directive N: Payers Insurance Date Sequence Insurance Name Policy Number Policy Warren Covered Member ID Warren Member ID Guarantor Name 06/19/2021 1 [employer] (MEDICARE REPLACEMENT HMO) Padma Durant [id number] Padma Durant Notes Date Note Type Note Provider Name [...] alleviating or exacerbating factors. GELACIO EVANS [address], [place], [address], [facility] [place] 04/28/2020 15:05:49 04/30/2020 text/html this is a 75-year-old obese female who fell 2 and half days ago and comes in today for wound check and hospital follow-up there was no loss of consciousness Meg Jones MD [address], [place], [address], [facility] [place] 04/30/2020 19:14:31 06/18/2020 text/html 75-year-old leta e female on seeing today because her asthma is very bad I was not aware that she had asthma she tells me that she has for many years she thinks it is bad right now, no fever no vomiting no diarrhea Meg Jones MD [address] [facility] [address], [place], [address], [facility] [place] 06/18/2020 20:15:51 11/28/2020 text/html 75-year-old leta e [...] to discuss that Meg Jones MD [address] [facility] [address], [place], [address], [facility] [place] 11/28/2020 20:58:53 06/19/2021 text/html KneeReported bypatient.Location: right [...] documentation will be forwarded Jacob Sanders MD [address] [place] [address],[address], [place], [address], [facility] [place] 06/21/2021 07:28:13 OBGyn Episode No OBEpisode recorded.
== END 2024-09-05 14:12 | disposition home or self-care (01) ==
LOC: HO.HCS 13:38
PROVIDERS: PCP Nurse Practitioner Family; Visit Provider Internal Medicine Cardiovascular Disease
DX: I10 Essential (primary) hypertension (principal); I31.39 Other pericardial effusion (noninflammatory)
CPT/HCPCS: 93010; 99214; G2211

== ENCOUNTER → 2024-09-05 13:37 | Outpatient (BNVA) | payer MEDICARE, SELFPAY | PROVIDERS: PCP Nurse Practitioner Family; Visit Provider Internal Medicine Cardiovascular Disease | DX: I10 Essential (primary) hypertension (principal); I31.39 Other pericardial effusion (noninflammatory) | CPT/HCPCS: 93005; 99212 ==

== ENCOUNTER 2024-09-09 21:14 | Emergency (ER) | payer MEDICARE, SELFPAY ==
--- NOTE | ~2024-09-09 | XR_ITS ---
CLINICAL HISTORY: fall bruising 4 5 MCP 3 view left hand Comparison: None Findings: Osteopenia. No acute fracture. [id number] degenerative changes. Most significant 5th distal interphalangeal joint. No erosions. No radiopaque foreign body. IMPRESSION: No acute fracture. This document has been electronically signed by: Uday De Guzman MD on 09/09/2024 23:03:18
[2024-09-09 21:22] VITALS: BP 148/82; BP 189/75; PULSE 69; PULSE 72; RESP 15; TEMP 36.5; O2SAT 96; O2SAT 97; BMI 38.4
[2024-09-09 21:29] VITALS: BP 189/75; PULSE 70; RESP 16; TEMP 36.6; O2SAT 95
--- NOTE | 2024-09-09 21:44 | ED_ITS ---
HPI - Fall General Chief Complaint: Fall Stated Complaint: Fall, no loc, no head strike Time Seen by Provider: 09/09/24 21:23 History of Present Illness ED Provider: milagros HPI Narrative: 79 F with fall while leaning low/forward fell to the L side. No head strike, LO C, AC. No focal deficits. She tells me that she was leaning forward she had her knees about 6 in off the ground she was trying to get under a table or cabinet and she fell onto the left side very low mechanism she denies striking her head or neck but EMS put her in a cervical collar. She told the nurse that she felt dizzy and may have passed out but when I inquired about this she tells me that s he did not lose consciousness or pass out or have any prodromal or syncopal like symptoms. She denies any significant pain other than her hand Related Data Previous Rx's ?Medication ?Instructions ?Recorded albuterol sulfate 2.5 mg/3 mL 2.5 mg (3 mL) inhalation Q6H PRN 07/06/23 (0.083 %) solution for nebulization Shortness Of Breat h #90 mL metoprolol succinate 50 mg 50 mg PO DAILY 90 days #90 tabs 04/13/24 tablet,extended release 24 hr ferrous sulfate 325 mg (65 mg 325 mg PO DAILY #90 tabs 04/25/24 iron) tablet (Feosol) albuterol sulfate 90 mcg/actuation 2 puff inhalation Q 6H PRN 05/04/24 aerosol inhaler bronchospasm #8.5 grams lisinopril 20 mg tablet 20 mg PO DAILY 90 days #90 t abs 06/12/24 fluticasone 250 mcg-salmeterol 50 1 ea inhalation BID #60 ea 06/19/24 mcg/dose blistr powdr for inhalation (Wixela Inhub) mirabegron 25 mg tablet,extended 25 mg PO DAILY 90 day s #90 tabs 06/20/24 release 24 hr (Myrbetriq) hydrocortisone 2.5 % topical cream 1 appl topical BID PRN skin 06/28/24 irritation #30 grams clotrimazole-betamethasone 1 1 appl topical BID 2 week s #45 07/14/24 %-0.05 % topical cream grams cholecalciferol (vitamin D3) 50 50 mcg PO DAILY #90 ca ps 04/24/25 mcg (2,000 unit) capsule (Vitamin D3) atorvastatin 10 mg tablet 10 mg PO BEDTIME #30 tabs meloxicam 7.5 mg tablet 7.5 mg PO DAILY PRN pain #30 tabs 08/17/24 furosemide 20 mg tablet 20 mg PO DAILY 90 days #90 t abs 09/13/24 Allergies Allergy/AdvReac Type Severity Reaction Status Date / Time No Known Allergies Allergy Verified 09/09/24 21:31 [facility] Past Medical History Medical History Atypical meningioma of brain Osteoporosis Osteoarthritis Osteopenia Asthma DVT (deep venous thrombosis) HTN (hypertension) Idiopathic peripheral neuropathy Anxiety Anemia Basal cell carcinoma Surgical History Knee joint replacement status Social History Social History Household Members: Spouse Housing: Apartment Alcohol intake: never Patient Tobacco Use Status: Never used Tobacco e-Cigarette/Vaping Use: Never Used Second Hand Smoke Exposure: No service: No Current occupational status: retired 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 Disability: No gross paresis of the extremities or obvious focal neuro deficit. E FAST Ultrasound: Not indicated Secondary Survey: GENERAL: Well appearing. No apparent distress. Alert. HEAD The head is atraumatic, without swelling or ecchymosis of the face or behind the ears, including the periorbital area. There is no tenderness to face, and the oral and nasal mucosa are nonbloody. Dentition is intact. The TMs are without hemotympanum. NECK: Cervical collar in place. There is no midline cervical neck tenderness or stepoffs. The patient denies any numbness, tingling, or weakness of the extremities. The patient is able to range their neck completely without midline cervical pain, numbness, tingling, or weakness. EYES: Normal to inspection. Sclera non-icteric. EOMI, Pupils grossly symmetric/reactive. ENMT: External nose normal. No facial depression, gross hemotympanum, epistaxis. RESPIRATORY: Respiratory effort normal. Lungs clear to auscultation bilaterally. CARDIOVASCULAR: Regular rate. Normal rhythm. No murmur. No rubs. GI: Soft, non-tender, non-distended. No rebound or guarding. No masses palpable. No hepatosplenomegaly. No bruising. MSK: Chest Wall: Atraumatic, nontender, no crepitus, seat belt sign or ecchymosis. Back: No ecchymosis, no abrasions or other external signs of trauma, no midline spinal tenderness. Upper Extremities: Mild tenderness over the radial aspect MCP region no gross instability slight bruising. Otherwise: Atraumatic, no swelling, deformity, focal tenderness, +FROM of all joints. Lower Extremities: Atraumatic, no swelling, deformity, focal tenderness, +FROM of all joints. SKIN: No jaundice. No abrasions, lacerations, or ecchymosis. NEUROLOGICAL: Alert. Comprehensive Neuro exam: Face symmetric, tongue midline, strong symmetric eye closure intact strong face deviation and shoulder shrug. Sensation intact to light touch throughout 5 out of 5 strength in bilateral upper extremities, 5 and 5 strength in lower extremities bilaterally? PSYCHIATRIC: Alert. Appearance appropriate for situation. Attitude cooperative. Medical Decision Making Medical Decision Making MDM Narrative: This is a pleasant 79-year-old female with fall from very low height no LOC. Cervical spine nontender no focal deficits on exam. Denies headache, head strike or LOC. No indication for advanced head or neck imaging at this time. Patient is awake alert oriented and looks well she has mild tenderness of the hand though there was no signs of fracture. Independent Interpretation I performed an independent interpretation of an: Plain X-Ray (No fracture or dislocation of the digits or hand bones) Discharge Plan Discharge Clinical Impression: Contusion of hand Patient Disposition: Home, Self-Care Instructions: Contusion in Adults (ED) Additional Instructions: DISCHARGE DIAGNOSES: Fall Contusion of the hand without fracture HISTORY OF PRESENTATION: ?Fall from low-level EMERGENCY DEPARTMENT COURSE,TESTS, TREATMENTS: While in the ED todayn you had a comprehensive physical examination. He only had signs of bruising on your hand and no other signs of injury. DISCHARGE MEDICATIONS: ?[We have made no changes to your regular medication regimen] FOLLOW-UP: ?Call your primary or general physician soon as possible to discuss your symptoms, your ED visit and to discuss follow up plans Call your primary doctor for follow up INSTRUCTIONS ?& RETURN PRECAUTIONS: If any symptoms change first call your primary physician, if it is after-hours your primary doctors office should have a provider beverage inspection machine tender you can speak with. If the symptoms are severe or very concerning to you then call 911 or return to the ED. Kelby Amin MD Emergency Physician [facility] Prescriptions: No Action albuterol sulfate 2.5 mg /3 mL (0.083 %) solution for nebulization 2.5 mg inhalation Q6H PRN (Reason: Shortness Of Breath) Qty: 90 1RF metoprolol succinate 50 mg tablet extended release 24 hr 50 mg PO DAILY 90 Days Qty: 90 1RF albuterol sulfate 90 mcg/actuation HFA aerosol inhaler 2 puff inhalation Q6H PRN (Reason: bronchospasm) Qty: 8.5 2RF lisinopril 20 mg tablet 20 mg PO DAILY 90 Days Qty: 90 1RF fluticasone propion-salmeterol [Wixela Inhub] 250-50 mcg/dose blister with device 1 ea inhalation BID Qty: 60 5RF hydrocortisone 2.5 % cream 1 appl topical BID PRN (Reason: skin irritation) Qty: 30 0RF cholecalciferol (vitamin D3) [Vitamin D3] 50 mcg (2,000 unit) capsule 50 mcg PO DAILY Qty: 90 1RF atorvastatin 10 mg tablet 10 mg PO BEDTIME Qty: 30 3RF meloxicam 7.5 mg tablet 7.5 mg PO DAILY PRN (Reason: pain) Qty: 30 1RF furosemide 20 mg tablet 20 mg PO DAILY 90 Days Qty: 90 1RF clotrimazole-betamethasone 1-0.05 % cream 1 appl topical BID 14 Days Qty: 45 0RF Myrbetriq 25 mg tablet extended release 24 hr 25 mg PO DAILY 90 Days Qty: 90 4RF ferrous sulfate [Feosol] 325 mg (65 mg iron) tablet 325 mg PO DAILY Qty: 90 3RF Interventions: ED Discharge Assessment Last Done: 09/09/24 22:16 Discharge Date/Time: 09/09/24 22:18 Print Language: [place] Timorese
[2024-09-09 21:57] VITALS: BP 189/75; PULSE 70; RESP 16; TEMP 36.6; O2SAT 95
[2024-09-09 22:16] VITALS: BP 189/75; PULSE 70; RESP 16; TEMP 36.6; O2SAT 95
== END 2024-09-09 22:18 | disposition home or self-care (01) ==
LOC: HO.ED 22:07
PROVIDERS: Emergency Provider Emergency Medicine; PCP Nurse Practitioner Family
DX: S60.222A Contusion of left hand, initial encounter (principal); W19.XXXA Unspecified fall, initial encounter; Y93.9 Activity, unspecified; Y92.9 Unspecified place or not applicable; Y99.9 Unspecified external cause status
CPT/HCPCS: 73130; 99283; 99284

== ENCOUNTER → 2024-09-09 21:46 | Outpatient (BNV) | payer MEDICARE, SELFPAY | PROVIDERS: Emergency Provider Emergency Medicine; PCP Nurse Practitioner Family; Visit Provider Radiology Diagnostic Radiology | DX: S60.222A Contusion of left hand, initial encounter (principal) | CPT/HCPCS: 73130 ==

== ENCOUNTER 2024-09-17 10:04 | Outpatient (AMB) | payer MEDICARE, SELFPAY ==
[2024-09-17 10:05] VITALS: BP 140/80; PULSE 80; RESP 16; TEMP 36.7; O2SAT 99; BMI 37.8
--- NOTE | 2024-09-17 10:05 | MHC.OFFWIV ---
Intake Vital Signs 09/17/24 10:05 Height 5 ft 4 in Weight 220 lb BMI 37.8 BP 140/80 H Blood Pressure Location Lt brachial Position Sitting Respiration 16 Pulse 80 Pulse Source Pulse Oximeter Temp 98.1 F Temp Source Oral Pulse Oximetry (%) 99 Oxygen Delivery Method Room Air Intake Visit Reasons: Ear complaints Intake Note: Ear discomfort Patient Tobacco Use Status: Never used Tobacco Allergies No Known Allergies Allergy (Verified 09/17/24 10:06) HPI HPI Comments History of Present Illness Details An 79-year-old female presents with ear discomfort that began 3 days ago. The patient reports a history of dizziness and falling approximately one week prior to the onset of ear symptoms. The patient states that about a week ago, she bent over to cone picker water from the floor and experienced sudden dizziness, causing her to fall. She was unable to get up, prompting a call to 911 and subsequent transport to the emergency department. At the ER, x-rays of her hands were performed and were negative. The patient denies any prior history of ear problems. Three days ago, the patient began experiencing ear discomfort. She describes a sensation of something in her ear, possibly fluid, though she cannot see any water. The patient denies current dizziness but reports that when she sits down, she feels a little dizzy. She mentions feeling her ears frequently. The patient attempted to alleviate her symptoms by using a little brass cider with a little bubble, but this did not provide relief. The patient reports some nasal symptoms when asked about runny nose, nasal drainage, or congestion. She denies any previous issues with her ears prior to this episode. 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 Cognitive needs: No Hearing needs: No Vision needs: No Physical Exam Vital Signs: Last Vital Signs Temp 98.1 F 09/17/24 10:05 Pulse 80 09/17/24 10:05 Resp 16 09/17/24 10:05 BP 140/80 H 09/17/24 10:05 Pulse Ox 99 09/17/24 10:05 Oxygen Delivery Method Room Air 09/17/24 10:05 BMI result Body Mass Index 37.8 Const General: cooperative, healthy appearing, no acute distress and alert Orientation/consciousness: patient oriented x3 Limitations: no limitations HEENT Head: Yes normal to inspection Ears: hearing grossly normal bilaterally, external ears normal and TM's normal bilaterally General nose exam: Normal external nose present Resp Effort & Inspection: normal respiratory effort and able to speak in complete sentences Cardio Rate: regular rate Skin General skin exam: no rashes or lesions noted Neuro General: patient oriented x3 Extrem General: Yes normal to inspection Assessment & Plan Assessment & Plan (1) Ear discomfort: Code(s): H92.09 - Otalgia, unspecified ear Qualifiers: Laterality: right Qualified Code(s): H92.01 - Otalgia, right ear Plan: Ear Discomfort: - Patient reports ear discomfort starting 3 days ago - Denies prior ear problems - Tympanic membranes appear unremarkable without erythema or bulging - No visible fluid noted in the external auditory canal - Patient mentions feeling like there might be fluid in her ears - Given the recent history of dizziness and fall, there is a possibility of eustachian tube dysfunction or inner ear disturbance - No obvious signs of infection or effusion are present on examination Plan: - Trial of intranasal corticosteroid (Flonase) to address potential allergy-related etiology - Follow up with primary care provider for further evaluation if symptoms persist Coding Level of Care Code Est Pt Level 3 (04920) Diagnoses Discomfort of right ear H92.01 Laterality: right
== END 2024-09-17 10:31 | disposition home or self-care (01) ==
LOC: HO.HMCWIC 10:04
PROVIDERS: PCP Nurse Practitioner Family; Visit Provider Physician Assistant
DX: H92.01 Otalgia, right ear (principal)

== ENCOUNTER → 2024-09-17 10:04 | Outpatient (BNVA) | payer MEDICARE, SELFPAY | PROVIDERS: PCP Nurse Practitioner Family; Visit Provider Physician Assistant | DX: H92.01 Otalgia, right ear (principal) | CPT/HCPCS: 99212 ==

== ENCOUNTER 2024-09-22 12:40 | Outpatient (AMB) | payer MEDICARE, SELFPAY ==
[2024-09-22 12:44] VITALS: BP 148/80; PULSE 56; TEMP 36.3; O2SAT 98; BMI 37.9
--- NOTE | 2024-09-22 12:44 | AM.OFFWIN_ITS ---
Intake Vital Signs 09/22/24 12:44 Height 5 ft 4 in Weight 221 lb BMI 37.9 BP 148/80 H Blood Pressure Location Lt brachial Position Sitting Pulse 56 Pulse Source Pulse Oximeter Temp 97.4 F Temp Source Oral Pulse Oximetry (%) 98 Oxygen Delivery Method Room Air Intake Visit Reasons: EP-neck pain & dizziness Intake Note: pt present with posterior neck pain and dizziness, pt denies any specific injury but does recall falling a couple weeks ago when she went to bend over to pick something up. denies headache, no changes in vision Patient Tobacco Use Status: Never used Tobacco Allergies No Known Allergies Allergy (Verified 09/22/24 12:45) Do you need a note to return to daycare/school/sports/work: No HPI HPI Comments History of Present Illness Details History - The patient is an 79-year-old female p resenting with neck pain following a fall at home 12 days ago. - The patient experienced a fall while a ttempting to shredder picker a bottle of water, resulting in a twisted neck. - Initially, the patient thought the iss ue was related to the ear, but later identified the neck as the source of pain. - The patient visited the emergency room on 09/09 after her fall and not being able to get up. - She had a contusion of the hand on the left and had an x-ray done. She had no fracture found. - The patient reports occasional dizzine ss, particularly when lying down, but denies any current dizziness. - There is no pain radiating to the shou lders, arms, or hands, and no numbness reported. - The patient has not had a neck x-ray a nd reports no chest pain or shortness of breath. - She denies back pain, shoulder pain, a rm pain, or JAMES. Physical Exam General: cooperative, healthy appearing and comfortable, patient oriented x3 Head: Normal to inspection, normocephalic/atraumatic Effort & Inspection: Normal respiratory effort and able to speak in complete sentences. Cardiac: RRR, no M/R/G noted. Normal S1 and S2. Respiratory: Clear to auscultation bilaterally. No w/r/r noted. Neck: Cervical, thoracic and lumbar spine normal to inspection. Cervical ROM intact, no midline spinous tenderness noted. No midline vertebral spinous tenderness noted. No step offs noted. No TTP of the cervical paraspinous or paravertebral muscles. TTP of the right lateral neck, SCM, and trapezius. Extremities: FROM of the shoulders bilaterally. No click noted. FROM of the elbows bilaterally. FROM of the wrists bilaterally. motor strength normal 5/5 bilaterally. Good strength noted in upper extremities against resistance. Hand estate attorney is intact. Neuro: Sensation intact. Patient was informed and verbally consented to the use of an ambient scribe for clinic note documentation during this visit. 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 Cognitive needs: No Hearing needs: No Vision needs: No Review of Systems Const All systems reviewed & are unremarkable except as noted in HPI and below Physical Exam Vital Signs: Last Vital Signs Temp 97.4 F 09/22/24 12:44 Pulse 56 09/22/24 12:44 BP 148/80 H 09/22/24 12:44 Pulse Ox 98 09/22/24 12:44 Oxygen Delivery Method Room Air 09/22/24 12:44 BMI result Body Mass Index 37.9 Assessment & Plan Assessment & Plan (1) Neck pain on right side: Code(s): M54.2 - Cervicalgia Plan Most likely a muscle strain after fall 2 weeks ago Plan - Reviewed her ER notes - Heat to the area - Activities as tolerated - Plan includes prescribing a topical cream for pain relief and advising on the use of [id number] pain medication as needed. - No imaging studies were performed, and the patient was advised to monitor symptoms. Medications: New diclofenac sodium 3% 1 appl topical BID 100 grams 0RF Coding Level of Care Code Est Pt Level 3 (90103) Diagnoses Neck pain on right side M54.2
--- OUTSIDE RECORDS SUMMARY | 2024-09-22 15:03 | XMS_ITS | Data Portability ---
Author Organization [place] [facility] IP Address [id number] [place] [address] Care Team Providers Care Customer Service Receptionist Name Role Phone CARLOS MADRID Primary Care Provider MEG JONES Primary Care Provider [phone] Assessment Encounter Date Assessment Date Assessment LastModified by Organization Details LastModified Time 04/30/2020 04/30/2020 multiple contusions to the forearm with lacerations please see the pictures spent approximately 40 minutes cleaning in repairing laceration to [place] pose it and remove all the debris and prior Steri-Strips carefully with binocular microscope [email or web address] Not available 04/30/2020 19:14:23 06/18/2020 06/18/2020 community-acquir [...] comfortably on room air at this time [email or web address] Not available 06/18/2020 20:15:13 11/28/2020 11/28/2020 Time [...] left knee rash of groin dependent edema [email or web address] Not available 11/28/2020 13:43:59 Plan of Treatment Reminders Order Date Submit Date Provider Last Modified By Organization Details Last Modified Time Details Appointments None recorded. Lab lipid panel, serum 2020 021 [facility], [address], [address], [place], [address], 08:15:01 CMP, serum or plasma 2020 021 [facility], [address], [address], [place], [address], 08:15:00 TSH, serum or plasma 2020 [email or web address], [address], [address], [place], [address], 10:14:28 urinalysis complete, reflex culture 2020 021 [facility], [address] [place] [address], [address], [place], [address], 08:15:01 CBC w/ auto diff 2020 021 [facility], [address], [address], [place], [address], 08:14:59 Referral None recorded. Procedures None recorded. Surgeries None recorded. Imaging XR, knee, 4 or more view 2021 [email or web address] Not available 17:03:21 MAMMO, screening, digital, bilateral - Please call the patient to schedule. 2020 [facility] ([facility]), [address], [place], [address], 10:09:11 bone density - Please call the patient to schedule. 2020 [facility] ([facility]), [address], [place], [address], 10:09:11 XR, chest, 2 view 2020 [place] ([facility]), [address], [place], [address], 13:38:41 Medication Orders Voltaren Arthritis Pain 1 % topical gel 2021 [email or web address] [id number], 100 Pending sale to [facility] [address], [place], [address], 17:03:21 Qsymia 7.5 mg-46 mg capsule, extended release 2020 [facility], [address] [place], [address], 21:01:04 levofloxaci n 500 mg tablet 2020 [email or web address] [id number], 100 Pending sale to [facility] [address], [place], [address], 13:28:56 albuterol sulfate 2.5 mg/3 mL (0.083 %) solution for nebulizatio n 2020 021 [email or web address] 50 [id number], [address], [place], [address], 12:02:22 Patient TargetsNo targets recorded. Patient Instructions Encounter Date Encounter Id Patient Instructions Last Modified By Organization Details Last Modified Time 04/28/2020 [id number] Keep wound dress ing in place for 24 hours. After 24 hours, you may change the dressing. After 24 hours, you may get the wound wet in the shower but dry thoroughly afterwards. Please return here to urgent care follow-up with primary care provider as needed for new or worsening symptoms. [email or web address] Not available 04/28/2020 15:05:21 06/18/2020 [id number] cough: care instructions [email or web address] Not available 06/18/2020 12:02:22 11/28/2020 [id number] alcohol use disorders identification test* [email or web address] Not available 11/28/2020 13:22:10 fall risk screening* Not bryce cliff 11/28/2020 13:22:10 geriatric depres coni screen* [email or web address] Not available 11/28/2020 13:22:10 mammogram: about this test Not available 11/28/2020 13:22:10 When You Want to Lose Weight: Care Instructions [email or web address] Not available 11/28/2020 13:22:10 multi-dimensiona l health assessment questionnaire* [email or web address] Not available 11/28/2020 13:22:10 advance directiv es: care instructions [email or web address] Not available 11/28/2020 13:22:10 Advance Care Directives Patient WebLink Handout [email or web address] Not available 11/28/2020 13:22:10 high blood press ure: care instructions [email or web address] Not available 11/28/2020 13:22:10 learning about h igh blood pressure [email or web address] Not available 11/28/2020 13:22:10 Personalized a [facility] Plan and Screening Recommendations Advance Directives - Do you have one? Advance Directives - Do we have your advance directive on file in your health record? Primary Prevention/Intervent ion (prevents or decreases the chance of common diseases from occurring) Tobacco/Nicotine Risk: Alcohol Misuse Screening: Weight: Physical activity: Nutrition: Fall Risk (screened today): Vaccines Influenza: Pneumococcal: Shingles: COVID-19: Tetanus: Hepatitis B: Secondary Prevention/Intervent ion (detects treatable diseases before they may cause symptoms, disability, or ) Breast Cancer Screening with mammogram: Cervical Cancer Screening: Osteoporosis Screening: Colon Cancer Screening: Eye Disease Screening: Depression Screening: Cognitive Screening: Diabetes Screening: Cardiovascular Disease (CVD) Screening: labs [...] Risk for Opioid Misuse: Pain Management Plan: [email or web address] Not available 11/28/2020 12:56:41 Reason for Referral None Reported. Results Created Date Observation Date Name Description Value Unit Range Abnormal Flag Note LastModifiedBy Organization Detail LastModifiedTime 12/05/1912/05/2020 CBC WITH DIFFE RENTI AL/PL ATELE T WBC 5.3 x10e3 /uL 3.4-10 .8 Not Available [facility] ([facility]) [address] [place], [address], 12/07/2020 08:14:58 12/05/19 21 12/05/2020 CBC WITH DIFFE RENTI AL/PL ATELE T RBC 4.63 x10e6 /uL 3.77-5 .28 Not Available [facility] ([facility]) [address] [place], [address], 12/07/2020 08:14:58 09/07/20 21 12/05/2020 CBC WITH DIFFE RENTI AL/PL ATELE T hemoglobin 13.6 g/dL 11.1-1 5.9 Not Available [facility] ([facility]) [address], [place], [address], 12/07/2020 08:14:58 12/05/19 21 12/05/2020 CBC WITH DIFFE RENTI AL/PL ATELE T hematocrit 39.9 % 34.0-4 6.6 Not Available [facility] ([facility]) [address], [place], [address], 12/07/2020 08:14:58 12/05/1912/05/2020 CBC WITH DIFFE RENTI AL/PL ATELE T MCV 86 fL 79-97 Not Available [facility] ([facility]) [address], [place], [address], 12/07/2020 08:14:58 12/05/1912/05/2020 CBC WITH DIFFE RENTI AL/PL ATELE T MCH 29.4 pg 26.6-3 3.0 Not Available [facility] ([facility]) [address], [place], [address], 12/07/2020 08:14:58 12/05/1912/05/2020 CBC WITH DIFFE RENTI AL/PL ATELE T MCHC 34.1 g/dL 31.5-3 5.7 Not Available [facility] ([facility]) [address] [place], [address], 12/07/2020 08:14:58 12/05/1912/05/2020 CBC WITH DIFFE RENTI AL/PL ATELE T RDW 14.0 % 11.7-1 5.4 Not Available [facility] ([facility]) [address] [place], [address], 12/07/2020 08:14:58 12/05/19 21 12/05/2020 CBC WITH DIFFE RENTI AL/PL ATELE T platelets 217 x10e3 /uL 150-45 0 Not Available [facility] ([facility]) [address], [place], [address], 12/07/2020 08:14:58 12/05/19 21 12/05/2020 CBC WITH DIFFE RENTI AL/PL ATELE T neutrophils 54 % not estab. Not Available [facility] ([facility]) [address], [place], [address], 12/07/2020 08:14:58 12/05/19 21 12/05/2020 CBC WITH DIFFE RENTI AL/PL ATELE T lymphs 29 % not estab. Not Available [facility] ([facility]) [address], [place], [address], 12/07/2020 08:14:58 12/05/19 21 12/05/2020 CBC WITH DIFFE RENTI AL/PL ATELE T monocytes 10 % not estab. Not Available [facility] ([facility]) [address], [place], [address], 12/07/2020 08:14:58 12/05/19 21 12/05/2020 CBC WITH DIFFE RENTI AL/PL ATELE T eos 6 % not estab. Not Available [facility] ([facility]) [address], [place], [address], 12/07/2020 08:14:58 12/05/19 21 12/05/2020 CBC WITH DIFFE RENTI AL/PL ATELE T basos 1 % not estab. Not Available [facility] ([facility]) [address], [place], [address], 12/07/2020 08:14:58 12/05/19 21 12/05/2020 CBC WITH DIFFE RENTI AL/PL ATELE T immature cells OFFSET PLATE MAKER Not Available [facility] ([facility]) [address], [place], [address], 12/07/2020 08:14:58 12/05/1912/05/2020 CBC WITH DIFFE RENTI AL/PL ATELE T neutrophils (absolute) 2.8 x10e3 /uL 1.4-7. 0 Not Available [facility] ([facility]) [address], [place], [address], 12/07/2020 08:14:58 12/05/19 21 12/05/2020 CBC WITH DIFFE RENTI AL/PL ATELE T lymphs (absolute) 1.6 x10e3 /uL 0.7-3. 1 Not Available [facility] ([facility]) [address], [place], [address], 12/07/2020 08:14:58 12/05/1912/05/2020 CBC WITH DIFFE RENTI AL/PL ATELE T monocytes(ab solute) 0.5 x10e3 /uL 0.1-0. 9 Not Available [facility] ([facility]) [address], [place], [address], 12/07/2020 08:14:58 12/05/19 21 12/05/2020 CBC WITH DIFFE RENTI AL/PL ATELE T eos (absolute) 0.3 x10e3 /uL 0.0-0. 4 Not Available [facility] ([facility]) [address] [place], [address], 12/07/2020 08:14:58 12/05/19 21 12/05/2020 CBC WITH DIFFE RENTI AL/PL ATELE T baso (absolute) 0.1 x10e3 /uL 0.0-0. 2 Not Available [facility] ([facility]) [address], [place], [address], 12/07/2020 08:14:58 12/05/19 21 12/05/2020 CBC WITH DIFFE RENTI AL/PL ATELE T immature granulocytes 0 % not estab. Not Available [facility] ([facility]) [address], [place], [address], 12/07/2020 08:14:58 12/05/19 21 12/05/2020 CBC WITH DIFFE RENTI AL/PL ATELE T immature grans (abs) 0.0 x10e3 /uL 0.0-0. 1 Not Available [facility] ([facility]) [address], [place], [address], 12/07/2020 08:14:58 12/05/19 21 12/05/2020 CBC WITH DIFFE RENTI AL/PL ATELE T NRBC OFFSET PLATE MAKER Not Available [facility] ([facility]) [address], [place], [address], 12/07/2020 08:14:58 12/05/19 21 12/05/2020 CBC WITH DIFFE RENTI AL/PL ATELE T hematology comments: OFFSET PLATE MAKER Not Available [facility] ([facility]) [address], [place], [address], 12/07/2020 08:14:58 12/05/19 21 12/05/2020 COMP. METAB OLIC PANEL (14) glucose 90 mg/dL 65-99 Not Available [facility] ([facility]) [address], [place], [address], 12/07/2020 08:15:00 12/05/19 21 12/05/2020 COMP. METAB OLIC PANEL (14) BUN 29 mg/dL 8-27 above high normal Not Available [facility] ([facility]) [address], [place], [address], 12/07/2020 08:15:00 12/05/19 21 12/05/2020 COMP. METAB OLIC PANEL (14) creatinine 1.01 mg/dL 0.57-1 .00 above high normal Not Available [facility] ([facility]) [address] [place], [address], 12/07/2020 08:15:00 12/05/19 21 12/05/2020 COMP. METAB OLIC PANEL (14) eGFR if nonafricn AM 54 mL/mi n/1.7 3 >59 below low normal Not Available [facility] ([facility]) [address] [place], [address], 12/07/2020 08:15:00 12/05/19 21 12/05/2020 COMP. METAB [...] SN Task force . Not Available [facility] ([facility]) [address] [place], [address], 12/07/2020 08:15:00 12/05/19 21 12/05/2020 COMP. METAB OLIC PANEL (14) BUN/creatini ne ratio 29 12-28 above high normal Not Available [facility] ([facility]) [address] [place], [address], 12/07/2020 08:15:00 12/05/19 21 12/05/2020 COMP. METAB OLIC PANEL (14) sodium 139 mmol/ L 134-14 4 Not Available [facility] ([facility]) [address] [place], [address], 12/07/2020 08:15:00 12/05/19 21 12/05/2020 COMP. METAB OLIC PANEL (14) potassium 3.9 mmol/ L 3.5-5. 2 Not Available [facility] ([facility]) [address] [place], [address], 12/07/2020 08:15:00 12/05/19 21 12/05/2020 COMP. METAB OLIC PANEL (14) chloride 103 mmol/ L 96-106 Not Available [facility] ([facility]) [address] [place], [address], 12/07/2020 08:15:00 12/05/19 21 12/05/2020 COMP. METAB OLIC PANEL (14) carbon dioxide, total 23 mmol/ L 20-29 Not Available [facility] ([facility]) [address] [place], [address], 12/07/2020 08:15:00 12/05/19 21 12/05/2020 COMP. METAB OLIC PANEL (14) calcium 9.4 mg/dL 8.7-10 .3 Not Available [facility] ([facility]) [address] [place], [address], 12/07/2020 08:15:00 12/05/19 21 12/05/2020 COMP. METAB OLIC PANEL (14) protein, total 6.2 g/dL 6.0-8. 5 Not Available [facility] ([facility]) [address] [place], [address], 12/07/2020 08:15:00 12/05/19 21 12/05/2020 COMP. METAB OLIC PANEL (14) albumin 4.1 g/dL 3.7-4. 7 Not Available [facility] ([facility]) [address] [place], [address], 12/07/2020 08:15:00 12/05/19 21 12/05/2020 COMP. METAB OLIC PANEL (14) globulin, total 2.1 g/dL 1.5-4. 5 Not Available [facility] ([facility]) [address] [place], [address], 12/07/2020 08:15:00 12/05/19 21 12/05/2020 COMP. METAB OLIC PANEL (14) A/G ratio 2.0 1.2-2. 2 Not Available [facility] ([facility]) [address] [place], [address], 12/07/2020 08:15:00 12/05/19 21 12/05/2020 COMP. METAB OLIC PANEL (14) bilirubin, total 0.5 mg/dL 0.0-1. 2 Not Available [facility] ([facility]) [address] [place], [address], 12/07/2020 08:15:00 12/05/19 21 12/05/2020 COMP. METAB [...] 121 44 - 121 Not Available [facility] ([facility]) [address] [place], [address], 12/07/2020 08:15:00 12/05/19 21 12/05/2020 COMP. METAB OLIC PANEL (14) AST (SGOT) 18 IU/L 0-40 Not Available [facility] ([facility]) [address] [place], [address], 12/07/2020 08:15:00 12/05/19 21 12/05/2020 COMP. METAB OLIC PANEL (14) ALT (SGPT) 18 IU/L 0-32 Not Available [facility] ([facility]) [address], [place], [address], 12/07/2020 08:15:00 12/05/19 21 12/05/2020 UA/M W/RFL X CULTU RE, ROUTI NE specific gravity 1.025 1.005- 1.030 Not Available [facility] ([facility]) [address], [place], [address], 12/07/2020 08:15:00 12/05/19 21 12/05/2020 UA/M W/RFL X CULTU RE, ROUTI NE pH 5.5 5.0-7. 5 Not Available [facility] ([facility]) [address], [place], [address], 12/07/2020 08:15:00 12/05/19 21 12/05/2020 UA/M W/RFL X CULTU RE, ROUTI NE urine-color Yellow yellow Not Available [facility] ([facility]) [address], [place], [address], 12/07/2020 08:15:00 12/05/19 21 12/05/2020 UA/M W/RFL X CULTU RE, ROUTI NE appearance Clear clear Not Available [facility] ([facility]) [address], [place], [address], 12/07/2020 08:15:00 12/05/19 21 12/05/2020 UA/M W/RFL X CULTU RE, ROUTI NE WBC esterase Trace negati ve abnormal Not Available [facility] ([facility]) [address] [place], [address], 12/07/2020 08:15:00 09/0712/05/2020 UA/M W/RFL X CULTU RE, ROUTI NE protein Trace negati ve/tra ce Not Available [facility] ([facility]) [address] [place], [address], 12/07/2020 08:15:00 12/05/19 21 12/05/2020 UA/M W/RFL X CULTU RE, ROUTI NE glucose Negati ve negati ve Not Available [facility] ([facility]) [address] [place], [address], 12/07/2020 08:15:00 12/05/1912/05/2020 UA/M W/RFL X CULTU RE, ROUTI NE ketones Negati ve negati ve Not Available [facility] ([facility]) [address] [place], [address], 12/07/2020 08:15:00 12/05/1912/05/2020 UA/M W/RFL X CULTU RE, ROUTI NE occult blood Negati ve negati ve Not Available [facility] ([facility]) [address] [place], [address], 12/07/2020 08:15:00 12/05/1912/05/2020 UA/M W/RFL X CULTU RE, ROUTI NE bilirubin Negati ve negati ve Not Available [facility] ([facility]) [address] [place], [address], 12/07/2020 08:15:00 12/05/19 21 12/05/2020 UA/M W/RFL X CULTU RE, ROUTI NE urobilinogen ,semi-qn 0.2 mg/dL 0.2-1. 0 Not Available [facility] ([facility]) [address] [place], [address], 12/07/2020 08:15:00 12/05/19 21 12/05/2020 UA/M W/RFL X CULTU RE, ROUTI NE nitrite, urine Negati ve negati ve Not Available [facility] ([facility]) [address] [place], [address], 12/07/2020 08:15:00 12/05/19 21 12/05/2020 UA/M W/RFL X CULTU RE, ROUTI NE microscopic examination See below: Micro janel doran was indic ated and was perfo rmed. Not Available [facility] ([facility]) [address], [place], [address], 12/07/2020 08:15:00 12/05/19 21 12/05/2020 UA/M W/RFL X CULTU RE, ROUTI NE WBC 0-5 /hpf 0 - 5 Not Available [facility] ([facility]) [address] [place], [address], 12/07/2020 08:15:00 12/05/19 21 12/05/2020 UA/M W/RFL X CULTU RE, ROUTI NE RBC None seen /hpf 0 - 2 Not Available [facility] ([facility]) [address] [place], [address], 12/07/2020 08:15:00 12/05/19 21 12/05/2020 UA/M W/RFL X CULTU RE, ROUTI NE epithelial cells (non renal) 0-10 /hpf 0 - 10 Not Available [facility] ([facility]) [address] [place], [address], 12/07/2020 08:15:00 12/05/19 21 12/05/2020 UA/M W/RFL X CULTU RE, ROUTI NE epithelial cells (renal) OFFSET PLATE MAKER Not Available [facility] ([facility]) [address] [place], [address], 12/07/2020 08:15:00 12/05/19 21 12/05/2020 UA/M W/RFL X CULTU RE, ROUTI NE casts None seen /lpf none seen Not Available [facility] ([facility]) [address], [place], [address], 12/07/2020 08:15:00 12/05/19 21 12/05/2020 UA/M W/RFL X CULTU RE, ROUTI NE cast type OFFSET PLATE MAKER Not Available [facility] ([facility]) [address], [place], [address], 12/07/2020 08:15:00 12/05/19 21 12/05/2020 UA/M W/RFL X CULTU RE, ROUTI NE crystals OFFSET PLATE MAKER Not Available [facility] ([facility]) [address], [place], [address], 12/07/2020 08:15:00 12/05/19 21 12/05/2020 UA/M W/RFL X CULTU RE, ROUTI NE crystal type OFFSET PLATE MAKER Not Available [facility] ([facility]) [address], [place], [address], 12/07/2020 08:15:00 12/05/19 21 12/05/2020 UA/M W/RFL X CULTU RE, ROUTI NE mucus threads OFFSET PLATE MAKER Not Available [facility] ([facility]) [address], [place], [address], 12/07/2020 08:15:00 12/05/19 21 12/05/2020 UA/M W/RFL X CULTU RE, ROUTI NE bacteria None seen none seen/f ew Not Available [facility] ([facility]) [address], [place], [address], 12/07/2020 08:15:00 12/05/19 21 12/05/2020 UA/M W/RFL X CULTU RE, ROUTI NE yeast OFFSET PLATE MAKER Not Available [facility] ([facility]) [address], [place], [address], 12/07/2020 08:15:00 12/05/19 21 12/05/2020 UA/M W/RFL X CULTU RE, ROUTI NE trichomonas OFFSET PLATE [employer]KER Not Available [facility] ([facility]) [address], [place], [address], 12/07/2020 08:15:00 12/05/19 21 12/05/2020 UA/M W/RFL X CULTU RE, ROUTI NE comment OFFSET PLATE MAKER Not Available [facility] ([facility]) [address] [place], [address], 12/07/2020 08:15:00 12/05/19 21 12/05/2020 UA/M W/RFL X CULTU RE, ROUTI NE microscopic examination OFFSET PLATE MAKER Not Available [facility] ([facility]) [address] [place], [address], 12/07/2020 08:15:00 12/05/19 21 12/05/2020 UA/M W/RFL X CULTU RE, ROUTI NE urinalysis reflex Commen t This speci men has refle xed to a Urine Cultu re. Not Available [facility] ([facility]) [address] [place], [address], 12/07/2020 08:15:00 12/05/19 21 12/06/2020 UA/M W/RFL X CULTU RE, ROUTI NE urine culture, routine Final report Not Available [facility] ([facility]) [address] [place], [address], 12/07/2020 08:15:00 12/05/19 21 12/06/2020 UA/M W/RFL X CULTU RE, ROUTI NE result 1 Commen t Mixed uroge nital francisco 10,00 0-25, 000 colon y formi ng units per mL Not Available [facility] ([facility]) [address] [place], [address], 12/07/2020 08:15:00 12/05/19 21 12/05/2020 LIPID PANEL cholesterol, total 191 mg/dL 100-19 9 Not Available [facility] ([facility]) [address] [place], [address], 12/07/2020 08:15:01 12/05/19 21 12/05/2020 LIPID PANEL triglyceride s 69 mg/dL 0-149 Not Available [facility] ([facility]) [address] [place], [address], 12/07/2020 08:15:01 12/05/19 21 12/05/2020 LIPID PANEL HDL cholesterol 58 mg/dL >39 Not Available [facility] ([facility]) [address] [place], [address], 12/07/2020 08:15:01 12/05/19 21 12/05/2020 LIPID PANEL VLDL cholesterol davide 13 mg/dL 5-40 Not Available [facility] ([facility]) [address] [place], [address], 12/07/2020 08:15:01 12/05/19 21 12/05/2020 LIPID PANEL LDL [facility] mg/dL 0-99 above high normal Not Available [facility] ([facility]) [address] [place], [address], 12/07/2020 08:15:01 12/05/19 21 12/05/2020 LIPID PANEL comment: OFFSET PLATE MAKER Not Available [facility] ([facility]) [address] [place], [address], 12/07/2020 08:15:01 12/05/1912/05/2020 TSH TSH 1.700 uIU/m L 0.450- 4.500 Not Available [facility] ([facility]) [address] [place], [address], 12/07/2020 08:15:02 12/05/19 21 12/04/2020 AMBIG ABBRE V CMP14 DEFAU LT ambig abbrev CMP14 default Commen t A hand- writt en panel /prof ile was recei brien from your offic e. In accor dance with the [facility] Elizabeth zhang Test Code Polic y dated September 2002, [...] ciate your busin ess. Not Available [facility] ([facility]) [address] [place], [address], 12/07/2020 08:15:03 12/05/19 21 12/04/2020 AMBIG ABBRE V LP DEFAU LT ambig abbrev LP default Commen t A hand- writt en panel /prof ile was recei brien from your offic e. In accor dance with the [facility] Elizabeth zhang Test Code Polic y dated September 2002, [...] ciate your busin ess. Not Available [facility] ([facility] [facility]) [address] [place], [address], 12/07/2020 08:15:04 05/10/19 21 05/10/2020 MAMMO , scree ashtyn, digit al, bilat eral No observ ation record ed. [place] [id number] [facility] [address], [place], [address], 06/15/2020 09:59:21 06/19/19 21 06/18/2020 XR, chest , 2 view No observ ation record ed. [place] [id number] [facility] ([facility]) [address], [place], [address], 06/19/2020 09:39:32 02/07/2002/06/2021 bone densi ty No observ ation record ed. [facility] ([facility]) [address], [place], [address], 02/12/2021 19:22:06 Result Notes None recorded. Problems Name Problem SNOMED Code Status Onset Date Resolution Date Notes Provider Name and Address Organization Details Recorded Time Asthma 624461002 Active Victorina hassan [address] 8 13:18:43 Deep venous thrombosis of lower extremity 491789267 Active Victorina hassan [address] 8 13:19:01 Obesity 845190449 Active Victorina hassan [address] 8 13:19:12 Anemia 273513767 Active 2016 Victorina hassan [address] 8 13:18:58 Osteoarthriti s of knee 416263340 Active 2016 Victorina hassan [address] 8 13:18:48 Osteopenia 103844106 Active 2016 Victorina hassan [address] 8 13:19:00 Essential hypertension 90292804 Active 2017 Victorina hassan [address] 8 13:18:11 Bladder muscle dysfunction - overactive Active 2017 Not Available [facility] 2 15:11:17 Morbid obesity 664663953 Active 2017 Victorina hassan [address] 8 08:53:40 Anxiety disorder 729684534 Active 2018 ELIANA Paredes [facility] [place] 9 10:09:44 Skin lesion 64010636 Active 2018 LUDMILA RIVERS MD [address], [place], [address] , [address] 9 13:28:01 Basal cell carcinoma of face 113588215 Active 2018 LUDMILA RIVERS MD [address], [place], [address] , [address] 9 11:39:23 Allergic rhinitis 83977724 Active Victorina hassan [address] 8 13:19:10 Disorder of bone and articular cartilage 199285011 Active Victorina hassan [place] - [address] 8 13:18:50 Idiopathic peripheral neuropathy 44890626 Active Victorina hassan [place] [address] 8 13:18:44 IgE-mediated allergic asthma 827892653 Active Victorina hassan [place] - [facility] [place] 8 13:19:08 Problem Notes None recorded. Procedures Surgical History Date Name Laterality Status Provider Name and Address Organization Details Recorded Time 1 Medicare Wellness CPT Code, Subsequent completed ELIANA Paredes [place] 11/28/2020 12:56:42 0 Medicare Wellness CPT Code, Subsequent completed ELIANA Paredes [place] 11/28/2019 10:03:20 9 Medicare Wellness CPT Code, Subsequent completed ELIANA Paredes [place] 11/22/2018 10:27:39 9 Blank Procedure Template completed LUDMILA RIVERS MD [address], [place], [address], [address] 09/23/2018 11:39:14 9 Blank Procedure Template completed LUDMILA RIVERS MD [address], [place], [address], [address] 09/20/2018 13:36:47 8 Medicare Wellness CPT Code, Subsequent completed Victorina Hickey [address] 11/17/2017 13:41:58 7 Medicare Wellness CPT Code, Subsequent completed Deyaniraobie Givens [address] 10/22/2016 12:53:07 5 Laceration Repair completed Katelin Jamal [address] 11/06/2014 17:07:47 3 Colonoscopy completed Macie Figueroa [address] 11/28/2015 08:46:37 Other completed LUDMILA RIVERS MD [address] [facility] [address], [place], [address], [address] 09/20/2018 13:32:40 Orthopaedic Surgery completed LUDMILA RIVERS MD [address] [facility] [address], [place], [address], [address] 09/20/2018 13:32:14 Vascular Surgery completed ELIANA Betancourt [address] 09/06/2013 15:07:40 Imaging Results None recorded. [...] active Not Available Not Available Not Available ph top bu na met capsules 11/17 completed Not Available Not Available Not Available meloxicam 15 mg tabs active Not Available Not Available N ot Available compounded medication take 1 tablet every [...] Not Available Not Available fluzone high-dose pf 9237-5315 .5 ml azul active Not Available Not Available N ot Available clotrimazol e/betametha sone dipropionat e 1-0.05 % crea active Not Available Not Available Not Available alprazolam 0.5 mg tabs 11/22 completed Not Available Not Available Not Available fluzone high-dose pf 4684-1386 .5 ml azul active Not Available Not Available N ot Available sulfamethox azole/trime thoprim ds 800-160 mg tabs 07/30 completed Not Available Not Available Not Available potassium chloride cr 10 meq tbcr 11/17 completed Not Available Not Available Not Available hydrocodone /acetaminop hen 5-325 mgtabs 07/30 completed Not Available Not Available Not Available fluzone high-dose pf 1443-3292 .5 ml azul 01/13 completed Not Available [...] active Not Available Not Available Not Available topiramate [...] TWICE DAILY TO AREA ON THE RIGHT ZOROASTRIANISM (AVOIDING THE BIOPSY SITES) FOR 7DAYS THEN [...] No t Available Nasonex 50 mcg/actuati on Montchanin Montchanin 1 spray twice a day by intranasa [...] Available Not Available No t Available Fluvirin 4241-7918 45 mcg (15 mcg x 3)/0.5 mL intramuscul ar suspension INJECT 0.5 ML INTRAMUSC ULARLY DIRECTED. active Not Available Not Available No t Available Fluzone High-Dose 2014- (PF) 180 mcg/0.5 mL intramuscul ar syringe active Not Available Not Available N ot Available Fluzone High-Dose 9066-8668 (PF) 180 mcg/0.5 mL intramuscul ar syringe ADM 0.5ML IM UTD active Not Available Not Available No t Available Fluzone High-Dose 7056-2855 (PF) 180 mcg/0.5 mL intramuscul ar syringe [...] Last Updated DateTime 147.95 cm 43.5 kg/m2 22863.4 g 89 /min 18 /min 98 % 98 % 97.6 [degF] 188 mm[Hg] 98 mm[Hg] Bijal Dumas [facility] [place] [facility] [place] 14:51:47 Date Recorded Body height Body mass index (BMI) Body weight Respiratory rate Body temperature Provider Name and Address Organization Details Last Updated DateTime 04/30/2020 147.95 cm 43.5 kg/m2 11903.4 g 18 /min 97.7 [degF] Cee Dangelo [place] [facility] [place] 14:13:54 Date Recorded Body height Body mass index (BMI) Body weight Respiratory rate Provider Name and Address Organization Details Last Updated DateTime 06/18/2020 147.95 cm 43.5 kg/m2 23917.4 g 20 /min Cee Dangelo Obie [address] 06/18/2020 11:53:50 Date Recorded Body height Body mass index (BMI) Body weight Provider Name and Address Organization Details Last Updated DateTime 06/19/2021 148.59 cm 42.7 kg/m2 95190.21 g Natalie Mesa LPN [address] 06/19/2021 12:47:16 Date Recorded Body height Body mass index (BMI) Body weight Heart rate Respiratory rate Body temperature Systolic blood pressure Diastolic blood pressure Provider Name and Address Organization Details Last Updated DateTime 148.59 cm 42.8 kg/m2 77245.6 6 g 98 /min 18 /min 98 [degF] 155 mm[Hg] 84 mm[Hg] Cee Dangelo [address] 13:07:02 Social History Question Answer Notes LastModified by Organizat ion Details LastModified Time Tobacco Smoking Status Never Smoker Lou hassan[address] 10/22/2012 12:53:32 Do You Have An Advance Directive? No Information not available 11/28/2020 Are You Blind Or Do You Have Difficulty Seeing? No Information not available 10/22/2016 What Is Your Level Of Caffeine Consumption? None Information not available 11/28/2020 Are You Deaf Or Do You Have Serious Difficulty Hearing? No Information not available 10/22/2016 What Type Of Diet Are You Following? REGULAR [email or web address] Information not available 10/23/2012 Do You Feel Safe At Home? Yes Information not available 10/22/2016 Advance Directive - Provider Has Reviewed Directives And Consents To Follow Them (insert Provider Name With Any Objections In Notes Field) No Information not available 10/22/2016 Marital Status [email or web address] Informati on not available 10/23/2012 Do You Have A Medical Power Of Peoplesoft Taleo Manager? No [email or web address] Information not available 11/28/2020 What Was The Date Of Your Most Recent Tobacco Screening? 11/28/2020 [email or web address] Information not available 11/28/2020 How Many Children Do You Have? 2 Information not available 09/06/2013 Seat Belts Used Routinely Yes Information not available 10/22/2016 Smoke Alarm In Home Yes Information not available 10/22/2016 How Much Tobacco Do You Smoke? No [email or web address] Information not available 10/22/2012 General Stress Level Low [email or web address] Information not available 10/23/2012 Do You Use Sunscreen Routinely? No Information not available 10/22/2016 Has Tobacco Cessation Counseling Been Provided? No Information not available 11/28/2020 How Many Years Have You Smoked Tobacco? 0 [email or web address] Information not available 11/17/2017 Do You Have Difficulty Walking Or Climbing Stairs? No Information not available 10/22/2016 Sex: Unknown Functional Status Question Answer Note LastModified by Organizat ion Details LastModified Time How many times per week do you consume alcohol? 1-2 times per week [email or web address] Information not available 11/28/2020 Do you use any illicit or recreational drugs? No [email or web address] Information not available 11/28/2020 Do you or have you ever used any other forms of tobacco or nicotine? No Information not available 11/28/2020 What is your level of alcohol consumption? Occasional Information not available 09/06/2013 Do you have difficulty doing errands alone? No Information not available 10/22/2016 Are you able to care for yourself? Yes [email or web address] Information not available 11/28/2020 What is your occupation? retired [email or web address] Information not available 10/23/2012 Do you have difficulty dressing or bathing? No Information not available 10/22/2016 What is your exercise level? None [email or web address] Information not available 10/23/2012 Mental Status Question [...] conjugate PCV 13 5 completed Not Available [facility] 04/16/2019 02:09:45 Influenza, high-dose, trivalent, PF 5 completed ELIANA Paredes null, [address] 11/28/2020 12:54:34 Td (adult), 5 Lf tetanus toxoid, preservative free, adsorbed 1 completed Rosario Evans RN null[address] 04/28/2020 15:51:39 pneumococcal, unspecified formulation 8 completed June Jenkins null[address] 07/11/2016 11:23:43 zoster live 8 completed June Jenkins [address] 07/11/2016 11:23:43 Influenza, split virus, trivalent, preservative 3 completed June Donnellysshirley [address] 07/11/2016 11:23:43 Influenza, high-dose, trivalent, PF 2 completed Not Available [facility] 04/30/2019 02:11:12 Influenza, split virus, quadrivalent, preservative 3 completed Not Available [facility] 04/30/2019 02:11:12 Influenza, split virus, trivalent, preservative 4 completed Not Available [facility] 04/30/2019 02:11:12 tetanus toxoid, unspecified formulation 9 completed June Donnellysshirley null[address] 07/11/2016 11:23:44 Influenza, split virus, trivalent, preservative 4 completed Macie Figueroa CMA null, [address] 11/17/2017 11:55:28 Past Encounters Encounter ID Performer Location Encounter Start Date Encounter Closed Date Diagnosis/Indication Diagnosis SNOMED-CT Code Diagnosis ICD10 Code Diagnosis Note [id number] [facility] [address] [place] [address] 10/22/2012 10:57:07 10/22/2012 13:24:01 [id number] [facility] [address] [place] [address] 09/06/2013 13:06:18 09/06/2013 15:11:33 Long-term drug therapy 800431747 Adult heal th examination 973404139 Obesity 574857687 Asthma 976133431 Body mass index 30+ - obesity 757482683 Screening mammography 33007779 [id number] [facility] [address] [place] [address] 11/30/2013 10:19:00 11/30/2013 13:52:15 Varicose veins of lower extremity 97379041 Knee pain 14514680 [id number] [facility] [address] [place] [address] 05/10/2014 15:32:59 05/10/2014 16:24:39 Dependent edema 001090727 [id number] [facility] [address] [place] [address] 09/19/2014 13:00:08 09/19/2014 17:34:10 Adult health examination 666549772 Dependent edema 248547370 Obesity 262597217 Long-term drug therapy 398159409 Administra tion of pneumococcal vaccine 93216464 Screening mammography 19243275 Disorder o f bone and articular cartilage 908604172 Asthma finding 399237613 [id number] MD MARISELA Whalen [facility] [address] [place] [address] 11/06/2014 09:33:20 11/06/2014 13:43:57 Laceration of forearm 171284202 Injury of head 21674056 Laceration of lip 722156936 [id number] Meg Jones MD [facility] [address] [place] [address] 11/08/2014 11:19:55 11/08/2014 13:08:42 Laceration of forearm 433533436 Postconcus coni syndrome 08144847 Contusion of knee 46957425 Fall 2429694 [id number] Meg Jones MD [facility] [address] [place] [address] 11/13/2014 11:22:14 11/13/2014 13:21:17 Laceration of forearm 498598035 Candidiasis of mouth 09876329 [id number] Meg Jones MD [facility] [address] [place] [address] 11/16/2014 09:51:30 11/16/2014 10:15:42 Gingivostomatitis 56434858 [id number] Meg Jones MD [facility] [address] [place] [address] 11/22/2014 14:27:17 11/22/2014 15:37:52 Glossitis 97676391 Laceration of lip 875333167 [id number] Meg Jones MD [facility] [address] [place] [address] 11/29/2014 13:58:04 11/29/2014 17:15:23 Laceration of forearm 733656350 Laceration of lip 338506960 [id number] Meg Jones MD [facility] [address] [place] [address] 12/11/2014 13:49:11 12/11/2014 14:41:27 Laceration of forearm 920016112 Skin eschar 635536785 [id number] Meg Jones MD [facility] [address] [place] [address] 01/29/2015 15:42:50 01/29/2015 16:45:47 Candidiasis of skin 71520690 B37.2 [id number] Meg Jones MD [facility] [address] [place] [address] 02/13/2015 10:38:57 02/13/2015 12:06:27 Candidiasis of skin 72856480 B37.2 Benign ess ential hypertension 7372691 I10 Lesion of breast 4477158 04 N64.9 Eruption 554343899 R21 Long-term drug therapy 725250154 Z79.329 [id number] Meg Jones MD [facility] [address] [place] [address] 04/06/2015 10:26:39 04/06/2015 14:45:37 Eruption 914674889 R21 Upper resp iratory infection 90775957 J00 Lesion of skin of face 8883352418 06 L98.9 Cheilitis 5784858 K13.0 [id number] Meg Jones MD [facility] [address] [place] [address] 05/04/2015 09:47:55 05/04/2015 13:49:50 Eruption 758479115 R21 Angular cheilitis 626423 005 K13.0 [id number] Meg Jones MD [facility] [address] [place] [address] 07/03/2015 10:50:53 07/03/2015 16:20:46 Bronchitis 29419729 J40 Asthma 819593282 J45.90 9 [id number] Meg Jones MD [facility] [address] [place] [address] 07/26/2015 10:51:58 07/26/2015 12:01:09 Edema of lower extremity 909868753 R60.0 Candidiasis of skin 4988 3006 B37.2 [id number] Meg Jones MD [facility] [address] [place] [address] 09/24/2015 12:56:16 09/24/2015 16:30:42 Pain in left knee 2691072424 92397 M25.562 Dependent edema 79927184 4 R60.0 Allergic rhinitis 906439 04 J30.9 Ganglion cyst 043348551 M67.441 Liver enzy mes outside reference range 516853767 R94.5 Obesity 847169249 E66.9 Asthma 292692678 J45.90 9 Adult heal th examination 303297122 Z00.01 Z72.89 Z79.899 E78.5 E55.9 R53.83 Varicose v eins of lower extremity 96658251 I83.359 [id number] Meg Jones MD [facility] [address] [address] 02/15/2016 14:28:28 02/15/2016 15:55:15 Tinea corporis 73942199 B35.4 Candidiasis of skin 4988 3006 B37.2 [id number] Meg Jones MD [facility] [address] [address] 03/11/2016 14:05:48 03/11/2016 16:21:40 Tinea corporis 69305624 B35.4 Acute bronchitis 7051941 2 J20.9 Pneumonia 508401465 J18. 9 Cough 88708220 R05 Upper resp iratory infection 97333196 J06.9 [id number] Meg Jones MD [facility] [address] [address] 04/22/2016 14:33:17 04/22/2016 17:35:48 Pain in left knee 1654835353 44467 M25.562 Osteoarthr itis of knee 666351430 M17.12 [id number] Meg Jones MD [facility] [address] [place] [address] 07/11/2016 11:13:06 07/11/2016 11:50:08 Candidiasis of mouth 34837786 B37.0 Fatigue 66148516 R53.83 Pain in left knee 028692 6490 98227 M25.933 [id number] Meg Jones MD [facility] [address] [address] 10/22/2016 12:23:14 10/22/2016 14:36:16 Adult health examination 467104483 Z00.00 Screening for disorder 126496080 Z13.9 Anemia 273760000 D64.9 Osteoarthr itis of knee 311315547 M17.12 Pain in pelvis 92125791 R10.2 Obesity 020774979 E66.9 Pain of sh oulder region 68307572 M25.511 Screening mammography 24 165182 Z12.31 Osteoporosis 16847627 M8 1.0 N95.9 [id number] [facility] [address] [address] 01/13/2017 09:14:11 01/13/2017 10:08:30 Pain in right arm 110877139 M79.601 Cervical radiculopathy 19836630 M54.12 Osteopenia 394031771 M85 .80 [id number] MD [facility] [address] [address] 04/30/2017 10:23:58 04/30/2017 14:52:42 Cellulitis of finger 13578236 L03.859 [id number] Meg Jones MD [facility] [address] [address] 05/04/2017 10:06:59 05/04/2017 12:07:20 Cellulitis of finger 31560981 L03.082 [id number] MD [facility] [address] [address] 08/28/2017 14:04:39 08/28/2017 15:15:32 Urinary incontinence 699163935 R32 Morbid obesity 334653983 E66.01 Dietary ma nagement surveillance 689687826 Z71.3 [id number] Meg Jones MD [facility] [address] [address] 11/17/2017 13:14:51 11/17/2017 15:27:04 Adult health examination 814062252 Z00.00 Screening for disorder 880297440 Z13.89 Obesity 000884775 E66.9 Anemia 937238454 D64.9 R53.83 Z79.899 D50.8 Osteopenia 861089021 M85 .80 Essential hypertension 67674278 I10 Asthma 448734855 J45.90 9 [id number] Meg Jones MD [facility] [address] [place] [address] [place] [address] 01/26/2018 08:18:01 01/26/2018 11:05:38 Morbid obesity 843634476 E66.01 Bladder mu scle dysfunction - overactive 049663741 N32.81 [id number] Meg Jones MD [facility] [address] [place] [address] [place] [address] 07/30/2018 14:55:42 07/30/2018 16:01:26 Generalized anxiety disorder 42783414 F41.1 Pain of ri ght shoulder joint 2970199848 7005640 M25.511 Basal cell carcinoma of face 783594345 C44.930 [id number] Meg Jones MD [facility] [address] [address] 08/10/2018 14:32:11 08/10/2018 17:02:27 Spasm 97509307 R25.2 Generalize d anxiety disorder 10339356 F41.1 [id number] LUDMILA RIVERS MD [facility] [address] [place] [address] 09/20/2018 12:54:29 09/20/2018 13:27:16 Skin lesion 13300250 L98.9 [id number] MD [facility] [address] [place] [address] 09/23/2018 10:46:08 09/23/2018 11:50:59 Basal cell carcinoma of face 299608613 C44.424 [id number] Meg Jones MD [facility] [address] [address] 11/22/2018 09:39:42 11/22/2018 13:50:41 Adult health examination 800722507 Z00.00 Screening for disorder 666684690 Z13.89 Depression screening 171 920963 Z13.31 Obesity 555160529 E66.9 Essential hypertension 60579861 I10 Hyperlipidemia 60922827 E78.5 Fatigue 62589797 R53.83 Varicose v eins of lower extremity 80964887 I83.819 Screening for malignant neoplasm of breast 094597182 Z12.31 Menopausal syndrome 1237 11247 N95.9 Asthma 175357526 J45.90 9 Medication monitoring 39 6806455 Z51.81 Urinary incontinence 165 580115 R32 Generalize d osteoarthritis 488080920 M15.9 [id number] Meg Jones MD [facility] [address] [address] 12/23/2018 13:32:18 12/23/2018 16:00:14 Morbid obesity 222329750 E66.01 Anxiety disorder 6471104 06 F41.9 Medication monitoring 39 3079072 Z51.81 [id number] Meg Jones MD [facility] [address] [address] 03/07/2019 15:51:00 03/07/2019 17:03:05 Pain in right foot 0264773095 31188 M79.671 Candidiasis of skin 4988 3006 B37.2 [id number] Meg Jones MD [facility] [address] [address] 11/28/2019 12:56:17 11/28/2019 14:52:58 Adult health examination 006849314 Z00.00 Screening for disorder 436812732 Z13.89 Depression screening 171 937252 Z13.31 Screening mammography 24 700290 Z12.31 Eruption 553403733 R21 Dermatitis of right external ear canal 7171263121 680277 H60.91 Pain in left knee 158668 2179 76460 M25.562 Rash of groin 2300830547 7525145 R21 Dependent edema 28901093 4 R60.0 [id number] Meg Jones MD [facility] [address] [place] [address] 03/16/2020 14:44:51 03/16/2020 16:10:07 Tinea corporis 11875603 B35.4 Pain in left knee 633070 5392 18092 M25.562 Generalize d anxiety disorder 71183858 F41.1 Insomnia 945323436 G47.0 0 [id number] Meg Jones MD [facility] [address] [place] [address] 04/04/2020 13:11:04 04/04/2020 15:38:19 Eruption 818358224 R21 Pain in left knee 902478 7856 19102 M25.562 [id number] Meg Jones MD [facility] [address] [place] [address] 04/17/2020 14:14:47 04/17/2020 16:43:20 Obesity 534357379 E66.9 Pain in left knee 423458 6625 19102 M25.562 Anxiety disorder 8837234 06 F41.9 Insomnia [id number] G47.0 0 [id number] GELACIO EVANS [facility] [address] [place] [address] 04/28/2020 14:07:47 04/28/2020 15:08:28 Superficial laceration of hand [id number] S61.411A [id number] Meg Jones MD [facility] [address] [place] [address] 04/30/2020 13:36:28 04/30/2020 16:19:49 Laceration of finger of left hand [id number] 5530394 S61.211A Laceration of right hand [id number] S61.411A [id number] Meg Jones MD [facility] [address] [place] [address] 06/18/2020 10:58:11 06/18/2020 12:25:22 Left lower zone pneumonia [id number] J18.1 Cough 57751902 R05 Asthma 198716079 J45.90 9 [id number] Meg Jones MD [facility] [address] [place] [address] 11/28/2020 12:48:10 11/28/2020 14:23:59 Adult health examination [id number] Z00.00 Screening for disorder 448513492 Z13.89 Depression screening 171 591193 Z13.31 Essential hypertension 45537556 I10 Morbid obesity 325580986 E66.01 Fatigue 77516989 R53.83 Screening mammography 24 067694 Z12.31 Menopausal syndrome 1237 47288 N95.9 Pain of mu ltiple joints 24494327 M25.50 Asthma 261585860 J45.90 9 Pain in left knee 115125 1069 21735 M25.562 [id number] Jacob Sanders MD [address] [place] [address] 06/19/2021 12:32:46 06/19/2021 13:53:38 Pain of left knee joint [id number] 60237 M25.562 History of total knee arthroplasty 4096932323 105 Z96.659 patient has a history of [...] to a revision specialist . DIAGNOSTIC TEST: Radiograph s of the left kneeDATE: Date of today's clinical visitCLINI DAVIDE INDICATION : Knee painCOMPAR DOM: Any prior imaging within the [facility] system was reviewed.T ECHNIQUE: AP, lateral, sunrise and notch view of the left knee were reviewed.W ithFINDING S: Radiograph s of the left knee revealed intact total knee replacemen t. No evidence of loosening or periprosth etic fracture. Alignment is overall well maintained No obvious masses or lesions in the soft tissues. Right knee also has a total knee replacemen t with limited views. No obvious loosening. IMPRESSION : Radiograph s of the left knee intact total knee replacemen t. Health Concerns Section Related Observation LastModified by Organization Detai ls LastModified Time None Recorded Concern Status LastModified by Organization Details LastModified Time None Recorded Advance Directives Directive N: Payers Insurance Date Sequence Insurance Name Policy Number Policy Warren Covered Member ID Warren Member ID Guarantor Name 06/19/2021 1 [employer] (MEDICARE REPLACEMENT HMO) Padma Durant [id number] Padma Durant Notes Date Note Type [...] alleviating or exacerbating factors. GELACIO EVANS [address], [place], [address], [facility] [place] 04/28/2020 15:05:49 04/30/2020 text/html this is a 75-year-old obese female who fell 2 and half days ago and comes in today for wound check and hospital follow-up there was no loss of consciousness Meg Jones MD [address], [place], [address], [facility] [place] 04/30/2020 19:14:31 06/18/2020 text/html 75-year-old whit e female on seeing today because her asthma is very bad I was not aware that she had asthma she tells me that she has for many years she thinks it is bad right now, no fever no vomiting no diarrhea Meg Jones MD [address], [place], [address], [facility] [place] 06/18/2020 20:15:51 11/28/2020 text/html 75-year-old leta spicer [...] to discuss that Meg Jones MD [address], [place], [address], [address] 11/28/2020 20:58:53 06/19/2021 text/html KneeReported bypatient.Location: right [...] will be forwarded Jacob Sanders MD [address], [place], [address], [facility] [place] 06/21/2021 07:28:13 OBGyn Episode No OBEpisode recorded.
== END 2024-09-22 14:02 | disposition home or self-care (01) ==
PROVIDERS: PCP Nurse Practitioner Family; Visit Provider Physician Assistant Medical
DX: M54.2 Cervicalgia (principal)

== ENCOUNTER → 2024-09-22 12:40 | Outpatient (BNVA) | payer MEDICARE, SELFPAY | PROVIDERS: PCP Nurse Practitioner Family; Visit Provider Physician Assistant Medical | DX: M54.2 Cervicalgia (principal); R42 Dizziness and giddiness; Z91.81 History of falling | CPT/HCPCS: 99212 ==

== ENCOUNTER 2024-10-10 11:50 | Outpatient (AMB) | payer MEDICARE, SELFPAY ==
--- NOTE | 2024-10-10 12:31 | A.OFFPC_ITS ---
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 Accompanied by: Daughter Allergies No Known Allergies Allergy (Verified 10/10/24 12:35) Tobacco use date assessed: 10/10/24 Fall risk assessment: 1 Fall in past year Last assessed Fall Risk: 10/10/24 Dental Screening Dental Screen Date: 10/10/24 Did you have a dental visit in the last 12 months?: Yes Did you have a dental problem in the last 6 months where you did not have access to dental care?: No Was dental information given to patient?: Patient has dentist HPI PE- see comments HPI Details History of Present Illness The patient is an 79-year-old female presenting for a physical examination. She reports a history of dizziness, which has improved since discontinuing a statin medication. The dizziness was initially thought to be related to the statin, and a plan to reintroduce rosuvastatin was discussed. The patient has a history of morbid obesity, which was noted during the physical examination. She also has a history of hypertension, with blood pressure tending to rise during medical visits, possibly due to anxiety. She has multiple skin lesions on her upper torso, which were observed during the examination. In terms of preventative care, the patient had a positive Cologuard test in the past but refuses further colonoscopy or repeat Cologuard testing. Health Maintenance - Colon cancer screening: Positive Colog uard test, patient refuses further testing -refuses mammos Social History Review of Systems - Cardiovascular: Denies chest pain, den ies shortness of breath - Gastrointestinal: Denies blood in stoo l, constipation, diarrhea - General: Denies fever, chills - Psychiatric: Denies suicidal ideation, denies homicidal ideation Physical Exam General: Cooperative, healthy appearing, comfortable, no acute distress and well developed Orientation: Patient oriented x3 Limitations: No limitations Head: Normal to inspection Ears: Hearing grossly normal bilaterally Nose: Normal external nose present Face and sinus: Normal facial exam Eyes: Appearance normal, both eyes and all related structures Neck: Normal visual inspection and Yes full ROM Respiratory: Lungs were fairly clear, normal respiratory effort and able to speak in complete sentences. Clear to auscultation bilaterally Cardiovascular: Regular rate and rhythm. S1 S2 morbidly obese GI: Normal to inspection. Soft to palpation and nontender Skin: Several skin lesions throughout upper torso (range in shape, color, and size) Neuro: Patient oriented x3 Extremities: Normal to inspection Results Plan The plan includes reintroducing rosuvastatin to manage the patient's cholesterol levels, as the dizziness previously associated with statin use has improved. The patient will be referred to [facility] for further evaluation and management, as she has seen a provider there in the past. Given the patient's refusal of further colon cancer screening, no additional testing will be pursued at this time. Discussion Notes I discussed with the patient the plan to reintroduce rosuvastatin, considering her previous dizziness has improved. We also talked about her referral to [facility] for continuity of care, as she has a history with a provider there. The patient was informed about the implications of refusing further colon cancer screening and agreed to the current plan. Patient Instructions - Start taking rosuvastatin as prescribe d. - Follow up with Michael (derm) for fur ther care. - Monitor for any new symptoms and repor t them to your healthcare provider. 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 1. Little interest or pleasure in doing things: not at all 2. Feeling down, depressed, or hopeless: not at all 3. Trouble falling or staying asleep, or sleeping too much: not at all 4. Feeling tired or having little energy: not at all 5. Poor appetite or overeating: not at all 6. Feeling bad about yourself - or that you are a failure or have let yourself or your family down: not at all 7. Trouble concentrating on things, such as reading the newspaper or watching television: not at all 8. Moving or speaking so slowly that other people could have noticed. Or the opposite - being so fidgety or restless that you have been moving around a lot more than usual: not at all 9. Thoughts that you would be better off or of hurting yourself in some way: not at all Total score: 0 Depression Screening Interpretation: Negative Depression Screening Done: Yes 51617 - PHQ-9 Billing: Yes Source: Developed by Drs. Kannan Welsh, Akiko Sanchez, Sukumar Son and colleagues, with an educational mignon from [employer]. Thrive Questionnaire Date Thrive assessed: 10/10/24 I am a: Patient What is your living situation today?: I have a steady place to live Within the past 12 months, did the food you bought not last and you didn't have the money to get more?: Never true Within the past 12 months, did you worry whether your food would run out before you got money to buy more?: Never true Do you have trouble paying for medicines?: No Do you have trouble getting transportation to medical appointments?: No Do you have trouble paying your heating and electricity bill?: No Do you have trouble taking care of your child, family member or friend?: No Do you have trouble with day-to-day activities such as bathing, preparing meals, shopping, managing finances, etc.?: No Are you currently unemployed and looking for a job?: No Are you interested in more education?: No Please select the resources that you would like help with: None Currently or been in a relationship where the following occur: No concerns reported THRIVE Score: 0 AUDIT C Alcohol Use Questionnaire (AUDIT-C) 1. How often do you have a drink containing alcohol?: Monthly or less 2. How many drinks containing alcohol do you have on a typical day when you are drinking?: 1 or 2 Total Score: 1 Score Reviewed/Action Taken: Yes ALEISHA-7 AMB Questionnaire ALEISHA-7 Date ALEISHA - 7 assessed: 10/10/24 Feeling nervous, anxious, or on edge: 0 = Not at all Not being able to stop or control worryin = Not at all Worrying too much about different things: 0 = Not at all Trouble relaxin = Not at all Being so restless that it is hard to sit still: 0 = Not at all Becoming easily annoyed or irritable: 0 = Not at all Feeling afraid as if something awful might happen: 0 = Not at all Total ALEISHA-7 score (0-4 normal; 5-9 mild; 10-14 moderate; 15-21 severe): 0 Source: Developed by Drs. Kannan Welsh, Akiko Sanchez, Sukumar Son and colleagues, with an educational mignon from [employer]. ALEISHA-7 Assessment Billing ALEISHA-7 Assessment Tool: ALEISHA-7 Assessment 93781 Physical exam (Primary Care) Vital Signs: Last Vital Signs Temp 98.2 F 10/10/24 12:33 Pulse 71 10/10/24 12:33 Resp 16 10/10/24 12:33 BP 142/78 H 10/10/24 12:33 BMI result Body Mass Index 37.9 Tobacco/Smoking Status: Tobacco use Status Tobacco use date assessed 10/10/24 10/10/24 12:46 Patient Tobacco Use Status Never used Tobacco 10/10/24 12:39 e-Cigarette/Vaping Use Never Used 10/10/24 12:39 PHQ-9: PHQ-9 Score PHQ-9: Total score 0 10/10/24 12:49 Depression Screening Interpretation: Negative Thrive Assessment: Date of Thrive Assessment Date Thrive assessed 10/10/24 10/10/24 12:46 Currently or been in a relationship where the following occur: No concerns reported Coding Level of Care Code Est Pt Prev Care >65y(43121) Diagnoses Dyslipidemia E78.5 Encounter for routine adult physical exam with abnormal findings Z00.01 Skin lesions L98.9 Additional Codes ALEISHA-7 Assessment Billing - ALEISHA-7 Assessment Tool: ALEISHA-7 Assessment 21164 ([id number]) PHQ-9 - 77742 - PHQ-9 Billing: Yes ([id number]) Assessment & Plan Assessment & Plan (1) Dyslipidemia: Code(s): E78.5 - Hyperlipidemia, unspecified Category: Medical (2) Encounter for routine adult physical exam with abnormal findings: Code(s): Z00.01 - Encounter for general adult medical examination with abnormal findings Category: Medical (3) Skin lesions: Code(s): L98.9 - Disorder of the skin and subcutaneous tissue, unspecified Category: Medical Plan . Orders: Orders Complete Blood Count Auto Diff Today E78.5 - Hyperlipidemia, unspecified Comprehensive [place]. Panel Fast Today E78.5 - Hyperlipidemia, unspecified Lipid Panel Today E78.5 - Hyperlipidemia, unspecified Referrals Dermatology Referral L98.9 - Disorder of the skin and subcutaneous tissue, unspecified Medications: New rosuvastatin 5 mg PO DAILY 30 tabs 2RF 30 days
[2024-10-10 12:33] VITALS: BP 142/78; PULSE 71; RESP 16; TEMP 36.8; BMI 37.9
--- OUTSIDE RECORDS SUMMARY | 2024-10-10 12:57 | XMS_ITS | Data Portability ---
Author Organization [place] - [facility] IP Address [id number] [place] [address] Care Team Providers Care Card Lacer Jacquard Name Role Phone CARLOS MADRID Primary Care Provider MEG JONES Primary Care Provider Assessment Encounter Date Assessment Date Assessment LastModified by Organization Details LastModified Time 04/30/2020 04/30/2020 multiple contusions to the forearm with lacerations please see the pictures spent approximately 40 minutes cleaning in repairing laceration to Carter pose it and remove all the debris and prior Steri-Strips carefully with binocular microscope [email or web address] Not available 04/30/2020 19:14:23 06/18/2020 06/18/2020 community-acquir [...] comfortably on room air at this time [email or web address] Not available 06/18/2020 20:15:13 11/28/2020 11/28/2020 Time [...] left knee rash of groin dependent edema [email or web address] Not available 11/28/2020 13:43:59 Plan of Treatment Reminders Order Date Submit Date Provider Last Modified By Organization Details Last Modified Time Details Appointments None recorded. Lab lipid panel, serum 2020 [facility] [address], [address], [place], [address], 08:15:01 CMP, serum or plasma 2020 021 [facility], [address], [address], [place], [address], 08:15:00 TSH, serum or plasma 2020 021 [email or web address] 15 [facility], [address], [address], [place], [address], 10:14:28 urinalysis complete, reflex culture 2020 021 [facility], [address] [place] [address], [address], [place], [address], 08:15:01 CBC w/ auto diff 2020 021 [facility], [address], [place], [address], 08:14:59 Referral None recorded. Procedures None recorded. Surgeries None recorded. Imaging XR, knee, 4 or more view 2021 [email or web address] Not available 17:03:21 MAMMO, screening, digital, bilateral - Please call the patient to schedule. 2020 [facility] 15 [facility] ([facility]), [address], [place], [address], 10:09:11 bone density - Please call the patient to schedule. [email or web address] ([facility]), [address], [place], [address], 10:09:11 XR, chest, 2 view 2020 [facility] ([facility]), [address], [place], [address], 13:38:41 Medication Orders Voltaren Arthritis Pain 1 % topical gel 2021 [email or web address] [id number], [address] [facility] [address], [place], [address], 17:03:21 Qsymia 7.5 mg-46 mg capsule, extended release 2020 [facility], [address] [place], [address], 21:01:04 levofloxaci n 500 mg tablet 2020 [email or web address] [id number], [address] [facility] [address], [place], [address], 13:28:56 albuterol sulfate 2.5 mg/3 mL (0.083 %) solution for nebulizatio n 2020 021 [email or web address] 50 [id number], [address], [place], [address], 12:02:22 Patient TargetsNo targets recorded. Patient Instructions Encounter Date Encounter Id Patient Instructions Last Modified By Organization Details Last Modified Time 04/28/2020 [id number] Keep wound dress ing in place for 24 hours. After 24 hours, you may change the dressing. After 24 hours, you may get the wound wet in the shower but dry thoroughly afterwards. Please return here to urgent care follow-up with primary care provider as needed for new or worsening symptoms. [email or web address] Not available 04/28/2020 15:05:21 06/18/2020 [id number] cough: care instructions [email or web address] Not available 06/18/2020 12:02:22 11/28/2020 [id number] alcohol use disorders identification test* [email or web address] Not available 11/28/2020 13:22:10 fall risk screening* Not bryce cliff 11/28/2020 13:22:10 geriatric depres coni screen* [email or web address] Not available 11/28/2020 13:22:10 mammogram: about this test [email or web address] Not available 11/28/2020 13:22:10 When You Want to Lose Weight: Care Instructions Not available 11/28/2020 13:22:10 multi-dimensiona l health assessment questionnaire* [email or web address] Not available 11/28/2020 13:22:10 advance directiv es: care instructions [email or web address] Not available 11/28/2020 13:22:10 Advance Care Directives Patient WebLink Handout [email or web address] Not available 11/28/2020 13:22:10 high blood press ure: care instructions Not available 11/28/2020 13:22:10 learning about h igh blood pressure [email or web address] Not available 11/28/2020 13:22:10 Personalized a [facility] Plan and Screening Recommendations Advance Directives [...] Risk for Opioid Misuse: Pain Management Plan: Not available 11/28/2020 12:56:41 Reason for Referral None Reported. Results Created Date Observation Date Name Description Value Unit Range Abnormal Flag Note LastModifiedBy Organization Detail LastModifiedTime 12/05/1912/05/2020 CBC WITH DIFFE RENTI AL/PL ATELE T WBC 5.3 x10e3 /uL 3.4-10 .8 Not Available [facility] ([facility]) [address] [place], [address], 12/07/2020 08:14:58 12/05/19 21 12/05/2020 CBC WITH DIFFE RENTI AL/PL ATELE T RBC 4.63 x10e6 /uL 3.77-5 .28 Not Available [facility] ([facility]) [address] [place], [address], 12/07/2020 08:14:58 09/07/20 21 12/05/2020 CBC WITH DIFFE RENTI AL/PL ATELE T hemoglobin 13.6 g/dL 11.1-1 5.9 Not Available [facility] ([facility]) [address] [facility], [place], [address], 12/07/2020 08:14:58 12/05/19 21 12/05/2020 CBC WITH DIFFE RENTI AL/PL ATELE T hematocrit 39.9 % 34.0-4 6.6 Not Available [facility] ([facility]) [address] [facility], [place], [address], 12/07/2020 08:14:58 12/05/1912/05/2020 CBC WITH DIFFE RENTI AL/PL ATELE T MCV 86 fL 79-97 Not Available [facility] ([facility]) [address] [facility], [place], [address], 12/07/2020 08:14:58 12/05/1912/05/2020 CBC WITH DIFFE RENTI AL/PL ATELE T MCH 29.4 pg 26.6-3 3.0 Not Available [facility] ([facility]) [address] [facility], [place], [address], 12/07/2020 08:14:58 12/05/1912/05/2020 CBC WITH DIFFE RENTI AL/PL ATELE T MCHC 34.1 g/dL 31.5-3 5.7 Not Available [facility] ([facility]) [address] [place], [address], 12/07/2020 08:14:58 12/05/1912/05/2020 CBC WITH DIFFE RENTI AL/PL ATELE T RDW 14.0 % 11.7-1 5.4 Not Available [facility] ([facility]) [address] [place], [address], 12/07/2020 08:14:58 12/05/19 21 12/05/2020 CBC WITH DIFFE RENTI AL/PL ATELE T platelets 217 x10e3 /uL 150-45 0 Not Available [facility] ([facility]) [address] [facility], [place], [address], 12/07/2020 08:14:58 12/05/19 21 12/05/2020 CBC WITH DIFFE RENTI AL/PL ATELE T neutrophils 54 % not estab. Not Available [facility] ([facility]) [address] [facility], [place], [address], 12/07/2020 08:14:58 12/05/19 21 12/05/2020 CBC WITH DIFFE RENTI AL/PL ATELE T lymphs 29 % not estab. Not Available [facility] ([facility]) [address] [facility], [place], [address], 12/07/2020 08:14:58 12/05/19 21 12/05/2020 CBC WITH DIFFE RENTI AL/PL ATELE T monocytes 10 % not estab. Not Available [facility] ([facility]) [address] [facility], [place], [address], 12/07/2020 08:14:58 12/05/19 21 12/05/2020 CBC WITH DIFFE RENTI AL/PL ATELE T eos 6 % not estab. Not Available [facility] ([facility]) [address] [facility], [place], [address], 12/07/2020 08:14:58 12/05/19 21 12/05/2020 CBC WITH DIFFE RENTI AL/PL ATELE T basos 1 % not estab. Not Available [facility] ([facility]) [address] [facility], [place], [address], 12/07/2020 08:14:58 12/05/19 21 12/05/2020 CBC WITH DIFFE RENTI AL/PL ATELE T immature cells MANUFACTURING TECHNOLOGY PROFESSOR Not Available [facility] ([facility]) [address] [facility], [place], [address], 12/07/2020 08:14:58 12/05/1912/05/2020 CBC WITH DIFFE RENTI AL/PL ATELE T neutrophils (absolute) 2.8 x10e3 /uL 1.4-7. 0 Not Available [facility] ([facility]) [address] [facility], [place], [address], 12/07/2020 08:14:58 12/05/19 21 12/05/2020 CBC WITH DIFFE RENTI AL/PL ATELE T lymphs (absolute) 1.6 x10e3 /uL 0.7-3. 1 Not Available [facility] ([facility]) [address] [facility], [place], [address], 12/07/2020 08:14:58 12/05/1912/05/2020 CBC WITH DIFFE RENTI AL/PL ATELE T monocytes(ab solute) 0.5 x10e3 /uL 0.1-0. 9 Not Available [facility] ([facility]) [address] [facility], [place], [address], 12/07/2020 08:14:58 12/05/19 21 12/05/2020 CBC WITH DIFFE RENTI AL/PL ATELE T eos (absolute) 0.3 x10e3 /uL 0.0-0. 4 Not Available [facility] ([facility]) [address] [place], [address], 12/07/2020 08:14:58 12/05/19 21 12/05/2020 CBC WITH DIFFE RENTI AL/PL ATELE T baso (absolute) 0.1 x10e3 /uL 0.0-0. 2 Not Available [facility] ([facility]) [address] [facility], [place], [address], 12/07/2020 08:14:58 12/05/19 21 12/05/2020 CBC WITH DIFFE RENTI AL/PL ATELE T immature granulocytes 0 % not estab. Not Available [facility] ([facility]) [address] [facility], [place], [address], 12/07/2020 08:14:58 12/05/19 21 12/05/2020 CBC WITH DIFFE RENTI AL/PL ATELE T immature grans (abs) 0.0 x10e3 /uL 0.0-0. 1 Not Available [facility] ([facility]) [address] [facility], [place], [address], 12/07/2020 08:14:58 12/05/19 21 12/05/2020 CBC WITH DIFFE RENTI AL/PL ATELE T NRBC MANUFACTURING TECHNOLOGY PROFESSOR Not Available [facility] ([facility]) [address] [facility], [place], [address], 12/07/2020 08:14:58 12/05/19 21 12/05/2020 CBC WITH DIFFE RENTI AL/PL ATELE T hematology comments: MANUFACTURING TECHNOLOGY PROFESSOR Not Available [facility] ([facility]) [address] [facility], [place], [address], 12/07/2020 08:14:58 12/05/19 21 12/05/2020 COMP. METAB OLIC PANEL (14) glucose 90 mg/dL 65-99 Not Available [facility] ([facility]) [address] [facility], [place], [address], 12/07/2020 08:15:00 12/05/19 21 12/05/2020 COMP. METAB OLIC PANEL (14) BUN 29 mg/dL 8-27 above high normal Not Available [facility] ([facility]) [address] [facility], [place], [address], 12/07/2020 08:15:00 12/05/19 21 12/05/2020 COMP. METAB OLIC PANEL (14) creatinine 1.01 mg/dL 0.57-1 .00 above high normal Not Available [facility] ([facility]) [address] [facility] [place], [address], 12/07/2020 08:15:00 12/05/19 21 12/05/2020 COMP. METAB OLIC PANEL (14) eGFR if nonafricn AM 54 mL/mi n/1.7 3 >59 below low normal Not Available [facility] ([facility]) [address] [facility] [place], [address], 12/07/2020 08:15:00 12/05/19 21 12/05/2020 COMP. METAB [...] SN Task force . Not Available [facility] ([facility]) [address] [facility] [place], [address], 12/07/2020 08:15:00 12/05/19 21 12/05/2020 COMP. METAB OLIC PANEL (14) BUN/creatini ne ratio 29 12-28 above high normal Not Available [facility] ([facility]) [address] [place], [address], 12/07/2020 08:15:00 12/05/19 21 12/05/2020 COMP. METAB OLIC PANEL (14) sodium 139 mmol/ L 134-14 4 Not Available [facility] ([facility]) [address] [facility] [place], [address], 12/07/2020 08:15:00 12/05/19 21 12/05/2020 COMP. METAB OLIC PANEL (14) potassium 3.9 mmol/ L 3.5-5. 2 Not Available [facility] ([facility]) [address] [place], [address], 12/07/2020 08:15:00 12/05/19 21 12/05/2020 COMP. METAB OLIC PANEL (14) chloride 103 mmol/ L 96-106 Not Available [facility] ([facility]) [address] [facility] [place], [address], 12/07/2020 08:15:00 12/05/19 21 12/05/2020 COMP. METAB OLIC PANEL (14) carbon dioxide, total 23 mmol/ L 20-29 Not Available [facility] ([facility]) [address] [facility] [place], [address], 12/07/2020 08:15:00 12/05/19 21 12/05/2020 COMP. METAB OLIC PANEL (14) calcium 9.4 mg/dL 8.7-10 .3 Not Available [facility] ([facility]) [address] [facility] [place], [address], 12/07/2020 08:15:00 12/05/19 21 12/05/2020 COMP. METAB OLIC PANEL (14) protein, total 6.2 g/dL 6.0-8. 5 Not Available [facility] ([facility]) [address] [facility] [place], [address], 12/07/2020 08:15:00 12/05/19 21 12/05/2020 COMP. METAB OLIC PANEL (14) albumin 4.1 g/dL 3.7-4. 7 Not Available [facility] ([facility]) [address] [facility] [place], [address], 12/07/2020 08:15:00 12/05/19 21 12/05/2020 COMP. METAB OLIC PANEL (14) globulin, total 2.1 g/dL 1.5-4. 5 Not Available [facility] ([facility]) [address] [place] [place], [address], 12/07/2020 08:15:00 12/05/19 21 12/05/2020 COMP. METAB OLIC PANEL (14) A/G ratio 2.0 1.2-2. 2 Not Available [facility] ([facility]) [address] [place], [address], 12/07/2020 08:15:00 12/05/19 21 12/05/2020 COMP. METAB OLIC PANEL (14) bilirubin, total 0.5 mg/dL 0.0-1. 2 Not Available [facility] ([facility]) [address] [place], [address], 12/07/2020 08:15:00 12/05/19 21 12/05/2020 COMP. METAB [...] 121 44 - 121 Not Available [facility] ([facility]) [address] [place], [address], 12/07/2020 08:15:00 12/05/19 21 12/05/2020 COMP. METAB OLIC PANEL (14) AST (SGOT) 18 IU/L 0-40 Not Available [facility] ([facility]) [address] [place], [address], 12/07/2020 08:15:00 12/05/19 21 12/05/2020 COMP. METAB OLIC PANEL (14) ALT (SGPT) 18 IU/L 0-32 Not Available [facility] ([facility]) [address] [facility], [place], [address], 12/07/2020 08:15:00 12/05/19 21 12/05/2020 UA/M W/RFL X CULTU RE, ROUTI NE specific gravity 1.025 1.005- 1.030 Not Available [facility] ([facility]) [address] [facility], [place], [address], 12/07/2020 08:15:00 12/05/19 21 12/05/2020 UA/M W/RFL X CULTU RE, ROUTI NE pH 5.5 5.0-7. 5 Not Available [facility] ([facility]) [address] [facility], [place], [address], 12/07/2020 08:15:00 12/05/19 21 12/05/2020 UA/M W/RFL X CULTU RE, ROUTI NE urine-color Yellow yellow Not Available [facility] ([facility]) [address] [facility], [place], [address], 12/07/2020 08:15:00 12/05/19 21 12/05/2020 UA/M W/RFL X CULTU RE, ROUTI NE appearance Clear clear Not Available [facility] ([facility]) [address] [facility], [place], [address], 12/07/2020 08:15:00 12/05/19 21 12/05/2020 UA/M W/RFL X CULTU RE, ROUTI NE WBC esterase Trace negati ve abnormal Not Available [facility] ([facility]) [address] [place], [address], 12/07/2020 08:15:00 09/0712/05/2020 UA/M W/RFL X CULTU RE, ROUTI NE protein Trace negati ve/tra ce Not Available [facility] ([facility]) [address] [place], [address], 12/07/2020 08:15:00 12/05/19 21 12/05/2020 UA/M W/RFL X CULTU RE, ROUTI NE glucose Negati ve negati ve Not Available [facility] ([facility]) [address] [place], [address], 12/07/2020 08:15:00 12/05/1912/05/2020 UA/M W/RFL X CULTU RE, ROUTI NE ketones Negati ve negati ve Not Available [facility] ([facility]) [address] [place], [address], 12/07/2020 08:15:00 12/05/1912/05/2020 UA/M W/RFL X CULTU RE, ROUTI NE occult blood Negati ve negati ve Not Available [facility] ([facility]) [address] [place], [address], 12/07/2020 08:15:00 12/05/1912/05/2020 UA/M W/RFL X CULTU RE, ROUTI NE bilirubin Negati ve negati ve Not Available [facility] ([facility]) [address] [place], [address], 12/07/2020 08:15:00 12/05/19 21 12/05/2020 UA/M W/RFL X CULTU RE, ROUTI NE urobilinogen ,semi-qn 0.2 mg/dL 0.2-1. 0 Not Available [facility] ([facility]) [address] [place], [address], 12/07/2020 08:15:00 12/05/19 21 12/05/2020 UA/M W/RFL X CULTU RE, ROUTI NE nitrite, urine Negati ve negati ve Not Available [facility] ([facility]) [address] [place], [address], 12/07/2020 08:15:00 12/05/19 21 12/05/2020 UA/M W/RFL X CULTU RE, ROUTI NE microscopic examination See below: Micro janel doran was indic ated and was perfo rmed. Not Available [facility] ([facility]) [address] [facility], [place], [address], 12/07/2020 08:15:00 12/05/19 21 12/05/2020 UA/M W/RFL X CULTU RE, ROUTI NE WBC 0-5 /hpf 0 - 5 Not Available [facility] ([facility]) [address] [place], [address], 12/07/2020 08:15:00 12/05/19 21 12/05/2020 UA/M W/RFL X CULTU RE, ROUTI NE RBC None seen /hpf 0 - 2 Not Available [facility] ([facility]) [address] [place], [address], 12/07/2020 08:15:00 12/05/19 21 12/05/2020 UA/M W/RFL X CULTU RE, ROUTI NE epithelial cells (non renal) 0-10 /hpf 0 - 10 Not Available [facility] ([facility]) [address] [place], [address], 12/07/2020 08:15:00 12/05/19 21 12/05/2020 UA/M W/RFL X CULTU RE, ROUTI NE epithelial cells (renal) MANUFACTURING TECHNOLOGY PROFESSOR Not Available [facility] ([facility]) [address] [place], [address], 12/07/2020 08:15:00 12/05/19 21 12/05/2020 UA/M W/RFL X CULTU RE, ROUTI NE casts None seen /lpf none seen Not Available [facility] ([facility]) [address], [place], [address], 12/07/2020 08:15:00 12/05/19 21 12/05/2020 UA/M W/RFL X CULTU RE, ROUTI NE cast type MANUFACTURING TECHNOLOGY PROFESSOR Not Available [facility] ([facility]) [address], [place], [address], 12/07/2020 08:15:00 12/05/19 21 12/05/2020 UA/M W/RFL X CULTU RE, ROUTI NE crystals MANUFACTURING TECHNOLOGY PROFESSOR Not Available [facility] ([facility]) [address] [facility], [place], [address], 12/07/2020 08:15:00 12/05/19 21 12/05/2020 UA/M W/RFL X CULTU RE, ROUTI NE crystal type MANUFACTURING TECHNOLOGY PROFESSOR Not Available [facility] ([facility]) [address], [place], [address], 12/07/2020 08:15:00 12/05/19 21 12/05/2020 UA/M W/RFL X CULTU RE, ROUTI NE mucus threads MANUFACTURING TECHNOLOGY PROFESSOR Not Available [facility] ([facility]) [address] [facility], [place], [address], 12/07/2020 08:15:00 12/05/19 21 12/05/2020 UA/M W/RFL X CULTU RE, ROUTI NE bacteria None seen none seen/f ew Not Available [facility] ([facility]) [address] [facility], [place], [address], 12/07/2020 08:15:00 12/05/19 21 12/05/2020 UA/M W/RFL X CULTU RE, ROUTI NE yeast MANUFACTURING TECHNOLOGY PROFESSOR Not Available [facility] ([facility]) [address] [facility], [place], [address], 12/07/2020 08:15:00 12/05/19 21 12/05/2020 UA/M W/RFL X CULTU RE, ROUTI NE trichomonas MANUFACTURING TECHNOLOGY PROFESSOR Not Available [facility] ([facility]) [address] [facility], [place], [address], 12/07/2020 08:15:00 12/05/19 21 12/05/2020 UA/M W/RFL X CULTU RE, ROUTI NE comment MANUFACTURING TECHNOLOGY PROFESSOR Not Available [facility] ([facility]) [address] [place], [address], 12/07/2020 08:15:00 12/05/19 21 12/05/2020 UA/M W/RFL X CULTU RE, ROUTI NE microscopic examination MANUFACTURING TECHNOLOGY PROFESSOR Not Available [facility] ([facility]) [address] [place], [address], 12/07/2020 08:15:00 12/05/19 21 12/05/2020 UA/M W/RFL X CULTU RE, ROUTI NE urinalysis reflex Commen t This speci men has refle xed to a Urine Cultu re. Not Available [facility] ([facility]) [address] [place], [address], 12/07/2020 08:15:00 12/05/19 21 12/06/2020 UA/M W/RFL X CULTU RE, ROUTI NE urine culture, routine Final report Not Available [facility] ([facility]) [address] [place], [address], 12/07/2020 08:15:00 12/05/19 21 12/06/2020 UA/M W/RFL X CULTU RE, ROUTI NE result 1 Commen t Mixed uroge nital francisco 10,00 0-25, 000 colon y formi ng units per mL Not Available [facility] ([facility]) [address] [place], [address], 12/07/2020 08:15:00 12/05/19 21 12/05/2020 LIPID PANEL cholesterol, total 191 mg/dL 100-19 9 Not Available [facility] ([facility]) [address] [place] [place], [address], 12/07/2020 08:15:01 12/05/19 21 12/05/2020 LIPID PANEL triglyceride s 69 mg/dL 0-149 Not Available [facility] ([facility]) [address] [facility] [place], [address], 12/07/2020 08:15:01 12/05/19 21 12/05/2020 LIPID PANEL HDL cholesterol 58 mg/dL >39 Not Available [facility] ([facility]) [address] [facility] [place], [address], 12/07/2020 08:15:01 12/05/19 21 12/05/2020 LIPID PANEL VLDL cholesterol davide 13 mg/dL 5-40 Not Available [facility] ([facility]) [address] [place] [place], [address], 12/07/2020 08:15:01 12/05/19 21 12/05/2020 LIPID PANEL LDL chol calc ([facility]) 120 mg/dL 0-99 above high normal Not Available [facility] ([facility]) [address] [place] [place], [address], 12/07/2020 08:15:01 12/05/19 21 12/05/2020 LIPID PANEL comment: MANUFACTURING TECHNOLOGY PROFESSOR Not Available [facility] ([facility]) [address] [place] [place], [address], 12/07/2020 08:15:01 12/05/1912/05/2020 TSH TSH 1.700 uIU/m L 0.450- 4.500 Not Available [facility] ([facility]) [address] [place] [place], [address], 12/07/2020 08:15:02 12/05/19 21 12/04/2020 AMBIG ABBRE [...] [facility] ([facility]) [address] [place], [address], 12/07/2020 08:15:03 12/05/19 21 12/04/2020 AMBIG ABBRE [...] ciate your busin ess. Not Available [facility] ([facility]) [address] [place], [address], 12/07/2020 08:15:04 05/10/19 21 05/10/2020 MAMMO , scree ashtyn, digit al, bilat eral No observ ation record ed. [place] [id number] [facility] [address] [place], [address], 06/15/2020 09:59:21 06/19/19 21 06/18/2020 XR, chest , 2 view No observ ation record ed. [email or web address] [id number] [facility] ([facility]) [address], [place], [address], 06/19/2020 09:39:32 02/07/2002/06/2021 bone densi ty No observ [facility]ion [facility] ([facility]) [address], [place], [address], 02/12/2021 19:22:06 Result Notes None recorded. Problems Name Problem SNOMED Code Status Onset Date Resolution Date Notes Provider Name and Address Organization Details Recorded Time Asthma 264766370 Active Victorina hassan [address] 8 13:18:43 Deep venous thrombosis of lower extremity 885315413 Active Victorina hassan [address] 8 13:19:01 Obesity 489441240 Active Victorina hassan [address] [address] 8 13:19:12 Anemia 975610461 Active 2016 Victorina hassan [address] 8 13:18:58 Osteoarthriti s of knee 359809554 Active 2016 Victorina hassan [address] 8 13:18:48 Osteopenia 294245678 Active 2016 Victorina hassan [address] 8 13:19:00 Essential hypertension 33201161 Active 2017 Victorina hassan [address] 8 13:18:11 Bladder muscle dysfunction - overactive Active 2017 Not Available [facility] 2 15:11:17 Morbid obesity 417339154 Active 2017 Victorina hassan [address] 8 08:53:40 Anxiety disorder 644744251 Active 2018 ELIANA Paredes [facility] [place] [place] 9 10:09:44 Skin lesion 63523546 Active 2018 LUDMILA RIVERS MD [address], [place], [address] , [address] 9 13:28:01 Basal cell carcinoma of face 475815209 Active 2018 LUDMILA RIVERS MD [address], [place], [address] , [address] 9 11:39:23 Allergic rhinitis 00919654 Active Victorina hassan [address] 8 13:19:10 Disorder of bone and articular cartilage 027009880 Active Victorina hassan [place] - [address] 8 13:18:50 Idiopathic peripheral neuropathy 34615609 Active Victorina hassan [place] - [address] 8 13:18:44 IgE-mediated allergic asthma 686948924 Active Victorina hassan [place] - [facility] [place] 8 13:19:08 Problem Notes None recorded. Procedures Surgical History Date Name Laterality Status Provider Name and Address Organization Details Recorded Time 1 Medicare Wellness CPT Code, Subsequent completed ELIANA Paredes [place] 11/28/2020 12:56:42 0 Medicare Wellness CPT Code, Subsequent completed ELIANA Paredes [place] 11/28/2019 10:03:20 9 Medicare Wellness CPT Code, Subsequent completed ELIANA Paredes [place] 11/22/2018 10:27:39 9 Blank Procedure Template completed LUDMILA RIVERS MD [address], [place], [address], [address] 09/23/2018 11:39:14 9 Blank Procedure Template completed LUDMILA RIVERS MD [address], [place], [address], [address] 09/20/2018 13:36:47 8 Medicare Wellness CPT Code, Subsequent completed Victorina Hickey [address] 11/17/2017 13:41:58 7 Medicare Wellness CPT Code, Subsequent completed Deyaniraobie Givens [address] 10/22/2016 12:53:07 5 Laceration Repair completed Katelin Jamal [address] 11/06/2014 17:07:47 3 Colonoscopy completed Macie Figueroa [address] 11/28/2015 08:46:37 Other completed LUDMILA RIVERS MD [address] [facility] [address], [place], [address], [address] 09/20/2018 13:32:40 Orthopaedic Surgery completed LUDMILA RIVERS MD [address] [facility] [address], [place], [address], [address] 09/20/2018 13:32:14 Vascular Surgery completed ELIANA Betancourt [address] 09/06/2013 15:07:40 Imaging Results None recorded. [...] Not Available Not Available fluzone high-dose pf 6036-0790 .5 ml azul active Not Available Not Available N ot Available clotrimazol e/betametha sone dipropionat e 1-0.05 % crea active Not Available Not Available Not Available alprazolam 0.5 mg tabs 11/22 completed Not Available Not Available Not Available fluzone high-dose pf 4754-0461 .5 ml azul active Not Available Not [...] Not Available Not Available fluzone high-dose pf 6332-8108 .5 ml azul 01/13 completed Not Available [...] TWICE DAILY TO AREA ON THE RIGHT RESTORATIONIST (AVOIDING THE BIOPSY SITES) FOR 7DAYS THEN [...] No t Available Nasonex 50 mcg/actuati on Boaz Boaz 1 spray twice a day by intranasa [...] Available Not Available No t Available Fluvirin 5892-4558 45 mcg (15 mcg x 3)/0.5 mL intramuscul ar suspension INJECT 0.5 ML INTRAMUSC ULARLY DIRECTED. active Not Available Not Available No t Available Fluzone High-Dose 2014- (PF) 180 mcg/0.5 mL intramuscul ar syringe active Not Available Not Available N ot Available Fluzone High-Dose 8526-5867 (PF) 180 mcg/0.5 mL intramuscul ar syringe ADM 0.5ML IM UTD active Not Available Not Available No t Available Fluzone High-Dose 3022-4439 (PF) 180 mcg/0.5 mL intramuscul ar syringe [...] blood by Pulse oximetry Body temperature Systolic And Diastolic Provider Name and Address Organization Details Last Updated DateTime 147.95 cm 43.5 kg/m2 09672.4 g 89 /min 18 /min 98 % 98 % 97.6 [degF] 188/98 mm[Hg] Bijal Dumas [facility] [place] [facility] [place] 14:51:47 Date Recorded Body height Body mass index (BMI) Body weight Respiratory rate Body temperature Provider Name and Address Organization Details Last Updated DateTime 04/30/2020 147.95 cm 43.5 kg/m2 03448.4 g 18 /min 97.7 [degF] Cee Dangelo [facility] [place] [facility] [place] 14:13:54 Date Recorded Body height Body mass index (BMI) Body weight Respiratory rate Provider Name and Address Organization Details Last Updated DateTime 06/18/2020 147.95 cm 43.5 kg/m2 01229.4 g 20 /min Cee Dangelo [address] 06/18/2020 11:53:50 Date Recorded Body height Body mass index (BMI) Body weight Provider Name and Address Organization Details Last Updated DateTime 06/19/2021 148.59 cm 42.7 kg/m2 33813.21 g Natalie Mesa LPN [address] 06/19/2021 12:47:16 Date Recorded Body height Body mass index (BMI) Body weight Heart rate Respiratory rate Body temperature Systolic And Diastolic Provider Name and Address Organization Details Last Updated DateTime 148.59 cm 42.8 kg/m2 38326.6 6 g 98 /min 18 /min 98 [degF] 155/84 mm[Hg] Cee Dangelo[address] 13:07:02 Social History Question Answer Notes LastModified by Organizat ion Details LastModified Time Tobacco Smoking Status Never Smoker Lou Lino [address] 10/22/2012 12:53:32 Do You Have An Advance Directive? No [email or web address] Information not available 11/28/2020 Are You Blind Or Do You Have Difficulty Seeing? No Information not available 10/22/2016 What Is Your Level Of Caffeine Consumption? None Information not available 11/28/2020 Are You Deaf Or Do You Have Serious Difficulty Hearing? No Information not available 10/22/2016 What Type Of Diet Are You Following? REGULAR [email or web address] Information not available 10/23/2012 Do You Feel Safe At Home? Yes Information not available 10/22/2016 Advance Directive - Provider Has Reviewed Directives And Consents To Follow Them (insert Provider Name With Any Objections In Notes Field) No Information not available 10/22/2016 Marital Status [email or web address] Informati on not available 10/23/2012 Do You Have A Medical Power Of Mushroom Sorter Grader? No [email or web address] Information not available 11/28/2020 What Was The Date Of Your Most Recent Tobacco Screening? 11/28/2020 [email or web address] Information not available 11/28/2020 How Many Children Do You Have? 2 Information not available 09/06/2013 Seat Belts Used Routinely Yes Information not available 10/22/2016 Smoke Alarm In Home Yes Information not available 10/22/2016 How Much Tobacco Do You Smoke? No [email or web address] Information not available 10/22/2012 General Stress Level Low [email or web address] Information not available 10/23/2012 Do You Use Sunscreen Routinely? No Information not available 10/22/2016 Has Tobacco Cessation Counseling Been Provided? No [email or web address] Information not available 11/28/2020 How Many Years Have You Smoked Tobacco? 0 [email or web address] Information not available 11/17/2017 Do You Have Difficulty Walking Or Climbing Stairs? No Information not available 10/22/2016 Sex: Unknown Functional Status Question Answer Note LastModified by Organizat ion Details LastModified Time How many times per week do you consume alcohol? 1-2 times per week [email or web address] Information not available 11/28/2020 Do you use any illicit or recreational drugs? No [email or web address] Information not available 11/28/2020 Do you or have you ever used any other forms of tobacco or nicotine? No [email or web address] Information not available 11/28/2020 What is your level of alcohol consumption? Occasional Information not available 09/06/2013 Do you have difficulty doing errands alone? No Information not available 10/22/2016 Are you able to care for yourself? Yes Information not available 11/28/2020 What is your occupation? retired [email or web address] Information not available 10/23/2012 Do you have difficulty dressing or bathing? No Information not available 10/22/2016 What is your exercise level? None [email or web address] Information not available 10/23/2012 Mental Status Question [...] alive and well Medical History Condition Response Asthma Y Allergies Y Anemia Y Hypertension Y Osteoporosis Y Gynecological HistoryNo gynecological history recorded. Obstetrics History GPAL:G 0 P 0 0 0 0 Immunizations Vaccine Type Date Status Note Provider Nam e and Address Organization Details Recorded Time Pneumococcal conjugate PCV 13 5 completed Not Available [facility] 04/16/2019 02:09:45 Influenza, high-dose, trivalent, PF 5 completed ELIANA Paredes [address] 11/28/2020 12:54:34 Td (adult), 5 Lf tetanus toxoid, preservative free, adsorbed 1 completed Rosario Evans RN [address] 04/28/2020 15:51:39 pneumococcal, unspecified formulation 8 completed June Jenkins [address] 07/11/2016 11:23:43 zoster live 8 completed June Jenkins [address] 07/11/2016 11:23:43 Influenza, split virus, trivalent, preservative 3 completed June Donnellyshsirley [address] 07/11/2016 11:23:43 Influenza, high-dose, trivalent, PF 2 completed Not Available [facility] 04/30/2019 02:11:12 Influenza, split virus, quadrivalent, preservative 3 completed Not Available [facility] 04/30/2019 02:11:12 Influenza, split virus, trivalent, preservative 4 completed Not Available [facility] 04/30/2019 02:11:12 tetanus toxoid, unspecified formulation 9 completed June Donnellysshirley [address] 07/11/2016 11:23:44 Influenza, split virus, trivalent, preservative 4 completed Macie Figueroa CMA [address] 11/17/2017 11:55:28 Past Encounters Encounter ID Performer Location Encounter Start Date Encounter Closed Date Diagnosis/Indication Diagnosis SNOMED-CT Code Diagnosis ICD10 Code Diagnosis Note [id number] Meg Jones MD [facility] [address] [place] [address] 10/22/2012 10:57:07 10/22/2012 13:24:01 [id number] [facility] [address] [place] [address] 09/06/2013 13:06:18 09/06/2013 15:11:33 Long-term drug therapy 658151300 Adult heal th examination 097083495 Obesity 510243376 Asthma 176279349 Body mass index 30+ - obesity 830666306 Screening mammography 67377449 [id number] [facility] [address] [place] [address] 11/30/2013 10:19:00 11/30/2013 13:52:15 Varicose veins of lower extremity 76058060 Knee pain 47064049 [id number] [facility] [address] [place] [address] 05/10/2014 15:32:59 05/10/2014 16:24:39 Dependent edema 719948079 [id number] Meg Jones MD [facility] [address] [place] [address] 09/19/2014 13:00:08 09/19/2014 17:34:10 Adult health examination 270005781 Dependent edema 176282331 Obesity 131905296 Long-term drug therapy 473039595 Administra tion of pneumococcal vaccine 44500196 Screening mammography 90481481 Disorder o f bone and articular cartilage 060149306 Asthma finding 730946025 [id number] [facility] [address] [place] [address] 11/06/2014 09:33:20 11/06/2014 13:43:57 Laceration of forearm 204419452 Injury of head 74632003 Laceration of lip 264826645 [id number] Meg Jones MD [facility] [address] [place] [address] 11/08/2014 11:19:55 11/08/2014 13:08:42 Laceration of forearm 370311733 Postconcus coni syndrome 00791325 Contusion of knee 96795140 Fall [id number] Meg Jones MD [facility] [address] [place] [address] 11/13/2014 11:22:14 11/13/2014 13:21:17 Laceration of forearm 224068150 Candidiasis of mouth 50726324 [id number] Meg Jones MD [facility] [address] [place] [address] 11/16/2014 09:51:30 11/16/2014 10:15:42 Gingivostomatitis 57773184 [id number] Meg Jones MD [facility] [address] [place] [address] 11/22/2014 14:27:17 11/22/2014 15:37:52 Glossitis 48866873 Laceration of lip 058865949 [id number] Meg Jones MD [facility] [address] [place] [address] 11/29/2014 13:58:04 11/29/2014 17:15:23 Laceration of forearm 212712333 Laceration of lip 558356127 [id number] Meg Jones MD [facility] [address] [place] [address] 12/11/2014 13:49:11 12/11/2014 14:41:27 Laceration of forearm 860260201 Skin eschar 186998246 [id number] Meg Jones MD [facility] [address] [place] [address] 01/29/2015 15:42:50 01/29/2015 16:45:47 Candidiasis of skin 34842807 B37.2 [id number] Meg Jones MD [facility] [address] [place] [address] 02/13/2015 10:38:57 02/13/2015 12:06:27 Candidiasis of skin 56430351 B37.2 Benign ess ential hypertension 6688384 I10 Lesion of breast 3910769 04 N64.9 Eruption 933529298 R21 Long-term drug therapy 681615867 Z79.280 [id number] Meg Jones MD [facility] [address] [place] [address] 04/06/2015 10:26:39 04/06/2015 14:45:37 Eruption 021728970 R21 Upper resp iratory infection 76693907 J00 Lesion of skin of face 4421010718 06 L98.9 Cheilitis 8669072 K13.0 [id number] Meg Jones MD [facility] [address] [place] [address] 05/04/2015 09:47:55 05/04/2015 13:49:50 Eruption 492080405 R21 Angular cheilitis 920487 005 K13.0 [id number] Meg Jones MD [facility] [address] [place] [address] 07/03/2015 10:50:53 07/03/2015 16:20:46 Bronchitis 97011362 J40 Asthma 142241842 J45.90 9 [id number] [facility] [address] [place] [address] 07/26/2015 10:51:58 07/26/2015 12:01:09 Edema of lower extremity 135360859 R60.0 Candidiasis of skin 4988 3006 B37.2 [id number] MD [facility] [address] [place] [address] 09/24/2015 12:56:16 09/24/2015 16:30:42 Pain in left knee 9886207140 25265 M25.562 Dependent edema 50736975 4 R60.0 Allergic rhinitis 334308 04 J30.9 Ganglion cyst 485578595 M67.441 Liver enzy mes outside reference range 787540168 R94.5 Obesity 639148801 E66.9 Asthma 985567454 J45.90 9 Adult heal th examination 750418782 Z00.01 Z72.89 Z79.899 E78.5 E55.9 R53.83 Varicose v eins of lower extremity 01231696 I83.043 [id number] Meg Jones MD [facility] [address] [place] [address] 02/15/2016 14:28:28 02/15/2016 15:55:15 Tinea corporis 49418756 B35.4 Candidiasis of skin 4988 3006 B37.2 [id number] Meg Jones MD [facility] [address] [address] 03/11/2016 14:05:48 03/11/2016 16:21:40 Tinea corporis 62358653 B35.4 Acute bronchitis 2748581 2 J20.9 Pneumonia 446642672 J18. 9 Cough 19249849 R05 Upper resp iratory infection 96214620 J06.9 [id number] Meg Jones MD [facility] [address] [address] 04/22/2016 14:33:17 04/22/2016 17:35:48 Pain in left knee 8931628281 62970 M25.562 Osteoarthr itis of knee 136522625 M17.12 [id number] Meg Jones MD [facility] [address] [place] [address] 07/11/2016 11:13:06 07/11/2016 11:50:08 Candidiasis of mouth 79825817 B37.0 Fatigue 43511779 R53.83 Pain in left knee 829161 3016 34919 M25.093 [id number] [facility] [address] [place] [address] 10/22/2016 12:23:14 10/22/2016 14:36:16 Adult health examination 767539617 Z00.00 Screening for disorder 930778572 Z13.9 Anemia 346589262 D64.9 Osteoarthr itis of knee 779696832 M17.12 Pain in pelvis 94190678 R10.2 Obesity 060035658 E66.9 Pain of sh oulder region 02238663 M25.511 Screening mammography 24 147561 Z12.31 Osteoporosis 32251147 M8 1.0 N95.9 [id number] MD [facility] [address] [place] [address] 01/13/2017 09:14:11 01/13/2017 10:08:30 Pain in right arm 291640002 M79.601 Cervical radiculopathy 48425605 M54.12 Osteopenia 046957790 M85 .80 [id number] MD [facility] [address] [address] 04/30/2017 10:23:58 04/30/2017 14:52:42 Cellulitis of finger 77344664 L03.962 [id number] MD [facility] [address] [address] 05/04/2017 10:06:59 05/04/2017 12:07:20 Cellulitis of finger 60452515 L03.211 [id number] [facility] [address] [place] [address] 08/28/2017 14:04:39 08/28/2017 15:15:32 Urinary incontinence 105445321 R32 Morbid obesity 890064319 E66.01 Dietary ma nagement surveillance 750709346 Z71.3 [id number] MD [facility] [address] [place] [address] 11/17/2017 13:14:51 11/17/2017 15:27:04 Adult health examination 944719010 Z00.00 Screening for disorder 828690720 Z13.89 Obesity 725088661 E66.9 Anemia 376960595 D64.9 R53.83 Z79.899 D50.8 Osteopenia 062020560 M85 .80 Essential hypertension 96552436 I10 Asthma 454865646 J45.90 9 [id number] Meg Jones MD [facility] [address] [place] [address] 01/26/2018 08:18:01 01/26/2018 11:05:38 Morbid obesity 844769856 E66.01 Bladder mu scle dysfunction - overactive 510505310 N32.81 [id number] Meg Jones MD [facility] [address] [place] [address] 07/30/2018 14:55:42 07/30/2018 16:01:26 Generalized anxiety disorder 91257875 F41.1 Pain of ri ght shoulder joint 1861091023 7390346 M25.511 Basal cell carcinoma of face 139944160 C44.317 [id number] Meg Jones MD [facility] [address] [place] [address] 08/10/2018 14:32:11 08/10/2018 17:02:27 Spasm 29852204 R25.2 Generalize d anxiety disorder 94509007 F41.1 [id number] LUDMILA RIVERS MD [facility] [address] [place] [address] 09/20/2018 12:54:29 09/20/2018 13:27:16 Skin lesion 75352310 L98.9 [id number] MD [facility] [address] [place] [address] 09/23/2018 10:46:08 09/23/2018 11:50:59 Basal cell carcinoma of face 081475141 C44.307 [id number] Meg Jones MD [facility] [address] [place] [address] 11/22/2018 09:39:42 11/22/2018 13:50:41 Adult health examination 036718793 Z00.00 Screening for disorder 862600197 Z13.89 Depression screening 171 743337 Z13.31 Obesity 942999130 E66.9 Essential hypertension 33666988 I10 Hyperlipidemia 82007451 E78.5 Fatigue 67291259 R53.83 Varicose v eins of lower extremity 83320092 I83.819 Screening for malignant neoplasm of breast 139037597 Z12.31 Menopausal syndrome 1237 85233 N95.9 Asthma 103702196 J45.90 9 Medication monitoring 39 2518089 Z51.81 Urinary incontinence 165 568479 R32 Generalize d osteoarthritis 368520697 M15.9 [id number] Meg Jones MD [facility] [address] [place] [address] 12/23/2018 13:32:18 12/23/2018 16:00:14 Morbid obesity 280182780 E66.01 Anxiety disorder 3052251 06 F41.9 Medication monitoring 39 5035665 Z51.81 [id number] Meg Jones MD [facility] [address] [place] [address] 03/07/2019 15:51:00 03/07/2019 17:03:05 Pain in right foot 8051714769 54901 M79.671 Candidiasis of skin 4988 3006 B37.2 [id number] Meg Jones MD [facility] [address] [place] [address] 11/28/2019 12:56:17 11/28/2019 14:52:58 Adult health examination 420946939 Z00.00 Screening for disorder 497992559 Z13.89 Depression screening 171 323110 Z13.31 Screening mammography 24 579877 Z12.31 Eruption 704228897 R21 Dermatitis of right external ear canal 8605051118 803488 H60.91 Pain in left knee 898402 5008 79715 M25.562 Rash of groin 9015719083 9086435 R21 Dependent edema 68207590 4 R60.0 [id number] Meg Jones MD [facility] [address] [place] [place] [address] 03/16/2020 14:44:51 03/16/2020 16:10:07 Tinea corporis 24582184 B35.4 Pain in left knee 727882 6075 60958 M25.562 Generalize d anxiety disorder 13601071 F41.1 Insomnia 891593008 G47.0 0 [id number] Meg Jones MD [facility] [address] [place] [address] 04/04/2020 13:11:04 04/04/2020 15:38:19 Eruption 826135310 R21 Pain in left knee 898551 8998 80406 M25.562 [id number] Meg Jones MD [facility] [address] [place] [address] [place] [address] 04/17/2020 14:14:47 04/17/2020 16:43:20 Obesity 676578168 E66.9 Pain in left knee 184268 6555 37941 M25.562 Anxiety disorder 7032534 06 F41.9 Insomnia 972059341 G47.0 0 [id number] GELACIO EVANS [facility] [address] [place] [address] 04/28/2020 14:07:47 04/28/2020 15:08:28 Superficial laceration of hand 395996179 S61.411A [id number] Meg Jones MD [facility] [address] [place] [address] 04/30/2020 13:36:28 04/30/2020 16:19:49 Laceration of finger of left hand 8029689748 7216338 S61.211A Laceration of right hand 6312695145 7612785 S61.411A [id number] Meg Jones MD [facility] [address] [place] [address] 06/18/2020 10:58:11 06/18/2020 12:25:22 Left lower zone pneumonia 046358045 J18.1 Cough 95329473 R05 Asthma 102129854 J45.90 9 [id number] Meg Jones MD [facility] [address] [place] [address] 11/28/2020 12:48:10 11/28/2020 14:23:59 Adult health examination 658981225 Z00.00 Screening for disorder 940202554 Z13.89 Depression screening 171 773416 Z13.31 Essential hypertension 96061549 I10 Morbid obesity 342808658 E66.01 Fatigue 24891238 R53.83 Screening mammography 24 767815 Z12.31 Menopausal syndrome 1237 41575 N95.9 Pain of mu ltiple joints 95759387 M25.50 Asthma 196680032 J45.90 9 Pain in left knee 031935 9723 18524 M25.562 [id number] Jacob Sanders MD [facility] [address] [facility] [address] [place] [address] 06/19/2021 12:32:46 06/19/2021 13:53:38 Pain of left knee joint [id number] M25.562 History of total knee arthroplasty [id number] Z96.659 patient has a history of [...] painCOMPAR DOM: Any prior imaging within the [facility] system was reviewed.T ECHNIQUE: AP, lateral, sunrise [...] Warren Member ID Guarantor Name 06/19/2021 1 [employer] (MEDICARE REPLACEMENT HMO) Padma Durant [id number] Padma Durant Notes Date Note Type [...] alleviating or exacerbating factors. GELACIO EVANS [address] ,[address], [place], [address], [facility] [place] 04/28/2020 15:05:49 04/30/2020 text/html this is a 75-year-old obese female who fell 2 and half days ago and comes in today for wound check and hospital follow-up there was no loss of consciousness Meg Jones MD [address] ,[address], [place], [address], [facility] [place] 04/30/2020 19:14:31 06/18/2020 text/html 75-year-old whit e female on seeing today because her asthma is very bad I was not aware that she had asthma she tells me that she has for many years she thinks it is bad right now, no fever no vomiting no diarrhea Meg Jones MD [address] [address], [place], [address], [facility] [place] 06/18/2020 20:15:51 11/28/2020 text/html 75-year-old whit e female who comes in for her [...] to discuss that Meg Jones MD [address] [address], [place], [address], [address] 11/28/2020 20:58:53 06/19/2021 text/html KneeReported bypatient.Location: [...] will be forwarded Jacob Sanders MD [address], [place], [address], [facility] [place] 06/21/2021 07:28:13 OBGyn Episode No OBEpisode recorded.
[2024-10-10 13:01] VITALS: BP 136/70
== END 2024-10-10 13:20 | disposition home or self-care (01) ==
LOC: HO.HMCC 11:51
PROVIDERS: PCP Nurse Practitioner Family; Visit Provider Nurse Practitioner Family
DX: E78.5 Hyperlipidemia, unspecified (principal); Z00.01 Encounter for general adult medical examination with abnormal findings; L98.9 Disorder of the skin and subcutaneous tissue, unspecified

== ENCOUNTER → 2024-10-10 11:50 | Outpatient (BNVA) | payer MEDICARE, SELFPAY | PROVIDERS: PCP Nurse Practitioner Family; Visit Provider Nurse Practitioner Family | DX: Z00.01 Encounter for general adult medical examination with abnormal findings (principal); E78.5 Hyperlipidemia, unspecified; L98.9 Disorder of the skin and subcutaneous tissue, unspecified; Z13.31 Encounter for screening for depression; Z13.39 Encounter for screening examination for other mental health and behavioral disorders | CPT/HCPCS: 96127; 99397 ==

== ENCOUNTER 2024-10-26 12:56 | Outpatient (REF) | payer MEDICARE, SELFPAY ==
--- NOTE | ~2024-10-26 | XR_ITS ---
EXAMINATION: XR CERVICAL SPINE CLINICAL INFORMATION: M50.90 - Cervical disc disorder, unspecified, unspecified cervical region COMPARISON: Correlated to CT dated September 22, 2022. TECHNIQUE: AP, lateral and atlantoodontoid views. FINDINGS: Craniocervical junction is intact. Marginal osteophyte formation, decreased intervertebral disc height and endplate sclerosis at C5-6. Small marginal osteophyte formation at C3-4 and C4-5. Grade 1 retrolisthesis C5-6. Probable grade 1 anterolisthesis C4-5. Bilateral facet joint hypertrophy from C2-3 to C6-7. No acute cortical disruption. No lytic or blastic lesions. Upper airway is patent. XR/XR cervical spine 2V IMPRESSION: Multilevel moderate cervical spondylosis pronounced at C5-6. Electronically signed by: Kevin Chacon MD 10/26/2024 01:33 PM EDT
== END 2024-10-26 12:57 | disposition home or self-care (01) ==
LOC: HO.XRAY 12:56
PROVIDERS: PCP Nurse Practitioner Family; Visit Provider Nurse Practitioner Family
DX: M47.812 Spondylosis without myelopathy or radiculopathy, cervical region (principal); M50.90 Cervical disc disorder, unspecified, unspecified cervical region
CPT/HCPCS: 72040

== ENCOUNTER → 2024-10-26 13:05 | Outpatient (BNV) | payer MEDICARE, SELFPAY | PROVIDERS: PCP Nurse Practitioner Family; Visit Provider Radiology Diagnostic Radiology | DX: M47.812 Spondylosis without myelopathy or radiculopathy, cervical region (principal) | CPT/HCPCS: 72040 ==

== ENCOUNTER → 2024-12-12 14:19 | Outpatient (REF) | payer MEDICARE, SELFPAY ==
--- NOTE | 2024-12-12 14:22 | CA_ITS ---
Transthoracic Echocardiogram Patient (Last, First, Middle): Padma Durant S Gender: F Date of : 1945 Age: 79 Procedure Date: 12/12/2024 Procedure Type: Transthoracic Echocardiogram Location: OP Height: 162.56 cm Weight: 100.25 kg BSA: 2.04 m2 Heart Rate: bpm BP: 142 / 78 mmHg Music Sound Light Technician: FELIX Referring MD: Iggy High MD Qualitative Researcher: Iggy High MD Symptoms: I31.39 - Other pericardial effusion (noninflammatory) Study Quality: Fair ECG Rhythm: Sinus Conclusions: - The left ventricular systolic function is normal. The calculated ejection fraction is 64% by biplane method. - The left atrium is severely dilated. - There is mild calcification of the aortic valve. - There is severe mitral annular calcification. Possibly some calcific mitral stenosis, but doubt hemodynamically significant. - There is a small loculated pericardial effusion overlying the left ventricle and right ventricle. Findings Procedure Information The study quality is limited by patients body habitus. Left Ventricle Normal left ventricular cavity size. The left ventricular systolic function is normal. The calculated ejection fraction is 64% by biplane method. There is no evidence of regional wall motion abnormalities. There is moderate septal asymmetric hypertrophy. Right Ventricle Normal right ventricular cavity size and systolic function. Atria The left atrium is severely dilated. The right atrium is normal in size. Aortic Valve There is a normal trileaflet aortic valve. There is mild calcification of the aortic valve. There is no aortic valve stenosis. There is mild aortic valve regurgitation. Mitral Valve There is severe mitral annular calcification. There is trace mitral valve regurgitation. Possibly some calcific mitral stenosis, but doubt hemodynamically significant. Pulmonic Valve The pulmonic valve is likely normal. Tricuspid Valve There is mild tricuspid valve regurgitation. There is no evidence of pulmonary hypertension. Great Vessels The asc aorta is normal in size. Venous The inferior vena cava is normal in size and collapses less than 50% with inspiration. Pericardium/Pleural There is a small loculated pericardial effusion overlying the left ventricle and right ventricle. Prior Study Comparison No significant change compared to prior study dated: 12/10/2023. Measurements 2D Linear Measurements IVSd: 1.35 0.6-0.9/0.6-1.0 cm LVIDd: 5.32 3.9-5.3/4.2-5.9 cm LVIDd Index: 2.61 2.4-3.2/2.2-3.1 cm/m2 LVIDs: 3.46 2.0-3.6 cm LVPWd: 0.87 0.7-1.1 cm LA Diam: 4.50 2.7-3.8/3.0-4.0 cm LAIDs Index: 2.21 1.5-2.3 cm/m2 LV Mass: 289.57 67-162/88-224 g LV Mass Index: 141.95 43-95/49-115 g/m2 LVOT Diam: 1.70 3.0+(-)1.3 cm 2D Systolic Function EF 4C: 61.40 >55% EF 2C: 67.40 >55% EF BiP: 63.60 >55% Mitral Valve MV VTI: 0.65 MV Pk Glenn: 1.85 MV Mn Glenn: 0.99 MV Pk Grad: 14.00 MV Mn Grad: 5.00 MV Pk E: 1.23 MV PK A: 1.61 MV Decel Time: 425.00 E/A: 0.80 E'Lateral: 3.26 E'Medial: 3.26 E/E' Med: 37.70 E/E' Lat: 37.70 PHT: 124.00 MVA PHT: 1.77 MVA Continuity: 1.23 Decel Meigs: 2.90 Aortic Valve AoV Pk Glenn: 2.16 AoV Mn Glenn: 1.40 AoV VTI: 0.51 AoV Pk Grad: 19.00 Aov Mn Grad: 9.00 DREW Cont.VTI: 1.55 AI Pk Glenn: 4.36 AI Meigs: 2.20 LVOT LVOT Pk Glenn: 1.48 LVOT Mn Glenn: 0.99 LVOT VTI: 0.35 LVOT Pk Grad: 9.00 LVOT Mn Grad: 5.00 LVOT Diam: 1.70 LVOT Area: 2.27 Diastolic Function MV Pk E: 1.23 MV Pk A: 1.61 E/A: 0.80 E'Medial: 3.26 E/E' Med: 37.70 E' Laterial: 3.26 E/E' Lat: 37.70 Right Ventricle TAPSE (mm): 20.90 TVS' Glenn: 11.70 Tricuspid Valve TR Pk Glenn: 2.35 TR Pk Grad: 22.00 RA Press: 8.00 RVSP: 30.00 Great Vessels Aorta Sinus of Valsalva: 3.33 2.0-3.[address] Ridge: 2.73 1.7-3.4 cm Ao Asc: 3.80 2.1-3.4 cm Updated in Other Vendor System with Status of Final Riki An MD electronically signed on 12/13/2024 3:42:44 PM with status of Final
== END ==
LOC: HO.CARD 14:19
PROVIDERS: PCP Nurse Practitioner Family; Visit Provider Internal Medicine Cardiovascular Disease
DX: I31.39 Other pericardial effusion (noninflammatory) (principal)
CPT/HCPCS: 93306

== ENCOUNTER → 2024-12-12 14:22 | Outpatient (BNV) | payer MEDICARE, SELFPAY | PROVIDERS: PCP Nurse Practitioner Family; Visit Provider Internal Medicine | DX: I42.2 Other hypertrophic cardiomyopathy (principal); I51.7 Cardiomegaly; I34.81 Nonrheumatic mitral (valve) annulus calcification; I31.39 Other pericardial effusion (noninflammatory) | CPT/HCPCS: 93306 ==

== ENCOUNTER 2024-12-21 13:49 | Outpatient (RCR) | payer MEDICARE, SELFPAY ==
[2024-11-22 10:12] VITALS: BP 192/84; PULSE 63; O2SAT 99
--- NOTE | 2024-11-22 12:11 | MHC.PT.EP ---
[facility] [place] Office [place] Office [place] Office [address] [phone] F: [phone] F: [phone] F: [phone] F: [phone] Physical Therapy Plan of Care Date of Evaluation: 11/22/24 Date of Surgery: Diagnosis: CERVICAL NECK PAIN W EVIDENCE OF DISC DISEASE Assessment: 79 YO FEMALE REF TO PT FOR NECK PAIN, EXACERBATED AFTER A FALL AT HOME 2024. HER RECENT XR REVEALED : Small marginal osteophyte formation at C3-4 and C4-5. Grade 1 retrolisthesis C5-6. Probable grade 1 anterolisthesis C4-5. Bilateral facet joint hypertrophy from C2-3 to C6-7. 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 OBJECTIVE: DECR POSTURE, DECR CERV AROM (HYPERMOBILE UPPER CERV/ HYPOMOB LOWER CERV) , TIGHT CERV PS AND Rt UT REGION, DECR POST RC/ SCAP STRENGTH , AND FLUCTUATING PAIN IN HER CERV / Rt UT. CURRENTLY, SXS REMAIN MORE SENSORY VS MOTOR. SHE HAS DIFFIC SLEEPING, AND ANY ADLs REQ INCR CERV EXTEN INCR SXS INTO Rt UT. WE DISCUSSED THEW PT POC, DUE TO Pt'S CO-PAY, SHE IS REQUESTING PT 1 x WK. Frequency and Duration: The patient will be seen 1 x WK x 5 WKS Short Term Goals: DECR CERV / Rt UT PAIN TO 2-3/10 INCR POSTURAL AWARENESS INITIATE CERV STAB HEP REDUCE TISSUE TENSION IN Rt UT Detention Goals: Pt INDEP W HEP AND SELF SX MGMT TECHN IMPROVED SLEEP Treatment Plan: Modalities to reduce pain, spasms and effusion. Manual therapy to restore motion and function. Therapeutic exercise to improve strength and flexibility. Neuromuscular re-education for posture and balance. Therapeutic activities to return to functional activities of daily living. Electronically signed by: RACHNA BLOOM,PT Please sign and return to therapist. Thank you for your referral.
--- NOTE | 2024-12-28 13:53 | MHC.PT.DC ---
[facility] [place] Office [place] Office [place] Office [address] [phone] F: [phone] F: [phone] F: [phone] F: [phone] Physical Therapy Discharge Report Diagnosis: CERVICAL NECK PAIN W EVIDENCE OF DISC DISEASE Date of Surgery: Date of Evaluation: 11/22/24 Date of Discharge: 12/28/24 Treatments to Date: 5 Cancellations to Date: No Shows to Date: Discharge Status: Achieved Goals Improved Function Independent with HEP Discharge Summary: MING HAS PROGRESSED VERY WELL IN PT-> SHE DENIES CERVICAL PAIN AND STATED HER DIZZINESS HAS RESOLVED- SHE IS INDEP AND MOTIVATED W HER HEP, HER NPDI WAS 0/50 AT D/C TODAY. SHE HAS BEEN ABLE TO RESUME HER REG ADLs W/O SXS. SHE IS D/C THIS DATE HAVING MET HER PT GOALS. Electronically signed by: RACHNA BLOOM.PT Please sign and return to therapist. Thank you for your referral.
== END 2024-12-28 13:54 | disposition home or self-care (01) ==
LOC: HO.PT 13:49
PROVIDERS: PCP Nurse Practitioner Family; Visit Provider Nurse Practitioner Family
DX: M50.90 Cervical disc disorder, unspecified, unspecified cervical region (principal)
CPT/HCPCS: 97110; 97140; 97162; 97535

== ENCOUNTER 2025-03-06 13:02 | Outpatient (AMB) | payer MEDICARE, SELFPAY ==
--- NOTE | 2025-03-06 13:33 | A.OFFVIS_ITS ---
Vital Signs 03/06/25 13:34 Height 5 ft Weight 221 lb 5.506 oz BMI 43.2 BP 140/72 H Blood Pressure Location Lt brachial Position Sitting Pulse 61 Pulse Source Pulse Oximeter Intake Visit Reasons: 6 Month Follow Up Intake Note: 6 mth f/up Emergency Veterinarian Required: No Accompanied by: Daughter Allergies No Known Allergies Allergy (Verified 12/19/24 13:19) Medication List - Last Reconciled 03/06/25 by Iggy High MD albuterol sulfate 2.5 mg (3 mL) inhalation Q6H PRN albuterol sulfate 90 mcg/actuation 2 puffs inhalation Q6H PRN cholecalciferol (vitamin D3) (Vitamin D3) 50 mcg PO DAILY clotrimazole-betamethasone 1-0.05 % 1 appl topical BID 2 weeks diclofenac sodium 3% 1 appl topical BID ferrous sulfate (Feosol) 325 mg PO DAILY fluticasone propion-salmeterol 250-50 mcg/dose (Wixela Inhub) 1 ea inhalation BID furosemide 20 mg PO DAILY 90 days hydrocortisone 2.5% 1 appl topical BID PRN lisinopril 20 mg PO DAILY 90 days metoprolol succinate ER 50 mg PO DAILY 90 days mirabegron ER (Myrbetriq) 50 mg (2 x 25 mg) PO DAILY 90 days rosuvastatin 5 mg PO DAILY HPI Comments Details: 80-year-old female who is here for follow-up. She was seen in the hospital in November 2022 when she presented with acute pulmonary embolism. She was treated and discharged home. At the time she had echocardiography performed [facility] showed [id number] pericardial effusion and mild LV dysfunction. She was started on guideline directed medical therapy. She was seen in the office by our nurse practitioners. She has done well since then. No chest pain or shortness of breath. She had repeat echocardiography performed few days ago which is showing normal LV function. She continues to have a [id number] pericardial effusion. His November 2022 she had a CTA of the chest to diagnosed pulmonary embolism which did not show any lung mass or concern for cancer. She also had a normal TSH level before that. Echocardiography in November 2023 has shown small pericardial effusion. She has been taken off the anticoagulation by Hematology. She is denying any significant shortness of breath. She has back pain and arthritis which limits her mobility and she can not do significant activity due to that. No chest pains reported. 03/06/2025: She is here for follow-up. Echocardiography in November has shown small pericardial effusion which is similar to echocardiography from November 2023. She does not have any significant symptoms. She did have some orthostasis episode and fell and hit her neck. This happened while she was bending forward trying to pick something. She does not hydrate herself. 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 Cognitive needs: No Hearing needs: No Vision needs: No Review of Systems Const Denies chills, Denies fatigue, Denies fever(s), Denies frequent falls, Denies weakness, Denies weight gain and Denies weight loss ENT Denies dizziness Card Denies chest pain, Denies leg edema, Denies lightheadedness, Denies palpitations, Denies dyspnea and Denies dyspnea on exertion Resp Denies cough, Denies dyspnea and Denies dyspnea on exertion GI Denies hematochezia Musc Denies abnormal gait, Denies muscle weakness, Denies numbness, Denies radiating pain into limb and Denies tingling Neuro Denies abnormal gait, Denies dizziness, Denies frequent falls, Denies numbness, Denies tingling and Denies weakness Endo Denies fatigue and Denies palpitations Physical Exam Vital Signs: Last Vital Signs Pulse 61 03/06/25 13:34 BP 140/72 H 03/06/25 13:34 BMI result Body Mass Index 43.2 GENERAL APPEARANCE: in no acute distress, pleasant. NECK: no carotid bruit, no jugular venous distention. SKIN: no suspicious lesions, warm and dry. HEART: no murmurs, regular rate and rhythm. LUNGS: clear to auscultation bilaterally. ABDOMEN: soft, nontender. EXTREMITIES: no edema. PERIPHERAL PULSES: equal. NEUROLOGIC: No gross deficits, AAO X 3 Assessment & Plan Assessment & Plan (1) HTN (hypertension): Code(s): I10 - Essential (primary) hypertension Category: Medical (2) Pericardial effusion: Code(s): I31.39 - Other pericardial effusion (noninflammatory) Category: Medical Plan Pleasant 80 year female who is here for follow-up. She has background history of hypertension and small pericardial effusion. She had orthostasis episode recently and fell. I have advised her to keep herself well hydrated. The daughter is saying that she does not drink any water. If she has ongoing orthostasis then we may have to stop the Lasix. So far there was just 1 episode. She has a small pericardial effusion by echocardiography which is unchanged from 1 year ago. I think she is stable and can see us back in 1 year. We will consider repeating echocardiography at that stage if needed. Thank you for allowing me to participate in the care of your patient. Please feel free to contact me if you have any questions. Coding Level of Care Code Est Pt Level 4 (27718) Diagnoses HTN (hypertension) I10 Pericardial effusion I31.39
[2025-03-06 13:34] VITALS: BP 140/72; PULSE 61; BMI 43.2
== END 2025-03-06 14:17 | disposition home or self-care (01) ==
LOC: HO.HCS 13:03
PROVIDERS: PCP Nurse Practitioner Family; Visit Provider Internal Medicine Cardiovascular Disease
DX: I10 Essential (primary) hypertension (principal); I31.39 Other pericardial effusion (noninflammatory)
CPT/HCPCS: 99214

== ENCOUNTER → 2025-03-06 13:02 | Outpatient (BNVA) | payer MEDICARE, SELFPAY | PROVIDERS: PCP Nurse Practitioner Family; Visit Provider Internal Medicine Cardiovascular Disease | DX: I10 Essential (primary) hypertension (principal); I31.39 Other pericardial effusion (noninflammatory) | CPT/HCPCS: 99212 ==